=== PATIENT | male | born 1955 | race Caucasian/White ===

== ENCOUNTER → 2016-12-11 | Outpatient (CLI) | payer MEDICARE, MEDICAID ==
--- NOTE | 2016-12-11 11:05 | CR ---
EXAMINATION: Small bowel follow-through HISTORY: Abnormal findings COMPARISON: CT dated 10/12/2016 TECHNIQUE: A standard small bowel follow-through was performed. FINDINGS: The visualized small bowel appears normal in caliber without a definite filling defect or stricture. The fold pattern appears normal. The transit time is normal at 1 hour and 15 minutes. The terminal ileum is not optimally characterized however appears normal in caliber. IMPRESSION: Grossly unremarkable small bowel follow-through.
== END ==
LOC: MW.DI 08:16
PROVIDERS: ATTEND Nurse Practitioner Family
DX: R93.3 Abnormal findings on diagnostic imaging of other parts of digestive tract (principal); K52.9 Noninfective gastroenteritis and colitis, unspecified
CPT/HCPCS: 74250; 74250-26

== ENCOUNTER 2017-01-07 09:54 | Emergency (ER) | payer MEDICARE, MEDICAID ==
--- NOTE | 2017-01-07 10:25 | EDM.PDOC ---
ED HPI GENERAL MEDICAL PROBLEM - General Chief Complaint: Lower Extremity Injury/Pain Stated Complaint: LEFT LEG Time Seen by Provider: 01/07/17 10:10 Source of Information: Reports: Patient, Other (caregiver) History Limitations: Reports: Altered Mental Status, Other (cognitive delay) - History of Present Illness INITIAL COMMENTS - FREE TEXT/NARRATIVE: HISTORY AND PHYSICAL: History of present illness: [Patient is brought to the emergency room by his caregiver. Patient lives in a retirement and is developmentally delayed. His caregiver reports that he fell last evening bumping his head on a cupboard. He had no loss of consciousness and immediately went to bed after the incident. He had no evidence of injuries or complaints of pain at that time. He woke up this morning complaining of left ankle pain. He continues to deny any pain to any other areas. Caregiver noticed swelling and bruising. Review of systems: As per history of present illness and below otherwise all systems reviewed and negative. Past medical history: As per history of present illness and as reviewed below otherwise noncontributory. Surgical history: As per history of present illness and as reviewed below otherwise noncontributory. Social history: No reported history of drug or alcohol abuse. Family history: As per history of present illness and as reviewed below otherwise noncontributory. Physical exam: HEENT: Atraumatic, normocephalic. mucous membranes moist. Neck: No tenderness with palpation over C-spine. Negative axial load. Lungs: Clear to auscultation, breath sounds equal bilaterally. Heart: S1S2, regular rate and rhythm. Abdomen: Soft, nondistended, nontender. Extremities: L ankle is swollen laterally and medially. Mild ecchymosis to lateral aspect. NO erythema or wounds. negative for cords or calf pain. Neurovascular unremarkable. Toes are warm dry pink intact. Neuro: Awake, alert, oriented. Motor and sensory unremarkable throughout. Exam nonfocal. Diagnostics: [Left ankle x-ray CT head and C-spine] Impression: [distal L tibial fracture] Plan: [CT of the head and C-spine are normal. Radiologist notes, There is a subtle linear lucency noted over the anterior inferior aspect of the distal left tibia which may reflect the presence of a small fracture. This is certainly consistent with patient's presentation today. This is reviewed with Dr. Andrews. Discussed with the caregiver that this facility does not have an orthopedist available until January 11. She is given the option of transfer to [facility] in [place] for orthopedist consultation or having a splint placed in the emergency room today with close followup with orthopedist later this week. Caregiver requests that a splint be placed today and patient be scheduled for a followup. Short leg posterior splint applied to L lower leg. All of care givers questions are answered and concerns are addressed.] Definitive disposition and diagnosis as appropriate pending reevaluation and review of above. - Related Data Allergies Allergy/AdvReac Type Severity Reaction Status Date / Time haloperidol Allergy Cannot Verified 01/07/17 10:14 Remember thioridazine Allergy Cannot Verified 01/07/17 10:14 Remember Home Meds: Home Meds Calcium Carb & Citrate/Vit D3 [Calcium + Vitamin D3 Caplet] 2 tab PO BID [History] Gabapentin [Neurontin] 900 mg PO TID 04/21/14 [History] Fenofibric Acid (Choline) [Trilipix] 145 mg PO DAILY 08/10/15 [History] Lisinopril 5 mg PO DAILY 08/10/15 [History] Polyethylene Glycol 3350 17 gram PO DAILY 08/10/15 [History] Testosterone Cypionate [Depo-Testosterone] 1 injection SQ ASDIRECTED 08/10/15 [ History] carBAMazepine [TEGretol XR] 300 mg PO TID 08/10/15 [History] Divalproex Sodium [Depakote ER] 750 mg PO BID 10/10/16 [History] Ciprofloxacin [IJP: Ciprofloxacin HCl] 500 mg PO BID #14 tab 10/13/16 [Rx] metroNIDAZOLE [Flagyl] 500 mg PO Q8H #21 tablet 10/13/16 [Rx] Past Medical History HEENT History: Reports: None Cardiovascular History: Reports: Hypertension Respiratory History: Reports: None Gastrointestinal History: Reports: Chronic Constipation, GERD Other Gastrointestinal History: Heartburn/GERD-controlled Genitourinary History: Reports: None Musculoskeletal History: Reports: Fracture Other Musculoskeletal History: hx: Fracture foot, ankle, shoulder, any hardware denied by soloist dancer Neurological History: Reports: Seizure, Other (See Below) Other Neuro History: No reported seizures since . 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 Other Psychiatric History: mental retardation/mood disorder Endocrine/Metabolic History: Reports: Obesity/BMI 30+ Hematologic History: Reports: None Immunologic History: Reports: None Oncologic (Cancer) History: Reports: None Dermatologic History: Reports: None - Infectious Disease History Infectious Disease History: Reports: None - Past Surgical History HEENT Surgical History: Reports: None Cardiovascular Surgical History: Reports: None GI Surgical History: Reports: None Male Surgical History: Reports: None Endocrine Surgical History: Reports: None Neurological Surgical History: Reports: None Musculoskeletal Surgical History: Reports: None Oncologic Surgical History: Reports: None Dermatological Surgical History: Reports: None Social & Family History - Family History Family Medical History: Noncontributory HEENT: Reports: None Cardiac: Reports: None Respiratory: Reports: None GI: Reports: None : Reports: None OBGYN: Reports: None Musculoskeletal: Reports: None Neurological: Reports: None Psychiatric: Reports: None Endocrine/Metabolic: Reports: None Hematologic: Reports: None Immunologic: Reports: None Dermatologic: Reports: None Oncologic: Reports: None - Tobacco Use Smoking Status *Q: Never Smoker Second Hand Smoke Exposure: No - Caffeine Use Caffeine Use: Reports: Coffee - Alcohol Use Days Per Week of Alcohol Use: 0 - Recreational Drug Use Recreational Drug Use: No Drug Use in Last 12 Months: No Review of Systems - Review of Systems Review Of Systems: ROS reveals no pertinent complaints other than HPI. Trauma Exam - Physical Exam Exam: See Below Course - Vital Signs Last Recorded V/S: Last Vital Signs Temp 97.0 F 01/07/17 10:15 Pulse 72 01/07/17 10:15 Resp 16 01/07/17 10:15 BP 160/90 H 01/07/17 10:15 Pulse Ox 93 L 01/07/17 10:15 - Orders/Labs/Meds Orders: Active Orders 24 hr Category Date Time Status Ankle Min 3V Lt [CR] Stat Exams 01/07/17 10:14 Taken Cervical Spine wo Cont [CT] Stat Exams 01/07/17 10:16 Taken Foot 2V Lt [CR] Stat Exams 01/07/17 10:14 Taken Head wo Cont [CT] Stat Exams 01/07/17 10:16 Taken Departure - Departure Time of Disposition: 12:15 Disposition: Home, Self-Care 01 Condition: good Clinical Impression: Fracture of lower end of left tibia Qualifiers: Encounter type: initial encounter Fracture type: closed Fracture morphology: unspecified fracture morphology Qualified Code(s): S82.302A - Unspecified fracture of lower end of left tibia, initial encounter for closed fracture - Discharge Information Referrals: PCP,None [Primary Care Provider] - Forms: ED Department Discharge Additional Instructions: The following information is given to patients seen in the emergency department who are being discharged to home. This information is to outline your options for follow-up care. We provide all patients seen in our emergency department with a follow-up referral. The need for follow-up, as well as the timing and circumstances, are variable depending upon the specifics of your emergency department visit. If you don't have a primary care physician on staff, we will provide you with a referral. We always advise you to contact your personal physician following an emergency department visit to inform them of the circumstance of the visit and for follow-up with them and/or the need for any referrals to a consulting specialist. The emergency department will also refer you to a specialist when appropriate. This referral assures that you have the opportunity for follow-up care with a specialist. All of these measure are taken in an effort to provide you with optimal care, which includes your follow-up. Under all circumstances we always encourage you to contact your private physician who remains a resource for coordinating your care. When calling for follow-up care, please make the office aware that this follow-up is from your recent emergency room visit. If for any reason you are refused follow-up, please contact the [facility] emergency department at and asked to speak to the emergency department charge nurse. [facility] [address], [address] [place] [address] Call the above listed phone number to get scheduled for an orthopedic consult for January 11. Tylenol or ibuprofen for discomfort. Return to ER as needed as discussed - My Orders Last 24 Hours: My Active Orders 01/07/17 10:14 Ankle Min 3V Lt [CR] Stat Foot 2V Lt [CR] Stat 01/07/17 10:16 Cervical Spine wo Cont [CT] Stat Head wo Cont [CT] Stat - Assessment/Plan Last 24 Hours: My Active Orders 01/07/17 10:14 Ankle Min 3V Lt [CR] Stat Foot 2V Lt [CR] Stat 01/07/17 10:16 Cervical Spine wo Cont [CT] Stat Head wo Cont [CT] Stat
[2017-01-07 12:22] VITALS: BP 158/78
--- NOTE | 2017-01-08 17:32 | CR ---
EXAM DATE: 01/07/17 PATIENT'S AGE: 61 Patient: BERTHA SRIVASTAVA Facility: [facility], [place] Site . Site : 1955 Study: XRay Extremity Left Ankle [id number]/14/2017 10:40:58 AM Ordering Physician: Doctor Quezada Final Report: HISTORY: Fall, injury. TECHNIQUE: Three views of the left ankle. Two views of the left foot. COMPARISON: 10/10/2016. FINDINGS: Left ankle: As seen on the lateral film, there is linear lucency involving the anterior-inferior aspect of the distal tibia which appears new from the prior radiographs. This may indicate a subtle small fracture. Distal tibia appears otherwise intact. No distal fibular fracture. No widening of the ankle mortise. - Left foot: Narrowing of several of the interphalangeal joints. Mild chronic deformity of the distal aspects of the middle phalanges of the 3rd 4th digits is unchanged. No acute fracture involving the forefoot or midfoot. No radiopaque foreign body or abnormal soft tissue gas. IMPRESSION: 1. Subtle linear lucency involving the anterior-inferior aspect of the distal left tibia which may reflect the presence of a small fracture. Correlation with site of patient`s pain and mechanism of injury is recommended. 2. No other potential fracture. 3. No widening of the ankle mortise. 4. Degenerative changes. Dictated by Herrera Pelletier MD @ 01/07/2017 10:53:10 AM Dictated by: Herrera Pelletier MD @ 01/07/2017 10:53:19 (Electronic Signature) Report Signed by Proxy. BINU
--- NOTE | 2017-01-08 17:33 | CR ---
EXAM DATE: 01/07/17 PATIENT'S AGE: 61 Patient: BERTHA SRIVASTAVA Facility: [place], [place] Site . Site : 1955 Study: XRay Extremity Left [id number]/14/2017 10:41:32 AM Ordering Physician: Doctor Quezada Final Report: HISTORY: Fall, injury. TECHNIQUE: Three views of the left ankle. Two views of the left foot. COMPARISON: 10/10/2016. FINDINGS: Left ankle: As seen on the lateral film, there is linear lucency involving the anterior-inferior aspect of the distal tibia which appears new from the prior radiographs. This may indicate a subtle small fracture. Distal tibia appears otherwise intact. No distal fibular fracture. No widening of the ankle mortise. - Left foot: Narrowing of several of the interphalangeal joints. Mild chronic deformity of the distal aspects of the middle phalanges of the 3rd 4th digits is unchanged. No acute fracture involving the forefoot or midfoot. No radiopaque foreign body or abnormal soft tissue gas. IMPRESSION: 1. Subtle linear lucency involving the anterior-inferior aspect of the distal left tibia which may reflect the presence of a small fracture. Correlation with site of patient`s pain and mechanism of injury is recommended. 2. No other potential fracture. 3. No widening of the ankle mortise. 4. Degenerative changes. Dictated by Herrera Pelletier MD @ 01/07/2017 10:53:10 AM Dictated by: Herrera Pelletier MD @ 01/07/2017 10:53:33 (Electronic Signature) Report Signed by Proxy. BINU
--- NOTE | 2017-01-08 17:34 | CT ---
EXAM DATE: 01/07/17 PATIENT'S AGE: 61 Patient: BERTHA SRIVASTAVA Facility: [place], [place] Site . Site : 1955 Study: CT Spine Cervical [id number]/14/2017 10:59:24 AM Ordering Physician: Doctor Quezada Final Report: Indication: Fall. Comparison: None. Technique: Axial CT of the cervical spine. Findings: Straightening of the normal cervical lordosis which may be due to muscle spasm or patient positioning. Otherwise, normal vertebral body and facet alignment. No acute fractures. No vertebral body loss of height. No spondylolisthesis. No prevertebral soft tissue swelling. No fractures of the visualized upper ribs. Cervical spondylosis with multilevel disc degeneration and facet arthropathy. C2-3: No spinal canal or neural foraminal narrowing. C3-4: No spinal canal narrowing. Uncovertebral facet joint hypertrophy results in mild right and moderate left neural foraminal narrowing. C4-5: No spinal canal narrowing. Mild narrowing of the right neural foramen. No narrowing of the left neural foramen. C5-6: No narrowing of spinal canal. Moderate right neural foraminal narrowing. No narrowing of the left neural foramen. C6-7: Disc degeneration. No spinal canal or neural foramina narrowing. C7-T1: No spinal canal narrowing. Mild narrowing of bilateral foramina. No spinal canal or neural foraminal narrowing in the visualized upper thoracic spine. Lung apices are clear. Impression: 1. Normal alignment. No acute fractures. No spondylolisthesis. 2. No prevertebral soft tissue swelling. 3. Cervical spondylosis 4. No severe spinal canal or neural foraminal narrowing. Dictated by Joel Mathur MD @ Jan 07 2017 11:12AM (Electronic Signature) Report Signed by Proxy. [facility]ITAL[facility]y
--- NOTE | 2017-01-08 17:35 | CT ---
EXAM DATE: 01/07/17 PATIENT'S AGE: 61 Patient: BERTHA SRIVASTAVA Facility: [place], [place] Site . Site : 1955 Study: CT Head [id number]/14/2017 10:59:39 AM Ordering Physician: Doctor Quezada Final Report: Indication: Fall. Comparison: None. Technique: [place] CT of the head without contrast. Findings: Mild generalized cerebral volume loss. No acute intracranial hemorrhage, acute infarct, mass effect, or fracture. Low-attenuation change within the white matter consistent with chronic deep white matter small ischemic changes. Old lacunar infarct right cerebellum. No midline shift. No abnormal ventricular dilatation. Normal calvarium and skull base. Visualized paranasal sinuses and mastoid air cells are clear. The bilateral orbits are unremarkable. Impression: 1. No acute intracranial abnormality. 2. Mild generalized volume loss. Chronic deep white matter small vessel ischemic changes. Old lacunar infarct right cerebellum. Dictated by Joel Mathur MD @ Jan 07 2017 11:10AM (Electronic Signature) Report Signed by Proxy. [facility]
== END 2017-01-07 12:18 | disposition home or self-care (01) ==
LOC: MW.ED 09:54
DX: S82.302A Unspecified fracture of lower end of left tibia, initial encounter for closed fracture (principal); K21.9 Gastro-esophageal reflux disease without esophagitis; I10 Essential (primary) hypertension; E66.9 Obesity, unspecified; F39 Unspecified mood [affective] disorder; Z88.6 Allergy status to analgesic agent; Z79.899 Other long term (current) drug therapy; Z68.31 Body mass index [BMI] 31.0-31.9, adult; W20.8XXA Other cause of strike by thrown, projected or falling object, initial encounter; M47.9 Spondylosis, unspecified
CPT/HCPCS: 70450; 70450-26; 72125; 72125-26; 73610-26-LT; 73610-LT; 73620-26-LT; 73620-LT; 99284; 99284-25

== ENCOUNTER → 2017-01-09 | Outpatient (CLI) | payer MEDICARE, MEDICAID | LOC: MW.CHORTHO 08:00 | PROVIDERS: ATTEND Physician Assistant | DX: S93.402A Sprain of unspecified ligament of left ankle, initial encounter (principal); W19.XXXA Unspecified fall, initial encounter | CPT/HCPCS: G0463 ==

== ENCOUNTER 2018-01-24 14:44 | Emergency (ER) | payer MEDICARE, MEDICAID ==
--- NOTE | 2018-01-24 15:15 | EDM.PDOC ---
ED HPI GENERAL MEDICAL PROBLEM - General Chief Complaint: Lower Extremity Injury/Pain Stated Complaint: RIGHT FOOT PAIN Time Seen by Provider: 01/24/18 15:02 Source of Information: Reports: Patient History Limitations: Reports: No Limitations - History of Present Illness INITIAL COMMENTS - FREE TEXT/NARRATIVE: HISTORY AND PHYSICAL: History of present illness: Patient is a 62-year-old male who is brought to the emergency room by caregiver with complaints and concerns of some bruising and swelling to the right foot. Patient is developmentally delayed and does live in a long-term and relies on care of other people. Today while the sales representative raw fibers was getting the patient ready for work the patient stated he was having right foot pain. He denies any falls, trauma or injury but does have some bruising and swelling noted. There facility does have a nurse who reviewed the patient's extremity and encourage them to have him seen in the emergency room. Patient is ambulatory without difficulty. Has a known fracture of the foot in 2011. Review of systems: As per history of present illness and below otherwise all systems reviewed and negative. Past medical history: As per history of present illness and as reviewed below otherwise noncontributory. Surgical history: As per history of present illness and as reviewed below otherwise noncontributory. Social history: No reported history of drug or alcohol abuse. Family history: As per history of present illness and as reviewed below otherwise noncontributory. Physical exam: General: Developed and well-nourished 62-year-old male. Alert and appropriate for self, developmental delay. Nontoxic appearing and in no acute distress. HEENT: Atraumatic, normocephalic, pupils equal and reactive bilaterally, negative for conjunctival pallor or scleral icterus, mucous membranes moist, throat clear, neck supple, nontender, trachea midline. No drooling or trismus noted. No meningeal signs Lungs: Clear to auscultation, breath sounds equal bilaterally, chest nontender. Heart: S1S2, regular rate and rhythm without overt murmur Abdomen: Soft, nondistended, nontender. Negative for masses or hepatosplenomegaly. Negative for costovertebral tenderness. Pelvis: Stable nontender. Genitourinary: Deferred. Rectal: Deferred. Skin: Noted to the base of fourth and fifth toe on right foot. Mild soft tissue swelling at the lateral right foot. Good flexion and extension of the ankle. Full sensation to toes. Cap refill less than 3 seconds. Strong pedal pulses bilat. Otherwise skin is intact, warm, dry. No lesions or rashes noted. Extremities: Atraumatic, moves all extremities per self, negative for cords or calf pain. Neurovascular unremarkable. Neuro: Awake, alert, oriented. Cranial nerves II through XII unremarkable. Cerebellum unremarkable. Motor and sensory unremarkable throughout. Exam nonfocal. Notes: X-ray shows significant osteopenia for the patient's age without acute fracture. This was shared with the police specialist at the bedside. Caregiver believes that the patient will tolerate a Franklyn wrap. We discussed following up with the trailer mechanic in the next couple days for further evaluation and management. Both patient and caregiver deny any further questions at this time. Diagnostics: X-ray Therapeutics: Franklyn wrap Impression: Right foot contusion Plan: 1. Rest, ice, elevate the affected extremity. Use the Franklyn wrap for the next 2-3 days. 2. Tylenol and/or ibuprofen as needed for pain management. 3. Follow-up with the trailer mechanic in the next couple days. Return to the ED as needed and as discussed. Definitive disposition and diagnosis as appropriate pending reevaluation and review of above. Onset: Today Location: Reports: Lower Extremity, Right - Related Data Allergies Allergy/AdvReac Type Severity Reaction Status Date / Time haloperidol Allergy Cannot Verified 01/24/18 16:13 Remember thioridazine Allergy Cannot Verified 01/24/18 16:13 Remember Home Meds: Home Meds Calcium Carb & Citrate/Vit D3 [Calcium + Vitamin D3 Caplet] 2 tab PO BID [History] Gabapentin [Neurontin] 900 mg PO TID 04/21/14 [History] Lisinopril 5 mg PO DAILY 08/10/15 [History] Polyethylene Glycol 3350 17 gram PO DAILY 08/10/15 [History] Testosterone Cypionate [Depo-Testosterone] 1 injection SQ ASDIRECTED 08/10/15 [ History] carBAMazepine [TEGretol XR] 300 mg PO TID 08/10/15 [History] Divalproex Sodium [Depakote ER] 750 mg PO BID 10/10/16 [History] Fenofibrate Nanocrystallized [Fenofibrate] 145 mg PO DAILY 01/24/18 [History] Metoprolol Succinate 50 mg PO DAILY 01/24/18 [History] Past Medical History HEENT History: Reports: None Cardiovascular History: Reports: Hypertension Respiratory History: Reports: None Gastrointestinal History: Reports: Chronic Constipation, GERD Other Gastrointestinal History: Heartburn/GERD-controlled Genitourinary History: Reports: None Musculoskeletal History: Reports: Fracture Other Musculoskeletal History: hx: Fracture foot, ankle, shoulder, any hardware denied by proof technician helper Neurological History: Reports: Seizure, Other (See Below) Other Neuro History: No reported seizures since . 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 Other Psychiatric History: mental retardation/mood disorder Endocrine/Metabolic History: Reports: Obesity/BMI 30+ Hematologic History: Reports: None Immunologic History: Reports: None Oncologic (Cancer) History: Reports: None Dermatologic History: Reports: None - Infectious Disease History Infectious Disease History: Reports: None - Past Surgical History HEENT Surgical History: Reports: None Cardiovascular Surgical History: Reports: None GI Surgical History: Reports: None Male Surgical History: Reports: None Endocrine Surgical History: Reports: None Neurological Surgical History: Reports: None Musculoskeletal Surgical History: Reports: None Oncologic Surgical History: Reports: None Dermatological Surgical History: Reports: None Social & Family History - Family History Family Medical History: Noncontributory HEENT: Reports: None Cardiac: Reports: None Respiratory: Reports: None GI: Reports: None : Reports: None OBGYN: Reports: None Musculoskeletal: Reports: None Neurological: Reports: None Psychiatric: Reports: None Endocrine/Metabolic: Reports: None Hematologic: Reports: None Immunologic: Reports: None Dermatologic: Reports: None Oncologic: Reports: None - Caffeine Use Caffeine Use: Reports: Coffee Review of Systems - Review of Systems Review Of Systems: ROS reveals no pertinent complaints other than HPI. ED EXAM, GENERAL - Physical Exam Exam: See Below (see dictation) Course - Vital Signs Last Recorded V/S: Last Vital Signs Temp 97.4 F 01/24/18 15:12 Pulse 66 01/24/18 15:12 Resp 19 01/24/18 15:12 BP 125/66 01/24/18 15:12 Pulse Ox 100 01/24/18 15:12 Departure - Departure Time of Disposition: 16:33 Disposition: Home, Self-Care 01 Clinical Impression: Contusion of foot, right Qualifiers: Encounter type: initial encounter Qualified Code(s): S90.31XA - Contusion of right foot, initial encounter - Discharge Information Instructions: Foot Contusion, [id number] Referrals: Carlos Dangelo MD [Primary Care Provider] - Forms: ED Department Discharge Additional Instructions: The following information is given to patients seen in the emergency department who are being discharged to home. This information is to outline your options for follow-up care. We provide all patients seen in our emergency department with a follow-up referral. The need for follow-up, as well as the timing and circumstances, are variable depending upon the specifics of your emergency department visit. If you don't have a primary care physician on staff, we will provide you with a referral. We always advise you to contact your personal physician following an emergency department visit to inform them of the circumstance of the visit and for follow-up with them and/or the need for any referrals to a consulting specialist. The emergency department will also refer you to a specialist when appropriate. This referral assures that you have the opportunity for follow-up care with a specialist. All of these measure are taken in an effort to provide you with optimal care, which includes your follow-up. Under all circumstances we always encourage you to contact your private physician who remains a resource for coordinating your care. When calling for follow-up care, please make the office aware that this follow-up is from your recent emergency room visit. If for any reason you are refused follow-up, please contact the [facility] Emergency Department at and asked to speak to the emergency department charge nurse. [facility] [address] [place] [phone] [address] 1. Rest, ice, elevate the affected extremity. Use the Franklyn wrap for the next 2-3 days. 2. Tylenol and/or ibuprofen as needed for pain management. 3. Follow-up with the trailer mechanic in the next couple days. Return to the ED as needed and as discussed.
[2018-01-24 15:20] VITALS: BP 125/66
--- NOTE | 2018-01-24 15:47 | CR ---
Right foot Clinical history: Pain The bones are very osteopenic for a male patient of this age. There is no evidence of fracture. Minor arthritic changes of the distal interphalangeal joints are noted. Impression: Significant osteopenia for patient's age without acute fracture
== END 2018-01-24 17:14 | disposition home or self-care (01) ==
LOC: MW.ED 14:44
DX: S90.31XA Contusion of right foot, initial encounter (principal); I10 Essential (primary) hypertension; E66.9 Obesity, unspecified; Z88.8 Allergy status to other drugs, medicaments and biological substances; Z79.899 Other long term (current) drug therapy; X58.XXXA Exposure to other specified factors, initial encounter
CPT/HCPCS: 73620-26-RT; 73620-RT; 99283

== ENCOUNTER 2018-03-11 18:00 | Emergency (ER) | payer MEDICARE, MEDICAID ==
[2018-03-11] MEDS ORDERED: Octyl 2-Cyanoacrylate 1 Tube TOP ONE (18:21)
--- NOTE | 2018-03-11 18:31 | EDM.PDOC ---
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 He somehow got tripped up and hit his face on the corner of a chair. There was no loss of consciousness the staff heard it and saw him sitting on the floor with blood on his face and arm. Review of systems: As per history of present illness and below otherwise all systems reviewed and negative. Past medical history: As per history of present illness and as reviewed below otherwise noncontributory. Surgical history: As per history of present illness and as reviewed below otherwise noncontributory. Social history: No reported history of drug or alcohol abuse. Family history: As per history of present illness and as reviewed below otherwise noncontributory. Physical exam: General: Well developed, well nourished in NAD HEENT: Left upper eyelid laceration, normocephalic, pupils reactive, negative for conjunctival pallor or scleral icterus, mucous membranes moist, throat clear , neck supple, nontender, trachea midline. Lungs: Clear to auscultation, breath sounds equal bilaterally, chest nontender. Heart: S1S2, regular, negative for clicks, rubs, or JVD. Abdomen: Soft, nondistended, nontender. Negative for masses or hepatosplenomegaly. Negative for costovertebral tenderness. Pelvis: Stable nontender. Genitourinary: Deferred. Rectal: Deferred. Extremities: Atraumatic, negative for cords or calf pain. Neurovascular unremarkable. Neuro: Awake, alert, oriented. Cranial nerves II through XII unremarkable. Cerebellum unremarkable. Motor and sensory unremarkable throughout. Exam nonfocal. Diagnostics: [] Therapeutics: [] Impression: [] Plan: [] Definitive disposition and diagnosis as appropriate pending reevaluation and review of above. - Related Data Allergies Allergy/AdvReac Type Severity Reaction Status Date / Time haloperidol Allergy Cannot Verified 03/11/18 18:14 Remember thioridazine Allergy Cannot Verified 03/11/18 18:14 Remember Home Meds: Home Meds Calcium Carb & Citrate/Vit D3 [Calcium + Vitamin D3 Caplet] 2 tab PO BID [History] Gabapentin [Neurontin] 900 mg PO TID 04/21/14 [History] Lisinopril 5 mg PO DAILY 08/10/15 [History] Polyethylene Glycol 3350 17 gram PO DAILY 08/10/15 [History] Testosterone Cypionate [Depo-Testosterone] 1 injection SQ ASDIRECTED 08/10/15 [ History] carBAMazepine [TEGretol XR] 300 mg PO TID 08/10/15 [History] Divalproex Sodium [Depakote ER] 750 mg PO BID 10/10/16 [History] Fenofibrate Nanocrystallized [Fenofibrate] 145 mg PO DAILY 01/24/18 [History] Metoprolol Succinate 50 mg PO DAILY 01/24/18 [History] Past Medical History HEENT History: Reports: None Cardiovascular History: Reports: Hypertension Respiratory History: Reports: None Gastrointestinal History: Reports: Chronic Constipation, GERD Other Gastrointestinal History: Heartburn/GERD-controlled Genitourinary History: Reports: None Musculoskeletal History: Reports: Fracture Other Musculoskeletal History: hx: Fracture foot, ankle, shoulder, any hardware denied by group teacher Neurological History: Reports: Seizure, Other (See Below) Other Neuro History: No reported seizures since . 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 Other Psychiatric History: mental retardation/mood disorder Endocrine/Metabolic History: Reports: Obesity/BMI 30+ Hematologic History: Reports: None Immunologic History: Reports: None Oncologic (Cancer) History: Reports: None Dermatologic History: Reports: None - Infectious Disease History Infectious Disease History: Reports: None - Past Surgical History HEENT Surgical History: Reports: None Cardiovascular Surgical History: Reports: None GI Surgical History: Reports: None Male Surgical History: Reports: None Endocrine Surgical History: Reports: None Neurological Surgical History: Reports: None Musculoskeletal Surgical History: Reports: None Oncologic Surgical History: Reports: None Dermatological Surgical History: Reports: None Social & Family History - Family History Family Medical History: Noncontributory HEENT: Reports: None Cardiac: Reports: None Respiratory: Reports: None GI: Reports: None : Reports: None OBGYN: Reports: None Musculoskeletal: Reports: None Neurological: Reports: None Psychiatric: Reports: None Endocrine/Metabolic: Reports: None Hematologic: Reports: None Immunologic: Reports: None Dermatologic: Reports: None Oncologic: Reports: None - Tobacco Use Smoking Status *Q: Never Smoker - Caffeine Use Caffeine Use: Reports: None - Recreational Drug Use Recreational Drug Use: No ED ROS GENERAL - Review of Systems Review Of Systems: ROS reveals no pertinent complaints other than HPI. ED EXAM, SKIN/RASH Exam: See Below (See history of present illness) ED SKIN PROCEDURES - Laceration/Wound Repair Left Other Appearance: Subcutaneous Distal NVT: Neuro & Vascular Intact Skin Prep: Saline Closed with: Dermabond Drain Placement: No Sterile Dressing Applied: None Tetanus Status Addressed: Yes Complications: No Course - Vital Signs Last Recorded V/S: Last Vital Signs Temp 97.2 F 03/11/18 18:12 Pulse 54 L 03/11/18 18:12 Resp 16 03/11/18 18:12 BP 132/72 03/11/18 18:12 Pulse Ox 98 03/11/18 18:12 Departure - Departure Time of Disposition: 18:31 Disposition: Home, Self-Care 01 Condition: Good Clinical Impression: Laceration of eyebrow Qualifiers: Encounter type: initial encounter Laterality: left Qualified Code(s): S01.112A - Laceration without foreign body of left eyelid and periocular area, initial encounter Clinical Impression: (Ruled Out): Left upper eyelid ulcer - Discharge Information *PRESCRIPTION DRUG MONITORING PROGRAM REVIEWED*: Not Applicable *COPY OF PRESCRIPTION DRUG MONITORING REPORT IN PATIENT NILA: Not Applicable Referrals: Eduardo Valdivia MD [Primary Care Provider] - Additional Instructions: The following information is given to patients seen in the emergency department who are being discharged to home. This information is to outline your options for follow-up care. We provide all patients seen in our emergency department with a follow-up referral. The need for follow-up, as well as the timing and circumstances, are variable depending upon the specifics of your emergency department visit. If you don't have a primary care physician on staff, we will provide you with a referral. We always advise you to contact your personal physician following an emergency department visit to inform them of the circumstance of the visit and for follow-up with them and/or the need for any referrals to a consulting specialist. The emergency department will also refer you to a specialist when appropriate. This referral assures that you have the opportunity for follow-up care with a specialist. All of these measure are taken in an effort to provide you with optimal care, which includes your follow-up. Under all circumstances we always encourage you to contact your private physician who remains a resource for coordinating your care. When calling for follow-up care, please make the office aware that this follow-up is from your recent emergency room visit. If for any reason you are refused follow-up, please contact the [facility] Emergency Department at and asked to speak to the emergency department charge nurse. [facility] [address] [place] [phone]
[2018-03-11 18:44] VITALS: BP 116/80
== END 2018-03-11 18:39 | disposition home or self-care (01) ==
LOC: MW.ED 18:00
DX: S01.112A Laceration without foreign body of left eyelid and periocular area, initial encounter (principal); I10 Essential (primary) hypertension; Z88.5 Allergy status to narcotic agent; Z88.8 Allergy status to other drugs, medicaments and biological substances; Z79.899 Other long term (current) drug therapy; W18.49XA Other slipping, tripping and stumbling without falling, initial encounter; Y92.009 Unspecified place in unspecified non-institutional (private) residence as the place of occurrence of the external cause
CPT/HCPCS: 12011; 99282; A9270

== ENCOUNTER 2019-05-17 00:21 | Emergency (ER) | payer MEDICARE, MEDICAID ==
[2019-05-17] MEDS ORDERED: Sodium Chloride 0.9% 10 ML Syringe FLUSH PRN (00:33)
[2019-05-17] MEDS ORDERED: Sodium Chloride 0.9% 2.5 ML Syringe FLUSH PRN (00:33)
--- NOTE | 2019-05-17 00:41 | EDM.PDOC ---
ED HPI GENERAL MEDICAL PROBLEM - General Chief Complaint: General Stated Complaint: WEAKNESS Time Seen by Provider: 05/17/19 00:24 - History of Present Illness INITIAL COMMENTS - FREE TEXT/NARRATIVE: HISTORY AND PHYSICAL: History of present illness: The patient is a 64-year-old male who lives at the [facility] and has a history of hypertension and MR and is on several different medications and has a history of using a walker for ambulation since the beginning of the year and presents via EMS for progressive increased weakness and tonight inability to transfer. According to the caregiver at bedside over the last multiple months the patient has had progressive gradual weakness and having more difficulty with movement ambulation and transferring but this evening he was trying to go to the bathroom and he had increased difficulty and the staff had to lift him and move him physically as he was unable. Caregiver at bedside says that he saw his regular physician in [place] earlier today for a follow-up and was able to get in and out of the car with assistance and go to the appointment and tonight seemed to be a progressive change. He's had no recent falls and had no fall this evening with tonight's events and has had no complaints of head neck or back pain fevers chills chest pain shortness of breath abdominal pain vomiting or diarrhea. He denies any complaints in the ED but he doesn't answer many questions. According to the caregiver his Depakote was adjusted and lowered in March but all of his other medications have been constant since the beginning of the summer. He has been eating and drinking normally. The precipitating factor with coming in this evening was the increased up disability to be able to transfer and to only use his walker without any other assistance. The patient denies any extremity pain and says that he has no complaints when I try to ask him questions or he just doesn't answer the questions. The caregiver says he has not been complaining of anything at home. Review of systems: As per history of present illness and below otherwise all systems reviewed and negative. Past medical history: As per history of present illness and as reviewed below otherwise noncontributory. Surgical history: As per history of present illness and as reviewed below otherwise noncontributory. Social history: No reported history of drug or alcohol abuse. Family history: As per history of present illness and as reviewed below otherwise noncontributory. Physical exam: General: Well-developed well-nourished man who is nontoxic and vital signs have been reviewed by me. HEENT: Atraumatic, normocephalic, pupils reactive, negative for conjunctival pallor or scleral icterus, mucous membranes moist, throat clear, neck supple, nontender, trachea midline. Lungs: Clear to auscultation, breath sounds equal bilaterally, chest nontender. There is poor effort on this exam but no worker breathing wheezing or stridor Heart: S1S2, regular, negative for clicks, rubs, or JVD. Abdomen: Soft, nondistended, nontender. Negative for masses or hepatosplenomegaly. Negative for costovertebral tenderness. Bowel sounds are normoactive Pelvis: Stable nontender. Genitourinary: Deferred. Rectal: Deferred. Extremities: Atraumatic and there are no palpable bony deformities or soft tissue swelling appreciated, negative for cords or calf pain. Neurovascular unremarkable. On my exam the patient has increased tone in lower extremities and when I attempt to passively range of motion his legs he resists me and keeps them in extension and once I am able to bend his knee and flexes hip and relax him I'm able to move them without deficits Neuro: Awake, alert, oriented. Cranial nerves II through XII unremarkable. Motor of the upper extremities is 4/5 and he is somewhat shaky when he holds his arms up and there is slight increase in tone of bilateral upper extremities but they are symmetrical, lower extremities have 2/5 actively but increased tone as described above with good strength and extension, sensory unremarkable throughout. Exam nonfocal. Back: There are no midline step-offs tenderness defects the thoracic or lumbar spine no posterior rib or posterior pelvis tenderness and no soft tissue injuries are appreciated Diagnostics: EKG CBC CMP CPK UA with reflex chest x-ray CT scan of the head Therapeutics: IV placement When I specifically show and asked the air give her about the increased tone in the lower extremities she says that that was noticed this evening and that he seemed to try to transfer and move his legs with a stiffened fashion We were able to get the patient up with assistance and walk him around. Initially was very stiff and was resistant to doing this but he was able to actually move himself on the bed and assist and get up and move around. I discussed with the caregiver at bedside that he really does need physical therapy for this significant deconditioning in order to keep him able to move around and use a walker. Impression: Generalized weakness acute on chronic, physical deconditioning Definitive disposition and diagnosis as appropriate pending reevaluation and review of above. - Related Data Allergies Allergy/AdvReac Type Severity Reaction Status Date / Time haloperidol Allergy Other Unverified 05/17/19 01:49 thioridazine Allergy Other Unverified 05/17/19 01:49 Home Meds: Home Meds Calcium Carb & Citrate/Vit D3 [Calcium + Vitamin D3 Caplet] 2 tab PO BID [History] Gabapentin [Neurontin] 900 mg PO TID 04/21/14 [History] Lisinopril 5 mg PO DAILY 08/10/15 [History] Polyethylene Glycol 3350 17 gram PO DAILY 08/10/15 [History] Testosterone Cypionate [Depo-Testosterone] 1 injection SQ ASDIRECTED 08/10/15 [ History] carBAMazepine [TEGretol XR] 300 mg PO TID 08/10/15 [History] Divalproex Sodium [Depakote ER] 750 mg PO BID 10/10/16 [History] Fenofibrate Nanocrystallized [Fenofibrate] 145 mg PO DAILY 01/24/18 [History] Metoprolol Succinate 50 mg PO DAILY 01/24/18 [History] Past Medical History HEENT History: Reports: None Cardiovascular History: Reports: Hypertension Respiratory History: Reports: None Gastrointestinal History: Reports: Chronic Constipation, GERD Other Gastrointestinal History: Heartburn/GERD-controlled Genitourinary History: Reports: None Musculoskeletal History: Reports: Fracture Other Musculoskeletal History: hx: Fracture foot, ankle, shoulder, any hardware denied by yard inspector Neurological History: Reports: Seizure, Other (See Below) Other Neuro History: No reported seizures since . 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 Other Psychiatric History: mental retardation/mood disorder Endocrine/Metabolic History: Reports: Obesity/BMI 30+ Hematologic History: Reports: None Immunologic History: Reports: None Oncologic (Cancer) History: Reports: None Dermatologic History: Reports: None - Infectious Disease History Infectious Disease History: Reports: None - Past Surgical History HEENT Surgical History: Reports: None Cardiovascular Surgical History: Reports: None GI Surgical History: Reports: None Male Surgical History: Reports: None Endocrine Surgical History: Reports: None Neurological Surgical History: Reports: None Musculoskeletal Surgical History: Reports: None Oncologic Surgical History: Reports: None Dermatological Surgical History: Reports: None Social & Family History - Family History Family Medical History: Noncontributory HEENT: Reports: None Cardiac: Reports: None Respiratory: Reports: None GI: Reports: None : Reports: None OBGYN: Reports: None Musculoskeletal: Reports: None Neurological: Reports: None Psychiatric: Reports: None Endocrine/Metabolic: Reports: None Hematologic: Reports: None Immunologic: Reports: None Dermatologic: Reports: None Oncologic: Reports: None - Caffeine Use Caffeine Use: Reports: None ED ROS GENERAL - Review of Systems Review Of Systems: ROS reveals no pertinent complaints other than HPI. ED EXAM, GENERAL - Physical Exam Exam: See Below (see dictation) Course - Vital Signs Last Recorded V/S: Last Vital Signs Temp 36.1 C 05/17/19 00:25 Pulse 54 L 05/17/19 02:05 Resp 17 05/17/19 02:05 BP 131/79 05/17/19 02:05 Pulse Ox 99 05/17/19 02:05 - Orders/Labs/Meds Orders: Active Orders 24 hr Category Date Time Status EKG Documentation Completion [RC] STAT Care 05/17/19 00:32 Active Sodium Chloride 0.9% [Saline Flush] Med 05/17/19 00:33 Active 10 ml FLUSH ASDIRECTED PRN Sodium Chloride 0.9% [Saline Flush] Med 05/17/19 00:33 Active 2.5 ml FLUSH ASDIRECTED PRN Saline Lock Insert [OM.PC] Stat Oth 05/17/19 00:32 Ordered Medication Orders Sodium Chloride (Saline Flush) 10 ml FLUSH ASDIRECTED PRN PRN Reason: Keep Vein Open Sodium Chloride (Saline Flush) 2.5 ml FLUSH ASDIRECTED PRN PRN Reason: Keep Vein Open Labs: Laboratory Tests 05/17/19 05/17/19 05/17/19 Range/Units 00:37 00:37 00:43 WBC 5.66 (4.0-11.0) K/uL RBC 3.25 L (4.50-5.90) M/uL Hgb 10.9 L (13.0-17.0) g/dL Hct 31.2 L (38.0-50.0) % MCV 96.0 (80.0-98.0) fL MCH 33.5 H (27.0-32.0) pg MCHC 34.9 (31.0-37.0) g/dL RDW Std Deviation 38.8 (28.0-62.0) fl RDW Coeff of Cecilio 12 (11.0-15.0) % Plt Count 203 (150-400) K/uL MPV 9.20 (7.40-12.00) fL Neut % (Auto) 36.3 L (48.0-80.0) % Lymph % (Auto) 50.2 H (16.0-40.0) % Payne % (Auto) 10.6 (0.0-15.0) % Eos % (Auto) 2.5 (0.0-7.0) % Baso % (Auto) 0.4 (0.0-1.5) % Neut # (Auto) 2.1 (1.4-5.7) K/uL Lymph # (Auto) 2.8 H (0.6-2.4) K/uL Payne # (Auto) 0.6 (0.0-0.8) K/uL Eos # (Auto) 0.1 (0.0-0.7) K/uL Baso # (Auto) 0.0 (0.0-0.1) K/uL Sodium 130 L (136-148) mmol/L Potassium 4.1 (3.5-5.1) mmol/L Chloride 97 L (98-107) mmol/L Carbon Dioxide 24.4 (21.0-32.0) mmol/L BUN 16 (7.0-18.0) mg/dL Creatinine 1.1 (0.8-1.3) mg/dL Est Cr Clr Drug Dosing TNP Estimated GFR (MDRD) > 60.0 ml/min Glucose 101 (74-106) mg/dL Calcium 8.5 (8.5-10.1) mg/dL Total Bilirubin 0.3 (0.2-1.0) mg/dL AST 15 (15-37) IU/L ALT 14 (14-63) IU/L Alkaline Phosphatase 45 L (46-116) U/L Creatine Kinase 100 (26-308) U/L Total Protein 6.7 (6.4-8.2) g/dL Albumin 3.4 (3.4-5.0) g/dL Globulin 3.3 (2.6-4.0) g/dL Albumin/Globulin Ratio 1.0 (0.9-1.6) Urine Color YELLOW Urine Appearance CLEAR Urine pH 6.5 (5.0-8.0) Ur Specific Felton 1.015 (1.001-1.035) Urine Protein NEGATIVE (NEGATIVE) mg/dL Urine Glucose (UA) NEGATIVE (NEGATIVE) mg/dL Urine Ketones NEGATIVE (NEGATIVE) mg/dL Urine Occult Blood NEGATIVE (NEGATIVE) Urine Nitrite NEGATIVE (NEGATIVE) Urine Bilirubin NEGATIVE (NEGATIVE) Urine Urobilinogen 0.2 (<2.0) EU/dL Ur Leukocyte Esterase NEGATIVE (NEGATIVE) Valproic Acid 84.7 (50.0-100.0) ug/mL Carbamazepine 11.5 (4.0-12.0) ug/mL Meds: Medications Generic Name Dose Route Start Last Admin Trade Name Freq PRN Reason Stop Dose Admin Sodium Chloride 10 ml 05/17/19 00:33 Saline Flush FLUSH ASDIRECTED PRN Keep Vein Open Sodium Chloride 2.5 ml 05/17/19 00:33 Saline Flush FLUSH ASDIRECTED PRN Keep Vein Open Departure - Departure Time of Disposition: 03:00 Disposition: Home, Self-Care 01 Condition: Good Clinical Impression: Generalized weakness, Physical deconditioning - Discharge Information Referrals: PCP,None [Primary Care Provider] - Forms: ED Department Discharge Additional Instructions: The following information is given to patients seen in the emergency department who are being discharged to home. This information is to outline your options for follow-up care. We provide all patients seen in our emergency department with a follow-up referral. The need for follow-up, as well as the timing and circumstances, are variable depending upon the specifics of your emergency department visit. If you don't have a primary care physician on staff, we will provide you with a referral. We always advise you to contact your personal physician following an emergency department visit to inform them of the circumstance of the visit and for follow-up with them and/or the need for any referrals to a consulting specialist. The emergency department will also refer you to a specialist when appropriate. This referral assures that you have the opportunity for followup care with a specialist. All of these measure are taken in an effort to provide you with optimal care, which includes your followup. Under all circumstances we always encourage you to contact your private physician who remains a resource for coordinating your care. When calling for followup care, please make the office aware that this follow-up is from your recent emergency room visit. If for any reason you are refused follow-up, please contact the [facility] emergency department at and ask to speak to the emergency department charge nurse. [facility] Primary care- Internal Medicine and Family [address] [address] Please follow-up with your provider or one of ours next week for further care and reevaluation. Discussed with your provider starting physical therapy as this may help the overall physical deconditioning that is occurring with this patient. It may also improve flexibility and mobility and overall muscle tone. Continue all home medications and return to ER as needed and as discussed - My Orders Last 24 Hours: My Active Orders 05/17/19 00:32 EKG Documentation Completion [RC] STAT Saline Lock Insert [OM.PC] Stat 05/17/19 00:33 Sodium Chloride 0.9% [Saline Flush] 10 ml FLUSH ASDIRECTED PRN Sodium Chloride 0.9% [Saline Flush] 2.5 ml FLUSH ASDIRECTED PRN - Assessment/Plan Last 24 Hours: My Active Orders 05/17/19 00:32 EKG Documentation Completion [RC] STAT Saline Lock Insert [OM.PC] Stat 05/17/19 00:33 Sodium Chloride 0.9% [Saline Flush] 10 ml FLUSH ASDIRECTED PRN Sodium Chloride 0.9% [Saline Flush] 2.5 ml FLUSH ASDIRECTED PRN
--- NOTE | 2019-05-17 01:07 | CR ---
Indication: Pain, shortness of breath Technique: Chest 1 view Comparison: None Findings/Impression: Lung volumes are low which accentuates the cardiac size and pulmonary vessels. There is ill-defined opacity in the retrocardiac region which may represent atelectasis or infiltrate. No pneumothorax. No significant effusion. Remote deformity of the right mid humerus. Dictated by Rona Loza MD @ May 17 2019 1:04AM Signed by Dr. Rona Loza @ May 17 2019 1:05AM
[2019-05-17 01:20] LABS: BLOOD UREA NITROGEN,BUN 16 mg/dL (7.0-18.0); CARBON DIOXIDE,CO2 24.4 mmol/L (21.0-32.0); CHLORIDE,CL 97 mmol/L (98-107); GLUCOSE RANDOM 101 mg/dL (74-106); POTASSIUM,K 4.1 mmol/L (3.5-5.1); SODIUM,NA 130 mmol/L (136-148)
--- NOTE | 2019-05-17 01:41 | CT ---
INDICATION: Pain TECHNIQUE: Head CT without contrast. COMPARISON: January 07, 2017 FINDINGS: CSF spaces: Within normal limits for age. Brain parenchyma: There are nonspecific low attenuation white matter changes consistent with chronic microvascular disease. No sign of mass, hemorrhage, or midline shift. Skull base and calvarium: The visualized paranasal sinuses and mastoid air cells demonstrate no acute or significant findings. The visualized orbits are grossly unremarkable. No skull fractures. There is intracranial atherosclerosis. IMPRESSION: 1. No acute findings. 2. Nonspecific white matter disease, typical of chronic microvascular disease. Please note that all CT scans at this facility use dose modulation, iterative reconstruction, and/or weight-based dosing when appropriate to reduce radiation dose to as low as reasonably achievable. Dictated by Rona Loza MD @ May 17 2019 1:38AM Signed by Dr. Rona Loza @ May 17 2019 1:40AM
[2019-05-17 03:04] VITALS: BP 140/82; PULSE 53
== END 2019-05-17 03:09 | disposition home or self-care (01) ==
LOC: MW.ED 00:21
DX: R53.1 Weakness (principal); I10 Essential (primary) hypertension; E66.9 Obesity, unspecified; Z79.899 Other long term (current) drug therapy; Z88.8 Allergy status to other drugs, medicaments and biological substances
CPT/HCPCS: 36415; 70450; 70450-26; 71045; 71045-26; 80053; 80156; 80164; 81003; 82550; 85025; 93005; 99285-25

== ENCOUNTER 2020-04-24 20:17 | Emergency (ER) | payer MEDICARE, MEDICAID, OTHER ==
--- NOTE | 2020-04-24 21:01 | EDM.PDOC ---
ED HPI GENERAL MEDICAL PROBLEM - General Chief Complaint: Fever Stated Complaint: COVID EXPOSURE FEVER OVER 100 Time Seen by Provider: 04/24/20 20:33 Source of Information: Reports: Patient History Limitations: Reports: Other (Mental retardation) - History of Present Illness INITIAL COMMENTS - FREE TEXT/NARRATIVE: 65-year-old male with history of mental retardation, generalized weakness, hyponatremia was brought in from [facility] after being tested positive for COVID-19. Caregiver states he's been feeling weak, generalized malaise, fever of 100.1 F prior to arrival, dry cough, decreased appetite and pO intake. He normally uses a walker for ambulation, over the last 3 days he has been wheelchair-bound and has not been ambulating due to weakness. History and review of systems limited secondary to mental retardation Past medical history: No additional pertinent history Past Surgical history: No additional pertinent history Social history: No additional pertinent history Family history: No additional pertinent history PHYSICAL EXAM General: mental retardation. GCS = 15, mild distress HEENT: dry mucous membrane Neck: supple, no meningismus, no Kernig or Brudzinski Cardiac: S1S2 RRR Respiratory: CTAB, no crackles or rales, no wheezing Abdomen: Soft, nontender, no rebound or guarding, nondistended, no pulsatile mass. Back: nontender Musculoskeletal: NVI distally, no deformity Neuro: No focal deficits - Related Data Allergies Allergy/AdvReac Type Severity Reaction Status Date / Time haloperidol Allergy Other Verified 04/24/20 20:48 thioridazine Allergy Other Verified 04/24/20 20:48 Home Meds: Home Meds Calcium Carb & Citrate/Vit D3 [Calcium + Vitamin D3 Caplet] 2 tab PO BID 04/21/14 [History] Gabapentin [Neurontin] 900 mg PO TID 04/21/14 [History] Lisinopril 5 mg PO DAILY 08/10/15 [History] Testosterone Cypionate [Depo-Testosterone] 1 injection SQ ASDIRECTED 08/10/15 [History] carBAMazepine [TEGretol XR] 300 mg PO TID 08/10/15 [History] polyethylene glycoL 3350 [Polyethylene Glycol 3350] 17 gram PO DAILY 08/10/15 [History] Divalproex Sodium [Depakote ER] 750 mg PO BID 10/10/16 [History] Fenofibrate Nanocrystallized [Fenofibrate] 145 mg PO DAILY 01/24/18 [History] Metoprolol Succinate 50 mg PO DAILY 01/24/18 [History] Past Medical History HEENT History: Reports: None Cardiovascular History: Reports: Hypertension Respiratory History: Reports: None Gastrointestinal History: Reports: Chronic Constipation, GERD Other Gastrointestinal History: Heartburn/GERD-controlled Genitourinary History: Reports: None Musculoskeletal History: Reports: Fracture Other Musculoskeletal History: hx: Fracture foot, ankle, shoulder, any hardware denied by fashion adviser Neurological History: Reports: Seizure, Other (See Below) Other Neuro History: No reported seizures since . 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 Hematologic History: Reports: None Immunologic History: Reports: None Oncologic (Cancer) History: Reports: None Dermatologic History: Reports: None - Infectious Disease History Infectious Disease History: Reports: None - Past Surgical History HEENT Surgical History: Reports: None Cardiovascular Surgical History: Reports: None GI Surgical History: Reports: None Male Surgical History: Reports: None Endocrine Surgical History: Reports: None Neurological Surgical History: Reports: None Musculoskeletal Surgical History: Reports: None Oncologic Surgical History: Reports: None Dermatological Surgical History: Reports: None Social & Family History - Family History Family Medical History: Noncontributory HEENT: Reports: None Cardiac: Reports: None Respiratory: Reports: None GI: Reports: None : Reports: None OBGYN: Reports: None Musculoskeletal: Reports: None Neurological: Reports: None Psychiatric: Reports: None Endocrine/Metabolic: Reports: None Hematologic: Reports: None Immunologic: Reports: None Dermatologic: Reports: None Oncologic: Reports: None - Caffeine Use Caffeine Use: Reports: None ED ROS GENERAL - Review of Systems Review Of Systems: Comprehensive ROS is negative, except as noted in HPI. (Limited secondary to mental retardation) ED EXAM, GENERAL - Physical Exam Exam: See Below (see dictation) EKG INTERPRETATION EKG Interpretation Comments: 89 bpm, NSR, normal QRS interval, no STEMI. EKG and rhythm strip interpreted by me at 2151 Course - Vital Signs Last Recorded V/S: Last Vital Signs Temp 99.2 F 04/25/20 01:15 Pulse 72 04/25/20 02:14 Resp 16 04/25/20 02:14 BP 117/65 04/25/20 02:14 Pulse Ox 93 L 04/25/20 02:14 - Orders/Labs/Meds Orders: Active Orders 24 hr Category Date Time Status Cardiac Monitoring [RC] . DIRECTED Care 04/24/20 21:34 Active EKG Documentation Completion [RC] STAT Care 04/24/20 21:35 Active CULTURE BLOOD [BC] Stat Lab 04/24/20 22:15 Received CULTURE BLOOD [BC] Stat Lab 04/24/20 22:25 Received PROCALCITONIN [REF] Stat Lab 04/24/20 22:15 Received Sodium Chloride 0.9% [Normal Saline] 1,000 ml Med 04/25/20 01:30 Active IV ASDIRECTED Sodium Chloride 0.9% [Saline Flush] Med 04/24/20 23:23 Active 10 ml FLUSH ASDIRECTED PRN Sodium Chloride 0.9% [Saline Flush] Med 04/24/20 23:23 Active 2.5 ml FLUSH ASDIRECTED PRN Blood Culture x2 Reflex Set [OM.PC] Stat Oth 04/24/20 21:39 Ordered Isolation [COMM] Stat Oth 04/24/20 21:34 Active Saline Lock Insert [OM.PC] Stat Oth 04/24/20 23:24 Ordered Medication Orders Sodium Chloride (Normal Saline) 1,000 mls @ 125 mls/hr IV ASDIRECTED TYESHA Last Admin: 04/25/20 04:03 Dose: 125 mls/hr Documented by: KRISTAN Sodium Chloride (Saline Flush) 10 ml FLUSH ASDIRECTED PRN PRN Reason: Keep Vein Open Last Admin: 04/25/20 00:35 Dose: 10 ml Documented by: KRISTAN Sodium Chloride (Saline Flush) 2.5 ml FLUSH ASDIRECTED PRN PRN Reason: Keep Vein Open Last Admin: 04/25/20 00:35 Dose: 2.5 ml Documented by: KRISTAN Labs: Laboratory Tests 04/24/20 04/24/20 04/24/20 Range/Units 20:43 22:15 22:15 WBC 6.03 (4.0-11.0) K/uL RBC 4.29 L (4.50-5.90) M/uL Hgb 13.9 (13.0-17.0) g/dL Hct 41.2 (38.0-50.0) % MCV 96.0 (80.0-98.0) fL MCH 32.4 H (27.0-32.0) pg MCHC 33.7 (31.0-37.0) g/dL RDW Std Deviation 44.7 (28.0-62.0) fl RDW Coeff of Cecilio 13 (11.0-15.0) % Plt Count 130 L (150-400) K/uL MPV 10.20 (7.40-12.00) fL Neut % (Auto) 68.3 (48.0-80.0) % Lymph % (Auto) 20.6 (16.0-40.0) % [place] % (Auto) 10.9 (0.0-15.0) % Eos % (Auto) 0.0 (0.0-7.0) % Baso % (Auto) 0.2 (0.0-1.5) % Neut # (Auto) 4.1 (1.4-5.7) K/uL Lymph # (Auto) 1.2 (0.6-2.4) K/uL [place] # (Auto) 0.7 (0.0-0.8) K/uL Eos # (Auto) 0.0 (0.0-0.7) K/uL Baso # (Auto) 0.0 (0.0-0.1) K/uL Nucleated RBC % 0.0 /100WBC Nucleated RBCs # 0 K/uL INR D-Dimer, Quantitative (0.0-0.50) mg/L FEU Lactate (0.20-2.00) mmol/L Sodium (136-148) mmol/L Potassium (3.5-5.1) mmol/L Chloride (98-107) mmol/L Carbon Dioxide (21.0-32.0) mmol/L BUN (7.0-18.0) mg/dL Creatinine (0.8-1.3) mg/dL Est Cr Clr Drug Dosing mL/min Estimated GFR (MDRD) ml/min Glucose (74-106) mg/dL Calcium (8.5-10.1) mg/dL Ferritin (26-388) ng/mL Total Bilirubin (0.2-1.0) mg/dL AST (15-37) IU/L ALT (14-63) IU/L Alkaline Phosphatase (46-116) U/L Lactate Dehydrogenase 250 H (81-234) U/L Creatine Kinase 148 (26-308) U/L Troponin I (0.000-0.056) ng/mL C-Reactive Protein 12.00 H (0.00-0.90) mg/dL B-Natriuretic Peptide (<100) PG/ML Total Protein (6.4-8.2) g/dL Albumin (3.4-5.0) g/dL Globulin (2.6-4.0) g/dL Albumin/Globulin Ratio (0.9-1.6) Urine Color Urine Appearance Urine pH (5.0-8.0) Ur Specific [place] (1.001-1.035) Urine Protein (NEGATIVE) mg/dL Urine Glucose (UA) (NEGATIVE) mg/dL Urine Ketones (NEGATIVE) mg/dL Urine Occult Blood (NEGATIVE) Urine Nitrite (NEGATIVE) Urine Bilirubin (NEGATIVE) Urine Urobilinogen (<2.0) EU/dL Ur Leukocyte Esterase (NEGATIVE) Urine RBC (0-2/HPF) Urine WBC (0-5/HPF) Ur Epithelial Cells (NONE-FEW) Urine Bacteria (NEGATIVE) COVID-19 (AAYUSH) POSITIVE H (NEGATIVE) 04/24/20 04/24/20 04/24/20 Range/Units 22:15 22:15 22:15 WBC (4.0-11.0) K/uL RBC (4.50-5.90) M/uL Hgb (13.0-17.0) g/dL Hct (38.0-50.0) % MCV (80.0-98.0) fL MCH (27.0-32.0) pg MCHC (31.0-37.0) g/dL RDW Std Deviation (28.0-62.0) fl RDW Coeff of Cecilio (11.0-15.0) % Plt Count (150-400) K/uL MPV (7.40-12.00) fL Neut % (Auto) (48.0-80.0) % Lymph % (Auto) (16.0-40.0) % [place] % (Auto) (0.0-15.0) % Eos % (Auto) (0.0-7.0) % Baso % (Auto) (0.0-1.5) % Neut # (Auto) (1.4-5.7) K/uL Lymph # (Auto) (0.6-2.4) K/uL [place] # (Auto) (0.0-0.8) K/uL Eos # (Auto) (0.0-0.7) K/uL Baso # (Auto) (0.0-0.1) K/uL Nucleated RBC % /100WBC Nucleated RBCs # K/uL INR 1.22 D-Dimer, Quantitative 10.08 H (0.0-0.50) mg/L FEU Lactate (0.20-2.00) mmol/L Sodium (136-148) mmol/L Potassium (3.5-5.1) mmol/L Chloride (98-107) mmol/L Carbon Dioxide (21.0-32.0) mmol/L BUN (7.0-18.0) mg/dL Creatinine (0.8-1.3) mg/dL Est Cr Clr Drug Dosing mL/min Estimated GFR (MDRD) ml/min Glucose (74-106) mg/dL Calcium (8.5-10.1) mg/dL Ferritin 1169 H (26-388) ng/mL Total Bilirubin (0.2-1.0) mg/dL AST (15-37) IU/L ALT (14-63) IU/L Alkaline Phosphatase (46-116) U/L Lactate Dehydrogenase (81-234) U/L Creatine Kinase (26-308) U/L Troponin I (0.000-0.056) ng/mL C-Reactive Protein (0.00-0.90) mg/dL B-Natriuretic Peptide (<100) PG/ML Total Protein (6.4-8.2) g/dL Albumin (3.4-5.0) g/dL Globulin (2.6-4.0) g/dL Albumin/Globulin Ratio (0.9-1.6) Urine Color Urine Appearance Urine pH (5.0-8.0) Ur Specific [place] (1.001-1.035) Urine Protein (NEGATIVE) mg/dL Urine Glucose (UA) (NEGATIVE) mg/dL Urine Ketones (NEGATIVE) mg/dL Urine Occult Blood (NEGATIVE) Urine Nitrite (NEGATIVE) Urine Bilirubin (NEGATIVE) Urine Urobilinogen (<2.0) EU/dL Ur Leukocyte Esterase (NEGATIVE) Urine RBC (0-2/HPF) Urine WBC (0-5/HPF) Ur Epithelial Cells (NONE-FEW) Urine Bacteria (NEGATIVE) COVID-19 (AAYUSH) (NEGATIVE) 04/24/20 04/24/20 04/24/20 Range/Units 22:15 22:15 22:15 WBC (4.0-11.0) K/uL RBC (4.50-5.90) M/uL Hgb (13.0-17.0) g/dL Hct (38.0-50.0) % MCV (80.0-98.0) fL MCH (27.0-32.0) pg MCHC (31.0-37.0) g/dL RDW Std Deviation (28.0-62.0) fl RDW Coeff of Cecilio (11.0-15.0) % Plt Count (150-400) K/uL MPV (7.40-12.00) fL Neut % (Auto) (48.0-80.0) % Lymph % (Auto) (16.0-40.0) % [place] % (Auto) (0.0-15.0) % Eos % (Auto) (0.0-7.0) % Baso % (Auto) (0.0-1.5) % Neut # (Auto) (1.4-5.7) K/uL Lymph # (Auto) (0.6-2.4) K/uL [place] # (Auto) (0.0-0.8) K/uL Eos # (Auto) (0.0-0.7) K/uL Baso # (Auto) (0.0-0.1) K/uL Nucleated RBC % /100WBC Nucleated RBCs # K/uL INR D-Dimer, Quantitative (0.0-0.50) mg/L FEU Lactate 2.5 H* (0.20-2.00) mmol/L Sodium 138 (136-148) mmol/L Potassium 4.5 (3.5-5.1) mmol/L Chloride 102 (98-107) mmol/L Carbon Dioxide 20.3 L (21.0-32.0) mmol/L BUN 35 H (7.0-18.0) mg/dL Creatinine 2.1 H (0.8-1.3) mg/dL Est Cr Clr Drug Dosing 30.51 mL/min Estimated GFR (MDRD) 31.9 ml/min Glucose 108 H (74-106) mg/dL Calcium 9.9 (8.5-10.1) mg/dL Ferritin (26-388) ng/mL Total Bilirubin 0.5 (0.2-1.0) mg/dL AST 49 H (15-37) IU/L ALT 32 (14-63) IU/L Alkaline Phosphatase 49 (46-116) U/L Lactate Dehydrogenase (81-234) U/L Creatine Kinase (26-308) U/L Troponin I (0.000-0.056) ng/mL C-Reactive Protein (0.00-0.90) mg/dL B-Natriuretic Peptide 33 (<100) PG/ML Total Protein 8.4 H (6.4-8.2) g/dL Albumin 3.8 (3.4-5.0) g/dL Globulin 4.6 H (2.6-4.0) g/dL Albumin/Globulin Ratio 0.8 L (0.9-1.6) Urine Color Urine Appearance Urine pH (5.0-8.0) Ur Specific [place] (1.001-1.035) Urine Protein (NEGATIVE) mg/dL Urine Glucose (UA) (NEGATIVE) mg/dL Urine Ketones (NEGATIVE) mg/dL Urine Occult Blood (NEGATIVE) Urine Nitrite (NEGATIVE) Urine Bilirubin (NEGATIVE) Urine Urobilinogen (<2.0) EU/dL Ur Leukocyte Esterase (NEGATIVE) Urine RBC (0-2/HPF) Urine WBC (0-5/HPF) Ur Epithelial Cells (NONE-FEW) Urine Bacteria (NEGATIVE) COVID-19 (AAYUSH) (NEGATIVE) 04/24/20 04/25/20 04/25/20 Range/Units 22:25 04:59 04:59 WBC (4.0-11.0) K/uL RBC (4.50-5.90) M/uL Hgb (13.0-17.0) g/dL Hct (38.0-50.0) % MCV (80.0-98.0) fL MCH (27.0-32.0) pg MCHC (31.0-37.0) g/dL RDW Std Deviation (28.0-62.0) fl RDW Coeff of Cecilio (11.0-15.0) % Plt Count (150-400) K/uL MPV (7.40-12.00) fL Neut % (Auto) (48.0-80.0) % Lymph % (Auto) (16.0-40.0) % [place] % (Auto) (0.0-15.0) % Eos % (Auto) (0.0-7.0) % Baso % (Auto) (0.0-1.5) % Neut # (Auto) (1.4-5.7) K/uL Lymph # (Auto) (0.6-2.4) K/uL [place] # (Auto) (0.0-0.8) K/uL Eos # (Auto) (0.0-0.7) K/uL Baso # (Auto) (0.0-0.1) K/uL Nucleated RBC % /100WBC Nucleated RBCs # K/uL INR D-Dimer, Quantitative (0.0-0.50) mg/L FEU Lactate 1.4 (0.20-2.00) mmol/L Sodium 141 (136-148) mmol/L Potassium 4.3 (3.5-5.1) mmol/L Chloride 106 (98-107) mmol/L Carbon Dioxide 24.5 (21.0-32.0) mmol/L BUN 35 H (7.0-18.0) mg/dL Creatinine 1.9 H (0.8-1.3) mg/dL Est Cr Clr Drug Dosing 33.72 mL/min Estimated GFR (MDRD) 35.8 ml/min Glucose 97 (74-106) mg/dL Calcium 8.5 (8.5-10.1) mg/dL Ferritin (26-388) ng/mL Total Bilirubin 0.3 (0.2-1.0) mg/dL AST 36 (15-37) IU/L ALT 21 (14-63) IU/L Alkaline Phosphatase 37 L (46-116) U/L Lactate Dehydrogenase (81-234) U/L Creatine Kinase (26-308) U/L Troponin I < 0.050 (0.000-0.056) ng/mL C-Reactive Protein (0.00-0.90) mg/dL B-Natriuretic Peptide (<100) PG/ML Total Protein 6.3 L (6.4-8.2) g/dL Albumin 2.8 L (3.4-5.0) g/dL Globulin 3.5 (2.6-4.0) g/dL Albumin/Globulin Ratio 0.8 L (0.9-1.6) Urine Color Urine Appearance Urine pH (5.0-8.0) Ur Specific [place] (1.001-1.035) Urine Protein (NEGATIVE) mg/dL Urine Glucose (UA) (NEGATIVE) mg/dL Urine Ketones (NEGATIVE) mg/dL Urine Occult Blood (NEGATIVE) Urine Nitrite (NEGATIVE) Urine Bilirubin (NEGATIVE) Urine Urobilinogen (<2.0) EU/dL Ur Leukocyte Esterase (NEGATIVE) Urine RBC (0-2/HPF) Urine WBC (0-5/HPF) Ur Epithelial Cells (NONE-FEW) Urine Bacteria (NEGATIVE) COVID-19 (AAYUSH) (NEGATIVE) 04/25/20 Range/Units 05:15 WBC (4.0-11.0) K/uL RBC (4.50-5.90) M/uL Hgb (13.0-17.0) g/dL Hct (38.0-50.0) % MCV (80.0-98.0) fL MCH (27.0-32.0) pg MCHC (31.0-37.0) g/dL RDW Std Deviation (28.0-62.0) fl RDW Coeff of Cecilio (11.0-15.0) % Plt Count (150-400) K/uL MPV (7.40-12.00) fL Neut % (Auto) (48.0-80.0) % Lymph % (Auto) (16.0-40.0) % [place] % (Auto) (0.0-15.0) % Eos % (Auto) (0.0-7.0) % Baso % (Auto) (0.0-1.5) % Neut # (Auto) (1.4-5.7) K/uL Lymph # (Auto) (0.6-2.4) K/uL [place] # (Auto) (0.0-0.8) K/uL Eos # (Auto) (0.0-0.7) K/uL Baso # (Auto) (0.0-0.1) K/uL Nucleated RBC % /100WBC Nucleated RBCs # K/uL INR D-Dimer, Quantitative (0.0-0.50) mg/L FEU Lactate (0.20-2.00) mmol/L Sodium (136-148) mmol/L Potassium (3.5-5.1) mmol/L Chloride (98-107) mmol/L Carbon Dioxide (21.0-32.0) mmol/L BUN (7.0-18.0) mg/dL Creatinine (0.8-1.3) mg/dL Est Cr Clr Drug Dosing mL/min Estimated GFR (MDRD) ml/min Glucose (74-106) mg/dL Calcium (8.5-10.1) mg/dL Ferritin (26-388) ng/mL Total Bilirubin (0.2-1.0) mg/dL AST (15-37) IU/L ALT (14-63) IU/L Alkaline Phosphatase (46-116) U/L Lactate Dehydrogenase (81-234) U/L Creatine Kinase (26-308) U/L Troponin I (0.000-0.056) ng/mL C-Reactive Protein (0.00-0.90) mg/dL B-Natriuretic Peptide (<100) PG/ML Total Protein (6.4-8.2) g/dL Albumin (3.4-5.0) g/dL Globulin (2.6-4.0) g/dL Albumin/Globulin Ratio (0.9-1.6) Urine Color YELLOW Urine Appearance CLEAR Urine pH 5.0 (5.0-8.0) Ur Specific [place] 1.015 (1.001-1.035) Urine Protein NEGATIVE (NEGATIVE) mg/dL Urine Glucose (UA) NEGATIVE (NEGATIVE) mg/dL Urine Ketones NEGATIVE (NEGATIVE) mg/dL Urine Occult Blood NEGATIVE (NEGATIVE) Urine Nitrite NEGATIVE (NEGATIVE) Urine Bilirubin NEGATIVE (NEGATIVE) Urine Urobilinogen 0.2 (<2.0) EU/dL Ur Leukocyte Esterase NEGATIVE (NEGATIVE) Urine RBC 0-1 (0-2/HPF) Urine WBC 0-1 (0-5/HPF) Ur Epithelial Cells RARE (NONE-FEW) Urine Bacteria RARE (NEGATIVE) COVID-19 (AAYUSH) (NEGATIVE) Meds: Medications Generic Name Dose Route Start Last Admin Trade Name Freq PRN Reason Stop Dose Admin Sodium Chloride 1,000 mls @ 125 mls/hr 04/25/20 01:30 04/25/20 04:03 Normal Saline IV 125 mls/hr ASDIRECTED TYESHA Administration Sodium Chloride 10 ml 04/24/20 23:23 04/25/20 00:35 Saline Flush FLUSH 10 ml ASDIRECTED PRN Administration Keep Vein Open Sodium Chloride 2.5 ml 04/24/20 23:23 04/25/20 00:35 Saline Flush FLUSH 2.5 ml ASDIRECTED PRN Administration Keep Vein Open Discontinued Medications Generic Name Dose Route Start Last Admin Trade Name Freq PRN Reason Stop Dose Admin Lactated Ringer's 1,000 mls @ 999 mls/hr 04/24/20 23:24 04/25/20 00:35 Ringers, Lactated IV 04/25/20 00:24 999 mls/hr .BOLUS ONE Administration Sodium Chloride 1,000 mls @ 999 mls/hr 04/25/20 01:17 04/25/20 01:54 Normal Saline IV 04/25/20 02:17 999 mls/hr .Bolus ONE Administration Iopamidol 50 ml 04/25/20 02:04 04/25/20 02:05 Isovue-300 (61%) IVPUSH 04/25/20 02:05 50 ml ONETIME STA Administration - Re-Assessments/Exams Free Text/Narrative Re-Assessment/Exam: 04/25/20 05:44 After 2 L IV fluids in the ER, he is currently stable for discharge. I advised the patient to return to the ER for reevaluation if symptoms worsened, including fever, worsening pain, or any other worrisome symptoms. I instructed the patient to follow up with their PCP within 2-3 days. MEDICAL DECISION MAKING: I reviewed the patients past medical records, lab and radiographic findings. I discussed the case with the patient. My differential diagnosis included: COVID, pneumonia. Patient's creatinine today = 2.1, it improved to 1.9 after IVF hydration. His lactate also trended down from 2.5 to 1.4 after hydration. This patient was evaluated for the symptoms described in the history of present illness. They were evaluated in the context of the global COVID-19 pandemic, which necessitated consideration that the patient might be at risk for infection with the SARS-CoV-2 virus that causes COVID-19. Institutional protocols and algorithms that pertain to the evaluation of patients at risk for COVID-19 are in a state of rapid change based on information released by regulatory bodies including the CDC and federal and state organizations. These policies and algorithms were followed during the patient's care. I wore full PPE, N95, face shield, gown and gloves throughout my evaluation and care of this patient. I recommended home isolation. given home isolation instructions. Patient was in no respiratory distress, not hypoxic, otherwise well appearing. I instructed cecelia ent to return immediately for worsening symptoms, sob, chest pain, lightheadedness or other concerns. Departure - Departure Time of Disposition: 05:37 Disposition: Home, Self-Care 01 Condition: Good Clinical Impression: COVID-19, Renal insufficiency, Dehydration - Discharge Information *PRESCRIPTION DRUG MONITORING PROGRAM REVIEWED*: Not Applicable *COPY OF PRESCRIPTION DRUG MONITORING REPORT IN PATIENT NILA: Not Applicable Instructions: COVID-19 Frequently Asked Questions, COVID-19, COVID-19: How to Protect Yourself and Others - CDC, Prevent the Spread of COVID-19 if You Are Sick - CDC, Dehydration, Elderly, [id number], Rehydration, Elderly Referrals: PCP,None [Primary Care Provider] - Forms: ED Department Discharge Additional Instructions: The need for follow-up, as well as the timing and circumstances, are variable depending upon the specifics of your emergency department visit. If you don't have a primary care physician on staff, we will provide you with a referral. We always advise you to contact your personal physician following an emergency department visit to inform them of the circumstance of the visit and for follow-up with them and/or the need for any referrals to a consulting specialist. The emergency department will also refer you to a specialist when appropriate. This referral assures that you have the opportunity for follow-up care with a specialist. All of these measure are taken in an effort to provide you with optimal care, which includes your follow-up. Under all circumstances we always encourage you to contact your private physician who remains a resource for coordinating your care. When calling for follow-up care, please make the office aware that this follow-up is from your recent emergency room visit. If for any reason you are refused follow-up, please contact the [facility] Emergency Department at and asked to speak to the emergency department charge nurse. If you do not have a primary care doctor, please follow up with the clinics below within 3-5 days. [facility] [address] [place] [address] [place] [address] Sepsis Event Note (ED) - Evaluation Sepsis Screening Result: No Definite Risk - Focused Exam Vital Signs: Vital Signs Temp Pulse Resp BP Pulse Ox 04/25/20 02:14 72 16 117/65 93 L 04/25/20 01:15 99.2 F 16 96/65 04/25/20 00:38 99.5 F 72 16 117/65 93 L 04/24/20 23:04 96 103/77 95 04/24/20 21:01 114/91 H 04/24/20 20:44 99.2 F 86 18 95 - My Orders Last 24 Hours: My Active Orders 04/24/20 21:34 Cardiac Monitoring [RC] . DIRECTED Isolation [COMM] Stat 04/24/20 21:35 EKG Documentation Completion [RC] STAT 04/24/20 21:39 Blood Culture x2 Reflex Set [OM.PC] Stat 04/24/20 22:15 CULTURE BLOOD [BC] Stat PROCALCITONIN [REF] Stat 04/24/20 22:25 CULTURE BLOOD [BC] Stat 04/24/20 23:23 Sodium Chloride 0.9% [Saline Flush] 10 ml FLUSH ASDIRECTED PRN Sodium Chloride 0.9% [Saline Flush] 2.5 ml FLUSH ASDIRECTED PRN 04/24/20 23:24 Saline Lock Insert [OM.PC] Stat 04/25/20 01:30 Sodium Chloride 0.9% [Normal Saline] 1,000 ml IV ASDIRECTED - Assessment/Plan Last 24 Hours: My Active Orders 04/24/20 21:34 Cardiac Monitoring [RC] . DIRECTED Isolation [COMM] Stat 04/24/20 21:35 EKG Documentation Completion [RC] STAT 04/24/20 21:39 Blood Culture x2 Reflex Set [OM.PC] Stat 04/24/20 22:15 CULTURE BLOOD [BC] Stat PROCALCITONIN [REF] Stat 04/24/20 22:25 CULTURE BLOOD [BC] Stat 04/24/20 23:23 Sodium Chloride 0.9% [Saline Flush] 10 ml FLUSH ASDIRECTED PRN Sodium Chloride 0.9% [Saline Flush] 2.5 ml FLUSH ASDIRECTED PRN 04/24/20 23:24 Saline Lock Insert [OM.PC] Stat 04/25/20 01:30 Sodium Chloride 0.9% [Normal Saline] 1,000 ml IV ASDIRECTED
--- NOTE | 2020-04-24 22:37 | CR ---
HISTORY: Respiratory failure. TECHNIQUE: Portable frontal view the chest. COMPARISON: None. FINDINGS: Patient is rotated. No airspace consolidation. No pleural effusion or pneumothorax. Pulmonary vasculature is within normal limits. Cardiomediastinal silhouette is within normal limits for technique. IMPRESSION: No acute cardiopulmonary abnormality. Dictated by Fernando Cameron MD @ Apr 24 2020 10:35PM Signed by Dr. Fernando Cameron @ Apr 24 2020 10:35PM
[2020-04-24] MEDS ORDERED: Sodium Chloride 0.9% 10 ML Syringe FLUSH PRN (23:23)
[2020-04-24] MEDS ORDERED: Sodium Chloride 0.9% 2.5 ML Syringe FLUSH PRN (23:23)
[2020-04-24] MEDS ORDERED: Lactated Ringers 1,000 ML IV ONE (23:24)
[2020-04-25 01:03] LABS: CARBON DIOXIDE,CO2 20.3 mmol/L (21.0-32.0); POTASSIUM,K 4.5 mmol/L (3.5-5.1)
[2020-04-25] MEDS ORDERED: Sodium Chloride 0.9% 1,000 ML IV ONE (01:17)
[2020-04-25] MEDS ORDERED: Sodium Chloride 0.9% 1,000 ML IV SCH (01:30)
--- NOTE | 2020-04-25 01:55 | CT ---
INDICATION: Shortness of breath, COVID-19, elevated D-dimer TECHNIQUE: CT chest with i.v. contrast using pulmonary angiographic technique. Coronal and sagittal reformats were obtained. The decision to administer intravenous contrast was undertaken without consultation with a radiologist. CONTRAST: 50 mL Isovue 300 COMPARISON: 10/10/2016 FINDINGS: Moderate to severe image quality degradation noted due to beam hardening artifacts from scanning with the arms by the patient`s side. Cardiovascular: The pulmonary arteries are unremarkable in enhancement with no evidence of acute pulmonary embolism. Evaluation of the lower lobe pulmonary arteries are limited by motion artifact. Left ventricular hypertrophy is present with the wall measuring 2 cm. Scanning of the left ventricular apex with a subendocardial infarct is noted. No sign of aneurysm in the thoracic aorta. Mild atherosclerotic calcifications are noted in the coronary arteries. Mediastinum: No mass or adenopathy seen. Lung: Moderate patchy central ground-glass opacities are present in the mid and lower lung zones bilaterally. A cluster of calcified granulomas are present in the subpleural aspect of the right lower lobe. Pleura and pericardium: No sign of pleural effusion seen. No significant pericardial effusion is present. Chest wall and axilla: No mass or adenopathy seen. Bone: Unremarkable for age. Upper abdomen: Several tiny gallstones are noted within the gallbladder. IMPRESSIONS: 1. No CT evidence of acute pulmonary emboli seen. 2. Left ventricular hypertrophy is present with the wall measuring 2 cm. Scanning of the left ventricular apex with a subendocardial infarct is noted. The infarct is unchanged from prior exam. 3. Moderate patchy central ground-glass opacities are present in the mid and lower lung zones bilaterally. This is consistent with the patient`s clinical diagnosis of COVID-19 infection but there also areas of ground-glass opacity there unchanged from prior exam which may be due to chronic intralobular fibrosis. Dictated by Bayron Lakhani MD @ 04/25/2020 1:53:03 AM Please note that all CT scans at this facility use dose modulation, iterative reconstruction, and/or weight-based dosing when appropriate to reduce radiation dose to as low as reasonably achievable. Dictated by: Bayron Lakhani MD @ 04/25/2020 01:54:23 (Electronically Signed)
[2020-04-25] MEDS ORDERED: Iopamidol 612 MG/ML 50 ML SDV IVPUSH STA (02:04)
[2020-04-25 05:32] LABS: CARBON DIOXIDE,CO2 24.5 mmol/L (21.0-32.0); POTASSIUM,K 4.3 mmol/L (3.5-5.1)
[2020-04-25 05:37] VITALS: BP 101/62; PULSE 60
== END 2020-04-25 08:50 | disposition home or self-care (01) ==
LOC: MW.ED 20:17
DX: U07.1 COVID-19 (principal); E86.0 Dehydration; N28.9 Disorder of kidney and ureter, unspecified; I10 Essential (primary) hypertension; E66.9 Obesity, unspecified; Z68.29 Body mass index [BMI] 29.0-29.9, adult; Z88.8 Allergy status to other drugs, medicaments and biological substances; Z79.899 Other long term (current) drug therapy
CPT/HCPCS: 36415; 51702; 71045; 71275; 80053; 81001; 82550; 82728; 83605; 83615; 83880; 84145; 84484; 85025; 85379; 85610; 86140; 87040; 93005; 96360; 96361; 99284; J7030; J7120; Q9967; U0002; 82565; 99283

== ENCOUNTER 2020-04-29 06:55 | Inpatient (IN) | payer MEDICARE, MEDICAID, OTHER ==
[2020-04-29] MEDS ORDERED: Sodium Chloride 0.9% 2.5 ML Syringe FLUSH PRN (07:00)
[2020-04-29] MEDS ORDERED: Sodium Chloride 0.9% 10 ML Syringe FLUSH PRN (07:00)
[2020-04-29] MEDS ORDERED: Benzonatate 100 MG Cap PO ONE (07:01)
--- NOTE | 2020-04-29 07:33 | EDM.PDOC ---
ED HPI GENERAL MEDICAL PROBLEM - General Chief Complaint: Respiratory Problem Stated Complaint: BACTERIAL INFECTION Time Seen by Provider: 04/29/20 06:59 Source of Information: Reports: EMS, Old Records - History of Present Illness INITIAL COMMENTS - FREE TEXT/NARRATIVE: History of present illness: 65-year-old male brought from a new [facility] with ongoing/worsening cough for the last week. Apparently a week ago he was tested for COVID and found to be positive. Many other residents of this facility have been COVID positive. Patient was apparently seen and discharged, however staff found him to have a fever today of 101. On arrival here he was afebrile and O2 sat was 88%. History only available through EMS and prior records as the patient is nonverbal Review of systems: Unknown due to patient's chronic condition Past medical history: Unknown due to patient's chronic condition Surgical history: Unknown due to patient's chronic condition Social history: Unknown due to patient's chronic condition Family history: Unknown due to patient's chronic condition Physical exam: GEN: no acute distress, looks around the room. HEENT: Atraumatic, normocephalic, mucous membranes moist Neck: supple. Lungs: No respiratory distress. O2 saturation 88% on room air on arrival here, now 95% on 3 L Heart: mildly tachycardic Extremities: Atraumatic. Neurovascularly intact. Neuro: Awake, alert, nonverbal, moves all extremities Skin: warm, dry, no lesions Diagnostics: labs, covid, cxr Therapeutics: tessalon, O2 MDM: Impression: [] Plan: [] Definitive disposition and diagnosis as appropriate pending reevaluation and review of above. - Related Data Allergies Allergy/AdvReac Type Severity Reaction Status Date / Time haloperidol Allergy Other Verified 04/29/20 07:10 thioridazine Allergy Other Verified 04/29/20 07:10 Home Meds: Home Meds Calcium Carb & Citrate/Vit D3 [Calcium + Vitamin D3 Caplet] 2 tab PO BID 04/21/14 [History] Gabapentin [Neurontin] 900 mg PO TID 04/21/14 [History] Lisinopril 5 mg PO DAILY 08/10/15 [History] Testosterone Cypionate [Depo-Testosterone] 1 injection SQ ASDIRECTED 08/10/15 [History] carBAMazepine [TEGretol XR] 300 mg PO TID 08/10/15 [History] polyethylene glycoL 3350 [Polyethylene Glycol 3350] 17 gram PO DAILY 08/10/15 [History] Divalproex Sodium [Depakote ER] 750 mg PO BID 10/10/16 [History] Fenofibrate Nanocrystallized [Fenofibrate] 145 mg PO DAILY 01/24/18 [History] Metoprolol Succinate 50 mg PO DAILY 01/24/18 [History] Past Medical History HEENT History: Reports: None Cardiovascular History: Reports: Hypertension Respiratory History: Reports: None Gastrointestinal History: Reports: Chronic Constipation, GERD Other Gastrointestinal History: Heartburn/GERD-controlled Genitourinary History: Reports: None Musculoskeletal History: Reports: Fracture Other Musculoskeletal History: hx: Fracture foot, ankle, shoulder, any hardware denied by powertrain calibration engineer Neurological History: Reports: Seizure, Other (See Below) Other Neuro History: No reported seizures since . 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 Hematologic History: Reports: None Immunologic History: Reports: None Oncologic (Cancer) History: Reports: None Dermatologic History: Reports: None - Infectious Disease History Infectious Disease History: Reports: None - Past Surgical History HEENT Surgical History: Reports: None Cardiovascular Surgical History: Reports: None GI Surgical History: Reports: None Male Surgical History: Reports: None Endocrine Surgical History: Reports: None Neurological Surgical History: Reports: None Musculoskeletal Surgical History: Reports: None Oncologic Surgical History: Reports: None Dermatological Surgical History: Reports: None Social & Family History - Family History Family Medical History: Noncontributory HEENT: Reports: None Cardiac: Reports: None Respiratory: Reports: None GI: Reports: None : Reports: None OBGYN: Reports: None Musculoskeletal: Reports: None Neurological: Reports: None Psychiatric: Reports: None Endocrine/Metabolic: Reports: None Hematologic: Reports: None Immunologic: Reports: None Dermatologic: Reports: None Oncologic: Reports: None - Tobacco Use Smoking Status *Q: Unknown Ever Smoked - Caffeine Use Caffeine Use: Reports: None ED ROS GENERAL - Review of Systems Review Of Systems: See Below (See HPI) ED EXAM, GENERAL - Physical Exam Exam: See Below (See HPI) Course - Vital Signs Text/Narrative:: Presenting with cough and mild hypoxia with known COVID positive status. Resident of a longterm that has had many COVID positive patients. Chest x-ray today does appear to have some progression size of groundglass infiltrates from prior 2 days ago, however patient in no respiratory distress. Oxygen 88% on room air here but improved well to 93% on 3 L. Lab work does appear very similar to prior labs done on 2 prior ER visits in the last week. As the patient does have a low-grade oxygen requirement and the longterm cannot provide oxygen for the patient, the patient will be admitted here. IV Decadron was given. IV azithromycin as well due to the slight progression of the infiltrates. Discussed with Dr. York for admission who accepts the patient. Nursing tubing supervisor also aware and we do have the capacity to care for this patient at this time. IV access attempted in the ED and was unsuccessful, however anesthesia was able to come down in place IV under ultrasound guidance. Patient is nonverbal at baseline, however has remained comfortable and in no acute distress except during IV access attempts or blood draw in which case the patient cries out. However no respiratory distress at any point during emergency department stay. Last Recorded V/S: Last Vital Signs Temp 98.4 F 04/29/20 07:11 Pulse 103 H 04/29/20 07:11 Resp 18 04/29/20 07:11 BP 147/80 H 04/29/20 07:11 Pulse Ox 88 L 04/29/20 07:11 - Orders/Labs/Meds Orders: Active Orders 24 hr Category Date Time Status Patient Status [ADT] Routine ADT 04/29/20 10:36 Active Azithromycin [Zithromax] 500 mg Med 04/29/20 10:45 Active Sodium Chloride 0.9% [Normal Saline (AdvBag)] 250 ml IV ONETIME Sodium Chloride 0.9% [Saline Flush] Med 04/29/20 07:00 Active 10 ml FLUSH ASDIRECTED PRN Sodium Chloride 0.9% [Saline Flush] Med 04/29/20 07:00 Active 2.5 ml FLUSH ASDIRECTED PRN Saline Lock Insert [OM.PC] Stat Oth 04/29/20 07:00 Ordered Medication Orders Azithromycin 500 mg/ Sodium (Chloride) 250 mls @ 250 mls/hr IV ONETIME TYESHA Sodium Chloride (Saline Flush) 10 ml FLUSH ASDIRECTED PRN PRN Reason: Keep Vein Open Last Admin: 04/29/20 11:24 Dose: 10 ml Documented by: SAE Sodium Chloride (Saline Flush) 2.5 ml FLUSH ASDIRECTED PRN PRN Reason: Keep Vein Open Last Admin: 04/29/20 11:24 Dose: 2.5 ml Documented by: SAE Labs: Laboratory Tests 04/29/20 04/29/20 04/29/20 Range/Units 07:40 07:40 07:43 WBC 6.97 (4.0-11.0) K/uL RBC 4.04 L (4.50-5.90) M/uL Hgb 13.0 (13.0-17.0) g/dL Hct 38.2 (38.0-50.0) % MCV 94.6 (80.0-98.0) fL MCH 32.2 H (27.0-32.0) pg MCHC 34.0 (31.0-37.0) g/dL RDW Std Deviation 44.2 (28.0-62.0) fl RDW Coeff of Cecilio 13 (11.0-15.0) % Plt Count 128 L (150-400) K/uL MPV 11.00 (7.40-12.00) fL Add Manual Diff YES Neutrophils % (Manual) 67 (48.0-80.0) % Band Neutrophils % 8 % Lymphocytes % (Manual) 12 L (16.0-40.0) % Monocytes % (Manual) 13 (0.0-15.0) % Nucleated RBC % 0.0 /100WBC Absolute Seg Neuts 4.7 (1.4-5.7) Band Neutrophils # 0.6 Lymphocytes # (Manual) 0.8 (0.6-2.4) Monocytes # (Manual) 0.9 H (0.0-0.8) Nucleated RBCs # 0 K/uL Sodium 140 (136-148) mmol/L Potassium 3.9 (3.5-5.1) mmol/L Chloride 103 (98-107) mmol/L Carbon Dioxide 22.8 (21.0-32.0) mmol/L BUN 29 H (7.0-18.0) mg/dL Creatinine 1.7 H (0.8-1.3) mg/dL Est Cr Clr Drug Dosing 41.91 mL/min Estimated GFR (MDRD) 40.7 ml/min Glucose 93 (74-106) mg/dL Calcium 9.8 (8.5-10.1) mg/dL Total Bilirubin 0.4 (0.2-1.0) mg/dL AST 116 H (15-37) IU/L ALT 32 (14-63) IU/L Alkaline Phosphatase 41 L (46-116) U/L Total Protein 7.9 (6.4-8.2) g/dL Albumin 3.1 L (3.4-5.0) g/dL Globulin 4.8 H (2.6-4.0) g/dL Albumin/Globulin Ratio 0.7 L (0.9-1.6) COVID-19 (AAYUSH) POSITIVE H (NEGATIVE) Meds: Medications Generic Name Dose Route Start Last Admin Trade Name Freq PRN Reason Stop Dose Admin Azithromycin 500 mg/ Sodium 250 mls @ 250 mls/hr 04/29/20 10:45 Chloride IV ONETIME TYESHA Sodium Chloride 10 ml 04/29/20 07:00 04/29/20 11:24 Saline Flush FLUSH 10 ml ASDIRECTED PRN Administration Keep Vein Open Sodium Chloride 2.5 ml 04/29/20 07:00 04/29/20 11:24 Saline Flush FLUSH 2.5 ml ASDIRECTED PRN Administration Keep Vein Open Discontinued Medications Generic Name Dose Route Start Last Admin Trade Name Freq PRN Reason Stop Dose Admin Benzonatate 200 mg 04/29/20 07:01 04/29/20 07:19 Tessalon Perles PO 04/29/20 07:02 200 mg ONETIME ONE Administration Dexamethasone 8 mg 04/29/20 10:32 04/29/20 11:27 Dexamethasone IVPUSH 04/29/20 10:33 8 mg ONETIME ONE Administration - Re-Assessments/Exams Free Text/Narrative Re-Assessment/Exam: 04/29/20 10:33 Dr. York called back and accepts the case for admission. Request to place the patient inpatient, telemetry not indicated at this time Departure - Departure Time of Disposition: 10:36 Disposition: Admitted As Inpatient 66 Clinical Impression: COVID-19 - Discharge Information Sepsis Event Note (ED) - Evaluation Sepsis Screening Result: No Definite Risk - Focused Exam Vital Signs: Vital Signs Temp Pulse Resp BP Pulse Ox 04/29/20 07:11 98.4 F 103 H 18 147/80 H 88 L - My Orders Last 24 Hours: My Active Orders 04/29/20 07:00 Sodium Chloride 0.9% [Saline Flush] 10 ml FLUSH ASDIRECTED PRN Sodium Chloride 0.9% [Saline Flush] 2.5 ml FLUSH ASDIRECTED PRN Saline Lock Insert [OM.PC] Stat 04/29/20 10:36 Patient Status [ADT] Routine 04/29/20 10:45 Azithromycin [Zithromax] 500 mg Sodium Chloride 0.9% [Normal Saline (AdvBag)] 250 ml IV ONETIME - Assessment/Plan Last 24 Hours: My Active Orders 04/29/20 07:00 Sodium Chloride 0.9% [Saline Flush] 10 ml FLUSH ASDIRECTED PRN Sodium Chloride 0.9% [Saline Flush] 2.5 ml FLUSH ASDIRECTED PRN Saline Lock Insert [OM.PC] Stat 04/29/20 10:36 Patient Status [ADT] Routine 04/29/20 10:45 Azithromycin [Zithromax] 500 mg Sodium Chloride 0.9% [Normal Saline (AdvBag)] 250 ml IV ONETIME
--- NOTE | 2020-04-29 08:14 | CR ---
INDICATION: Shortness of breath. Positive COVID-19 infection COMPARISON: Portable AP erect chest performed on 04/27/2020 TECHNIQUE: Portable AP erect chest performed at 7:46 a.m. FINDINGS: As compared to the recent exam dated 04/27/2020 there has been progression ground-glass infiltrates within both lungs. The heart and pulmonary vessels remain within normal range in size. There is no evidence pleural fluid. IMPRESSION: Progressive ground-glass infiltrates within the lungs, greater than right. Dictated by Jack Richards MD @ Apr 29 2020 8:11AM Signed by Dr. Jack Richards @ Apr 29 2020 8:13AM
[2020-04-29 08:30] LABS: CARBON DIOXIDE,CO2 22.8 mmol/L (21.0-32.0); POTASSIUM,K 3.9 mmol/L (3.5-5.1)
[2020-04-29] MEDS ORDERED: Dexamethasone 10 MG/ML SDV IVPUSH ONE (10:32)
[2020-04-29] MEDS ORDERED: Azithromycin 500 MG in Sodium Chloride 0.9% 250 ML IV SCH (10:45)
[2020-04-29] MEDS ORDERED: LORazepam 2 MG/ML SDV IVPUSH ONE (12:40)
--- NOTE | 2020-04-29 12:49 | PCM.HP.2 ---
H&P History of Present Illness - General Date of Service: 04/29/20 Admit Problem/Dx: Admission Diagnosis/Problem Admission Diagnosis/Problem Pneumonia History Limitations: Reports: Other (Mental Retardation) - History of Present Illness Initial Comments - Free Text/Narative: 65 yr old male patient admitted to the medical floor for COVID-19 infection. Patient has a medical history of GERD, HTN and Mental Retardation. Patient resides at a [facility] home and per documentation has had a one week history of cough and a one day history of fever (101F). Patient was tested for COVID last week and found to be positive. Other residents of the longterm have tested positive for COVID. Questioning of the patient was not possible due to his mental retardation condition. I spoke to the patients POA (Flaco Sharp) and emailed him fact sheet with information regarding Remdesivr medication. I discussed side effects of the medication and offered the POA the opportunity to ask any questions. POA had no reservations and has approved remdevisir usage for the patient. - Related Data Allergies/Adverse Reactions: Allergies Allergy/AdvReac Type Severity Reaction Status Date / Time haloperidol Allergy Other Verified 04/29/20 07:10 thioridazine Allergy Other Verified 04/29/20 07:10 Home Medications: Home Meds Calcium Carb & Citrate/Vit D3 [Calcium + Vitamin D3 Caplet] 2 tab PO BID 04/21/14 [History] Gabapentin [Neurontin] 900 mg PO TID 04/21/14 [History] Lisinopril 5 mg PO DAILY 08/10/15 [History] Testosterone Cypionate [Depo-Testosterone] 1 injection SQ ASDIRECTED 08/10/15 [History] carBAMazepine [TEGretol XR] 300 mg PO TID 08/10/15 [History] polyethylene glycoL 3350 [Polyethylene Glycol 3350] 17 gram PO DAILY 08/10/15 [History] Divalproex Sodium [Depakote ER] 750 mg PO BID 10/10/16 [History] Fenofibrate Nanocrystallized [Fenofibrate] 145 mg PO DAILY 01/24/18 [History] Metoprolol Succinate 50 mg PO DAILY 01/24/18 [History] Past Medical History HEENT History: Reports: None Cardiovascular History: Reports: Hypertension Respiratory History: Reports: None Gastrointestinal History: Reports: Chronic Constipation, GERD Other Gastrointestinal History: Heartburn/GERD-controlled Genitourinary History: Reports: None Musculoskeletal History: Reports: Fracture Other Musculoskeletal History: hx: Fracture foot, ankle, shoulder, any hardware denied by hospital admitting clerk Neurological History: Reports: Seizure, Other (See Below) Other Neuro History: No reported seizures since . 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 Hematologic History: Reports: None Immunologic History: Reports: None Oncologic (Cancer) History: Reports: None Dermatologic History: Reports: None - Infectious Disease History Infectious Disease History: Reports: None - Past Surgical History HEENT Surgical History: Reports: None Cardiovascular Surgical History: Reports: None GI Surgical History: Reports: None Male Surgical History: Reports: None Endocrine Surgical History: Reports: None Neurological Surgical History: Reports: None Musculoskeletal Surgical History: Reports: None Oncologic Surgical History: Reports: None Dermatological Surgical History: Reports: None Social & Family History - Family History Family Medical History: Noncontributory HEENT: Reports: None Cardiac: Reports: None Respiratory: Reports: None GI: Reports: None : Reports: None OBGYN: Reports: None Musculoskeletal: Reports: None Neurological: Reports: None Psychiatric: Reports: None Endocrine/Metabolic: Reports: None Hematologic: Reports: None Immunologic: Reports: None Dermatologic: Reports: None Oncologic: Reports: None - Tobacco Use Smoking Status *Q: Unknown Ever Smoked Tobacco Use Comment: unable to asses, came from [facility] - Caffeine Use Caffeine Use: Reports: None Caffeine Use Comment: unable to asses, came from [facility] H&P Review of Systems - Review of Systems: Review Of Systems: Unable To Obtain (Mental Retardation) Reason Not Obtained: Mental Retardation Exam - Exam Exam: See Below - Vital Signs Vital Signs: Last Vital Signs Temp 103.2 F H 04/29/20 12:00 Pulse 97 04/29/20 12:00 Resp 18 04/29/20 12:00 BP 109/77 04/29/20 12:00 Pulse Ox 88 L 04/29/20 12:00 Weight: 159 lb - Exam General: Alert HEENT: EOMI Neck: Trachea Midline Lungs: Clear to Auscultation (Clear to auscultation at anterior ramírez), Normal Respiratory Effort Cardiovascular: Regular Rate, Regular Rhythm GI/Abdominal Exam: Soft, No Distention Extremities: No Pedal Edema Skin: Warm, Dry - Patient Data Lab Results Last 24 hrs: Laboratory Results - last 24 hr 04/29/20 04/29/20 04/29/20 Range/Units 07:40 07:40 07:43 WBC 6.97 (4.0-11.0) K/uL RBC 4.04 L (4.50-5.90) M/uL Hgb 13.0 (13.0-17.0) g/dL Hct 38.2 (38.0-50.0) % MCV 94.6 (80.0-98.0) fL MCH 32.2 H (27.0-32.0) pg MCHC 34.0 (31.0-37.0) g/dL RDW Std Deviation 44.2 (28.0-62.0) fl RDW Coeff of Cecilio 13 (11.0-15.0) % Plt Count 128 L (150-400) K/uL MPV 11.00 (7.40-12.00) fL Add Manual Diff YES Neutrophils % (Manual) 67 (48.0-80.0) % Band Neutrophils % 8 % Lymphocytes % (Manual) 12 L (16.0-40.0) % Monocytes % (Manual) 13 (0.0-15.0) % Nucleated RBC % 0.0 /100WBC Absolute Seg Neuts 4.7 (1.4-5.7) Band Neutrophils # 0.6 Lymphocytes # (Manual) 0.8 (0.6-2.4) Monocytes # (Manual) 0.9 H (0.0-0.8) Nucleated RBCs # 0 K/uL Sodium 140 (136-148) mmol/L Potassium 3.9 (3.5-5.1) mmol/L Chloride 103 (98-107) mmol/L Carbon Dioxide 22.8 (21.0-32.0) mmol/L BUN 29 H (7.0-18.0) mg/dL Creatinine 1.7 H (0.8-1.3) mg/dL Est Cr Clr Drug Dosing 41.91 mL/min Estimated GFR (MDRD) 40.7 ml/min Glucose 93 (74-106) mg/dL Calcium 9.8 (8.5-10.1) mg/dL Total Bilirubin 0.4 (0.2-1.0) mg/dL AST 116 H (15-37) IU/L ALT 32 (14-63) IU/L Alkaline Phosphatase 41 L (46-116) U/L Total Protein 7.9 (6.4-8.2) g/dL Albumin 3.1 L (3.4-5.0) g/dL Globulin 4.8 H (2.6-4.0) g/dL Albumin/Globulin Ratio 0.7 L (0.9-1.6) COVID-19 (AAYUSH) POSITIVE H (NEGATIVE) Result Diagrams: 04/29/20 07:40 04/29/20 07:40 Sepsis Event Note - Evaluation Sepsis Screening Result: No Definite Risk - Focused Exam Vital Signs: Vital Signs Temp Pulse Resp BP Pulse Ox 04/29/20 12:00 103.2 F H 97 18 109/77 88 L 04/29/20 10:47 98 18 106/37 L 94 L 04/29/20 09:47 99 121/81 04/29/20 09:17 101 H 141/77 H 04/29/20 08:47 99 130/81 04/29/20 08:17 101 H 18 123/79 96 04/29/20 07:44 98 20 121/83 94 L 04/29/20 07:11 98.4 F 103 H 18 147/80 H 88 L Problem List Initiated/Reviewed/Updated: Yes Orders Last 24hrs: Active Orders 24 hr Category Date Time Status Patient Status [ADT] Routine ADT 04/29/20 10:36 Active Transfer Patient (Change bed) [ADT] Routine ADT 04/29/20 12:27 Ordered Oxygen Therapy [RC] ASDIRECTED Care 04/29/20 12:28 Ordered RT Aerosol Therapy [RC] ASDIRECTED Care 04/29/20 12:42 Ordered CBC WITH AUTO DIFF [HEME] AM Lab 04/30/20 05:11 Ordered CMP [COMPREHENSIVE METABOLIC PN,CMP] [CHEM] AM Lab 04/30/20 05:11 Ordered CULTURE BLOOD [BC] Routine Lab 04/29/20 11:19 Received PROCALCITONIN [REF] Routine Lab 04/29/20 12:25 Ordered Acetaminophen [TylenoL] Med 04/29/20 12:46 Ordered 650 mg PO Q4H PRN Albuterol/Ipratropium [DuoNeb 3.0-0.5 MG/3 ML] Med 04/29/20 12:41 Ordered 3 ml NEB Q4HRRT PRN Azithromycin [Zithromax] 500 mg Med 04/29/20 10:45 Active Sodium Chloride 0.9% [Normal Saline (AdvBag)] 250 ml IV ONETIME Heparin Sodium Med 04/29/20 12:30 Ordered 5,000 units SUBCUT Q12H Sodium Chloride 0.9% [Saline Flush] Med 04/29/20 07:00 Active 10 ml FLUSH ASDIRECTED PRN Sodium Chloride 0.9% [Saline Flush] Med 04/29/20 07:00 Active 2.5 ml FLUSH ASDIRECTED PRN Saline Lock Insert [OM.PC] Stat Oth 04/29/20 07:00 Ordered Medication Orders Acetaminophen (Tylenol) 650 mg PO Q4H PRN PRN Reason: Fever Greater Than 101 Albuterol/Ipratropium (Duoneb 3.0-0.5 Mg/3 Ml) 3 ml NEB Q4HRRT PRN PRN Reason: Dyspnea Heparin Sodium (Porcine) (Heparin Sodium) 5,000 units SUBCUT Q12H TYESHA Azithromycin 500 mg/ Sodium (Chloride) 250 mls @ 250 mls/hr IV ONETIME TYESHA Sodium Chloride (Saline Flush) 10 ml FLUSH ASDIRECTED PRN PRN Reason: Keep Vein Open Last Admin: 04/29/20 11:24 Dose: 10 ml Documented by: SAE Sodium Chloride (Saline Flush) 2.5 ml FLUSH ASDIRECTED PRN PRN Reason: Keep Vein Open Last Admin: 04/29/20 11:24 Dose: 2.5 ml Documented by: SAE Assessment/Plan: Sepsis Secondary to COVID-19 infection: Patient has positive COVID-19 test result, elevated HR (97), Temp (103.2F). Remdesivir 200mg Day 1, 100mg Days 2-5 (5 doses total), Dexamethasone 6mg PO (IV if PO not tolerated), Duoneb Q4HR PRN for dyspnea, Oxygen support (Currently using 2L NC. Will assess and adjust as necessary). Heparin 5000iu Q12HR, Tylenol 650mg Q4HRS for Fever/Pain. Azithromycin 500mg X 1 dose given in ED. TIM- Patient may be dehydrated. 500ml NS Bolus X 2. Will monitor fluid status an d bolus as needed, will monitor AM BMP. Transaminitis- AST elevated at 116. Will monitor CMP. AST elevation most likely due to COVID infection Thrombocytopenia- Platelet 128. Will monitor CBC. Reduction likely due to COVID infection
[2020-04-29] MEDS: Heparin Sodium 5,000 Units/ML Vial SUBCUT SCH (13:18)
[2020-04-29] MEDS: Acetaminophen 325 MG Tab PO PRN (13:21)
[2020-04-29] MEDS ORDERED: Sodium Chloride 0.9% 500 ML IV SCH ×4 (14:00→20:45)
--- NOTE | 2020-04-29 14:07 | PCM.SN.2 ---
- Free Text/Narrative Note: 04/29/2020 [id number]: Called to ED to for difficult IV start. Placed 20g 1.88inch catheter using ultrasound to right forearm on first attempt. Blood drawn from IV for lab request. Patient tolerated well.
[2020-04-29] MEDS ORDERED: REMDESIVIR 200 MG in Sodium Chloride 0.9% 250 ML IV SCH (14:30)
[2020-04-30] MEDS: Heparin Sodium 5,000 Units/ML Vial SUBCUT SCH ×3 (00:15→16:27)
[2020-04-30] MEDS: Albuterol/Ipratropium 3.0-0.5 MG/3 ML Neb Soln NEB PRN (00:55)
[2020-04-30] MEDS: Acetaminophen 325 MG Tab PO PRN ×3 (02:00→15:33)
[2020-04-30] MEDS ORDERED: LORazepam 2 MG/ML SDV IVPUSH ONE (02:38)
[2020-04-30] MEDS ORDERED: Lactated Ringers 500 ML IV ONE ×2 (02:39→03:31)
[2020-04-30] MEDS: Piperacillin/Tazobactam 4.5 GM in Sodium Chloride 0.9% 100 ML IV SCH ×3 (04:07→20:05)
[2020-04-30 04:40] LABS: CARBON DIOXIDE,CO2 21.1 mmol/L (21.0-32.0); POTASSIUM,K 3.5 mmol/L (3.5-5.1)
[2020-04-30] MEDS ORDERED: Heparin Sodium 5,000 Units/ML Vial SUBCUT SCH (05:16)
--- NOTE | 2020-04-30 06:07 | PN ---
MARCELLE Physician - Brief Progress [id number]/04/2020 05:20[facility] Gordo Nicole, [place] - TONYN (COLBYN) - TONYN LOLITABERTHA MENENDEZ, COVID +Date of Service 04/30/2020 05:20HPI/Ev ents of Note Chart reviewed. On camera, the patient appears in NAD, not using any accessory repsiraot ry muscle use. Mr Menendez is a 65 yr old man admitted 04/29 with COVID-19 PNA from his living facility. He was trsf to the ICU on 04/30 for increasing O2 requirements. Of note, the patient has significant menta l retardation and mood disorder and only tolerates flow-by O2, therefore difficult to assess true oxy gen needs.PMH: developmentally delayed, HTN, GERD, seizures, obesity.Investigations reviewed x pertin ent: Cre 1.7-1.5, baseline unk, AST 116-86, LA 3.0, WBC normal, Plts 130.CxR: b/l infiltrates. CTPA shows no PE but infiltrates in all lobes.A/P:1. Acute respiratory failureMonitor respiratory stat us closely given that the patient cannot communicate effectively.2. COVID-19 PNA.Is on Remdesivir and Dexamethasone.Is on very broad-spectrum Abx Zosyn/Azithro/Vanco.Strongly recommend de-escalating or stopping Abx given that the patient does not have signs/symptoms of classic bacterial pneumonia, and co-infection relatively early in the course of COVID pneumonia is unlikely.3. TIM, mildIs Improving, continue following Cre and electrolytes.Could be related to COVID-19 or ATN due to critical illness.4 . Elevated lactic acid- could be related to increased respiratory muscle use.Ordered f/up level in 6 hours, and can administer fluids at that time.Judicious fluid use given that he has COVID-19.5. HTN - hold any antihypertensives for now until BP requires treatment.6. DVT prophylaxis - Heparin SC christian ed to q8h for optimal coverage. SCDs and ambulate.Recommend discussing code status and goal of care i n depth with the patient's POA. He is unlikely to return to his previous level of function if he was to be intubated, and prognosis would be extremely poor.Interventions Major-Acute renal failure - eval uation and management, Infection - evaluation and management, Respiratory failure - evaluation and ma nagement
[2020-04-30] MEDS ORDERED: Potassium Chloride 20 MEQ Tab.ER PO ONE (10:02)
[2020-04-30] MEDS: Divalproex Sodium 500 MG Tab.ER PO SCH ×2 (11:13→20:14)
[2020-04-30] MEDS: Pantoprazole 40 MG in Sodium Chloride 0.9% 10 ML IV SCH (11:15)
[2020-04-30] MEDS: carBAMazepine 100 MG Cap.ER PO SCH ×2 (14:04→21:47)
[2020-04-30] MEDS: REMDESIVIR 100 MG in Sodium Chloride 0.9% 250 ML IV SCH (14:05)
[2020-04-30] MEDS: LORazepam 2 MG/ML SDV IVPUSH PRN (15:43)
[2020-04-30] MEDS ORDERED: Sodium Chloride 0.9% 1,000 ML IV ONE (16:07)
[2020-04-30] MEDS ORDERED: Acetaminophen 500 MG Tab PO ONE (16:25)
--- NOTE | 2020-04-30 17:11 | CR ---
Chest: Portable view of the chest was obtained. Comparison: Prior chest x-ray of 04/27/20. Diffuse increased density is noted on both sides of the chest worse on the left side. Findings could represent pulmonary edema as well as pneumonia. Heart is enlarged. Bony structures are grossly intact. Impression: 1. Diffuse increased density of both sides of the chest with differential as noted above. 2. Mild cardiomegaly. Diagnostic code #3 Study was dictated in MDT
[2020-04-30] MEDS ORDERED: Dexamethasone 4 MG Tab PO ONE (19:04)
--- NOTE | 2020-04-30 21:20 | PCM.PN ---
<JulitaTy - Last Filed: 04/30/20 21:20> - General Info Date of Service: 04/30/20 Subjective Update: Patient has become more hypotensive overnight, remains febrile, and has increased respiratory effort. Patient is requiring more oxygen support. Per nursing patient is coughing more frequently, especially after meals. - Review of Systems Systems Review Comment:: ROS unable due to patients mental retardation condition. - Patient Data Vitals - Most Recent: Last Vital Signs Temp 98.5 F 04/30/20 20:10 Pulse 87 04/30/20 06:06 Resp 41 H 04/30/20 20:10 BP 117/72 04/30/20 20:10 Pulse Ox 100 04/30/20 20:10 Weight - Most Recent: 72.121 kg I&O - Last 24 Hours: Intake & Output 04/30/20 04/30/20 04/30/20 06:59 14:59 22:59 Intake Total 2140 360 1340 Balance 2140 360 1340 Lab Results Last 24 Hours: Laboratory Results - last 24 hr 04/30/20 04/30/20 04/30/20 Range/Units 04:00 04:00 04:00 WBC 6.97 (4.0-11.0) K/uL RBC 3.38 L (4.50-5.90) M/uL Hgb 10.9 L (13.0-17.0) g/dL Hct 32.0 L (38.0-50.0) % MCV 94.7 (80.0-98.0) fL MCH 32.2 H (27.0-32.0) pg MCHC 34.1 (31.0-37.0) g/dL RDW Std Deviation 45.6 (28.0-62.0) fl RDW Coeff of Cecilio 13 (11.0-15.0) % Plt Count 130 L (150-400) K/uL MPV 11.10 (7.40-12.00) fL Add Manual Diff YES Neutrophils % (Manual) 66 (48.0-80.0) % Band Neutrophils % 7 % Lymphocytes % (Manual) 11 L (16.0-40.0) % Monocytes % (Manual) 14 (0.0-15.0) % Metamyelocytes % 2 % Nucleated RBC % 0.0 /100WBC Absolute Seg Neuts 4.6 (1.4-5.7) Band Neutrophils # 0.5 Lymphocytes # (Manual) 0.8 (0.6-2.4) Monocytes # (Manual) 1.0 H (0.0-0.8) Absolute Metamyelocyte 0.1 Nucleated RBCs # 0 K/uL Lactate 3.0 H* (0.20-2.00) mmol/L Sodium 142 (136-148) mmol/L Potassium 3.5 (3.5-5.1) mmol/L Chloride 108 H (98-107) mmol/L Carbon Dioxide 21.1 (21.0-32.0) mmol/L BUN 27 H (7.0-18.0) mg/dL Creatinine 1.5 H (0.8-1.3) mg/dL Est Cr Clr Drug Dosing 45.90 mL/min Estimated GFR (MDRD) 47.0 ml/min Glucose 81 (74-106) mg/dL Calcium 8.1 L (8.5-10.1) mg/dL Total Bilirubin 0.3 (0.2-1.0) mg/dL AST 86 H (15-37) IU/L ALT 18 (14-63) IU/L Alkaline Phosphatase 34 L (46-116) U/L Total Protein 6.2 L (6.4-8.2) g/dL Albumin 2.3 L (3.4-5.0) g/dL Globulin 3.9 (2.6-4.0) g/dL Albumin/Globulin Ratio 0.6 L (0.9-1.6) 04/30/20 Range/Units 10:20 WBC (4.0-11.0) K/uL RBC (4.50-5.90) M/uL Hgb (13.0-17.0) g/dL Hct (38.0-50.0) % MCV (80.0-98.0) fL MCH (27.0-32.0) pg MCHC (31.0-37.0) g/dL RDW Std Deviation (28.0-62.0) fl RDW Coeff of Cecilio (11.0-15.0) % Plt Count (150-400) K/uL MPV (7.40-12.00) fL Add Manual Diff Neutrophils % (Manual) (48.0-80.0) % Band Neutrophils % % Lymphocytes % (Manual) (16.0-40.0) % Monocytes % (Manual) (0.0-15.0) % Metamyelocytes % % Nucleated RBC % /100WBC Absolute Seg Neuts (1.4-5.7) Band Neutrophils # Lymphocytes # (Manual) (0.6-2.4) Monocytes # (Manual) (0.0-0.8) Absolute Metamyelocyte Nucleated RBCs # K/uL Lactate 2.3 H* (0.20-2.00) mmol/L Sodium (136-148) mmol/L Potassium (3.5-5.1) mmol/L Chloride (98-107) mmol/L Carbon Dioxide (21.0-32.0) mmol/L BUN (7.0-18.0) mg/dL Creatinine (0.8-1.3) mg/dL Est Cr Clr Drug Dosing mL/min Estimated GFR (MDRD) ml/min Glucose (74-106) mg/dL Calcium (8.5-10.1) mg/dL Total Bilirubin (0.2-1.0) mg/dL AST (15-37) IU/L ALT (14-63) IU/L Alkaline Phosphatase (46-116) U/L Total Protein (6.4-8.2) g/dL Albumin (3.4-5.0) g/dL Globulin (2.6-4.0) g/dL Albumin/Globulin Ratio (0.9-1.6) Abner Results Last 24 Hours: Microbiology 04/29/20 11:19 Aerobic Blood Culture - Preliminary Blood - Arm, Right NO GROWTH AFTER 1 DAY Anaerobic Blood Culture - Preliminary Med Orders - Current: Current Medications Acetaminophen (Tylenol) 650 mg PO Q4H PRN PRN Reason: Fever Greater Than 101 Last Admin: 04/30/20 15:33 Dose: 650 mg Documented by: Albuterol/Ipratropium (Duoneb 3.0-0.5 Mg/3 Ml) 3 ml NEB Q4HRRT PRN PRN Reason: Dyspnea Last Admin: 04/30/20 00:55 Dose: 3 ml Documented by: Carbamazepine (Tegretol Xr) 300 mg PO TID TYESHA Last Admin: 04/30/20 14:04 Dose: 300 mg Documented by: Dexamethasone (Dexamethasone) 6 mg PO DAILY [facility] Divalproex Sodium (Depakote Er) 750 mg PO BID [facility] Last Admin: 04/30/20 20:14 Dose: 750 mg Documented by: Gabapentin (Neurontin) 900 mg PO TID [facility] Heparin Sodium (Porcine) (Heparin Sodium) 5,000 units SUBCUT Q8H [facility] Last Admin: 04/30/20 16:27 Dose: 5,000 units Documented by: Azithromycin 500 mg/ Sodium (Chloride) 250 mls @ 250 mls/hr IV ONETIME [facility] Last Admin: 04/29/20 13:07 Dose: 250 mls/hr Documented by: REMDESIVIR (EUA) 100 mg/ (Sodium Chloride) 250 mls @ 125 mls/hr IV Q24H [facility] Stop: 05/03/20 16:29 Last Admin: 04/30/20 14:05 Dose: 125 mls/hr Documented by: Sodium Chloride (Normal Saline) 500 mls @ 999 mls/hr IV .BOLUS [facility] Last Admin: 04/29/20 14:45 Dose: 999 mls/hr Documented by: Sodium Chloride (Normal Saline) 500 mls @ 999 mls/hr IV .BOLUS [facility] Last Admin: 04/29/20 19:36 Dose: 999 mls/hr Documented by: Piperacillin Sod/Tazobactam (Sod 4.5 gm/ Sodium Chloride) 100 mls @ 100 mls/hr IV Q8H [facility] Last Admin: 04/30/20 20:05 Dose: 100 mls/hr Documented by: Vancomycin HCl 1 gm/ Sodium (Chloride) 250 mls @ 166 mls/hr IV Q12H [facility] Last Admin: 04/30/20 16:35 Dose: 166 mls/hr Documented by: Pantoprazole Sodium 40 mg/ (Sodium Chloride) 10 mls @ 300 mls/hr IV Q24H [facility] Last Admin: 04/30/20 11:15 Dose: 300 mls/hr Documented by: Lorazepam (Ativan) 1 mg IVPUSH Q6H PRN PRN Reason: Agitation Last Admin: 04/30/20 15:43 Dose: 1 mg Documented by: Sodium Chloride (Saline Flush) 10 ml FLUSH ASDIRECTED PRN PRN Reason: Keep Vein Open Last Admin: 04/29/20 11:24 Dose: 10 ml Documented by: Sodium Chloride (Saline Flush) 2.5 ml FLUSH ASDIRECTED PRN PRN Reason: Keep Vein Open Last Admin: 04/29/20 11:24 Dose: 2.5 ml Documented by: Discontinued Medications Acetaminophen (Tylenol Extra Strength) 500 mg PO ONETIME ONE Stop: 04/30/20 16:26 Last Admin: 04/30/20 16:53 Dose: 500 mg Documented by: Benzonatate (Tessalon Perles) 200 mg PO ONETIME ONE Stop: 04/29/20 07:02 Last Admin: 04/29/20 07:19 Dose: 200 mg Documented by: Dexamethasone (Dexamethasone) 8 mg IVPUSH ONETIME ONE Stop: 04/29/20 10:33 Last Admin: 04/29/20 11:27 Dose: 8 mg Documented by: Dexamethasone (Dexamethasone) 6 mg PO ONETIME ONE Stop: 04/30/20 19:05 Last Admin: 04/30/20 20:01 Dose: 6 mg Documented by: Heparin Sodium (Porcine) (Heparin Sodium) 5,000 units SUBCUT Q12H [facility] Last Admin: 04/30/20 00:15 Dose: 5,000 units Documented by: Heparin Sodium (Porcine) (Heparin Sodium) 5,000 units SUBCUT Q8H [facility] Last Admin: 04/30/20 05:50 Dose: Not Given Documented by: REMDESIVIR (EUA) 200 mg/ (Sodium Chloride) 250 mls @ 125 mls/hr IV Q24H [facility] Stop: 04/29/20 16:29 Last Admin: 04/29/20 14:45 Dose: 125 mls/hr Documented by: Sodium Chloride (Normal Saline) 500 mls @ 500 mls/hr IV ASDIRECTED TYESHA Stop: 04/29/20 21:44 Last Admin: 04/29/20 21:17 Dose: 500 mls/hr Documented by: Lactated Ringer's (Ringers, Lactated) 500 mls @ 999 mls/hr IV .BOLUS ONE Stop: 04/30/20 03:09 Last Admin: 04/30/20 02:54 Dose: 999 mls/hr Documented by: Lactated Ringer's (Ringers, Lactated) 500 mls @ 999 mls/hr IV ONETIME ONE Stop: 04/30/20 04:01 Last Admin: 04/30/20 03:38 Dose: 999 mls/hr Documented by: Vancomycin HCl 1.5 gm/ Premix 300 mls @ 300 mls/hr IV ONETIME ONE Stop: 04/30/20 04:59 Last Admin: 04/30/20 05:15 Dose: 300 mls/hr Documented by: Sodium Chloride (Normal Saline) 1,000 mls @ 250 mls/hr IV BOLUS ONE Stop: 04/30/20 20:06 Last Admin: 04/30/20 16:44 Dose: 250 mls/hr Documented by: Lorazepam (Ativan) 1 mg IVPUSH ONETIME ONE Stop: 04/29/20 12:41 Last Admin: 04/29/20 13:17 Dose: 1 mg Documented by: Lorazepam (Ativan) 2 mg IVPUSH ONETIME ONE Stop: 04/30/20 02:39 Last Admin: 04/30/20 02:50 Dose: 2 mg Documented by: Potassium Chloride (Klor-Con M20) 40 meq PO ONETIME ONE Stop: 04/30/20 10:03 Last Admin: 04/30/20 11:14 Dose: 40 meq Documented by: Vancomycin HCl (Pharmacy To Dose - Vancomycin) 1 dose .XX ONETIME ONE Stop: 04/30/20 03:30 Last Admin: 04/30/20 11:10 Dose: 1.5 gram Documented by: - Exam General: Alert HEENT: EOMI Neck: Trachea Midline Lungs: Decreased Breath Sounds Cardiovascular: Other (tachycardia) GI/Abdominal Exam: Soft, No Distention Extremities: Other (Unable to assess. Patient becomes combative when attmepting to move, reposition) Skin: Warm, Dry Neurological: Other (unable to assess due to MR) Psy/Mental Status: Alert Sepsis Event Note - Evaluation Sepsis Screening Result: Severe Sepsis Risk - Focused Exam Vital Signs: Vital Signs Temp Temp Resp BP Pulse Ox 04/30/20 20:10 98.5 F 41 H 117/72 100 04/30/20 19:00 101.3 F H 36 H 115/71 100 04/30/20 18:00 49 H 101/33 L 100 04/30/20 17:23 101.8 F H 04/30/20 17:00 54 H 137/86 94 L 04/30/20 16:53 103.4 F H 04/30/20 16:00 54 H 144/81 H 90 L 04/30/20 15:33 101.4 F H 04/30/20 15:00 101.4 F H 47 H 69/49 L 89 L 04/30/20 14:00 47 H 156/95 H 89 L 04/30/20 13:00 44 H 113/76 92 L 04/30/20 12:00 97 F 28 H 101/62 96 04/30/20 11:00 21 H 97/54 L 96 04/30/20 10:00 28 H 96/55 L 97 - Problem List Review Problem List Initiated/Reviewed/Updated: Yes - My Orders Last 24 Hours: My Active Orders 04/30/20 09:59 LORazepam [Ativan] 1 mg IVPUSH Q6H PRN 04/30/20 10:00 Divalproex Sodium [Depakote ER] 750 mg PO BID 04/30/20 10:15 Pantoprazole [ProTONIX IV] 40 mg Sodium Chloride 0.9% [Normal Saline] 10 ml IV Q24H 04/30/20 14:00 Gabapentin [Neurontin] 900 mg PO TID carBAMazepine [TEGretol XR] 300 mg PO TID 05/01/20 09:00 dexAMETHasone 6 mg PO DAILY Sepsis Secondary to COVID-19 infection: Remdesivir 100mg Days 2-5 (5 doses total), Dexamethasone 6mg PO (IV if PO not tolerated), Duoneb Q4HR PRN for dyspnea, Oxygen support (Currently using 2L NC. Will assess and adjust as necessary). Heparin 5000iu Q12HR, Tylenol 650mg Q4HRS for Fever/Pain. Patient is requiring more oxygen support. Repeat cxray from today is more concerning for progression of patients COVID infection. Will monitor respiratory status closely and intubate if necessary. POA was contacted and updated about patients status specifically regarding decreased respiratory status and possible intubation need. POA was explained negative outcomes of intubation on recovery. POA would like to keep patients code status, Full Code. TIM- Improving, 500ml NS Bolus as needed as too much fluid could cause worsen patients respiratory status. Will monitor AM BMP. Transaminitis- Improving. Will monitor CMP. AST elevation most likely due to COVID infection Thrombocytopenia- Improving. Will monitor CBC. Reduction likely due to COVID infection <Cuba Zacarias - Last Filed: 05/03/20 11:27> - General Info Subjective Update: I have seen and evaluated the patient and agree with the residents note unless specified in my note - Patient Data Vitals - Most Recent: Last Vital Signs Temp 37.3 C 05/03/20 08:00 Pulse 87 04/30/20 06:06 Resp 36 H 05/03/20 10:00 BP 113/62 05/03/20 10:00 Pulse Ox 91 L 05/03/20 10:00 I&O - Last 24 Hours: Intake & Output 05/02/20 05/03/20 05/03/20 22:59 06:59 14:59 Intake Total 1295 1190 100 Balance 1295 1190 100 Lab Results Last 24 Hours: Laboratory Results - last 24 hr 05/03/20 05/03/20 Range/Units 06:05 06:05 WBC 9.46 (4.0-11.0) K/uL RBC 2.89 L (4.50-5.90) M/uL Hgb 9.2 L (13.0-17.0) g/dL Hct 27.3 L (38.0-50.0) % MCV 94.5 (80.0-98.0) fL MCH 31.8 (27.0-32.0) pg MCHC 33.7 (31.0-37.0) g/dL RDW Std Deviation 47.2 (28.0-62.0) fl RDW Coeff of Cecilio 14 (11.0-15.0) % Plt Count 236 (150-400) K/uL MPV 10.40 (7.40-12.00) fL Add Manual Diff YES Neutrophils % (Manual) 76 (48.0-80.0) % Band Neutrophils % 2 % Lymphocytes % (Manual) 15 L (16.0-40.0) % Monocytes % (Manual) 7 (0.0-15.0) % Nucleated RBC % 0.5 /100WBC Absolute Seg Neuts 7.2 H (1.4-5.7) Band Neutrophils # 0.2 Lymphocytes # (Manual) 1.4 (0.6-2.4) Monocytes # (Manual) 0.7 (0.0-0.8) Nucleated RBCs # 0 K/uL Sodium 144 (136-148) mmol/L Potassium 3.4 L (3.5-5.1) mmol/L Chloride 108 H (98-107) mmol/L Carbon Dioxide 26.0 (21.0-32.0) mmol/L BUN 14 (7.0-18.0) mg/dL Creatinine 1.1 (0.8-1.3) mg/dL Est Cr Clr Drug Dosing 62.59 mL/min Estimated GFR (MDRD) > 60.0 ml/min Glucose 92 (74-106) mg/dL Calcium 7.5 L (8.5-10.1) mg/dL Total Bilirubin 0.3 (0.2-1.0) mg/dL AST 45 H (15-37) IU/L ALT 18 (14-63) IU/L Alkaline Phosphatase 34 L (46-116) U/L Total Protein 5.5 L (6.4-8.2) g/dL Albumin 1.7 L (3.4-5.0) g/dL Globulin 3.8 (2.6-4.0) g/dL Albumin/Globulin Ratio 0.5 L (0.9-1.6) Abner Results Last 24 Hours: Microbiology 04/29/20 11:19 Aerobic Blood Culture - Preliminary Blood - Arm, Right NO GROWTH AFTER 3 DAYS Anaerobic Blood Culture - Final 04/30/20 04:00 Aerobic Blood Culture - Preliminary Blood NO GROWTH AFTER 3 DAYS Anaerobic Blood Culture - Preliminary NO GROWTH AFTER 3 DAYS Med Orders - Current: Current Medications Acetaminophen (Tylenol) 650 mg PO Q4H PRN PRN Reason: Fever Greater Than 101 Last Admin: 04/30/20 15:33 Dose: 650 mg Documented by: Albuterol/Ipratropium (Duoneb 3.0-0.5 Mg/3 Ml) 3 ml NEB Q4HRRT PRN PRN Reason: Dyspnea Last Admin: 05/03/20 10:30 Dose: 3 ml Documented by: Bisacodyl (Dulcolax) 10 mg RECTAL DAILY PRN PRN Reason: Constipation Carbamazepine (Tegretol Xr) 300 mg PO TID [facility] Last Admin: 05/03/20 06:13 Dose: 300 mg Documented by: Dexamethasone (Dexamethasone) 6 mg PO DAILY [facility] Last Admin: 05/03/20 08:33 Dose: 6 mg Documented by: Divalproex Sodium (Depakote Er) 750 mg PO BID [facility] Last Admin: 05/03/20 08:33 Dose: 750 mg Documented by: Gabapentin (Neurontin) 900 mg PO TID [facility] Last Admin: 05/03/20 06:13 Dose: 900 mg Documented by: Heparin Sodium (Porcine) (Heparin Sodium) 5,000 units SUBCUT Q8H [facility] Last Admin: 05/03/20 08:33 Dose: 5,000 units Documented by: REMDESIVIR (EUA) 100 mg/ (Sodium Chloride) 250 mls @ 125 mls/hr IV Q24H [facility] Stop: 05/03/20 16:29 Last Admin: 05/02/20 14:57 Dose: 125 mls/hr Documented by: Sodium Chloride (Normal Saline) 500 mls @ 999 mls/hr IV .BOLUS [facility] Last Admin: 04/29/20 14:45 Dose: 999 mls/hr Documented by: Sodium Chloride (Normal Saline) 500 mls @ 999 mls/hr IV .BOLUS [facility] Last Admin: 04/29/20 19:36 Dose: 999 mls/hr Documented by: Piperacillin Sod/Tazobactam (Sod 4.5 gm/ Sodium Chloride) 100 mls @ 100 mls/hr IV Q8H [facility] Last Admin: 05/03/20 10:33 Dose: 100 mls/hr Documented by: Vancomycin HCl 1 gm/ Sodium (Chloride) 250 mls @ 166 mls/hr IV Q12H [facility] Last Admin: 05/03/20 03:53 Dose: 166 mls/hr Documented by: Pantoprazole Sodium 40 mg/ (Sodium Chloride) 10 mls @ 300 mls/hr IV Q24H [facility] Last Admin: 05/03/20 09:42 Dose: 300 mls/hr Documented by: Lorazepam (Ativan) 1 mg IVPUSH Q6H PRN PRN Reason: Agitation Last Admin: 05/03/20 02:35 Dose: 1 mg Documented by: Sodium Chloride (Saline Flush) 10 ml FLUSH ASDIRECTED PRN PRN Reason: Keep Vein Open Last Admin: 04/29/20 11:24 Dose: 10 ml Documented by: Sodium Chloride (Saline Flush) 2.5 ml FLUSH ASDIRECTED PRN PRN Reason: Keep Vein Open Last Admin: 04/29/20 11:24 Dose: 2.5 ml Documented by: Discontinued Medications Acetaminophen (Tylenol Extra Strength) 500 mg PO ONETIME ONE Stop: 04/30/20 16:26 Last Admin: 04/30/20 16:53 Dose: 500 mg Documented by: Benzonatate (Tessalon Perles) 200 mg PO ONETIME ONE Stop: 04/29/20 07:02 Last Admin: 04/29/20 07:19 Dose: 200 mg Documented by: Bisacodyl (Dulcolax) 10 mg RECTAL DAILY [facility] Dexamethasone (Dexamethasone) 8 mg IVPUSH ONETIME ONE Stop: 04/29/20 10:33 Last Admin: 04/29/20 11:27 Dose: 8 mg Documented by: Dexamethasone (Dexamethasone) 6 mg PO ONETIME ONE Stop: 04/30/20 19:05 Last Admin: 04/30/20 20:01 Dose: 6 mg Documented by: Gabapentin (Neurontin) 300 mg PO TID [facility] Last Admin: 05/02/20 06:15 Dose: 300 mg Documented by: Heparin Sodium (Porcine) (Heparin Sodium) 5,000 units SUBCUT Q12H [facility] Last Admin: 04/30/20 00:15 Dose: 5,000 units Documented by: Heparin Sodium (Porcine) (Heparin Sodium) 5,000 units SUBCUT Q8H [facility] Last Admin: 04/30/20 05:50 Dose: Not Given Documented by: Azithromycin 500 mg/ Sodium (Chloride) 250 mls @ 250 mls/hr IV ONETIME [facility] Last Admin: 04/29/20 13:07 Dose: 250 mls/hr Documented by: REMDESIVIR (EUA) 200 mg/ (Sodium Chloride) 250 mls @ 125 mls/hr IV Q24H [facility] Stop: 04/29/20 16:29 Last Admin: 04/29/20 14:45 Dose: 125 mls/hr Documented by: Sodium Chloride (Normal Saline) 500 mls @ 500 mls/hr IV ASDIRECTED [facility] Stop: 04/29/20 21:44 Last Admin: 04/29/20 21:17 Dose: 500 mls/hr Documented by: Lactated Ringer's (Ringers, Lactated) 500 mls @ 999 mls/hr IV .BOLUS ONE Stop: 04/30/20 03:09 Last Admin: 04/30/20 02:54 Dose: 999 mls/hr Documented by: Lactated Ringer's (Ringers, Lactated) 500 mls @ 999 mls/hr IV ONETIME ONE Stop: 04/30/20 04:01 Last Admin: 04/30/20 03:38 Dose: 999 mls/hr Documented by: Vancomycin HCl 1.5 gm/ Premix 300 mls @ 300 mls/hr IV ONETIME ONE Stop: 04/30/20 04:59 Last Admin: 04/30/20 05:15 Dose: 300 mls/hr Documented by: Sodium Chloride (Normal Saline) 1,000 mls @ 250 mls/hr IV BOLUS ONE Stop: 04/30/20 20:06 Last Admin: 04/30/20 16:44 Dose: 250 mls/hr Documented by: Lorazepam (Ativan) 1 mg IVPUSH ONETIME ONE Stop: 04/29/20 12:41 Last Admin: 04/29/20 13:17 Dose: 1 mg Documented by: Lorazepam (Ativan) 2 mg IVPUSH ONETIME ONE Stop: 04/30/20 02:39 Last Admin: 04/30/20 02:50 Dose: 2 mg Documented by: Potassium Chloride (Klor-Con M20) 40 meq PO ONETIME ONE Stop: 04/30/20 10:03 Last Admin: 04/30/20 11:14 Dose: 40 meq Documented by: Potassium Chloride (Klor-Con M20) 40 meq PO ONETIME ONE Stop: 05/03/20 09:04 Last Admin: 05/03/20 09:19 Dose: 40 meq Documented by: Vancomycin HCl (Pharmacy To Dose - Vancomycin) 1 dose .XX ONETIME ONE Stop: 04/30/20 03:30 Last Admin: 04/30/20 11:10 Dose: 1.5 gram Documented by: Sepsis Event Note - Focused Exam Vital Signs: Vital Signs Temp Resp BP Pulse Ox 05/03/20 10:00 36 H 113/62 91 L 05/03/20 09:00 29 H 119/62 97 05/03/20 08:00 37.3 C 28 H 101/58 L 97 05/03/20 07:30 23 H 133/55 L 93 L 05/03/20 07:00 25 H 99 05/03/20 06:44 26 H 96 05/03/20 06:06 37.3 C 26 H 121/60 97 05/03/20 05:06 27 H 133/64 98 05/03/20 04:06 36.6 C 35 H 110/66 94 L 05/03/20 03:06 31 H 127/70 97 05/03/20 02:44 37.2 C 31 H 96 05/03/20 02:06 34 H 102/66 91 L 05/03/20 01:06 32 H 111/69 94 L 05/03/20 00:06 31 H 117/70 88 L 05/02/20 23:45 32 H 90 L
[2020-04-30] MEDS: Gabapentin 300 MG Cap PO SCH (21:48)
[2020-05-01] MEDS: Heparin Sodium 5,000 Units/ML Vial SUBCUT SCH ×3 (00:29→17:02)
[2020-05-01] MEDS: Piperacillin/Tazobactam 4.5 GM in Sodium Chloride 0.9% 100 ML IV SCH ×3 (03:07→19:00)
[2020-05-01] MEDS: Gabapentin 300 MG Cap PO SCH ×3 (05:55→21:53)
[2020-05-01 06:24] LABS: CARBON DIOXIDE,CO2 27.8 mmol/L (21.0-32.0); POTASSIUM,K 4.3 mmol/L (3.5-5.1)
[2020-05-01] MEDS: carBAMazepine 100 MG Cap.ER PO SCH ×3 (06:52→22:02)
[2020-05-01] MEDS: Divalproex Sodium 500 MG Tab.ER PO SCH ×2 (09:26→20:21)
[2020-05-01] MEDS: Dexamethasone 4 MG Tab PO SCH (09:26)
[2020-05-01] MEDS: Pantoprazole 40 MG in Sodium Chloride 0.9% 10 ML IV SCH (09:30)
--- NOTE | 2020-05-01 12:34 | PN ---
THC Physician - Brief Progress [id number]/05/2020 12:21[facility] Gordo Nicole, [place] - TONYN (REI) - SAMANTHA BERTHA RIZVI, COVID +Date of Service 05/01/2020 12:21HPI/Ev ents of Note eICU progress note:65-year-old male with history of intellectual disability, HTN and JOCELYNE D who is currently admitted to the ICU for hypoxic respiratory failure secondary to COVID-19. Yester day in the evening patient was noted to be hypoxic and was placed on high flow nasal cannula at that time but over the course of the night patient has been able to be weaned down to 4 L nasal cannula wi th sats in the high 90s.Patient seen on camera, does not appear to be in acute distress or agitated a t this time.Vital signs reviewed. HR 67, BP 106/61, SPO2 96%Labs/EMR/imaging reviewedAcute hypoxic r espiratory failure-Secondary to COVID-19 infection. -PPE and isolation per institution policy-Continu e to downtitrate NC O2 for sats >92%. -Agree with Decadron and initiation of Remdesevir. -Agree with empiric antibiotic coverage for superimposed bacterial infection-Given hx of intellectual disability patient is unable to self prone.-Recommend keeping patient euvolemic as much as possible. Currently o verall positive but with lactate improving and TIM resolving over the last 24 hours, will hold off on diuresis at this time.-Continue with DVT and GI prophylaxis. -Agree with formal speech evaluation gi yaron concern for aspiration.Interventions Major-Hypoxemia - evaluation and management, Infection - alan luation and management, Respiratory failure - evaluation and management
[2020-05-01] MEDS: REMDESIVIR 100 MG in Sodium Chloride 0.9% 250 ML IV SCH (14:30)
--- NOTE | 2020-05-01 17:51 | PCM.PN ---
<Ty Zepeda - Last Filed: 05/01/20 17:57> - General Info Date of Service: 05/01/20 - Review of Systems Systems Review Comment:: ROS could not be performed as patient has significant Mental Retardation - Patient Data Vitals - Most Recent: Last Vital Signs Temp 96.5 F L 05/01/20 12:00 Pulse 87 04/30/20 06:06 Resp 23 H 05/01/20 14:00 BP 102/66 05/01/20 14:00 Pulse Ox 97 05/01/20 14:00 Weight - Most Recent: 72.121 kg I&O - Last 24 Hours: Intake & Output 05/01/20 05/01/20 05/01/20 06:59 14:59 22:59 Intake Total 830 360 Balance 830 360 Lab Results Last 24 Hours: Laboratory Results - last 24 hr 05/01/20 05/01/20 05/01/20 Range/Units 05:55 05:55 10:00 WBC 7.86 (4.0-11.0) K/uL RBC 3.16 L (4.50-5.90) M/uL Hgb 10.3 L (13.0-17.0) g/dL Hct 30.5 L (38.0-50.0) % MCV 96.5 (80.0-98.0) fL MCH 32.6 H (27.0-32.0) pg MCHC 33.8 (31.0-37.0) g/dL RDW Std Deviation 48.1 (28.0-62.0) fl RDW Coeff of Cecilio 14 (11.0-15.0) % Plt Count 156 (150-400) K/uL MPV 10.60 (7.40-12.00) fL Add Manual Diff YES Neutrophils % (Manual) 65 (48.0-80.0) % Lymphocytes % (Manual) 20 (16.0-40.0) % Monocytes % (Manual) 12 (0.0-15.0) % Metamyelocytes % 2 % Myelocytes % 1 % Nucleated RBC % 0.0 /100WBC Absolute Seg Neuts 5.1 (1.4-5.7) Lymphocytes # (Manual) 1.6 (0.6-2.4) Monocytes # (Manual) 0.9 H (0.0-0.8) Absolute Metamyelocyte 0.2 Absolute Myelocytes 0.1 Nucleated RBCs # 0 K/uL Lactate 1.6 (0.20-2.00) mmol/L Sodium 141 (136-148) mmol/L Potassium 4.3 (3.5-5.1) mmol/L Chloride 109 H (98-107) mmol/L Carbon Dioxide 27.8 (21.0-32.0) mmol/L BUN 17 (7.0-18.0) mg/dL Creatinine 1.3 (0.8-1.3) mg/dL Est Cr Clr Drug Dosing 52.96 mL/min Estimated GFR (MDRD) 55.4 ml/min Glucose 114 H (74-106) mg/dL Calcium 7.9 L (8.5-10.1) mg/dL Phosphorus (2.6-4.7) mg/dL Magnesium (1.8-2.4) mg/dL Total Bilirubin 0.3 (0.2-1.0) mg/dL AST 71 H (15-37) IU/L ALT 22 (14-63) IU/L Alkaline Phosphatase 34 L (46-116) U/L Total Protein 5.7 L (6.4-8.2) g/dL Albumin 2.1 L (3.4-5.0) g/dL Globulin 3.6 (2.6-4.0) g/dL Albumin/Globulin Ratio 0.6 L (0.9-1.6) 05/01/20 Range/Units 10:00 WBC (4.0-11.0) K/uL RBC (4.50-5.90) M/uL Hgb (13.0-17.0) g/dL Hct (38.0-50.0) % MCV (80.0-98.0) fL MCH (27.0-32.0) pg MCHC (31.0-37.0) g/dL RDW Std Deviation (28.0-62.0) fl RDW Coeff of Cecilio (11.0-15.0) % Plt Count (150-400) K/uL MPV (7.40-12.00) fL Add Manual Diff Neutrophils % (Manual) (48.0-80.0) % Lymphocytes % (Manual) (16.0-40.0) % Monocytes % (Manual) (0.0-15.0) % Metamyelocytes % % Myelocytes % % Nucleated RBC % /100WBC Absolute Seg Neuts (1.4-5.7) Lymphocytes # (Manual) (0.6-2.4) Monocytes # (Manual) (0.0-0.8) Absolute Metamyelocyte Absolute Myelocytes Nucleated RBCs # K/uL Lactate (0.20-2.00) mmol/L Sodium (136-148) mmol/L Potassium (3.5-5.1) mmol/L Chloride (98-107) mmol/L Carbon Dioxide (21.0-32.0) mmol/L BUN (7.0-18.0) mg/dL Creatinine (0.8-1.3) mg/dL Est Cr Clr Drug Dosing mL/min Estimated GFR (MDRD) ml/min Glucose (74-106) mg/dL Calcium (8.5-10.1) mg/dL Phosphorus 2.4 L (2.6-4.7) mg/dL Magnesium 2.0 (1.8-2.4) mg/dL Total Bilirubin (0.2-1.0) mg/dL AST (15-37) IU/L ALT (14-63) IU/L Alkaline Phosphatase (46-116) U/L Total Protein (6.4-8.2) g/dL Albumin (3.4-5.0) g/dL Globulin (2.6-4.0) g/dL Albumin/Globulin Ratio (0.9-1.6) Abner Results Last 24 Hours: Microbiology 04/29/20 11:19 Aerobic Blood Culture - Preliminary Blood - Arm, Right NO GROWTH AFTER 2 DAYS Anaerobic Blood Culture - Preliminary 04/30/20 04:00 Aerobic Blood Culture - Preliminary Blood NO GROWTH AFTER 1 DAY Anaerobic Blood Culture - Preliminary NO GROWTH AFTER 1 DAY Med Orders - Current: Current Medications Acetaminophen (Tylenol) 650 mg PO Q4H PRN PRN Reason: Fever Greater Than 101 Last Admin: 04/30/20 15:33 Dose: 650 mg Documented by: Albuterol/Ipratropium (Duoneb 3.0-0.5 Mg/3 Ml) 3 ml NEB Q4HRRT PRN PRN Reason: Dyspnea Last Admin: 04/30/20 00:55 Dose: 3 ml Documented by: Carbamazepine (Tegretol Xr) 300 mg PO TID [facility] Last Admin: 05/01/20 14:29 Dose: 300 mg Documented by: Dexamethasone (Dexamethasone) 6 mg PO DAILY [facility] Last Admin: 05/01/20 09:26 Dose: 6 mg Documented by: Divalproex Sodium (Depakote Er) 750 mg PO BID [facility] Last Admin: 05/01/20 09:26 Dose: 750 mg Documented by: Gabapentin (Neurontin) 300 mg PO TID [facility] Last Admin: 05/01/20 14:30 Dose: 300 mg Documented by: Heparin Sodium (Porcine) (Heparin Sodium) 5,000 units SUBCUT Q8H [facility] Last Admin: 05/01/20 17:02 Dose: 5,000 units Documented by: REMDESIVIR (EUA) 100 mg/ (Sodium Chloride) 250 mls @ 125 mls/hr IV Q24H [facility] Stop: 05/03/20 16:29 Last Admin: 05/01/20 14:30 Dose: 125 mls/hr Documented by: Sodium Chloride (Normal Saline) 500 mls @ 999 mls/hr IV .BOLUS [facility] Last Admin: 04/29/20 14:45 Dose: 999 mls/hr Documented by: Sodium Chloride (Normal Saline) 500 mls @ 999 mls/hr IV .BOLUS [facility] Last Admin: 04/29/20 19:36 Dose: 999 mls/hr Documented by: Piperacillin Sod/Tazobactam (Sod 4.5 gm/ Sodium Chloride) 100 mls @ 100 mls/hr IV Q8H [facility] Last Admin: 05/01/20 10:52 Dose: 100 mls/hr Documented by: Vancomycin HCl 1 gm/ Sodium (Chloride) 250 mls @ 166 mls/hr IV Q12H [facility] Last Admin: 05/01/20 17:01 Dose: 166 mls/hr Documented by: Pantoprazole Sodium 40 mg/ (Sodium Chloride) 10 mls @ 300 mls/hr IV Q24H [facility] Last Admin: 05/01/20 09:30 Dose: 300 mls/hr Documented by: Lorazepam (Ativan) 1 mg IVPUSH Q6H PRN PRN Reason: Agitation Last Admin: 04/30/20 15:43 Dose: 1 mg Documented by: Sodium Chloride (Saline Flush) 10 ml FLUSH ASDIRECTED PRN PRN Reason: Keep Vein Open Last Admin: 04/29/20 11:24 Dose: 10 ml Documented by: Sodium Chloride (Saline Flush) 2.5 ml FLUSH ASDIRECTED PRN PRN Reason: Keep Vein Open Last Admin: 04/29/20 11:24 Dose: 2.5 ml Documented by: Discontinued Medications Acetaminophen (Tylenol Extra Strength) 500 mg PO ONETIME ONE Stop: 04/30/20 16:26 Last Admin: 04/30/20 16:53 Dose: 500 mg Documented by: Benzonatate (Tessalon Perles) 200 mg PO ONETIME ONE Stop: 04/29/20 07:02 Last Admin: 04/29/20 07:19 Dose: 200 mg Documented by: Dexamethasone (Dexamethasone) 8 mg IVPUSH ONETIME ONE Stop: 04/29/20 10:33 Last Admin: 04/29/20 11:27 Dose: 8 mg Documented by: Dexamethasone (Dexamethasone) 6 mg PO ONETIME ONE Stop: 04/30/20 19:05 Last Admin: 04/30/20 20:01 Dose: 6 mg Documented by: Heparin Sodium (Porcine) (Heparin Sodium) 5,000 units SUBCUT Q12H [facility] Last Admin: 04/30/20 00:15 Dose: 5,000 units Documented by: Heparin Sodium (Porcine) (Heparin Sodium) 5,000 units SUBCUT Q8H [facility] Last Admin: 04/30/20 05:50 Dose: Not Given Documented by: Azithromycin 500 mg/ Sodium (Chloride) 250 mls @ 250 mls/hr IV ONETIME [facility] Last Admin: 04/29/20 13:07 Dose: 250 mls/hr Documented by: REMDESIVIR (EUA) 200 mg/ (Sodium Chloride) 250 mls @ 125 mls/hr IV Q24H [facility] Stop: 04/29/20 16:29 Last Admin: 04/29/20 14:45 Dose: 125 mls/hr Documented by: Sodium Chloride (Normal Saline) 500 mls @ 500 mls/hr IV ASDIRECTED [facility] Stop: 04/29/20 21:44 Last Admin: 04/29/20 21:17 Dose: 500 mls/hr Documented by: Lactated Ringer's (Ringers, Lactated) 500 mls @ 999 mls/hr IV .BOLUS ONE Stop: 04/30/20 03:09 Last Admin: 04/30/20 02:54 Dose: 999 mls/hr Documented by: Lactated Ringer's (Ringers, Lactated) 500 mls @ 999 mls/hr IV ONETIME ONE Stop: 04/30/20 04:01 Last Admin: 04/30/20 03:38 Dose: 999 mls/hr Documented by: Vancomycin HCl 1.5 gm/ Premix 300 mls @ 300 mls/hr IV ONETIME ONE Stop: 04/30/20 04:59 Last Admin: 04/30/20 05:15 Dose: 300 mls/hr Documented by: Sodium Chloride (Normal Saline) 1,000 mls @ 250 mls/hr IV BOLUS ONE Stop: 04/30/20 20:06 Last Admin: 04/30/20 16:44 Dose: 250 mls/hr Documented by: Lorazepam (Ativan) 1 mg IVPUSH ONETIME ONE Stop: 04/29/20 12:41 Last Admin: 04/29/20 13:17 Dose: 1 mg Documented by: Lorazepam (Ativan) 2 mg IVPUSH ONETIME ONE Stop: 04/30/20 02:39 Last Admin: 04/30/20 02:50 Dose: 2 mg Documented by: Potassium Chloride (Klor-Con M20) 40 meq PO ONETIME ONE Stop: 04/30/20 10:03 Last Admin: 04/30/20 11:14 Dose: 40 meq Documented by: Vancomycin HCl (Pharmacy To Dose - Vancomycin) 1 dose .XX ONETIME ONE Stop: 04/30/20 03:30 Last Admin: 04/30/20 11:10 Dose: 1.5 gram Documented by: - Exam General: Alert HEENT: EOMI Neck: Trachea Midline Lungs: Clear to Auscultation, Normal Respiratory Effort Cardiovascular: Regular Rate, Regular Rhythm GI/Abdominal Exam: Soft, No Distention Extremities: Other Skin: Warm, Dry Neurological: Other (Mental Retardation) Psy/Mental Status: Alert Sepsis Event Note - Evaluation Sepsis Screening Result: No Definite Risk - Focused Exam Vital Signs: Vital Signs Temp Resp BP Pulse Ox 05/01/20 14:00 23 H 102/66 97 05/01/20 13:00 20 126/73 97 05/01/20 12:00 96.5 F L 20 106/61 99 05/01/20 11:00 22 H 112/78 99 05/01/20 10:00 26 H 105/62 96 05/01/20 09:00 23 H 124/63 98 05/01/20 08:00 97 F 24 H 102/63 100 05/01/20 07:10 96.6 F L 25 H 93/60 100 05/01/20 06:22 26 H 95/55 L 97 - Problem List Review Problem List Initiated/Reviewed/Updated: Yes - My Orders Last 24 Hours: My Active Orders 04/30/20 22:00 Gabapentin [Neurontin] 300 mg PO TID 05/01/20 09:00 dexAMETHasone 6 mg PO DAILY 05/01/20 10:16 EKG 12 Lead [EKG Documentation Completion] [RC] URGENT 05/02/20 05:11 CBC WITH AUTO DIFF [HEME] AM COMPREHENSIVE METABOLIC PN,CMP [CHEM] AM COVID-19 infection: Patient is doing much better since yesterday. He has required less oxygen support and his RR rate has come down significantly. Remdesivir 100mg Days 2-5 (5 doses total), Dexamethasone 6mg PO (IV if PO not tolerated), Duoneb Q4HR PRN for dyspnea, Oxygen support, Heparin 5000iu Q8HR, Tylenol 650mg Q4HRS for Fever/Pain. Fluid Bolus as needed Bacteremia: Patient has gram positive cocci growth. Treating with Vancomycin and Zosyn. Will adjust antibiotics based on final culture report and patient status. TIM- Improving, 500ml NS Bolus as needed as too much fluid could cause worsen patients respiratory status. Will monitor AM BMP. Transaminitis- Improving. Will monitor CMP. AST elevation most likely due to COVID infection Thrombocytopenia- Improving. Will monitor CBC. Reduction likely due to COVID in fection <Cuba Zacarias - Last Filed: 05/03/20 11:36> - Review of Systems Systems Review Comment:: I have seen and evaluated the patient and agree with the residents note unless specified in my note - Patient Data Vitals - Most Recent: Last Vital Signs Temp 37.3 C 05/03/20 08:00 Pulse 87 04/30/20 06:06 Resp 38 H 05/03/20 11:00 BP 129/69 05/03/20 11:00 Pulse Ox 94 L 05/03/20 11:00 I&O - Last 24 Hours: Intake & Output 05/02/20 05/03/20 05/03/20 22:59 06:59 14:59 Intake Total 1295 1190 100 Balance 1295 1190 100 Lab Results Last 24 Hours: Laboratory Results - last 24 hr 05/03/20 05/03/20 Range/Units 06:05 06:05 WBC 9.46 (4.0-11.0) K/uL RBC 2.89 L (4.50-5.90) M/uL Hgb 9.2 L (13.0-17.0) g/dL Hct 27.3 L (38.0-50.0) % MCV 94.5 (80.0-98.0) fL MCH 31.8 (27.0-32.0) pg MCHC 33.7 (31.0-37.0) g/dL RDW Std Deviation 47.2 (28.0-62.0) fl RDW Coeff of Cecilio 14 (11.0-15.0) % Plt Count 236 (150-400) K/uL MPV 10.40 (7.40-12.00) fL Add Manual Diff YES Neutrophils % (Manual) 76 (48.0-80.0) % Band Neutrophils % 2 % Lymphocytes % (Manual) 15 L (16.0-40.0) % Monocytes % (Manual) 7 (0.0-15.0) % Nucleated RBC % 0.5 /100WBC Absolute Seg Neuts 7.2 H (1.4-5.7) Band Neutrophils # 0.2 Lymphocytes # (Manual) 1.4 (0.6-2.4) Monocytes # (Manual) 0.7 (0.0-0.8) Nucleated RBCs # 0 K/uL Sodium 144 (136-148) mmol/L Potassium 3.4 L (3.5-5.1) mmol/L Chloride 108 H (98-107) mmol/L Carbon Dioxide 26.0 (21.0-32.0) mmol/L BUN 14 (7.0-18.0) mg/dL Creatinine 1.1 (0.8-1.3) mg/dL Est Cr Clr Drug Dosing 62.59 mL/min Estimated GFR (MDRD) > 60.0 ml/min Glucose 92 (74-106) mg/dL Calcium 7.5 L (8.5-10.1) mg/dL Total Bilirubin 0.3 (0.2-1.0) mg/dL AST 45 H (15-37) IU/L ALT 18 (14-63) IU/L Alkaline Phosphatase 34 L (46-116) U/L Total Protein 5.5 L (6.4-8.2) g/dL Albumin 1.7 L (3.4-5.0) g/dL Globulin 3.8 (2.6-4.0) g/dL Albumin/Globulin Ratio 0.5 L (0.9-1.6) Abner Results Last 24 Hours: Microbiology 04/29/20 11:19 Aerobic Blood Culture - Preliminary Blood - Arm, Right NO GROWTH AFTER 3 DAYS Anaerobic Blood Culture - Final 04/30/20 04:00 Aerobic Blood Culture - Preliminary Blood NO GROWTH AFTER 3 DAYS Anaerobic Blood Culture - Preliminary NO GROWTH AFTER 3 DAYS Med Orders - Current: Current Medications Acetaminophen (Tylenol) 650 mg PO Q4H PRN PRN Reason: Fever Greater Than 101 Last Admin: 04/30/20 15:33 Dose: 650 mg Documented by: Albuterol/Ipratropium (Duoneb 3.0-0.5 Mg/3 Ml) 3 ml NEB Q4HRRT PRN PRN Reason: Dyspnea Last Admin: 05/03/20 10:30 Dose: 3 ml Documented by: Bisacodyl (Dulcolax) 10 mg RECTAL DAILY PRN PRN Reason: Constipation Carbamazepine (Tegretol Xr) 300 mg PO TID [facility] Last Admin: 05/03/20 06:13 Dose: 300 mg Documented by: Dexamethasone (Dexamethasone) 6 mg PO DAILY [facility] Last Admin: 05/03/20 08:33 Dose: 6 mg Documented by: Divalproex Sodium (Depakote Er) 750 mg PO BID [facility] Last Admin: 05/03/20 08:33 Dose: 750 mg Documented by: Gabapentin (Neurontin) 900 mg PO TID [facility] Last Admin: 05/03/20 06:13 Dose: 900 mg Documented by: Heparin Sodium (Porcine) (Heparin Sodium) 5,000 units SUBCUT Q8H [facility] Last Admin: 05/03/20 08:33 Dose: 5,000 units Documented by: REMDESIVIR (EUA) 100 mg/ (Sodium Chloride) 250 mls @ 125 mls/hr IV Q24H [facility] Stop: 05/03/20 16:29 Last Admin: 05/02/20 14:57 Dose: 125 mls/hr Documented by: Sodium Chloride (Normal Saline) 500 mls @ 999 mls/hr IV .BOLUS [facility] Last Admin: 04/29/20 14:45 Dose: 999 mls/hr Documented by: Sodium Chloride (Normal Saline) 500 mls @ 999 mls/hr IV .BOLUS [facility] Last Admin: 04/29/20 19:36 Dose: 999 mls/hr Documented by: Piperacillin Sod/Tazobactam (Sod 4.5 gm/ Sodium Chloride) 100 mls @ 100 mls/hr IV Q8H [facility] Last Admin: 05/03/20 10:33 Dose: 100 mls/hr Documented by: Vancomycin HCl 1 gm/ Sodium (Chloride) 250 mls @ 166 mls/hr IV Q12H [facility] Last Admin: 05/03/20 03:53 Dose: 166 mls/hr Documented by: Pantoprazole Sodium 40 mg/ (Sodium Chloride) 10 mls @ 300 mls/hr IV Q24H [facility] Last Admin: 05/03/20 09:42 Dose: 300 mls/hr Documented by: Lorazepam (Ativan) 1 mg IVPUSH Q6H PRN PRN Reason: Agitation Last Admin: 05/03/20 02:35 Dose: 1 mg Documented by: Sodium Chloride (Saline Flush) 10 ml FLUSH ASDIRECTED PRN PRN Reason: Keep Vein Open Last Admin: 04/29/20 11:24 Dose: 10 ml Documented by: Sodium Chloride (Saline Flush) 2.5 ml FLUSH ASDIRECTED PRN PRN Reason: Keep Vein Open Last Admin: 04/29/20 11:24 Dose: 2.5 ml Documented by: Discontinued Medications Acetaminophen (Tylenol Extra Strength) 500 mg PO ONETIME ONE Stop: 04/30/20 16:26 Last Admin: 04/30/20 16:53 Dose: 500 mg Documented by: Benzonatate (Tessalon Perles) 200 mg PO ONETIME ONE Stop: 04/29/20 07:02 Last Admin: 04/29/20 07:19 Dose: 200 mg Documented by: Bisacodyl (Dulcolax) 10 mg RECTAL DAILY [facility] Last Admin: 05/03/20 11:28 Dose: Not Given Documented by: Dexamethasone (Dexamethasone) 8 mg IVPUSH ONETIME ONE Stop: 04/29/20 10:33 Last Admin: 04/29/20 11:27 Dose: 8 mg Documented by: Dexamethasone (Dexamethasone) 6 mg PO ONETIME ONE Stop: 04/30/20 19:05 Last Admin: 04/30/20 20:01 Dose: 6 mg Documented by: Gabapentin (Neurontin) 300 mg PO TID [facility] Last Admin: 05/02/20 06:15 Dose: 300 mg Documented by: Heparin Sodium (Porcine) (Heparin Sodium) 5,000 units SUBCUT Q12H [facility] Last Admin: 04/30/20 00:15 Dose: 5,000 units Documented by: Heparin Sodium (Porcine) (Heparin Sodium) 5,000 units SUBCUT Q8H [facility] Last Admin: 04/30/20 05:50 Dose: Not Given Documented by: Azithromycin 500 mg/ Sodium (Chloride) 250 mls @ 250 mls/hr IV ONETIME [facility] Last Admin: 04/29/20 13:07 Dose: 250 mls/hr Documented by: REMDESIVIR (EUA) 200 mg/ (Sodium Chloride) 250 mls @ 125 mls/hr IV Q24H [facility] Stop: 04/29/20 16:29 Last Admin: 04/29/20 14:45 Dose: 125 mls/hr Documented by: Sodium Chloride (Normal Saline) 500 mls @ 500 mls/hr IV ASDIRECTED [facility] Stop: 04/29/20 21:44 Last Admin: 04/29/20 21:17 Dose: 500 mls/hr Documented by: Lactated Ringer's (Ringers, Lactated) 500 mls @ 999 mls/hr IV .BOLUS ONE Stop: 04/30/20 03:09 Last Admin: 04/30/20 02:54 Dose: 999 mls/hr Documented by: Lactated Ringer's (Ringers, Lactated) 500 mls @ 999 mls/hr IV ONETIME ONE Stop: 04/30/20 04:01 Last Admin: 04/30/20 03:38 Dose: 999 mls/hr Documented by: Vancomycin HCl 1.5 gm/ Premix 300 mls @ 300 mls/hr IV ONETIME ONE Stop: 04/30/20 04:59 Last Admin: 04/30/20 05:15 Dose: 300 mls/hr Documented by: Sodium Chloride (Normal Saline) 1,000 mls @ 250 mls/hr IV BOLUS ONE Stop: 04/30/20 20:06 Last Admin: 04/30/20 16:44 Dose: 250 mls/hr Documented by: Lorazepam (Ativan) 1 mg IVPUSH ONETIME ONE Stop: 04/29/20 12:41 Last Admin: 04/29/20 13:17 Dose: 1 mg Documented by: Lorazepam (Ativan) 2 mg IVPUSH ONETIME ONE Stop: 04/30/20 02:39 Last Admin: 04/30/20 02:50 Dose: 2 mg Documented by: Potassium Chloride (Klor-Con M20) 40 meq PO ONETIME ONE Stop: 04/30/20 10:03 Last Admin: 04/30/20 11:14 Dose: 40 meq Documented by: Potassium Chloride (Klor-Con M20) 40 meq PO ONETIME ONE Stop: 05/03/20 09:04 Last Admin: 05/03/20 09:19 Dose: 40 meq Documented by: Vancomycin HCl (Pharmacy To Dose - Vancomycin) 1 dose .XX ONETIME ONE Stop: 04/30/20 03:30 Last Admin: 04/30/20 11:10 Dose: 1.5 gram Documented by: Sepsis Event Note - Focused Exam Vital Signs: Vital Signs Temp Resp BP Pulse Ox 05/03/20 11:00 38 H 129/69 94 L 05/03/20 10:00 36 H 113/62 91 L 05/03/20 09:00 29 H 119/62 97 05/03/20 08:00 37.3 C 28 H 101/58 L 97 05/03/20 07:30 23 H 133/55 L 93 L 05/03/20 07:00 25 H 99 05/03/20 06:44 26 H 96 05/03/20 06:06 37.3 C 26 H 121/60 97 05/03/20 05:06 27 H 133/64 98 05/03/20 04:06 36.6 C 35 H 110/66 94 L 05/03/20 03:06 31 H 127/70 97 05/03/20 02:44 37.2 C 31 H 96 05/03/20 02:06 34 H 102/66 91 L 05/03/20 01:06 32 H 111/69 94 L 05/03/20 00:06 31 H 117/70 88 L 05/02/20 23:45 32 H 90 L
[2020-05-01] MEDS: Albuterol/Ipratropium 3.0-0.5 MG/3 ML Neb Soln NEB PRN (21:52)
[2020-05-02] MEDS: Heparin Sodium 5,000 Units/ML Vial SUBCUT SCH ×4 (00:33→23:30)
[2020-05-02] MEDS: Piperacillin/Tazobactam 4.5 GM in Sodium Chloride 0.9% 100 ML IV SCH ×3 (02:54→18:49)
[2020-05-02 03:34] LABS: BLOOD UREA NITROGEN,BUN 16 mg/dL (7.0-18.0); CARBON DIOXIDE,CO2 26.7 mmol/L (21.0-32.0); CHLORIDE,CL 109 mmol/L (98-107); GLUCOSE RANDOM 115 mg/dL (74-106); POTASSIUM,K 3.8 mmol/L (3.5-5.1); SODIUM,NA 144 mmol/L (136-148)
[2020-05-02] MEDS: Gabapentin 300 MG Cap PO SCH ×3 (06:15→23:05)
[2020-05-02] MEDS: carBAMazepine 100 MG Cap.ER PO SCH ×3 (06:15→23:05)
[2020-05-02] MEDS: Divalproex Sodium 500 MG Tab.ER PO SCH ×2 (08:46→20:12)
[2020-05-02] MEDS: Dexamethasone 4 MG Tab PO SCH (08:46)
[2020-05-02] MEDS: Pantoprazole 40 MG in Sodium Chloride 0.9% 10 ML IV SCH (09:31)
--- NOTE | 2020-05-02 09:36 | PCM.PN ---
<Fernie Schneider - Last Filed: 05/02/20 12:46> - General Info Date of Service: 05/02/20 Subjective Update: Bedside: baseline moaning; no signs of acute distress. Functional Status: Reports: Pain Controlled - Review of Systems General: Reports: No Symptoms Pulmonary: Reports: Cough Cardiovascular: Reports: No Symptoms Gastrointestinal: Reports: No Symptoms Musculoskeletal: Reports: No Symptoms (non-verbal at baseline ) - Patient Data Vitals - Most Recent: Last Vital Signs Temp 98.6 F 05/02/20 08:00 Pulse 87 04/30/20 06:06 Resp 24 H 05/02/20 08:00 BP 123/52 L 05/02/20 08:00 Pulse Ox 100 05/02/20 08:00 Weight - Most Recent: 72.121 kg I&O - Last 24 Hours: Intake & Output 05/01/20 05/02/20 05/02/20 22:59 06:59 14:59 Intake Total 1070 654 10 Balance 1070 654 10 Lab Results Last 24 Hours: Laboratory Results - last 24 hr 05/01/20 05/01/20 05/02/20 Range/Units 10:00 10:00 03:00 WBC (4.0-11.0) K/uL RBC (4.50-5.90) M/uL Hgb (13.0-17.0) g/dL Hct (38.0-50.0) % MCV (80.0-98.0) fL MCH (27.0-32.0) pg MCHC (31.0-37.0) g/dL RDW Std Deviation (28.0-62.0) fl RDW Coeff of Cecilio (11.0-15.0) % Plt Count (150-400) K/uL MPV (7.40-12.00) fL Add Manual Diff Neutrophils % (Manual) (48.0-80.0) % Band Neutrophils % % Lymphocytes % (Manual) (16.0-40.0) % Monocytes % (Manual) (0.0-15.0) % Metamyelocytes % % Nucleated RBC % /100WBC Absolute Seg Neuts (1.4-5.7) Band Neutrophils # Lymphocytes # (Manual) (0.6-2.4) Monocytes # (Manual) (0.0-0.8) Absolute Metamyelocyte Nucleated RBCs # K/uL Lactate 1.6 (0.20-2.00) mmol/L Sodium (136-148) mmol/L Potassium (3.5-5.1) mmol/L Chloride (98-107) mmol/L Carbon Dioxide (21.0-32.0) mmol/L BUN (7.0-18.0) mg/dL Creatinine (0.8-1.3) mg/dL Est Cr Clr Drug Dosing mL/min Estimated GFR (MDRD) ml/min Glucose (74-106) mg/dL Calcium (8.5-10.1) mg/dL Phosphorus 2.4 L (2.6-4.7) mg/dL Magnesium 2.0 (1.8-2.4) mg/dL Total Bilirubin (0.2-1.0) mg/dL AST (15-37) IU/L ALT (14-63) IU/L Alkaline Phosphatase (46-116) U/L Total Protein (6.4-8.2) g/dL Albumin (3.4-5.0) g/dL Globulin (2.6-4.0) g/dL Albumin/Globulin Ratio (0.9-1.6) Vancomycin Trough 15.6 H (5.0-10.0) ug/mL 05/02/20 05/02/20 Range/Units 03:00 03:00 WBC 11.15 H (4.0-11.0) K/uL RBC 3.28 L (4.50-5.90) M/uL Hgb 10.5 L (13.0-17.0) g/dL Hct 31.9 L (38.0-50.0) % MCV 97.3 (80.0-98.0) fL MCH 32.0 (27.0-32.0) pg MCHC 32.9 (31.0-37.0) g/dL RDW Std Deviation 49.2 (28.0-62.0) fl RDW Coeff of Cecilio 14 (11.0-15.0) % Plt Count 213 (150-400) K/uL MPV 10.60 (7.40-12.00) fL Add Manual Diff YES Neutrophils % (Manual) 68 (48.0-80.0) % Band Neutrophils % 2 % Lymphocytes % (Manual) 15 L (16.0-40.0) % Monocytes % (Manual) 13 (0.0-15.0) % Metamyelocytes % 2 % Nucleated RBC % 0.3 /100WBC Absolute Seg Neuts 7.6 H (1.4-5.7) Band Neutrophils # 0.2 Lymphocytes # (Manual) 1.7 (0.6-2.4) Monocytes # (Manual) 1.4 H (0.0-0.8) Absolute Metamyelocyte 0.2 Nucleated RBCs # 0 K/uL Lactate (0.20-2.00) mmol/L Sodium 144 (136-148) mmol/L Potassium 3.8 (3.5-5.1) mmol/L Chloride 109 H (98-107) mmol/L Carbon Dioxide 26.7 (21.0-32.0) mmol/L BUN 16 (7.0-18.0) mg/dL Creatinine 1.2 (0.8-1.3) mg/dL Est Cr Clr Drug Dosing 57.38 mL/min Estimated GFR (MDRD) > 60.0 ml/min Glucose 115 H (74-106) mg/dL Calcium 8.3 L (8.5-10.1) mg/dL Phosphorus (2.6-4.7) mg/dL Magnesium (1.8-2.4) mg/dL Total Bilirubin 0.2 (0.2-1.0) mg/dL AST 59 H (15-37) IU/L ALT 22 (14-63) IU/L Alkaline Phosphatase 37 L (46-116) U/L Total Protein 6.2 L (6.4-8.2) g/dL Albumin 2.1 L (3.4-5.0) g/dL Globulin 4.1 H (2.6-4.0) g/dL Albumin/Globulin Ratio 0.5 L (0.9-1.6) Vancomycin Trough (5.0-10.0) ug/mL Abner Results Last 24 Hours: Microbiology 04/30/20 04:00 Aerobic Blood Culture - Preliminary Blood NO GROWTH AFTER 2 DAYS Anaerobic Blood Culture - Preliminary NO GROWTH AFTER 2 DAYS 04/29/20 11:19 Aerobic Blood Culture - Preliminary Blood - Arm, Right NO GROWTH AFTER 2 DAYS Anaerobic Blood Culture - Preliminary Med Orders - Current: Current Medications Acetaminophen (Tylenol) 650 mg PO Q4H PRN PRN Reason: Fever Greater Than 101 Last Admin: 04/30/20 15:33 Dose: 650 mg Documented by: Albuterol/Ipratropium (Duoneb 3.0-0.5 Mg/3 Ml) 3 ml NEB Q4HRRT PRN PRN Reason: Dyspnea Last Admin: 05/01/20 21:52 Dose: 3 ml Documented by: Carbamazepine (Tegretol Xr) 300 mg PO TID [facility] Last Admin: 05/02/20 06:15 Dose: 300 mg Documented by: Dexamethasone (Dexamethasone) 6 mg PO DAILY [facility] Last Admin: 05/02/20 08:46 Dose: 6 mg Documented by: Divalproex Sodium (Depakote Er) 750 mg PO BID [facility] Last Admin: 05/02/20 08:46 Dose: 750 mg Documented by: Gabapentin (Neurontin) 300 mg PO TID [facility] Last Admin: 05/02/20 06:15 Dose: 300 mg Documented by: Heparin Sodium (Porcine) (Heparin Sodium) 5,000 units SUBCUT Q8H [facility] Last Admin: 05/02/20 08:47 Dose: 5,000 units Documented by: REMDESIVIR (EUA) 100 mg/ (Sodium Chloride) 250 mls @ 125 mls/hr IV Q24H [facility] Stop: 05/03/20 16:29 Last Admin: 05/01/20 14:30 Dose: 125 mls/hr Documented by: Sodium Chloride (Normal Saline) 500 mls @ 999 mls/hr IV .BOLUS [facility] Last Admin: 04/29/20 14:45 Dose: 999 mls/hr Documented by: Sodium Chloride (Normal Saline) 500 mls @ 999 mls/hr IV .BOLUS [facility] Last Admin: 04/29/20 19:36 Dose: 999 mls/hr Documented by: Piperacillin Sod/Tazobactam (Sod 4.5 gm/ Sodium Chloride) 100 mls @ 100 mls/hr IV Q8H [facility] Last Admin: 05/02/20 02:54 Dose: 100 mls/hr Documented by: Vancomycin HCl 1 gm/ Sodium (Chloride) 250 mls @ 166 mls/hr IV Q12H [facility] Last Admin: 05/02/20 04:10 Dose: 166 mls/hr Documented by: Pantoprazole Sodium 40 mg/ (Sodium Chloride) 10 mls @ 300 mls/hr IV Q24H [facility] Last Admin: 05/02/20 09:31 Dose: 300 mls/hr Documented by: Lorazepam (Ativan) 1 mg IVPUSH Q6H PRN PRN Reason: Agitation Last Admin: 04/30/20 15:43 Dose: 1 mg Documented by: Sodium Chloride (Saline Flush) 10 ml FLUSH ASDIRECTED PRN PRN Reason: Keep Vein Open Last Admin: 04/29/20 11:24 Dose: 10 ml Documented by: Sodium Chloride (Saline Flush) 2.5 ml FLUSH ASDIRECTED PRN PRN Reason: Keep Vein Open Last Admin: 04/29/20 11:24 Dose: 2.5 ml Documented by: Discontinued Medications Acetaminophen (Tylenol Extra Strength) 500 mg PO ONETIME ONE Stop: 04/30/20 16:26 Last Admin: 04/30/20 16:53 Dose: 500 mg Documented by: Benzonatate (Tessalon Perles) 200 mg PO ONETIME ONE Stop: 04/29/20 07:02 Last Admin: 04/29/20 07:19 Dose: 200 mg Documented by: Dexamethasone (Dexamethasone) 8 mg IVPUSH ONETIME ONE Stop: 04/29/20 10:33 Last Admin: 04/29/20 11:27 Dose: 8 mg Documented by: Dexamethasone (Dexamethasone) 6 mg PO ONETIME ONE Stop: 04/30/20 19:05 Last Admin: 04/30/20 20:01 Dose: 6 mg Documented by: Heparin Sodium (Porcine) (Heparin Sodium) 5,000 units SUBCUT Q12H [facility] Last Admin: 04/30/20 00:15 Dose: 5,000 units Documented by: Heparin Sodium (Porcine) (Heparin Sodium) 5,000 units SUBCUT Q8H [facility] Last Admin: 04/30/20 05:50 Dose: Not Given Documented by: Azithromycin 500 mg/ Sodium (Chloride) 250 mls @ 250 mls/hr IV ONETIME [facility] Last Admin: 04/29/20 13:07 Dose: 250 mls/hr Documented by: REMDESIVIR (EUA) 200 mg/ (Sodium Chloride) 250 mls @ 125 mls/hr IV Q24H [facility] Stop: 04/29/20 16:29 Last Admin: 04/29/20 14:45 Dose: 125 mls/hr Documented by: Sodium Chloride (Normal Saline) 500 mls @ 500 mls/hr IV ASDIRECTED [facility] Stop: 04/29/20 21:44 Last Admin: 04/29/20 21:17 Dose: 500 mls/hr Documented by: Lactated Ringer's (Ringers, Lactated) 500 mls @ 999 mls/hr IV .BOLUS ONE Stop: 04/30/20 03:09 Last Admin: 04/30/20 02:54 Dose: 999 mls/hr Documented by: Lactated Ringer's (Ringers, Lactated) 500 mls @ 999 mls/hr IV ONETIME ONE Stop: 04/30/20 04:01 Last Admin: 04/30/20 03:38 Dose: 999 mls/hr Documented by: Vancomycin HCl 1.5 gm/ Premix 300 mls @ 300 mls/hr IV ONETIME ONE Stop: 04/30/20 04:59 Last Admin: 04/30/20 05:15 Dose: 300 mls/hr Documented by: Sodium Chloride (Normal Saline) 1,000 mls @ 250 mls/hr IV BOLUS ONE Stop: 04/30/20 20:06 Last Admin: 04/30/20 16:44 Dose: 250 mls/hr Documented by: Lorazepam (Ativan) 1 mg IVPUSH ONETIME ONE Stop: 04/29/20 12:41 Last Admin: 04/29/20 13:17 Dose: 1 mg Documented by: Lorazepam (Ativan) 2 mg IVPUSH ONETIME ONE Stop: 04/30/20 02:39 Last Admin: 04/30/20 02:50 Dose: 2 mg Documented by: Potassium Chloride (Klor-Con M20) 40 meq PO ONETIME ONE Stop: 04/30/20 10:03 Last Admin: 04/30/20 11:14 Dose: 40 meq Documented by: Vancomycin HCl (Pharmacy To Dose - Vancomycin) 1 dose .XX ONETIME ONE Stop: 04/30/20 03:30 Last Admin: 04/30/20 11:10 Dose: 1.5 gram Documented by: - Exam Quality Assessment: Supplemental Oxygen General: Alert, Mild Distress Neck: Supple Lungs: Other (mild upper lobe wheezing; possibly positional ) Cardiovascular: Regular Rate, Regular Rhythm GI/Abdominal Exam: Soft, Non-Tender Back Exam: Normal Inspection Extremities: Normal Inspection Skin: Warm Wound/Incisions: Healing Well Neurological: No: Normal Speech Psy/Mental Status: Alert Sepsis Event Note - Evaluation Sepsis Screening Result: No Definite Risk - Focused Exam Vital Signs: Vital Signs Temp Resp BP Pulse Ox 05/02/20 08:00 98.6 F 24 H 123/52 L 100 05/02/20 07:12 24 H 127/66 100 05/02/20 06:19 97.4 F 18 102/56 L 88 L 05/02/20 05:06 20 114/61 99 05/02/20 04:06 23 H 105/63 100 05/02/20 03:06 97.3 F 26 H 89/59 L 93 L 05/02/20 02:06 27 H 95/68 100 05/02/20 01:06 22 H 104/62 99 05/02/20 00:06 97.3 F 24 H 116/68 91 L 05/01/20 23:22 21 H 119/69 96 05/01/20 22:06 97.3 F 22 H 119/68 93 L - Problem List Review Problem List Initiated/Reviewed/Updated: Yes - Assessment Assessment:: COVID-19 infection: Continue Remdesivir 100mg Days 2-5 (5 doses total), Dexamethasone 6mg PO (IV if PO not tolerated), Duoneb Q4HR PRN for dyspnea, Oxygen support, Heparin 5000iu Q8HR, Tylenol 650mg Q4HRS for Fever/Pain. Fluid Bolus as needed Requiring more o2 this AM compared to last PM; Chest PT ordered Speech eval/swallow study ordered :awaiting secondary to long weekend Bacteremia: Patient has gram positive cocci growth. Treating with Vancomycin and Zosyn. Will adjust antibiotics based on final culture report and patient status; continue current therapy since still requiring o2 at times (high flow; will wean as tolerated) ; may consider switching to Unasyn for aspiration risk; TIM- Improving, 500ml NS Bolus as needed as too much fluid could cause worsen patients respiratory status. Will monitor AM BMP. Transaminitis- Improving. Will monitor CMP. AST elevation most likely due to COVID infection Thrombocytopenia- Down to 70 ; hold Lovenox today; receck plt in AM; start SCD's. Will monitor CBC. <Cuba Zacarias - Last Filed: 09/07/20 11:38> - General Info Subjective Update: I have seen and evaluated the patient and agree with the residents note unless specified in my note - Patient Data Vitals - Most Recent: Last Vital Signs Temp 37.3 C 05/03/20 08:00 Pulse 87 04/30/20 06:06 Resp 38 H 05/03/20 11:00 BP 129/69 05/03/20 11:00 Pulse Ox 94 L 05/03/20 11:00 I&O - Last 24 Hours: Intake & Output 05/02/20 05/03/20 05/03/20 22:59 06:59 14:59 Intake Total 1295 1190 100 Balance 1295 1190 100 Lab Results Last 24 Hours: Laboratory Results - last 24 hr 05/03/20 05/03/20 Range/Units 06:05 06:05 WBC 9.46 (4.0-11.0) K/uL RBC 2.89 L (4.50-5.90) M/uL Hgb 9.2 L (13.0-17.0) g/dL Hct 27.3 L (38.0-50.0) % MCV 94.5 (80.0-98.0) fL MCH 31.8 (27.0-32.0) pg MCHC 33.7 (31.0-37.0) g/dL RDW Std Deviation 47.2 (28.0-62.0) fl RDW Coeff of Cecilio 14 (11.0-15.0) % Plt Count 236 (150-400) K/uL MPV 10.40 (7.40-12.00) fL Add Manual Diff YES Neutrophils % (Manual) 76 (48.0-80.0) % Band Neutrophils % 2 % Lymphocytes % (Manual) 15 L (16.0-40.0) % Monocytes % (Manual) 7 (0.0-15.0) % Nucleated RBC % 0.5 /100WBC Absolute Seg Neuts 7.2 H (1.4-5.7) Band Neutrophils # 0.2 Lymphocytes # (Manual) 1.4 (0.6-2.4) Monocytes # (Manual) 0.7 (0.0-0.8) Nucleated RBCs # 0 K/uL Sodium 144 (136-148) mmol/L Potassium 3.4 L (3.5-5.1) mmol/L Chloride 108 H (98-107) mmol/L Carbon Dioxide 26.0 (21.0-32.0) mmol/L BUN 14 (7.0-18.0) mg/dL Creatinine 1.1 (0.8-1.3) mg/dL Est Cr Clr Drug Dosing 62.59 mL/min Estimated GFR (MDRD) > 60.0 ml/min Glucose 92 (74-106) mg/dL Calcium 7.5 L (8.5-10.1) mg/dL Total Bilirubin 0.3 (0.2-1.0) mg/dL AST 45 H (15-37) IU/L ALT 18 (14-63) IU/L Alkaline Phosphatase 34 L (46-116) U/L Total Protein 5.5 L (6.4-8.2) g/dL Albumin 1.7 L (3.4-5.0) g/dL Globulin 3.8 (2.6-4.0) g/dL Albumin/Globulin Ratio 0.5 L (0.9-1.6) Abner Results Last 24 Hours: Microbiology 04/29/20 11:19 Aerobic Blood Culture - Preliminary Blood - Arm, Right NO GROWTH AFTER 3 DAYS Anaerobic Blood Culture - Final 04/30/20 04:00 Aerobic Blood Culture - Preliminary Blood NO GROWTH AFTER 3 DAYS Anaerobic Blood Culture - Preliminary NO GROWTH AFTER 3 DAYS Med Orders - Current: Current Medications Acetaminophen (Tylenol) 650 mg PO Q4H PRN PRN Reason: Fever Greater Than 101 Last Admin: 04/30/20 15:33 Dose: 650 mg Documented by: Albuterol/Ipratropium (Duoneb 3.0-0.5 Mg/3 Ml) 3 ml NEB Q4HRRT PRN PRN Reason: Dyspnea Last Admin: 05/03/20 10:30 Dose: 3 ml Documented by: Bisacodyl (Dulcolax) 10 mg RECTAL DAILY PRN PRN Reason: Constipation Carbamazepine (Tegretol Xr) 300 mg PO TID [facility] Last Admin: 05/03/20 06:13 Dose: 300 mg Documented by: Dexamethasone (Dexamethasone) 6 mg PO DAILY [facility] Last Admin: 05/03/20 08:33 Dose: 6 mg Documented by: Divalproex Sodium (Depakote Er) 750 mg PO BID [facility] Last Admin: 05/03/20 08:33 Dose: 750 mg Documented by: Gabapentin (Neurontin) 900 mg PO TID [facility] Last Admin: 05/03/20 06:13 Dose: 900 mg Documented by: Heparin Sodium (Porcine) (Heparin Sodium) 5,000 units SUBCUT Q8H [facility] Last Admin: 05/03/20 08:33 Dose: 5,000 units Documented by: REMDESIVIR (EUA) 100 mg/ (Sodium Chloride) 250 mls @ 125 mls/hr IV Q24H [facility] Stop: 05/03/20 16:29 Last Admin: 05/02/20 14:57 Dose: 125 mls/hr Documented by: Sodium Chloride (Normal Saline) 500 mls @ 999 mls/hr IV .BOLUS [facility] Last Admin: 04/29/20 14:45 Dose: 999 mls/hr Documented by: Sodium Chloride (Normal Saline) 500 mls @ 999 mls/hr IV .BOLUS [facility] Last Admin: 04/29/20 19:36 Dose: 999 mls/hr Documented by: Piperacillin Sod/Tazobactam (Sod 4.5 gm/ Sodium Chloride) 100 mls @ 100 mls/hr IV Q8H [facility] Last Admin: 05/03/20 10:33 Dose: 100 mls/hr Documented by: Vancomycin HCl 1 gm/ Sodium (Chloride) 250 mls @ 166 mls/hr IV Q12H [facility] Last Admin: 05/03/20 03:53 Dose: 166 mls/hr Documented by: Pantoprazole Sodium 40 mg/ (Sodium Chloride) 10 mls @ 300 mls/hr IV Q24H [facility] Last Admin: 05/03/20 09:42 Dose: 300 mls/hr Documented by: Lorazepam (Ativan) 1 mg IVPUSH Q6H PRN PRN Reason: Agitation Last Admin: 05/03/20 02:35 Dose: 1 mg Documented by: Sodium Chloride (Saline Flush) 10 ml FLUSH ASDIRECTED PRN PRN Reason: Keep Vein Open Last Admin: 04/29/20 11:24 Dose: 10 ml Documented by: Sodium Chloride (Saline Flush) 2.5 ml FLUSH ASDIRECTED PRN PRN Reason: Keep Vein Open Last Admin: 04/29/20 11:24 Dose: 2.5 ml Documented by: Discontinued Medications Acetaminophen (Tylenol Extra Strength) 500 mg PO ONETIME ONE Stop: 04/30/20 16:26 Last Admin: 04/30/20 16:53 Dose: 500 mg Documented by: Benzonatate (Tessalon Perles) 200 mg PO ONETIME ONE Stop: 04/29/20 07:02 Last Admin: 04/29/20 07:19 Dose: 200 mg Documented by: Bisacodyl (Dulcolax) 10 mg RECTAL DAILY [facility] Last Admin: 05/03/20 11:28 Dose: Not Given Documented by: Dexamethasone (Dexamethasone) 8 mg IVPUSH ONETIME ONE Stop: 04/29/20 10:33 Last Admin: 04/29/20 11:27 Dose: 8 mg Documented by: Dexamethasone (Dexamethasone) 6 mg PO ONETIME ONE Stop: 04/30/20 19:05 Last Admin: 04/30/20 20:01 Dose: 6 mg Documented by: Gabapentin (Neurontin) 300 mg PO TID [facility] Last Admin: 05/02/20 06:15 Dose: 300 mg Documented by: Heparin Sodium (Porcine) (Heparin Sodium) 5,000 units SUBCUT Q12H [facility] Last Admin: 04/30/20 00:15 Dose: 5,000 units Documented by: Heparin Sodium (Porcine) (Heparin Sodium) 5,000 units SUBCUT Q8H [facility] Last Admin: 04/30/20 05:50 Dose: Not Given Documented by: Azithromycin 500 mg/ Sodium (Chloride) 250 mls @ 250 mls/hr IV ONETIME [facility] Last Admin: 04/29/20 13:07 Dose: 250 mls/hr Documented by: REMDESIVIR (EUA) 200 mg/ (Sodium Chloride) 250 mls @ 125 mls/hr IV Q24H [facility] Stop: 04/29/20 16:29 Last Admin: 04/29/20 14:45 Dose: 125 mls/hr Documented by: Sodium Chloride (Normal Saline) 500 mls @ 500 mls/hr IV ASDIRECTED [facility] Stop: 04/29/20 21:44 Last Admin: 04/29/20 21:17 Dose: 500 mls/hr Documented by: Lactated Ringer's (Ringers, Lactated) 500 mls @ 999 mls/hr IV .BOLUS ONE Stop: 04/30/20 03:09 Last Admin: 04/30/20 02:54 Dose: 999 mls/hr Documented by: Lactated Ringer's (Ringers, Lactated) 500 mls @ 999 mls/hr IV ONETIME ONE Stop: 04/30/20 04:01 Last Admin: 04/30/20 03:38 Dose: 999 mls/hr Documented by: Vancomycin HCl 1.5 gm/ Premix 300 mls @ 300 mls/hr IV ONETIME ONE Stop: 04/30/20 04:59 Last Admin: 04/30/20 05:15 Dose: 300 mls/hr Documented by: Sodium Chloride (Normal Saline) 1,000 mls @ 250 mls/hr IV BOLUS ONE Stop: 04/30/20 20:06 Last Admin: 04/30/20 16:44 Dose: 250 mls/hr Documented by: Lorazepam (Ativan) 1 mg IVPUSH ONETIME ONE Stop: 04/29/20 12:41 Last Admin: 04/29/20 13:17 Dose: 1 mg Documented by: Lorazepam (Ativan) 2 mg IVPUSH ONETIME ONE Stop: 04/30/20 02:39 Last Admin: 04/30/20 02:50 Dose: 2 mg Documented by: Potassium Chloride (Klor-Con M20) 40 meq PO ONETIME ONE Stop: 04/30/20 10:03 Last Admin: 04/30/20 11:14 Dose: 40 meq Documented by: Potassium Chloride (Klor-Con M20) 40 meq PO ONETIME ONE Stop: 05/03/20 09:04 Last Admin: 05/03/20 09:19 Dose: 40 meq Documented by: Vancomycin HCl (Pharmacy To Dose - Vancomycin) 1 dose .XX ONETIME ONE Stop: 04/30/20 03:30 Last Admin: 04/30/20 11:10 Dose: 1.5 gram Documented by: Sepsis Event Note - Focused Exam Vital Signs: Vital Signs Temp Resp BP Pulse Ox 05/03/20 11:00 38 H 129/69 94 L 05/03/20 10:00 36 H 113/62 91 L 05/03/20 09:00 29 H 119/62 97 05/03/20 08:00 37.3 C 28 H 101/58 L 97 05/03/20 07:30 23 H 133/55 L 93 L 05/03/20 07:00 25 H 99 05/03/20 06:44 26 H 96 05/03/20 06:06 37.3 C 26 H 121/60 97 05/03/20 05:06 27 H 133/64 98 05/03/20 04:06 36.6 C 35 H 110/66 94 L 05/03/20 03:06 31 H 127/70 97 05/03/20 02:44 37.2 C 31 H 96 05/03/20 02:06 34 H 102/66 91 L 05/03/20 01:06 32 H 111/69 94 L 05/03/20 00:06 31 H 117/70 88 L 05/02/20 23:45 32 H 90 L
--- NOTE | 2020-05-02 10:04 | PN ---
THC Physician - Brief Progress [id number]/06/2020 08:38[facility] [place], [place] - TONYN (COLBYN) - MWN BERTHA RIZVI, COVID +Date of Service 05/02/2020 08:38HPI/Ev ents of Note eICU Progress NotePt is a 65 yo M with cognitive disability that was admitted to the ICU on 04/30 with hypoxic respiratory failure secondary to COVID-19. He remains on O2 via NC with a SpO2 o f 91%, but last night it had to be increased from 4 L to 10 L to maintain his sats. His Cr has improv ed from 1.7 to 1.2 and his MS remains stable with PRN Ativan for agitation. [employer] eval was not complete d secondary to the holiday weekend, but will be done 05/04. His is currently resting in bed in NAD with stable VS. His case was discussed with his nurse Yuridia. eICU Recommendations:1) Continue po intake wi th good mechanics, HOB at 30 degrees and await formal [employer] eval2) Continue Remdesivir and Decadron for COVID-19 infection3) Check procal to see if empiric antibioitcs for aspiration can be d/c'ed or de-e scalated4) Consider CPT to assist with weaning O2 - Yuridia will d/w bedside provider5) Wean O2 via NC w ith a goal of > 94% as able6) Increase activity as tolerated7) Continue pulm toiletingThank you for a llowing us to participate in the care of your patient.Interventions Major-Hypoxemia - evaluation and management, Infection - evaluation and [id number]-[id number] therapies (e.g. VTE, beta betsey, etc.), Communication with other healthcare providers and/or family
[2020-05-02] MEDS: Albuterol/Ipratropium 3.0-0.5 MG/3 ML Neb Soln NEB PRN ×2 (12:37→23:13)
[2020-05-02] MEDS: REMDESIVIR 100 MG in Sodium Chloride 0.9% 250 ML IV SCH (14:57)
[2020-05-03] MEDS: LORazepam 2 MG/ML SDV IVPUSH PRN (02:35)
[2020-05-03] MEDS: Piperacillin/Tazobactam 4.5 GM in Sodium Chloride 0.9% 100 ML IV SCH ×3 (02:47→19:04)
[2020-05-03] MEDS: carBAMazepine 100 MG Cap.ER PO SCH ×3 (06:13→21:03)
[2020-05-03] MEDS: Gabapentin 300 MG Cap PO SCH ×3 (06:13→21:02)
[2020-05-03 06:45] LABS: BLOOD UREA NITROGEN,BUN 14 mg/dL (7.0-18.0); CHLORIDE,CL 108 mmol/L (98-107); GLUCOSE RANDOM 92 mg/dL (74-106); POTASSIUM,K 3.4 mmol/L (3.5-5.1); SODIUM,NA 144 mmol/L (136-148)
[2020-05-03] MEDS: Dexamethasone 4 MG Tab PO SCH (08:33)
[2020-05-03] MEDS: Divalproex Sodium 500 MG Tab.ER PO SCH ×2 (08:33→20:30)
[2020-05-03] MEDS: Heparin Sodium 5,000 Units/ML Vial SUBCUT SCH ×3 (08:33→23:55)
[2020-05-03] MEDS ORDERED: Potassium Chloride 20 MEQ Tab.ER PO ONE (09:03)
[2020-05-03] MEDS: Pantoprazole 40 MG in Sodium Chloride 0.9% 10 ML IV SCH (09:42)
[2020-05-03] MEDS: Albuterol/Ipratropium 3.0-0.5 MG/3 ML Neb Soln NEB PRN (10:30)
[2020-05-03] MEDS ORDERED: Bisacodyl 10 MG Supp RECTAL SCH (10:30)
[2020-05-03] MEDS ORDERED: Bisacodyl 10 MG Supp RECTAL PRN (11:15)
--- NOTE | 2020-05-03 13:21 | PCM.PN ---
<Ty Zepeda - Last Filed: 05/03/20 13:22> - General Info Date of Service: 05/03/20 - Review of Systems Systems Review Comment:: ROS not possible due to patients Mental retardation - Patient Data Vitals - Most Recent: Last Vital Signs Temp 98.2 F 05/03/20 12:00 Pulse 87 04/30/20 06:06 Resp 34 H 05/03/20 12:00 BP 132/43 L 05/03/20 12:00 Pulse Ox 88 L 05/03/20 12:10 Weight - Most Recent: 72.121 kg I&O - Last 24 Hours: Intake & Output 05/02/20 05/03/20 05/03/20 22:59 06:59 14:59 Intake Total 1295 1190 100 Balance 1295 1190 100 Lab Results Last 24 Hours: Laboratory Results - last 24 hr 05/03/20 05/03/20 Range/Units 06:05 06:05 WBC 9.46 (4.0-11.0) K/uL RBC 2.89 L (4.50-5.90) M/uL Hgb 9.2 L (13.0-17.0) g/dL Hct 27.3 L (38.0-50.0) % MCV 94.5 (80.0-98.0) fL MCH 31.8 (27.0-32.0) pg MCHC 33.7 (31.0-37.0) g/dL RDW Std Deviation 47.2 (28.0-62.0) fl RDW Coeff of Cecilio 14 (11.0-15.0) % Plt Count 236 (150-400) K/uL MPV 10.40 (7.40-12.00) fL Add Manual Diff YES Neutrophils % (Manual) 76 (48.0-80.0) % Band Neutrophils % 2 % Lymphocytes % (Manual) 15 L (16.0-40.0) % Monocytes % (Manual) 7 (0.0-15.0) % Nucleated RBC % 0.5 /100WBC Absolute Seg Neuts 7.2 H (1.4-5.7) Band Neutrophils # 0.2 Lymphocytes # (Manual) 1.4 (0.6-2.4) Monocytes # (Manual) 0.7 (0.0-0.8) Nucleated RBCs # 0 K/uL Sodium 144 (136-148) mmol/L Potassium 3.4 L (3.5-5.1) mmol/L Chloride 108 H (98-107) mmol/L Carbon Dioxide 26.0 (21.0-32.0) mmol/L BUN 14 (7.0-18.0) mg/dL Creatinine 1.1 (0.8-1.3) mg/dL Est Cr Clr Drug Dosing 62.59 mL/min Estimated GFR (MDRD) > 60.0 ml/min Glucose 92 (74-106) mg/dL Calcium 7.5 L (8.5-10.1) mg/dL Total Bilirubin 0.3 (0.2-1.0) mg/dL AST 45 H (15-37) IU/L ALT 18 (14-63) IU/L Alkaline Phosphatase 34 L (46-116) U/L Total Protein 5.5 L (6.4-8.2) g/dL Albumin 1.7 L (3.4-5.0) g/dL Globulin 3.8 (2.6-4.0) g/dL Albumin/Globulin Ratio 0.5 L (0.9-1.6) Abner Results Last 24 Hours: Microbiology 04/29/20 11:19 Aerobic Blood Culture - Preliminary Blood - Arm, Right NO GROWTH AFTER 4 DAYS Anaerobic Blood Culture - Final 04/30/20 04:00 Aerobic Blood Culture - Preliminary Blood NO GROWTH AFTER 3 DAYS Anaerobic Blood Culture - Preliminary NO GROWTH AFTER 3 DAYS Med Orders - Current: Current Medications Acetaminophen (Tylenol) 650 mg PO Q4H PRN PRN Reason: Fever Greater Than 101 Last Admin: 04/30/20 15:33 Dose: 650 mg Documented by: Albuterol/Ipratropium (Duoneb 3.0-0.5 Mg/3 Ml) 3 ml NEB Q4HRRT PRN PRN Reason: Dyspnea Last Admin: 05/03/20 10:30 Dose: 3 ml Documented by: Bisacodyl (Dulcolax) 10 mg RECTAL DAILY PRN PRN Reason: Constipation Last Admin: 05/03/20 11:55 Dose: 10 mg Documented by: Carbamazepine (Tegretol Xr) 300 mg PO TID [facility] Last Admin: 05/03/20 06:13 Dose: 300 mg Documented by: Dexamethasone (Dexamethasone) 6 mg PO DAILY [facility] Last Admin: 05/03/20 08:33 Dose: 6 mg Documented by: Divalproex Sodium (Depakote Er) 750 mg PO BID [facility] Last Admin: 05/03/20 08:33 Dose: 750 mg Documented by: Gabapentin (Neurontin) 900 mg PO TID [facility] Last Admin: 05/03/20 06:13 Dose: 900 mg Documented by: Heparin Sodium (Porcine) (Heparin Sodium) 5,000 units SUBCUT Q8H [facility] Last Admin: 05/03/20 08:33 Dose: 5,000 units Documented by: REMDESIVIR (EUA) 100 mg/ (Sodium Chloride) 250 mls @ 125 mls/hr IV Q24H [facility] Stop: 05/03/20 16:29 Last Admin: 05/02/20 14:57 Dose: 125 mls/hr Documented by: Sodium Chloride (Normal Saline) 500 mls @ 999 mls/hr IV .BOLUS [facility] Last Admin: 04/29/20 14:45 Dose: 999 mls/hr Documented by: Sodium Chloride (Normal Saline) 500 mls @ 999 mls/hr IV .BOLUS [facility] Last Admin: 04/29/20 19:36 Dose: 999 mls/hr Documented by: Piperacillin Sod/Tazobactam (Sod 4.5 gm/ Sodium Chloride) 100 mls @ 100 mls/hr IV Q8H [facility] Last Admin: 05/03/20 10:33 Dose: 100 mls/hr Documented by: Vancomycin HCl 1 gm/ Sodium (Chloride) 250 mls @ 166 mls/hr IV Q12H [facility] Last Admin: 05/03/20 03:53 Dose: 166 mls/hr Documented by: Pantoprazole Sodium 40 mg/ (Sodium Chloride) 10 mls @ 300 mls/hr IV Q24H [facility] Last Admin: 05/03/20 09:42 Dose: 300 mls/hr Documented by: Lorazepam (Ativan) 1 mg IVPUSH Q6H PRN PRN Reason: Agitation Last Admin: 05/03/20 02:35 Dose: 1 mg Documented by: Sodium Chloride (Saline Flush) 10 ml FLUSH ASDIRECTED PRN PRN Reason: Keep Vein Open Last Admin: 04/29/20 11:24 Dose: 10 ml Documented by: Sodium Chloride (Saline Flush) 2.5 ml FLUSH ASDIRECTED PRN PRN Reason: Keep Vein Open Last Admin: 04/29/20 11:24 Dose: 2.5 ml Documented by: Discontinued Medications Acetaminophen (Tylenol Extra Strength) 500 mg PO ONETIME ONE Stop: 04/30/20 16:26 Last Admin: 04/30/20 16:53 Dose: 500 mg Documented by: Benzonatate (Tessalon Perles) 200 mg PO ONETIME ONE Stop: 04/29/20 07:02 Last Admin: 04/29/20 07:19 Dose: 200 mg Documented by: Bisacodyl (Dulcolax) 10 mg RECTAL DAILY [facility] Last Admin: 05/03/20 11:28 Dose: Not Given Documented by: Dexamethasone (Dexamethasone) 8 mg IVPUSH ONETIME ONE Stop: 04/29/20 10:33 Last Admin: 04/29/20 11:27 Dose: 8 mg Documented by: Dexamethasone (Dexamethasone) 6 mg PO ONETIME ONE Stop: 04/30/20 19:05 Last Admin: 04/30/20 20:01 Dose: 6 mg Documented by: Gabapentin (Neurontin) 300 mg PO TID [facility] Last Admin: 05/02/20 06:15 Dose: 300 mg Documented by: Heparin Sodium (Porcine) (Heparin Sodium) 5,000 units SUBCUT Q12H [facility] Last Admin: 04/30/20 00:15 Dose: 5,000 units Documented by: Heparin Sodium (Porcine) (Heparin Sodium) 5,000 units SUBCUT Q8H [facility] Last Admin: 04/30/20 05:50 Dose: Not Given Documented by: Azithromycin 500 mg/ Sodium (Chloride) 250 mls @ 250 mls/hr IV ONETIME [facility] Last Admin: 04/29/20 13:07 Dose: 250 mls/hr Documented by: REMDESIVIR (EUA) 200 mg/ (Sodium Chloride) 250 mls @ 125 mls/hr IV Q24H [facility] Stop: 04/29/20 16:29 Last Admin: 04/29/20 14:45 Dose: 125 mls/hr Documented by: Sodium Chloride (Normal Saline) 500 mls @ 500 mls/hr IV ASDIRECTED [facility] Stop: 04/29/20 21:44 Last Admin: 04/29/20 21:17 Dose: 500 mls/hr Documented by: Lactated Ringer's (Ringers, Lactated) 500 mls @ 999 mls/hr IV .BOLUS ONE Stop: 04/30/20 03:09 Last Admin: 04/30/20 02:54 Dose: 999 mls/hr Documented by: Lactated Ringer's (Ringers, Lactated) 500 mls @ 999 mls/hr IV ONETIME ONE Stop: 04/30/20 04:01 Last Admin: 04/30/20 03:38 Dose: 999 mls/hr Documented by: Vancomycin HCl 1.5 gm/ Premix 300 mls @ 300 mls/hr IV ONETIME ONE Stop: 04/30/20 04:59 Last Admin: 04/30/20 05:15 Dose: 300 mls/hr Documented by: Sodium Chloride (Normal Saline) 1,000 mls @ 250 mls/hr IV BOLUS ONE Stop: 04/30/20 20:06 Last Admin: 04/30/20 16:44 Dose: 250 mls/hr Documented by: Lorazepam (Ativan) 1 mg IVPUSH ONETIME ONE Stop: 04/29/20 12:41 Last Admin: 04/29/20 13:17 Dose: 1 mg Documented by: Lorazepam (Ativan) 2 mg IVPUSH ONETIME ONE Stop: 04/30/20 02:39 Last Admin: 04/30/20 02:50 Dose: 2 mg Documented by: Potassium Chloride (Klor-Con M20) 40 meq PO ONETIME ONE Stop: 04/30/20 10:03 Last Admin: 04/30/20 11:14 Dose: 40 meq Documented by: Potassium Chloride (Klor-Con M20) 40 meq PO ONETIME ONE Stop: 05/03/20 09:04 Last Admin: 05/03/20 09:19 Dose: 40 meq Documented by: Vancomycin HCl (Pharmacy To Dose - Vancomycin) 1 dose .XX ONETIME ONE Stop: 04/30/20 03:30 Last Admin: 04/30/20 11:10 Dose: 1.5 gram Documented by: - Exam General: Alert HEENT: Mucous Membr. Moist/[place] Lungs: Decreased Breath Sounds (Decerased breath sound on the left more than the right. Patient tends to twist and contort body to the right side which may inhibit breathing). No: Crackles, Wheezing Cardiovascular: Regular Rate, Irregular Rhythm GI/Abdominal Exam: Soft, No Distention Extremities: No Pedal Edema Skin: Warm, Dry Sepsis Event Note - Evaluation Sepsis Screening Result: No Definite Risk - Focused Exam Vital Signs: Vital Signs Temp Resp BP Pulse Ox 05/03/20 12:10 88 L 05/03/20 12:07 87 L 05/03/20 12:00 98.2 F 34 H 132/43 L 90 L 05/03/20 11:00 38 H 129/69 94 L 05/03/20 10:00 36 H 113/62 91 L 05/03/20 09:00 29 H 119/62 97 05/03/20 08:00 99.1 F 28 H 101/58 L 97 05/03/20 07:30 23 H 133/55 L 93 L 05/03/20 07:00 25 H 99 05/03/20 06:44 26 H 96 05/03/20 06:06 99.1 F 26 H 121/60 97 05/03/20 05:06 27 H 133/64 98 05/03/20 04:06 97.9 F 35 H 110/66 94 L 05/03/20 03:06 31 H 127/70 97 05/03/20 02:44 98.9 F 31 H 96 05/03/20 02:06 34 H 102/66 91 L 05/03/20 01:06 32 H 111/69 94 L - Problem List Review Problem List Initiated/Reviewed/Updated: Yes - My Orders Last 24 Hours: My Active Orders 05/03/20 09:43 Transfer Patient (Change bed) [ADT] Routine [employer] Discontinue [Cardiac Monitoring Discontinue] [RC] Click to Edit Telemetry Monitoring [Cardiac Monitoring] [RC] Q8HR 05/03/20 09:44 Consult to Physical Therapy [PT Evaluation and Treatment] [CONS] Routine - Assessment Assessment:: COVID-19 infection: Continue Remdesivir 100mg Days 2-5 (5 doses total), Dexamethasone 6mg PO (IV if PO not tolerated), Duoneb Q4HR PRN for dyspnea, Oxygen support, Heparin 5000iu Q8HR, Tylenol 650mg Q4HRS for Fever/Pain. Fluid Bolus as needed, Chest PT ordered, Speech eval/swallow study ordered awaiting evaluation. Patient transferred to Med/Surg with telemetry as patients status has improved. PT consulted for ambulation evaluation. Bacteremia: Patient has gram positive cocci growth. Treating with Vancomycin and Zosyn. Will adjust antibiotics based on final culture report and patient status. Continue current therapy and will adjust on discharge. Considering Levaquin or Augmentin. Transaminitis- Improving, AST 45. Will monitor CMP as elevation most likely due to COVID infection <[place] aZcarias - Last Filed: 05/05/20 12:41> - General Info Subjective Update: seen at bedside, sleeping comfortably - Patient Data Vitals - Most Recent: Last Vital Signs Temp 36.3 C 05/05/20 11:52 Pulse 64 05/05/20 11:52 Resp 22 H 05/05/20 11:52 BP 134/71 05/05/20 11:52 Pulse Ox 96 05/05/20 11:52 I&O - Last 24 Hours: Intake & Output 05/04/20 05/05/20 05/05/20 22:59 06:59 14:59 Intake Total 540 690 Output Total 0 785 Balance 540 -95 Lab Results Last 24 Hours: Laboratory Results - last 24 hr 05/04/20 05/05/20 05/05/20 Range/Units 15:00 06:44 06:44 WBC 8.97 (4.0-11.0) K/uL RBC 2.90 L (4.50-5.90) M/uL Hgb 9.2 L (13.0-17.0) g/dL Hct 27.7 L (38.0-50.0) % MCV 95.5 (80.0-98.0) fL MCH 31.7 (27.0-32.0) pg MCHC 33.2 (31.0-37.0) g/dL RDW Std Deviation 48.0 (28.0-62.0) fl RDW Coeff of Cecilio 14 (11.0-15.0) % Plt Count 308 (150-400) K/uL MPV 10.10 (7.40-12.00) fL Add Manual Diff YES Neutrophils % (Manual) 65 (48.0-80.0) % Band Neutrophils % 7 % Lymphocytes % (Manual) 20 (16.0-40.0) % Monocytes % (Manual) 7 (0.0-15.0) % Eosinophils % (Manual) 1 (0.0-7.0) % Nucleated RBC % 0.5 /100WBC Absolute Seg Neuts 5.8 H (1.4-5.7) Band Neutrophils # 0.6 Lymphocytes # (Manual) 1.8 (0.6-2.4) Monocytes # (Manual) 0.6 (0.0-0.8) Eosinophils # (Manual) 0.1 (0.0-0.7) Nucleated RBCs # 0 K/uL Sodium 142 (136-148) mmol/L Potassium 3.5 (3.5-5.1) mmol/L Chloride 108 H (98-107) mmol/L Carbon Dioxide 25.0 (21.0-32.0) mmol/L BUN 14 (7.0-18.0) mg/dL Creatinine 1.0 (0.8-1.3) mg/dL Est Cr Clr Drug Dosing 68.85 mL/min Estimated GFR (MDRD) > 60.0 ml/min Glucose 104 (74-106) mg/dL Calcium 7.7 L (8.5-10.1) mg/dL Total Bilirubin 0.4 (0.2-1.0) mg/dL AST 36 (15-37) IU/L ALT 11 L (14-63) IU/L Alkaline Phosphatase 30 L (46-116) U/L Total Protein 5.8 L (6.4-8.2) g/dL Albumin 1.5 L (3.4-5.0) g/dL Globulin 4.3 H (2.6-4.0) g/dL Albumin/Globulin Ratio 0.4 L (0.9-1.6) Vancomycin Trough 14.3 H (5.0-10.0) ug/mL Abner Results Last 24 Hours: Microbiology 04/30/20 04:00 Aerobic Blood Culture - Final Blood NO GROWTH AFTER 5 DAYS Anaerobic Blood Culture - Final NO GROWTH AFTER 5 DAYS 04/29/20 11:19 Aerobic Blood Culture - Final Blood - Arm, Right NO GROWTH AFTER 5 DAYS Anaerobic Blood Culture - Final Med Orders - Current: Current Medications Acetaminophen (Tylenol) 650 mg PO Q4H PRN PRN Reason: Fever Greater Than 101 Last Admin: 04/30/20 15:33 Dose: 650 mg Documented by: Albuterol/Ipratropium (Combivent Respimat) 0 gm INH Q4H PRN PRN Reason: Dyspnea Bisacodyl (Dulcolax) 10 mg RECTAL DAILY PRN PRN Reason: Constipation Last Admin: 05/03/20 11:55 Dose: 10 mg Documented by: Carbamazepine (Tegretol Xr) 300 mg PO TID [facility] Last Admin: 05/05/20 05:44 Dose: 300 mg Documented by: Dexamethasone (Dexamethasone) 6 mg PO DAILY [facility] Last Admin: 05/05/20 08:26 Dose: 6 mg Documented by: Divalproex Sodium (Depakote Er) 750 mg PO BID [facility] Last Admin: 05/05/20 08:25 Dose: 750 mg Documented by: Gabapentin (Neurontin) 900 mg PO TID [facility] Last Admin: 05/05/20 05:42 Dose: 900 mg Documented by: Heparin Sodium (Porcine) (Heparin Sodium) 5,000 units SUBCUT Q8H [facility] Last Admin: 05/05/20 08:24 Dose: 5,000 units Documented by: Piperacillin Sod/Tazobactam (Sod 4.5 gm/ Sodium Chloride) 100 mls @ 100 mls/hr IV Q8H [facility] Last Admin: 05/05/20 11:41 Dose: 100 mls/hr Documented by: Pantoprazole Sodium 40 mg/ (Sodium Chloride) 10 mls @ 300 mls/hr IV Q24H [facility] Last Admin: 05/05/20 08:22 Dose: 300 mls/hr Documented by: Levofloxacin/Dextrose 750 mg/ (Premix) 150 mls @ 100 mls/hr IV Q24H [facility] Last Admin: 05/05/20 10:10 Dose: 100 mls/hr Documented by: REMDESIVIR (EUA) 100 mg/ (Sodium Chloride) 100 mls @ 100 mls/hr IV Q24H [facility] Stop: 05/08/20 16:29 Last Admin: 05/04/20 16:19 Dose: 100 mls/hr Documented by: Lorazepam (Ativan) 1 mg IVPUSH Q6H PRN PRN Reason: Agitation Last Admin: 05/03/20 02:35 Dose: 1 mg Documented by: Sodium Chloride (Saline Flush) 10 ml FLUSH ASDIRECTED PRN PRN Reason: Keep Vein Open Last Admin: 04/29/20 11:24 Dose: 10 ml Documented by: Sodium Chloride (Saline Flush) 2.5 ml FLUSH ASDIRECTED PRN PRN Reason: Keep Vein Open Last Admin: 04/29/20 11:24 Dose: 2.5 ml Documented by: Discontinued Medications Acetaminophen (Tylenol Extra Strength) 500 mg PO ONETIME ONE Stop: 04/30/20 16:26 Last Admin: 04/30/20 16:53 Dose: 500 mg Documented by: Albuterol/Ipratropium (Duoneb 3.0-0.5 Mg/3 Ml) 3 ml NEB Q4HRRT PRN PRN Reason: Dyspnea Last Admin: 05/04/20 20:00 Dose: 3 ml Documented by: Benzonatate (Tessalon Perles) 200 mg PO ONETIME ONE Stop: 04/29/20 07:02 Last Admin: 04/29/20 07:19 Dose: 200 mg Documented by: Bisacodyl (Dulcolax) 10 mg RECTAL DAILY [facility] Last Admin: 05/03/20 11:28 Dose: Not Given Documented by: Dexamethasone (Dexamethasone) 8 mg IVPUSH ONETIME ONE Stop: 04/29/20 10:33 Last Admin: 04/29/20 11:27 Dose: 8 mg Documented by: Dexamethasone (Dexamethasone) 6 mg PO ONETIME ONE Stop: 04/30/20 19:05 Last Admin: 04/30/20 20:01 Dose: 6 mg Documented by: Gabapentin (Neurontin) 300 mg PO TID [facility] Last Admin: 05/02/20 06:15 Dose: 300 mg Documented by: Heparin Sodium (Porcine) (Heparin Sodium) 5,000 units SUBCUT Q12H [facility] Last Admin: 04/30/20 00:15 Dose: 5,000 units Documented by: Heparin Sodium (Porcine) (Heparin Sodium) 5,000 units SUBCUT Q8H [facility] Last Admin: 04/30/20 05:50 Dose: Not Given Documented by: Heparin Sodium (Porcine) (Heparin Sodium) 5,000 units SUBCUT Q8H [facility] Last Admin: 05/03/20 23:55 Dose: 5,000 units Documented by: Azithromycin 500 mg/ Sodium (Chloride) 250 mls @ 250 mls/hr IV ONETIME [facility] Last Admin: 04/29/20 13:07 Dose: 250 mls/hr Documented by: REMDESIVIR (EUA) 200 mg/ (Sodium Chloride) 250 mls @ 125 mls/hr IV Q24H [facility] Stop: 04/29/20 16:29 Last Admin: 04/29/20 14:45 Dose: 125 mls/hr Documented by: REMDESIVIR (EUA) 100 mg/ (Sodium Chloride) 250 mls @ 125 mls/hr IV Q24H [facility] Stop: 05/03/20 16:29 Last Admin: 05/03/20 14:19 Dose: 125 mls/hr Documented by: Sodium Chloride (Normal Saline) 500 mls @ 999 mls/hr IV .BOLUS [facility] Last Admin: 04/29/20 14:45 Dose: 999 mls/hr Documented by: Sodium Chloride (Normal Saline) 500 mls @ 999 mls/hr IV .BOLUS [facility] Last Admin: 04/29/20 19:36 Dose: 999 mls/hr Documented by: Sodium Chloride (Normal Saline) 500 mls @ 500 mls/hr IV ASDIRECTED [facility] Stop: 04/29/20 21:44 Last Admin: 04/29/20 21:17 Dose: 500 mls/hr Documented by: Lactated Ringer's (Ringers, Lactated) 500 mls @ 999 mls/hr IV .BOLUS ONE Stop: 04/30/20 03:09 Last Admin: 04/30/20 02:54 Dose: 999 mls/hr Documented by: Lactated Ringer's (Ringers, Lactated) 500 mls @ 999 mls/hr IV ONETIME ONE Stop: 04/30/20 04:01 Last Admin: 04/30/20 03:38 Dose: 999 mls/hr Documented by: Vancomycin HCl 1.5 gm/ Premix 300 mls @ 300 mls/hr IV ONETIME ONE Stop: 04/30/20 04:59 Last Admin: 04/30/20 05:15 Dose: 300 mls/hr Documented by: Vancomycin HCl 1 gm/ Sodium (Chloride) 250 mls @ 166 mls/hr IV Q12H [facility] Last Admin: 05/04/20 19:28 Dose: Not Given Documented by: Pantoprazole Sodium 40 mg/ (Sodium Chloride) 10 mls @ 300 mls/hr IV Q24H [facility] Last Admin: 05/03/20 09:42 Dose: 300 mls/hr Documented by: Sodium Chloride (Normal Saline) 1,000 mls @ 250 mls/hr IV BOLUS ONE Stop: 04/30/20 20:06 Last Admin: 04/30/20 16:44 Dose: 250 mls/hr Documented by: Vancomycin HCl 1.25 gm/ Sodium (Chloride) 250 mls @ 166 mls/hr IV Q12H [facility] Last Admin: 05/05/20 04:18 Dose: 166 mls/hr Documented by: Lorazepam (Ativan) 1 mg IVPUSH ONETIME ONE Stop: 04/29/20 12:41 Last Admin: 04/29/20 13:17 Dose: 1 mg Documented by: Lorazepam (Ativan) 2 mg IVPUSH ONETIME ONE Stop: 04/30/20 02:39 Last Admin: 04/30/20 02:50 Dose: 2 mg Documented by: Potassium Chloride (Klor-Con M20) 40 meq PO ONETIME ONE Stop: 04/30/20 10:03 Last Admin: 04/30/20 11:14 Dose: 40 meq Documented by: Potassium Chloride (Klor-Con M20) 40 meq PO ONETIME ONE Stop: 05/03/20 09:04 Last Admin: 05/03/20 09:19 Dose: 40 meq Documented by: Vancomycin HCl (Pharmacy To Dose - Vancomycin) 1 dose .XX ONETIME ONE Stop: 04/30/20 03:30 Last Admin: 04/30/20 11:10 Dose: 1.5 gram Documented by: Sepsis Event Note - Focused Exam Vital Signs: Vital Signs Temp Pulse Resp BP Pulse Ox 05/05/20 11:52 36.3 C 64 22 H 134/71 96 05/05/20 08:19 36.6 C 57 L 22 H 130/74 97 05/05/20 04:21 35.8 C L 60 20 125/69 94 L - Assessment Assessment:: I have seen and evaluated the patient and agree with the residents note unless specified in my note
[2020-05-03] MEDS: REMDESIVIR 100 MG in Sodium Chloride 0.9% 250 ML IV SCH (14:19)
[2020-05-04] MEDS: Piperacillin/Tazobactam 4.5 GM in Sodium Chloride 0.9% 100 ML IV SCH ×3 (03:10→19:59)
[2020-05-04] MEDS: carBAMazepine 100 MG Cap.ER PO SCH ×3 (06:01→21:08)
[2020-05-04] MEDS: Gabapentin 300 MG Cap PO SCH ×3 (06:01→21:07)
[2020-05-04] MEDS: Albuterol/Ipratropium 3.0-0.5 MG/3 ML Neb Soln NEB PRN ×2 (06:19→20:00)
[2020-05-04 06:53] LABS: BLOOD UREA NITROGEN,BUN 15 mg/dL (7.0-18.0); CARBON DIOXIDE,CO2 25.2 mmol/L (21.0-32.0); CHLORIDE,CL 109 mmol/L (98-107); GLUCOSE RANDOM 94 mg/dL (74-106); POTASSIUM,K 3.7 mmol/L (3.5-5.1); SODIUM,NA 143 mmol/L (136-148)
[2020-05-04] MEDS: Divalproex Sodium 500 MG Tab.ER PO SCH ×2 (08:58→20:01)
[2020-05-04] MEDS: Dexamethasone 4 MG Tab PO SCH (08:59)
[2020-05-04] MEDS: Pantoprazole 40 MG in Sodium Chloride 0.9% 10 ML IV SCH (09:01)
[2020-05-04] MEDS: Heparin Sodium 5,000 Units/ML Vial SUBCUT SCH ×2 (09:02→17:21)
[2020-05-04] MEDS: Levofloxacin/Dextrose 5%-Water 750 MG in Premix Bag 1 BAG IV SCH (10:30)
--- NOTE | 2020-05-04 10:37 | CR ---
Chest: Portable view of the chest was obtained. Comparison: Prior chest x-ray of 04/30/20 and 04/27/20. Diffuse increased density throughout both sides of the chest are seen. Findings have worsened from previous exam. Heart is enlarged. Bony structures are grossly intact. Impression: 1. Diffuse increasing density throughout both sides of the chest. Findings presumably are due to worsening pneumonia. Given the diffuse nature, viral etiology is possible. 2. Stable cardiomegaly. Diagnostic code #5 This report was dictated in MDT
--- NOTE | 2020-05-04 15:51 | PCM.PN ---
<Ty Zepeda - Last Filed: 05/04/20 16:20> - General Info Date of Service: 05/04/20 - Review of Systems Systems Review Comment:: ROS not possible due to patients severe mental retardation - Patient Data Vitals - Most Recent: Last Vital Signs Temp 98.5 F 05/04/20 12:00 Pulse 75 05/04/20 12:00 Resp 36 H 05/04/20 12:00 BP 98/50 L 05/04/20 12:00 Pulse Ox 97 05/04/20 12:00 Weight - Most Recent: 72.121 kg I&O - Last 24 Hours: Intake & Output 05/04/20 05/04/20 05/04/20 06:59 14:59 22:59 Intake Total 890 260 Balance 890 260 Lab Results Last 24 Hours: Laboratory Results - last 24 hr 05/04/20 05/04/20 05/04/20 Range/Units 06:20 06:20 10:24 WBC 11.38 H (4.0-11.0) K/uL RBC 3.00 L (4.50-5.90) M/uL Hgb 9.5 L (13.0-17.0) g/dL Hct 28.4 L (38.0-50.0) % MCV 94.7 (80.0-98.0) fL MCH 31.7 (27.0-32.0) pg MCHC 33.5 (31.0-37.0) g/dL RDW Std Deviation 47.6 (28.0-62.0) fl RDW Coeff of Cecilio 14 (11.0-15.0) % Plt Count 299 (150-400) K/uL MPV 10.40 (7.40-12.00) fL Add Manual Diff YES Neutrophils % (Manual) 72 (48.0-80.0) % Lymphocytes % (Manual) 16 (16.0-40.0) % Monocytes % (Manual) 9 (0.0-15.0) % Myelocytes % 3 % Nucleated RBC % 0.0 /100WBC Absolute Seg Neuts 8.2 H (1.4-5.7) Lymphocytes # (Manual) 1.8 (0.6-2.4) Monocytes # (Manual) 1.0 H (0.0-0.8) Absolute Myelocytes 0.3 Nucleated RBCs # 0 K/uL Lactate 1.6 (0.20-2.00) mmol/L Sodium 143 (136-148) mmol/L Potassium 3.7 (3.5-5.1) mmol/L Chloride 109 H (98-107) mmol/L Carbon Dioxide 25.2 (21.0-32.0) mmol/L BUN 15 (7.0-18.0) mg/dL Creatinine 1.1 (0.8-1.3) mg/dL Est Cr Clr Drug Dosing 62.59 mL/min Estimated GFR (MDRD) > 60.0 ml/min Glucose 94 (74-106) mg/dL Calcium 7.8 L (8.5-10.1) mg/dL Total Bilirubin 0.4 (0.2-1.0) mg/dL AST 43 H (15-37) IU/L ALT 15 (14-63) IU/L Alkaline Phosphatase 36 L (46-116) U/L Total Protein 6.0 L (6.4-8.2) g/dL Albumin 1.7 L (3.4-5.0) g/dL Globulin 4.3 H (2.6-4.0) g/dL Albumin/Globulin Ratio 0.4 L (0.9-1.6) Vancomycin Trough (5.0-10.0) ug/mL 05/04/20 Range/Units 15:00 WBC (4.0-11.0) K/uL RBC (4.50-5.90) M/uL Hgb (13.0-17.0) g/dL Hct (38.0-50.0) % MCV (80.0-98.0) fL MCH (27.0-32.0) pg MCHC (31.0-37.0) g/dL RDW Std Deviation (28.0-62.0) fl RDW Coeff of Cecilio (11.0-15.0) % Plt Count (150-400) K/uL MPV (7.40-12.00) fL Add Manual Diff Neutrophils % (Manual) (48.0-80.0) % Lymphocytes % (Manual) (16.0-40.0) % Monocytes % (Manual) (0.0-15.0) % Myelocytes % % Nucleated RBC % /100WBC Absolute Seg Neuts (1.4-5.7) Lymphocytes # (Manual) (0.6-2.4) Monocytes # (Manual) (0.0-0.8) Absolute Myelocytes Nucleated RBCs # K/uL Lactate (0.20-2.00) mmol/L Sodium (136-148) mmol/L Potassium (3.5-5.1) mmol/L Chloride (98-107) mmol/L Carbon Dioxide (21.0-32.0) mmol/L BUN (7.0-18.0) mg/dL Creatinine (0.8-1.3) mg/dL Est Cr Clr Drug Dosing mL/min Estimated GFR (MDRD) ml/min Glucose (74-106) mg/dL Calcium (8.5-10.1) mg/dL Total Bilirubin (0.2-1.0) mg/dL AST (15-37) IU/L ALT (14-63) IU/L Alkaline Phosphatase (46-116) U/L Total Protein (6.4-8.2) g/dL Albumin (3.4-5.0) g/dL Globulin (2.6-4.0) g/dL Albumin/Globulin Ratio (0.9-1.6) Vancomycin Trough 14.3 H (5.0-10.0) ug/mL Abner Results Last 24 Hours: Microbiology 04/29/20 11:19 Aerobic Blood Culture - Final Blood - Arm, Right NO GROWTH AFTER 5 DAYS Anaerobic Blood Culture - Final 04/30/20 04:00 Aerobic Blood Culture - Preliminary Blood NO GROWTH AFTER 4 DAYS Anaerobic Blood Culture - Preliminary NO GROWTH AFTER 4 DAYS Med Orders - Current: Current Medications Acetaminophen (Tylenol) 650 mg PO Q4H PRN PRN Reason: Fever Greater Than 101 Last Admin: 04/30/20 15:33 Dose: 650 mg Documented by: Albuterol/Ipratropium (Duoneb 3.0-0.5 Mg/3 Ml) 3 ml NEB Q4HRRT PRN PRN Reason: Dyspnea Last Admin: 05/04/20 06:19 Dose: 3 ml Documented by: Bisacodyl (Dulcolax) 10 mg RECTAL DAILY PRN PRN Reason: Constipation Last Admin: 05/03/20 11:55 Dose: 10 mg Documented by: Carbamazepine (Tegretol Xr) 300 mg PO TID [facility] Last Admin: 05/04/20 13:54 Dose: 300 mg Documented by: Dexamethasone (Dexamethasone) 6 mg PO DAILY [facility] Last Admin: 05/04/20 08:59 Dose: 6 mg Documented by: Divalproex Sodium (Depakote Er) 750 mg PO BID [facility] Last Admin: 05/04/20 08:58 Dose: 750 mg Documented by: Gabapentin (Neurontin) 900 mg PO TID [facility] Last Admin: 05/04/20 13:54 Dose: 900 mg Documented by: Heparin Sodium (Porcine) (Heparin Sodium) 5,000 units SUBCUT Q8H [facility] Last Admin: 05/04/20 09:02 Dose: 5,000 units Documented by: Sodium Chloride (Normal Saline) 500 mls @ 999 mls/hr IV .BOLUS [facility] Last Admin: 04/29/20 14:45 Dose: 999 mls/hr Documented by: Sodium Chloride (Normal Saline) 500 mls @ 999 mls/hr IV .BOLUS [facility] Last Admin: 04/29/20 19:36 Dose: 999 mls/hr Documented by: Piperacillin Sod/Tazobactam (Sod 4.5 gm/ Sodium Chloride) 100 mls @ 100 mls/hr IV Q8H [facility] Last Admin: 05/04/20 12:07 Dose: 100 mls/hr Documented by: Vancomycin HCl 1 gm/ Sodium (Chloride) 250 mls @ 166 mls/hr IV Q12H [facility] Last Admin: 05/04/20 04:17 Dose: 166 mls/hr Documented by: Pantoprazole Sodium 40 mg/ (Sodium Chloride) 10 mls @ 300 mls/hr IV Q24H [facility] Last Admin: 05/04/20 09:01 Dose: 300 mls/hr Documented by: Levofloxacin/Dextrose 750 mg/ (Premix) 150 mls @ 100 mls/hr IV Q24H [facility] Last Admin: 05/04/20 10:30 Dose: 100 mls/hr Documented by: REMDESIVIR (EUA) 100 mg/ (Sodium Chloride) 100 mls @ 100 mls/hr IV Q24H [facility] Stop: 05/06/20 16:29 Lorazepam (Ativan) 1 mg IVPUSH Q6H PRN PRN Reason: Agitation Last Admin: 05/03/20 02:35 Dose: 1 mg Documented by: Sodium Chloride (Saline Flush) 10 ml FLUSH ASDIRECTED PRN PRN Reason: Keep Vein Open Last Admin: 04/29/20 11:24 Dose: 10 ml Documented by: Sodium Chloride (Saline Flush) 2.5 ml FLUSH ASDIRECTED PRN PRN Reason: Keep Vein Open Last Admin: 04/29/20 11:24 Dose: 2.5 ml Documented by: Discontinued Medications Acetaminophen (Tylenol Extra Strength) 500 mg PO ONETIME ONE Stop: 04/30/20 16:26 Last Admin: 04/30/20 16:53 Dose: 500 mg Documented by: Benzonatate (Tessalon Perles) 200 mg PO ONETIME ONE Stop: 04/29/20 07:02 Last Admin: 04/29/20 07:19 Dose: 200 mg Documented by: Bisacodyl (Dulcolax) 10 mg RECTAL DAILY [facility] Last Admin: 05/03/20 11:28 Dose: Not Given Documented by: Dexamethasone (Dexamethasone) 8 mg IVPUSH ONETIME ONE Stop: 04/29/20 10:33 Last Admin: 04/29/20 11:27 Dose: 8 mg Documented by: Dexamethasone (Dexamethasone) 6 mg PO ONETIME ONE Stop: 04/30/20 19:05 Last Admin: 04/30/20 20:01 Dose: 6 mg Documented by: Gabapentin (Neurontin) 300 mg PO TID [facility] Last Admin: 05/02/20 06:15 Dose: 300 mg Documented by: Heparin Sodium (Porcine) (Heparin Sodium) 5,000 units SUBCUT Q12H [facility] Last Admin: 04/30/20 00:15 Dose: 5,000 units Documented by: Heparin Sodium (Porcine) (Heparin Sodium) 5,000 units SUBCUT Q8H [facility] Last Admin: 04/30/20 05:50 Dose: Not Given Documented by: Heparin Sodium (Porcine) (Heparin Sodium) 5,000 units SUBCUT Q8H [facility] Last Admin: 05/03/20 23:55 Dose: 5,000 units Documented by: Azithromycin 500 mg/ Sodium (Chloride) 250 mls @ 250 mls/hr IV ONETIME [facility] Last Admin: 04/29/20 13:07 Dose: 250 mls/hr Documented by: REMDESIVIR (EUA) 200 mg/ (Sodium Chloride) 250 mls @ 125 mls/hr IV Q24H [facility] Stop: 04/29/20 16:29 Last Admin: 04/29/20 14:45 Dose: 125 mls/hr Documented by: REMDESIVIR (EUA) 100 mg/ (Sodium Chloride) 250 mls @ 125 mls/hr IV Q24H [facility] Stop: 05/03/20 16:29 Last Admin: 05/03/20 14:19 Dose: 125 mls/hr Documented by: Sodium Chloride (Normal Saline) 500 mls @ 500 mls/hr IV ASDIRECTED [facility] Stop: 04/29/20 21:44 Last Admin: 04/29/20 21:17 Dose: 500 mls/hr Documented by: Lactated Ringer's (Ringers, Lactated) 500 mls @ 999 mls/hr IV .BOLUS ONE Stop: 04/30/20 03:09 Last Admin: 04/30/20 02:54 Dose: 999 mls/hr Documented by: Lactated Ringer's (Ringers, Lactated) 500 mls @ 999 mls/hr IV ONETIME ONE Stop: 04/30/20 04:01 Last Admin: 04/30/20 03:38 Dose: 999 mls/hr Documented by: Vancomycin HCl 1.5 gm/ Premix 300 mls @ 300 mls/hr IV ONETIME ONE Stop: 04/30/20 04:59 Last Admin: 04/30/20 05:15 Dose: 300 mls/hr Documented by: Pantoprazole Sodium 40 mg/ (Sodium Chloride) 10 mls @ 300 mls/hr IV Q24H [facility] Last Admin: 05/03/20 09:42 Dose: 300 mls/hr Documented by: Sodium Chloride (Normal Saline) 1,000 mls @ 250 mls/hr IV BOLUS ONE Stop: 04/30/20 20:06 Last Admin: 04/30/20 16:44 Dose: 250 mls/hr Documented by: Lorazepam (Ativan) 1 mg IVPUSH ONETIME ONE Stop: 04/29/20 12:41 Last Admin: 04/29/20 13:17 Dose: 1 mg Documented by: Lorazepam (Ativan) 2 mg IVPUSH ONETIME ONE Stop: 04/30/20 02:39 Last Admin: 04/30/20 02:50 Dose: 2 mg Documented by: Potassium Chloride (Klor-Con M20) 40 meq PO ONETIME ONE Stop: 04/30/20 10:03 Last Admin: 04/30/20 11:14 Dose: 40 meq Documented by: Potassium Chloride (Klor-Con M20) 40 meq PO ONETIME ONE Stop: 05/03/20 09:04 Last Admin: 05/03/20 09:19 Dose: 40 meq Documented by: Vancomycin HCl (Pharmacy To Dose - Vancomycin) 1 dose .XX ONETIME ONE Stop: 04/30/20 03:30 Last Admin: 04/30/20 11:10 Dose: 1.5 gram Documented by: - Exam General: Alert Lungs: Decreased Breath Sounds (decreased in all lobes, worse on the right). No: Clear to Auscultation Cardiovascular: Regular Rate, Regular Rhythm GI/Abdominal Exam: Soft, No Distention Back Exam: Decreased Range of Motion Extremities: No Pedal Edema Sepsis Event Note - Evaluation Sepsis Screening Result: No Definite Risk - Focused Exam Vital Signs: Vital Signs Temp Pulse Resp BP Pulse Ox 05/04/20 12:00 98.5 F 75 36 H 98/50 L 97 05/04/20 08:55 100 F 91 L 05/04/20 08:00 63 38 H 99/51 L 89 L 05/04/20 04:26 79 95 - Problem List Review Problem List Initiated/Reviewed/Updated: Yes - My Orders Last 24 Hours: My Active Orders 05/04/20 09:00 Pantoprazole [ProTONIX IV] 40 mg Sodium Chloride 0.9% [Normal Saline] 10 ml IV Q24H 05/04/20 15:30 Remdesivir (Eua) [Remdesivir (EUA)] 100 mg Sodium Chloride 0.9% [Normal Saline] 100 ml IV Q24H - Assessment Assessment:: COVID-19 infection: Continue Remdesivir 100mg. Patient has already received 5 day course but we will continue due to worsening presentation of chest xray and tachypnea. Dexamethasone 6mg PO (IV if PO not tolerated), Duoneb Q4HR PRN for dyspnea, Oxygen support, Chest PT, Heparin 5000iu Q8HR, Tylenol 650mg Q4HRS for Fever/Pain. Fluid Bolus as needed. Speech eval/swallow study completed, recommended nectar thick liquid and pureed food. Patient was on a regular diet prior to admission. Concerns over patient aspirating. Will have nursing staff monitor patient while feeding. Bacteremia: Patient has gram positive cocci growth. Levaquin antibiotic added to Vancomycin and Zosyn. <Cuba Zacarias - Last Filed: 05/05/20 12:57> - Patient Data Vitals - Most Recent: Last Vital Signs Temp 36.3 C 05/05/20 11:52 Pulse 64 05/05/20 11:52 Resp 22 H 05/05/20 11:52 BP 134/71 05/05/20 11:52 Pulse Ox 96 05/05/20 11:52 I&O - Last 24 Hours: Intake & Output 05/04/20 05/05/20 05/05/20 22:59 06:59 14:59 Intake Total 540 690 Output Total 0 785 Balance 540 -95 Lab Results Last 24 Hours: Laboratory Results - last 24 hr 05/04/20 05/05/20 05/05/20 Range/Units 15:00 06:44 06:44 WBC 8.97 (4.0-11.0) K/uL RBC 2.90 L (4.50-5.90) M/uL Hgb 9.2 L (13.0-17.0) g/dL Hct 27.7 L (38.0-50.0) % MCV 95.5 (80.0-98.0) fL MCH 31.7 (27.0-32.0) pg MCHC 33.2 (31.0-37.0) g/dL RDW Std Deviation 48.0 (28.0-62.0) fl RDW Coeff of Cecilio 14 (11.0-15.0) % Plt Count 308 (150-400) K/uL MPV 10.10 (7.40-12.00) fL Add Manual Diff YES Neutrophils % (Manual) 65 (48.0-80.0) % Band Neutrophils % 7 % Lymphocytes % (Manual) 20 (16.0-40.0) % Monocytes % (Manual) 7 (0.0-15.0) % Eosinophils % (Manual) 1 (0.0-7.0) % Nucleated RBC % 0.5 /100WBC Absolute Seg Neuts 5.8 H (1.4-5.7) Band Neutrophils # 0.6 Lymphocytes # (Manual) 1.8 (0.6-2.4) Monocytes # (Manual) 0.6 (0.0-0.8) Eosinophils # (Manual) 0.1 (0.0-0.7) Nucleated RBCs # 0 K/uL Sodium 142 (136-148) mmol/L Potassium 3.5 (3.5-5.1) mmol/L Chloride 108 H (98-107) mmol/L Carbon Dioxide 25.0 (21.0-32.0) mmol/L BUN 14 (7.0-18.0) mg/dL Creatinine 1.0 (0.8-1.3) mg/dL Est Cr Clr Drug Dosing 68.85 mL/min Estimated GFR (MDRD) > 60.0 ml/min Glucose 104 (74-106) mg/dL Calcium 7.7 L (8.5-10.1) mg/dL Total Bilirubin 0.4 (0.2-1.0) mg/dL AST 36 (15-37) IU/L ALT 11 L (14-63) IU/L Alkaline Phosphatase 30 L (46-116) U/L Total Protein 5.8 L (6.4-8.2) g/dL Albumin 1.5 L (3.4-5.0) g/dL Globulin 4.3 H (2.6-4.0) g/dL Albumin/Globulin Ratio 0.4 L (0.9-1.6) Vancomycin Trough 14.3 H (5.0-10.0) ug/mL Abner Results Last 24 Hours: Microbiology 04/30/20 04:00 Aerobic Blood Culture - Final Blood NO GROWTH AFTER 5 DAYS Anaerobic Blood Culture - Final NO GROWTH AFTER 5 DAYS 04/29/20 11:19 Aerobic Blood Culture - Final Blood - Arm, Right NO GROWTH AFTER 5 DAYS Anaerobic Blood Culture - Final Med Orders - Current: Current Medications Acetaminophen (Tylenol) 650 mg PO Q4H PRN PRN Reason: Fever Greater Than 101 Last Admin: 04/30/20 15:33 Dose: 650 mg Documented by: Albuterol/Ipratropium (Combivent Respimat) 0 gm INH Q4H PRN PRN Reason: Dyspnea Bisacodyl (Dulcolax) 10 mg RECTAL DAILY PRN PRN Reason: Constipation Last Admin: 05/03/20 11:55 Dose: 10 mg Documented by: Carbamazepine (Tegretol Xr) 300 mg PO TID [facility] Last Admin: 05/05/20 05:44 Dose: 300 mg Documented by: Dexamethasone (Dexamethasone) 6 mg PO DAILY [facility] Last Admin: 05/05/20 08:26 Dose: 6 mg Documented by: Divalproex Sodium (Depakote Er) 750 mg PO BID [facility] Last Admin: 05/05/20 08:25 Dose: 750 mg Documented by: Gabapentin (Neurontin) 900 mg PO TID [facility] Last Admin: 05/05/20 05:42 Dose: 900 mg Documented by: Heparin Sodium (Porcine) (Heparin Sodium) 5,000 units SUBCUT Q8H [facility] Last Admin: 05/05/20 08:24 Dose: 5,000 units Documented by: Piperacillin Sod/Tazobactam (Sod 4.5 gm/ Sodium Chloride) 100 mls @ 100 mls/hr IV Q8H [facility] Last Admin: 05/05/20 11:41 Dose: 100 mls/hr Documented by: Pantoprazole Sodium 40 mg/ (Sodium Chloride) 10 mls @ 300 mls/hr IV Q24H [facility] Last Admin: 05/05/20 08:22 Dose: 300 mls/hr Documented by: Levofloxacin/Dextrose 750 mg/ (Premix) 150 mls @ 100 mls/hr IV Q24H [facility] Last Admin: 05/05/20 10:10 Dose: 100 mls/hr Documented by: REMDESIVIR (EUA) 100 mg/ (Sodium Chloride) 100 mls @ 100 mls/hr IV Q24H [facility] Stop: 05/08/20 16:29 Last Admin: 05/04/20 16:19 Dose: 100 mls/hr Documented by: Lorazepam (Ativan) 1 mg IVPUSH Q6H PRN PRN Reason: Agitation Last Admin: 05/03/20 02:35 Dose: 1 mg Documented by: Sodium Chloride (Saline Flush) 10 ml FLUSH ASDIRECTED PRN PRN Reason: Keep Vein Open Last Admin: 04/29/20 11:24 Dose: 10 ml Documented by: Sodium Chloride (Saline Flush) 2.5 ml FLUSH ASDIRECTED PRN PRN Reason: Keep Vein Open Last Admin: 04/29/20 11:24 Dose: 2.5 ml Documented by: Discontinued Medications Acetaminophen (Tylenol Extra Strength) 500 mg PO ONETIME ONE Stop: 04/30/20 16:26 Last Admin: 04/30/20 16:53 Dose: 500 mg Documented by: Albuterol/Ipratropium (Duoneb 3.0-0.5 Mg/3 Ml) 3 ml NEB Q4HRRT PRN PRN Reason: Dyspnea Last Admin: 05/04/20 20:00 Dose: 3 ml Documented by: Benzonatate (Tessalon Perles) 200 mg PO ONETIME ONE Stop: 04/29/20 07:02 Last Admin: 04/29/20 07:19 Dose: 200 mg Documented by: Bisacodyl (Dulcolax) 10 mg RECTAL DAILY [facility] Last Admin: 05/03/20 11:28 Dose: Not Given Documented by: Dexamethasone (Dexamethasone) 8 mg IVPUSH ONETIME ONE Stop: 04/29/20 10:33 Last Admin: 04/29/20 11:27 Dose: 8 mg Documented by: Dexamethasone (Dexamethasone) 6 mg PO ONETIME ONE Stop: 04/30/20 19:05 Last Admin: 04/30/20 20:01 Dose: 6 mg Documented by: Gabapentin (Neurontin) 300 mg PO TID [facility] Last Admin: 05/02/20 06:15 Dose: 300 mg Documented by: Heparin Sodium (Porcine) (Heparin Sodium) 5,000 units SUBCUT Q12H [facility] Last Admin: 04/30/20 00:15 Dose: 5,000 units Documented by: Heparin Sodium (Porcine) (Heparin Sodium) 5,000 units SUBCUT Q8H [facility] Last Admin: 04/30/20 05:50 Dose: Not Given Documented by: Heparin Sodium (Porcine) (Heparin Sodium) 5,000 units SUBCUT Q8H [facility] Last Admin: 05/03/20 23:55 Dose: 5,000 units Documented by: Azithromycin 500 mg/ Sodium (Chloride) 250 mls @ 250 mls/hr IV ONETIME [facility] Last Admin: 04/29/20 13:07 Dose: 250 mls/hr Documented by: REMDESIVIR (EUA) 200 mg/ (Sodium Chloride) 250 mls @ 125 mls/hr IV Q24H [facility] Stop: 04/29/20 16:29 Last Admin: 04/29/20 14:45 Dose: 125 mls/hr Documented by: REMDESIVIR (EUA) 100 mg/ (Sodium Chloride) 250 mls @ 125 mls/hr IV Q24H [facility] Stop: 05/03/20 16:29 Last Admin: 05/03/20 14:19 Dose: 125 mls/hr Documented by: Sodium Chloride (Normal Saline) 500 mls @ 999 mls/hr IV .BOLUS [facility] Last Admin: 04/29/20 14:45 Dose: 999 mls/hr Documented by: Sodium Chloride (Normal Saline) 500 mls @ 999 mls/hr IV .BOLUS [facility] Last Admin: 04/29/20 19:36 Dose: 999 mls/hr Documented by: Sodium Chloride (Normal Saline) 500 mls @ 500 mls/hr IV ASDIRECTED [facility] Stop: 04/29/20 21:44 Last Admin: 04/29/20 21:17 Dose: 500 mls/hr Documented by: Lactated Ringer's (Ringers, Lactated) 500 mls @ 999 mls/hr IV .BOLUS ONE Stop: 04/30/20 03:09 Last Admin: 04/30/20 02:54 Dose: 999 mls/hr Documented by: Lactated Ringer's (Ringers, Lactated) 500 mls @ 999 mls/hr IV ONETIME ONE Stop: 04/30/20 04:01 Last Admin: 04/30/20 03:38 Dose: 999 mls/hr Documented by: Vancomycin HCl 1.5 gm/ Premix 300 mls @ 300 mls/hr IV ONETIME ONE Stop: 04/30/20 04:59 Last Admin: 04/30/20 05:15 Dose: 300 mls/hr Documented by: Vancomycin HCl 1 gm/ Sodium (Chloride) 250 mls @ 166 mls/hr IV Q12H [facility] Last Admin: 05/04/20 19:28 Dose: Not Given Documented by: Pantoprazole Sodium 40 mg/ (Sodium Chloride) 10 mls @ 300 mls/hr IV Q24H [facility] Last Admin: 05/03/20 09:42 Dose: 300 mls/hr Documented by: Sodium Chloride (Normal Saline) 1,000 mls @ 250 mls/hr IV BOLUS ONE Stop: 04/30/20 20:06 Last Admin: 04/30/20 16:44 Dose: 250 mls/hr Documented by: Vancomycin HCl 1.25 gm/ Sodium (Chloride) 250 mls @ 166 mls/hr IV Q12H [facility] Last Admin: 05/05/20 04:18 Dose: 166 mls/hr Documented by: Lorazepam (Ativan) 1 mg IVPUSH ONETIME ONE Stop: 04/29/20 12:41 Last Admin: 04/29/20 13:17 Dose: 1 mg Documented by: Lorazepam (Ativan) 2 mg IVPUSH ONETIME ONE Stop: 04/30/20 02:39 Last Admin: 04/30/20 02:50 Dose: 2 mg Documented by: Potassium Chloride (Klor-Con M20) 40 meq PO ONETIME ONE Stop: 04/30/20 10:03 Last Admin: 04/30/20 11:14 Dose: 40 meq Documented by: Potassium Chloride (Klor-Con M20) 40 meq PO ONETIME ONE Stop: 05/03/20 09:04 Last Admin: 05/03/20 09:19 Dose: 40 meq Documented by: Vancomycin HCl (Pharmacy To Dose - Vancomycin) 1 dose .XX ONETIME ONE Stop: 04/30/20 03:30 Last Admin: 04/30/20 11:10 Dose: 1.5 gram Documented by: Sepsis Event Note - Focused Exam Vital Signs: Vital Signs Temp Pulse Resp BP Pulse Ox 05/05/20 11:52 36.3 C 64 22 H 134/71 96 05/05/20 08:19 36.6 C 57 L 22 H 130/74 97 05/05/20 04:21 35.8 C L 60 20 125/69 94 L - Assessment Assessment:: I have seen and evaluated the patient and agree with the residents note unless specified in my note
--- NOTE | 2020-05-04 16:10 | PN ---
THC Physician - Brief Progress [id number]/08/2020 16:08[facility] [place], [place] - SAMANTHA (REI) - SAMANTHA MCHUGHBERTHA SRIVASTAVA, COVID +Date of Service 05/04/2020 16:08HPI/Ev ents of Note eICU Admission [id number] admitted for COVID. History obtained from review of EMR.Patient h ad been originally admitted on 04/30 with hypoxemic respiratory failure attributed to COVID.Course of b een complicated by acute kidney injury which had improved.Had been transferred to the floor on 05/03, a nd had been transferred back to the intensive care unit due to concerns of clinical deterioration.Cam era exam: Laying in bed. Vitals monitor reviewed. eICU Recommendations:Suggest procalcitonin to donita t with antibiotic de-escalation, would continue antibiotics in the meantimeCan consider continuation of remdesivir for a total of up to 10 days should patient not exhibit clinical improvement.Continue d examethasone for a total of 10 daysSuggest initiation of convalescent plasma if availableSwallow stud y to rule out aspirationSupplemental oxygen as neededIV fluids to target euvolemiaDVT and GI prophyla xis as appropriate.Thank you for allowing us to participate in the care of this patient.The above not e transcribed with the assistance of dictation software. Please excuse any errors.Interventions Major -Respiratory failure - evaluation and managementElectronically Signed by: NANCY DUVALL) on 03/2020 16:09
[2020-05-04] MEDS: REMDESIVIR 100 MG in Sodium Chloride 0.9% 100 ML IV SCH (16:19)
--- NOTE | 2020-05-04 16:34 | PN ---
THC Physician - Brief Progress [id number]/08/2020 16:34[facility] [place], [place] - SAMANTHA (REI) - BERTHA VANEGAS COVID +Date of Service 05/04/2020 16:34HPI/Ev ents of Note eICU Update NoteNotified by eICU RN patient is not ICU status, will remain med-surg stat us at this time.Interventions Major-Respiratory failure - evaluation and managementElectronically Sig mary by: NANCY DUVALL) on 05/04/2020 16:34
[2020-05-05] MEDS: Heparin Sodium 5,000 Units/ML Vial SUBCUT SCH ×3 (00:13→16:31)
[2020-05-05] MEDS: Piperacillin/Tazobactam 4.5 GM in Sodium Chloride 0.9% 100 ML IV SCH ×3 (03:11→19:55)
[2020-05-05] MEDS: Gabapentin 300 MG Cap PO SCH ×3 (05:42→21:19)
[2020-05-05] MEDS: carBAMazepine 100 MG Cap.ER PO SCH ×3 (05:44→21:20)
[2020-05-05 07:11] LABS: BLOOD UREA NITROGEN,BUN 14 mg/dL (7.0-18.0); CHLORIDE,CL 108 mmol/L (98-107); GLUCOSE RANDOM 104 mg/dL (74-106); POTASSIUM,K 3.5 mmol/L (3.5-5.1); SODIUM,NA 142 mmol/L (136-148)
[2020-05-05] MEDS: Pantoprazole 40 MG in Sodium Chloride 0.9% 10 ML IV SCH (08:22)
[2020-05-05] MEDS: Divalproex Sodium 500 MG Tab.ER PO SCH ×2 (08:25→19:59)
[2020-05-05] MEDS: Dexamethasone 4 MG Tab PO SCH (08:26)
[2020-05-05] MEDS: Levofloxacin/Dextrose 5%-Water 750 MG in Premix Bag 1 BAG IV SCH (10:10)
--- NOTE | 2020-05-05 12:10 | PCM.PN ---
<Ty Zepeda - Last Filed: 05/05/20 12:17> - General Info Date of Service: 05/05/20 Subjective Update: Per nursing patient had no significant events today. Patient is afebrile, with normal vitals. Patient is no longer tachypneic. - Review of Systems General: Denies: Fever Systems Review Comment:: ROS unable to obtain due to patients mental retardation - Patient Data Vitals - Most Recent: Last Vital Signs Temp 97.3 F 05/05/20 11:52 Pulse 64 05/05/20 11:52 Resp 22 H 05/05/20 11:52 BP 134/71 05/05/20 11:52 Pulse Ox 96 05/05/20 11:52 Weight - Most Recent: 72.121 kg I&O - Last 24 Hours: Intake & Output 05/04/20 05/05/20 05/05/20 22:59 06:59 14:59 Intake Total 540 690 Output Total 0 785 Balance 540 -95 Lab Results Last 24 Hours: Laboratory Results - last 24 hr 05/04/20 05/05/20 05/05/20 Range/Units 15:00 06:44 06:44 WBC 8.97 (4.0-11.0) K/uL RBC 2.90 L (4.50-5.90) M/uL Hgb 9.2 L (13.0-17.0) g/dL Hct 27.7 L (38.0-50.0) % MCV 95.5 (80.0-98.0) fL MCH 31.7 (27.0-32.0) pg MCHC 33.2 (31.0-37.0) g/dL RDW Std Deviation 48.0 (28.0-62.0) fl RDW Coeff of Cecilio 14 (11.0-15.0) % Plt Count 308 (150-400) K/uL MPV 10.10 (7.40-12.00) fL Add Manual Diff YES Neutrophils % (Manual) 65 (48.0-80.0) % Band Neutrophils % 7 % Lymphocytes % (Manual) 20 (16.0-40.0) % Monocytes % (Manual) 7 (0.0-15.0) % Eosinophils % (Manual) 1 (0.0-7.0) % Nucleated RBC % 0.5 /100WBC Absolute Seg Neuts 5.8 H (1.4-5.7) Band Neutrophils # 0.6 Lymphocytes # (Manual) 1.8 (0.6-2.4) Monocytes # (Manual) 0.6 (0.0-0.8) Eosinophils # (Manual) 0.1 (0.0-0.7) Nucleated RBCs # 0 K/uL Sodium 142 (136-148) mmol/L Potassium 3.5 (3.5-5.1) mmol/L Chloride 108 H (98-107) mmol/L Carbon Dioxide 25.0 (21.0-32.0) mmol/L BUN 14 (7.0-18.0) mg/dL Creatinine 1.0 (0.8-1.3) mg/dL Est Cr Clr Drug Dosing 68.85 mL/min Estimated GFR (MDRD) > 60.0 ml/min Glucose 104 (74-106) mg/dL Calcium 7.7 L (8.5-10.1) mg/dL Total Bilirubin 0.4 (0.2-1.0) mg/dL AST 36 (15-37) IU/L ALT 11 L (14-63) IU/L Alkaline Phosphatase 30 L (46-116) U/L Total Protein 5.8 L (6.4-8.2) g/dL Albumin 1.5 L (3.4-5.0) g/dL Globulin 4.3 H (2.6-4.0) g/dL Albumin/Globulin Ratio 0.4 L (0.9-1.6) Vancomycin Trough 14.3 H (5.0-10.0) ug/mL Abner Results Last 24 Hours: Microbiology 04/30/20 04:00 Aerobic Blood Culture - Final Blood NO GROWTH AFTER 5 DAYS Anaerobic Blood Culture - Final NO GROWTH AFTER 5 DAYS 04/29/20 11:19 Aerobic Blood Culture - Final Blood - Arm, Right NO GROWTH AFTER 5 DAYS Anaerobic Blood Culture - Final Med Orders - Current: Current Medications Acetaminophen (Tylenol) 650 mg PO Q4H PRN PRN Reason: Fever Greater Than 101 Last Admin: 04/30/20 15:33 Dose: 650 mg Documented by: Albuterol/Ipratropium (Duoneb 3.0-0.5 Mg/3 Ml) 3 ml NEB Q4HRRT PRN PRN Reason: Dyspnea Last Admin: 05/04/20 20:00 Dose: 3 ml Documented by: Bisacodyl (Dulcolax) 10 mg RECTAL DAILY PRN PRN Reason: Constipation Last Admin: 05/03/20 11:55 Dose: 10 mg Documented by: Carbamazepine (Tegretol Xr) 300 mg PO TID [facility] Last Admin: 05/05/20 05:44 Dose: 300 mg Documented by: Dexamethasone (Dexamethasone) 6 mg PO DAILY [facility] Last Admin: 05/05/20 08:26 Dose: 6 mg Documented by: Divalproex Sodium (Depakote Er) 750 mg PO BID [facility] Last Admin: 05/05/20 08:25 Dose: 750 mg Documented by: Gabapentin (Neurontin) 900 mg PO TID [facility] Last Admin: 05/05/20 05:42 Dose: 900 mg Documented by: Heparin Sodium (Porcine) (Heparin Sodium) 5,000 units SUBCUT Q8H [facility] Last Admin: 05/05/20 08:24 Dose: 5,000 units Documented by: Piperacillin Sod/Tazobactam (Sod 4.5 gm/ Sodium Chloride) 100 mls @ 100 mls/hr IV Q8H [facility] Last Admin: 05/05/20 11:41 Dose: 100 mls/hr Documented by: Pantoprazole Sodium 40 mg/ (Sodium Chloride) 10 mls @ 300 mls/hr IV Q24H [facility] Last Admin: 05/05/20 08:22 Dose: 300 mls/hr Documented by: Levofloxacin/Dextrose 750 mg/ (Premix) 150 mls @ 100 mls/hr IV Q24H [facility] Last Admin: 05/05/20 10:10 Dose: 100 mls/hr Documented by: REMDESIVIR (EUA) 100 mg/ (Sodium Chloride) 100 mls @ 100 mls/hr IV Q24H [facility] Stop: 05/08/20 16:29 Last Admin: 05/04/20 16:19 Dose: 100 mls/hr Documented by: Lorazepam (Ativan) 1 mg IVPUSH Q6H PRN PRN Reason: Agitation Last Admin: 05/03/20 02:35 Dose: 1 mg Documented by: Sodium Chloride (Saline Flush) 10 ml FLUSH ASDIRECTED PRN PRN Reason: Keep Vein Open Last Admin: 09/03/20 11:24 Dose: 10 ml Documented by: Sodium Chloride (Saline Flush) 2.5 ml FLUSH ASDIRECTED PRN PRN Reason: Keep Vein Open Last Admin: 04/29/20 11:24 Dose: 2.5 ml Documented by: Discontinued Medications Acetaminophen (Tylenol Extra Strength) 500 mg PO ONETIME ONE Stop: 04/30/20 16:26 Last Admin: 04/30/20 16:53 Dose: 500 mg Documented by: Benzonatate (Tessalon Perles) 200 mg PO ONETIME ONE Stop: 04/29/20 07:02 Last Admin: 04/29/20 07:19 Dose: 200 mg Documented by: Bisacodyl (Dulcolax) 10 mg RECTAL DAILY [facility] Last Admin: 05/03/20 11:28 Dose: Not Given Documented by: Dexamethasone (Dexamethasone) 8 mg IVPUSH ONETIME ONE Stop: 04/29/20 10:33 Last Admin: 04/29/20 11:27 Dose: 8 mg Documented by: Dexamethasone (Dexamethasone) 6 mg PO ONETIME ONE Stop: 04/30/20 19:05 Last Admin: 04/30/20 20:01 Dose: 6 mg Documented by: Gabapentin (Neurontin) 300 mg PO TID [facility] Last Admin: 05/02/20 06:15 Dose: 300 mg Documented by: Heparin Sodium (Porcine) (Heparin Sodium) 5,000 units SUBCUT Q12H [facility] Last Admin: 04/30/20 00:15 Dose: 5,000 units Documented by: Heparin Sodium (Porcine) (Heparin Sodium) 5,000 units SUBCUT Q8H [facility] Last Admin: 04/30/20 05:50 Dose: Not Given Documented by: Heparin Sodium (Porcine) (Heparin Sodium) 5,000 units SUBCUT Q8H [facility] Last Admin: 05/03/20 23:55 Dose: 5,000 units Documented by: Azithromycin 500 mg/ Sodium (Chloride) 250 mls @ 250 mls/hr IV ONETIME [facility] Last Admin: 04/29/20 13:07 Dose: 250 mls/hr Documented by: REMDESIVIR (EUA) 200 mg/ (Sodium Chloride) 250 mls @ 125 mls/hr IV Q24H [facility] Stop: 04/29/20 16:29 Last Admin: 04/29/20 14:45 Dose: 125 mls/hr Documented by: REMDESIVIR (EUA) 100 mg/ (Sodium Chloride) 250 mls @ 125 mls/hr IV Q24H [facility] Stop: 05/03/20 16:29 Last Admin: 05/03/20 14:19 Dose: 125 mls/hr Documented by: Sodium Chloride (Normal Saline) 500 mls @ 999 mls/hr IV .BOLUS [facility] Last Admin: 04/29/20 14:45 Dose: 999 mls/hr Documented by: Sodium Chloride (Normal Saline) 500 mls @ 999 mls/hr IV .BOLUS [facility] Last Admin: 04/29/20 19:36 Dose: 999 mls/hr Documented by: Sodium Chloride (Normal Saline) 500 mls @ 500 mls/hr IV ASDIRECTED [facility] Stop: 04/29/20 21:44 Last Admin: 04/29/20 21:17 Dose: 500 mls/hr Documented by: Lactated Ringer's (Ringers, Lactated) 500 mls @ 999 mls/hr IV .BOLUS ONE Stop: 04/30/20 03:09 Last Admin: 04/30/20 02:54 Dose: 999 mls/hr Documented by: Lactated Ringer's (Ringers, Lactated) 500 mls @ 999 mls/hr IV ONETIME ONE Stop: 04/30/20 04:01 Last Admin: 04/30/20 03:38 Dose: 999 mls/hr Documented by: Vancomycin HCl 1.5 gm/ Premix 300 mls @ 300 mls/hr IV ONETIME ONE Stop: 04/30/20 04:59 Last Admin: 04/30/20 05:15 Dose: 300 mls/hr Documented by: Vancomycin HCl 1 gm/ Sodium (Chloride) 250 mls @ 166 mls/hr IV Q12H [facility] Last Admin: 05/04/20 19:28 Dose: Not Given Documented by: Pantoprazole Sodium 40 mg/ (Sodium Chloride) 10 mls @ 300 mls/hr IV Q24H [facility] Last Admin: 05/03/20 09:42 Dose: 300 mls/hr Documented by: Sodium Chloride (Normal Saline) 1,000 mls @ 250 mls/hr IV BOLUS ONE Stop: 04/30/20 20:06 Last Admin: 04/30/20 16:44 Dose: 250 mls/hr Documented by: Vancomycin HCl 1.25 gm/ Sodium (Chloride) 250 mls @ 166 mls/hr IV Q12H [facility] Last Admin: 05/05/20 04:18 Dose: 166 mls/hr Documented by: Lorazepam (Ativan) 1 mg IVPUSH ONETIME ONE Stop: 04/29/20 12:41 Last Admin: 04/29/20 13:17 Dose: 1 mg Documented by: Lorazepam (Ativan) 2 mg IVPUSH ONETIME ONE Stop: 04/30/20 02:39 Last Admin: 04/30/20 02:50 Dose: 2 mg Documented by: Potassium Chloride (Klor-Con M20) 40 meq PO ONETIME ONE Stop: 04/30/20 10:03 Last Admin: 04/30/20 11:14 Dose: 40 meq Documented by: Potassium Chloride (Klor-Con M20) 40 meq PO ONETIME ONE Stop: 05/03/20 09:04 Last Admin: 05/03/20 09:19 Dose: 40 meq Documented by: Vancomycin HCl (Pharmacy To Dose - Vancomycin) 1 dose .XX ONETIME ONE Stop: 04/30/20 03:30 Last Admin: 04/30/20 11:10 Dose: 1.5 gram Documented by: - Exam General: Alert Lungs: Clear to Auscultation (Auscultation on anterior ramírez. Patient did not allow auscultation posteriorly. ) Cardiovascular: Regular Rate, Regular Rhythm GI/Abdominal Exam: Soft, No Distention Extremities: No Pedal Edema Skin: Warm, Dry Neurological: No: Normal Speech Psy/Mental Status: Alert Sepsis Event Note - Evaluation Sepsis Screening Result: No Definite Risk - Focused Exam Vital Signs: Vital Signs Temp Pulse Resp BP Pulse Ox 05/05/20 11:52 97.3 F 64 22 H 134/71 96 05/05/20 08:19 98 F 57 L 22 H 130/74 97 05/05/20 04:21 96.4 F L 60 20 125/69 94 L 05/05/20 00:15 96.8 F L 55 L 21 H 121/58 L 95 - Problem List Review Problem List Initiated/Reviewed/Updated: Yes - My Orders Last 24 Hours: My Active Orders 05/04/20 15:30 Remdesivir (Eua) [Remdesivir (EUA)] 100 mg Sodium Chloride 0.9% [Normal Saline] 100 ml IV Q24H - Assessment Assessment:: COVID-19 infection: Patients respiratory status has improved. Will continue current regime, Remdesivir 100mg. Dexamethasone 6mg PO (IV if PO not tolerated), Combivent Q4HR PRN for dyspnea, Oxygen support to maintain saturation above 92%, Chest PT, Heparin 5000iu Q8HR, Tylenol 650mg Q4HRS for Fever/Pain. Fluid Bolus as needed. [place] thick liquid and pureed food diet. Patient was on a regular diet prior to admission. Will have nursing staff monitor patient while feeding. Bacteremia: Patient has gram positive cocci growth. Levaquin antibiotic and Zosyn continued. Vancomycin discontinued. <Cuba Zacarias - Last Filed: 05/13/20 13:32> - General Info Subjective Update: I have seen and evaluated the patient and agree with the residents note unless specified in my note - Patient Data Vitals - Most Recent: Last Vital Signs Temp 36.8 C 05/08/20 16:00 Pulse 62 05/08/20 16:00 Resp 18 05/08/20 16:00 BP 115/72 05/08/20 16:00 Pulse Ox 98 05/08/20 16:00 Med Orders - Current: Current Medications Discontinued Medications Acetaminophen (Tylenol) 650 mg PO Q4H PRN PRN Reason: Fever Greater Than 101 Last Admin: 04/30/20 15:33 Dose: 650 mg Documented by: Acetaminophen (Tylenol Extra Strength) 500 mg PO ONETIME ONE Stop: 04/30/20 16:26 Last Admin: 04/30/20 16:53 Dose: 500 mg Documented by: Albuterol/Ipratropium (Duoneb 3.0-0.5 Mg/3 Ml) 3 ml NEB Q4HRRT PRN PRN Reason: Dyspnea Last Admin: 05/04/20 20:00 Dose: 3 ml Documented by: Albuterol/Ipratropium (Combivent Respimat) 0 gm INH Q4H PRN PRN Reason: Dyspnea Benzonatate (Tessalon Perles) 200 mg PO ONETIME ONE Stop: 04/29/20 07:02 Last Admin: 04/29/20 07:19 Dose: 200 mg Documented by: Bisacodyl (Dulcolax) 10 mg RECTAL DAILY [facility] Last Admin: 05/03/20 11:28 Dose: Not Given Documented by: Bisacodyl (Dulcolax) 10 mg RECTAL DAILY PRN PRN Reason: Constipation Last Admin: 05/03/20 11:55 Dose: 10 mg Documented by: Carbamazepine (Tegretol Xr) 300 mg PO TID [facility] Last Admin: 05/08/20 13:21 Dose: 300 mg Documented by: Dexamethasone (Dexamethasone) 8 mg IVPUSH ONETIME ONE Stop: 04/29/20 10:33 Last Admin: 04/29/20 11:27 Dose: 8 mg Documented by: Dexamethasone (Dexamethasone) 6 mg PO ONETIME ONE Stop: 04/30/20 19:05 Last Admin: 04/30/20 20:01 Dose: 6 mg Documented by: Dexamethasone (Dexamethasone) 6 mg PO DAILY [facility] Last Admin: 05/07/20 10:15 Dose: Not Given Documented by: Dexamethasone (Dexamethasone) 6 mg IVPUSH DAILY [facility] Last Admin: 05/08/20 08:40 Dose: 6 mg Documented by: Divalproex Sodium (Depakote Er) 750 mg PO BID [facility] Last Admin: 05/08/20 09:49 Dose: 750 mg Documented by: Divalproex Sodium (Depakote Er) 500 mg PO BID [facility] Last Admin: 05/08/20 11:48 Dose: Not Given Documented by: Divalproex Sodium (Depakote Er) 500 mg PO BID [facility] Enoxaparin Sodium (Lovenox) 40 mg SUBCUT Q24H [facility] Last Admin: 05/07/20 17:43 Dose: 40 mg Documented by: Gabapentin (Neurontin) 300 mg PO TID [facility] Last Admin: 05/02/20 06:15 Dose: 300 mg Documented by: Gabapentin (Neurontin) 900 mg PO TID [facility] Last Admin: 05/08/20 13:20 Dose: 900 mg Documented by: Heparin Sodium (Porcine) (Heparin Sodium) 5,000 units SUBCUT Q12H [facility] Last Admin: 04/30/20 00:15 Dose: 5,000 units Documented by: Heparin Sodium (Porcine) (Heparin Sodium) 5,000 units SUBCUT Q8H [facility] Last Admin: 04/30/20 05:50 Dose: Not Given Documented by: Heparin Sodium (Porcine) (Heparin Sodium) 5,000 units SUBCUT Q8H [facility] Last Admin: 05/03/20 23:55 Dose: 5,000 units Documented by: Heparin Sodium (Porcine) (Heparin Sodium) 5,000 units SUBCUT Q8H [facility] Last Admin: 05/07/20 09:18 Dose: 5,000 units Documented by: Azithromycin 500 mg/ Sodium (Chloride) 250 mls @ 250 mls/hr IV ONETIME [facility] Last Admin: 04/29/20 13:07 Dose: 250 mls/hr Documented by: REMDESIVIR (EUA) 200 mg/ (Sodium Chloride) 250 mls @ 125 mls/hr IV Q24H [facility] Stop: 04/29/20 16:29 Last Admin: 04/29/20 14:45 Dose: 125 mls/hr Documented by: REMDESIVIR (EUA) 100 mg/ (Sodium Chloride) 250 mls @ 125 mls/hr IV Q24H [facility] Stop: 05/03/20 16:29 Last Admin: 05/03/20 14:19 Dose: 125 mls/hr Documented by: Sodium Chloride (Normal Saline) 500 mls @ 999 mls/hr IV .BOLUS [facility] Last Admin: 04/29/20 14:45 Dose: 999 mls/hr Documented by: Sodium Chloride (Normal Saline) 500 mls @ 999 mls/hr IV .BOLUS [facility] Last Admin: 04/29/20 19:36 Dose: 999 mls/hr Documented by: Sodium Chloride (Normal Saline) 500 mls @ 500 mls/hr IV ASDIRECTED [facility] Stop: 04/29/20 21:44 Last Admin: 04/29/20 21:17 Dose: 500 mls/hr Documented by: Lactated Ringer's (Ringers, Lactated) 500 mls @ 999 mls/hr IV .BOLUS ONE Stop: 04/30/20 03:09 Last Admin: 04/30/20 02:54 Dose: 999 mls/hr Documented by: Piperacillin Sod/Tazobactam (Sod 4.5 gm/ Sodium Chloride) 100 mls @ 100 mls/hr IV Q8H [facility] Last Admin: 05/06/20 19:48 Dose: Not Given Documented by: Lactated Ringer's (Ringers, Lactated) 500 mls @ 999 mls/hr IV ONETIME ONE Stop: 04/30/20 04:01 Last Admin: 04/30/20 03:38 Dose: 999 mls/hr Documented by: Vancomycin HCl 1.5 gm/ Premix 300 mls @ 300 mls/hr IV ONETIME ONE Stop: 04/30/20 04:59 Last Admin: 04/30/20 05:15 Dose: 300 mls/hr Documented by: Vancomycin HCl 1 gm/ Sodium (Chloride) 250 mls @ 166 mls/hr IV Q12H [facility] Last Admin: 05/04/20 19:28 Dose: Not Given Documented by: Pantoprazole Sodium 40 mg/ (Sodium Chloride) 10 mls @ 300 mls/hr IV Q24H [facility] Last Admin: 05/03/20 09:42 Dose: 300 mls/hr Documented by: Sodium Chloride (Normal Saline) 1,000 mls @ 250 mls/hr IV BOLUS ONE Stop: 04/30/20 20:06 Last Admin: 04/30/20 16:44 Dose: 250 mls/hr Documented by: Pantoprazole Sodium 40 mg/ (Sodium Chloride) 10 mls @ 300 mls/hr IV Q24H [facility] Last Admin: 05/07/20 09:18 Dose: 300 mls/hr Documented by: Levofloxacin/Dextrose 750 mg/ (Premix) 150 mls @ 100 mls/hr IV Q24H [facility] Last Admin: 05/06/20 12:24 Dose: Not Given Documented by: Remdesivir 100 mg/ Sodium (Chloride) 100 mls @ 100 mls/hr IV Q24H [facility] Stop: 05/08/20 16:29 Last Admin: 05/07/20 21:40 Dose: Not Given Documented by: Vancomycin HCl 1.25 gm/ Sodium (Chloride) 250 mls @ 166 mls/hr IV Q12H [facility] Last Admin: 05/05/20 04:18 Dose: 166 mls/hr Documented by: Pantoprazole Sodium 40 mg/ (Sodium Chloride) 10 mls @ 300 mls/hr IV Q24H [facility] Last Admin: 05/08/20 08:39 Dose: 300 mls/hr Documented by: Levofloxacin/Dextrose 750 mg/ (Premix) 150 mls @ 100 mls/hr IV Q24H [facility] Last Admin: 05/08/20 13:19 Dose: 100 mls/hr Documented by: Remdesivir 100 mg/ Sodium (Chloride) 100 mls @ 100 mls/hr IV Q24H [facility] Stop: 05/08/20 19:29 Last Admin: 05/07/20 18:28 Dose: 100 mls/hr Documented by: Potassium Chloride/Sodium Chloride (Normal Saline With 40 Meq Kcl) 1,000 mls @ 250 mls/hr IV ONETIME ONE Stop: 05/08/20 12:14 Last Admin: 05/08/20 08:36 Dose: 250 mls/hr Documented by: Levofloxacin (Levaquin) 750 mg PO Q24H [facility] Last Admin: 05/07/20 10:15 Dose: Not Given Documented by: Lorazepam (Ativan) 1 mg IVPUSH ONETIME ONE Stop: 04/29/20 12:41 Last Admin: 04/29/20 13:17 Dose: 1 mg Documented by: Lorazepam (Ativan) 2 mg IVPUSH ONETIME ONE Stop: 04/30/20 02:39 Last Admin: 04/30/20 02:50 Dose: 2 mg Documented by: Lorazepam (Ativan) 1 mg IVPUSH Q6H PRN PRN Reason: Agitation Last Admin: 05/03/20 02:35 Dose: 1 mg Documented by: Ondansetron HCl (Zofran) 4 mg IVPUSH ONETIME ONE Stop: 05/07/20 12:01 Last Admin: 05/07/20 12:29 Dose: 4 mg Documented by: Ondansetron HCl (Zofran) 4 mg IVPUSH Q4H PRN PRN Reason: Nausea Pantoprazole Sodium (Protonix) 40 mg PO ACBREAKFAST [facility] Last Admin: 05/07/20 10:14 Dose: Not Given Documented by: Potassium Chloride (Klor-Con M20) 40 meq PO ONETIME ONE Stop: 04/30/20 10:03 Last Admin: 04/30/20 11:14 Dose: 40 meq Documented by: Potassium Chloride (Klor-Con M20) 40 meq PO ONETIME ONE Stop: 05/03/20 09:04 Last Admin: 05/03/20 09:19 Dose: 40 meq Documented by: Sodium Chloride (Saline Flush) 10 ml FLUSH ASDIRECTED PRN PRN Reason: Keep Vein Open Last Admin: 04/29/20 11:24 Dose: 10 ml Documented by: Sodium Chloride (Saline Flush) 2.5 ml FLUSH ASDIRECTED PRN PRN Reason: Keep Vein Open Last Admin: 04/29/20 11:24 Dose: 2.5 ml Documented by: Sodium Phosphate (Neutra-Phos) 250 mg PO QID [facility] Stop: 05/07/20 06:01 Last Admin: 05/07/20 05:29 Dose: 250 mg Documented by: Vancomycin HCl (Pharmacy To Dose - Vancomycin) 1 dose .XX ONETIME ONE Stop: 04/30/20 03:30 Last Admin: 04/30/20 11:10 Dose: 1.5 gram Documented by:
[2020-05-05] MEDS ORDERED: Albuterol/Ipratropium 4 GM Inhalation Spray INH PRN (12:15)
[2020-05-05] MEDS: REMDESIVIR 100 MG in Sodium Chloride 0.9% 100 ML IV SCH (15:20)
[2020-05-06] MEDS: Heparin Sodium 5,000 Units/ML Vial SUBCUT SCH ×3 (00:04→17:56)
[2020-05-06 07:00] LABS: BLOOD UREA NITROGEN,BUN 12 mg/dL (7.0-18.0); CARBON DIOXIDE,CO2 24.5 mmol/L (21.0-32.0); CHLORIDE,CL 105 mmol/L (98-107); GLUCOSE RANDOM 85 mg/dL (74-106); POTASSIUM,K 3.6 mmol/L (3.5-5.1); SODIUM,NA 141 mmol/L (136-148)
[2020-05-06] MEDS: Pantoprazole 40 MG in Sodium Chloride 0.9% 10 ML IV SCH (08:29)
[2020-05-06] MEDS: Divalproex Sodium 500 MG Tab.ER PO SCH ×2 (09:02→21:11)
[2020-05-06] MEDS: Dexamethasone 4 MG Tab PO SCH (09:03)
[2020-05-06] MEDS: Levofloxacin 250 MG Tab PO SCH (10:26)
--- NOTE | 2020-05-06 11:35 | PCM.PN ---
<Ty Zepeda - Last Filed: 05/06/20 11:38> - General Info Date of Service: 05/06/20 - Review of Systems General: Denies: Fever Systems Review Comment:: ROS unable to obtain due to mental retardation and poor communication - Patient Data Vitals - Most Recent: Last Vital Signs Temp 97.4 F 05/06/20 09:23 Pulse 65 05/06/20 09:23 Resp 22 H 05/06/20 09:23 BP 97/60 05/06/20 09:27 Pulse Ox 92 L 05/06/20 09:23 Weight - Most Recent: 72.121 kg I&O - Last 24 Hours: Intake & Output 05/05/20 05/06/20 05/06/20 22:59 06:59 14:59 Intake Total 665 Balance 665 Lab Results Last 24 Hours: Laboratory Results - last 24 hr 05/06/20 05/06/20 Range/Units 05:41 05:41 WBC 8.17 (4.0-11.0) K/uL RBC 3.17 L (4.50-5.90) M/uL Hgb 10.1 L (13.0-17.0) g/dL Hct 29.9 L (38.0-50.0) % MCV 94.3 (80.0-98.0) fL MCH 31.9 (27.0-32.0) pg MCHC 33.8 (31.0-37.0) g/dL RDW Std Deviation 47.5 (28.0-62.0) fl RDW Coeff of Cecilio 14 (11.0-15.0) % Plt Count 382 (150-400) K/uL MPV 10.20 (7.40-12.00) fL Add Manual Diff YES Neutrophils % (Manual) 68 (48.0-80.0) % Band Neutrophils % 12 % Lymphocytes % (Manual) 12 L (16.0-40.0) % Monocytes % (Manual) 5 (0.0-15.0) % Eosinophils % (Manual) 1 (0.0-7.0) % Metamyelocytes % 2 % Nucleated RBC % 0.9 /100WBC Absolute Seg Neuts 5.6 (1.4-5.7) Band Neutrophils # 1.0 Lymphocytes # (Manual) 1.0 (0.6-2.4) Monocytes # (Manual) 0.4 (0.0-0.8) Eosinophils # (Manual) 0.1 (0.0-0.7) Absolute Metamyelocyte 0.2 Nucleated RBCs # 0 K/uL Sodium 141 (136-148) mmol/L Potassium 3.6 (3.5-5.1) mmol/L Chloride 105 (98-107) mmol/L Carbon Dioxide 24.5 (21.0-32.0) mmol/L BUN 12 (7.0-18.0) mg/dL Creatinine 0.9 (0.8-1.3) mg/dL Est Cr Clr Drug Dosing 76.50 mL/min Estimated GFR (MDRD) > 60.0 ml/min Glucose 85 (74-106) mg/dL Calcium 7.8 L (8.5-10.1) mg/dL Phosphorus 2.1 L (2.6-4.7) mg/dL Magnesium 1.8 (1.8-2.4) mg/dL Total Bilirubin 0.4 (0.2-1.0) mg/dL AST 38 H (15-37) IU/L ALT 16 (14-63) IU/L Alkaline Phosphatase 35 L (46-116) U/L Total Protein 5.5 L (6.4-8.2) g/dL Albumin 1.7 L (3.4-5.0) g/dL Globulin 3.8 (2.6-4.0) g/dL Albumin/Globulin Ratio 0.5 L (0.9-1.6) Med Orders - Current: Current Medications Acetaminophen (Tylenol) 650 mg PO Q4H PRN PRN Reason: Fever Greater Than 101 Last Admin: 04/30/20 15:33 Dose: 650 mg Documented by: Albuterol/Ipratropium (Combivent Respimat) 0 gm INH Q4H PRN PRN Reason: Dyspnea Bisacodyl (Dulcolax) 10 mg RECTAL DAILY PRN PRN Reason: Constipation Last Admin: 05/03/20 11:55 Dose: 10 mg Documented by: Carbamazepine (Tegretol Xr) 300 mg PO TID [facility] Last Admin: 05/05/20 21:20 Dose: 300 mg Documented by: Dexamethasone (Dexamethasone) 6 mg PO DAILY [facility] Last Admin: 05/06/20 09:03 Dose: 6 mg Documented by: Divalproex Sodium (Depakote Er) 750 mg PO BID [facility] Last Admin: 05/06/20 09:02 Dose: 750 mg Documented by: Gabapentin (Neurontin) 900 mg PO TID [facility] Last Admin: 05/05/20 21:19 Dose: 900 mg Documented by: Heparin Sodium (Porcine) (Heparin Sodium) 5,000 units SUBCUT Q8H [facility] Last Admin: 05/06/20 08:37 Dose: 5,000 units Documented by: Pantoprazole Sodium 40 mg/ (Sodium Chloride) 10 mls @ 300 mls/hr IV Q24H [facility] Last Admin: 05/06/20 08:29 Dose: 300 mls/hr Documented by: REMDESIVIR (EUA) 100 mg/ (Sodium Chloride) 100 mls @ 100 mls/hr IV Q24H [facility] Stop: 05/08/20 16:29 Last Admin: 05/05/20 15:20 Dose: 100 mls/hr Documented by: Levofloxacin (Levaquin) 750 mg PO Q24H [facility] Last Admin: 05/06/20 10:26 Dose: 750 mg Documented by: Lorazepam (Ativan) 1 mg IVPUSH Q6H PRN PRN Reason: Agitation Last Admin: 05/03/20 02:35 Dose: 1 mg Documented by: Sodium Chloride (Saline Flush) 10 ml FLUSH ASDIRECTED PRN PRN Reason: Keep Vein Open Last Admin: 04/29/20 11:24 Dose: 10 ml Documented by: Sodium Chloride (Saline Flush) 2.5 ml FLUSH ASDIRECTED PRN PRN Reason: Keep Vein Open Last Admin: 04/29/20 11:24 Dose: 2.5 ml Documented by: Sodium Phosphate (Neutra-Phos) 250 mg PO QID [facility] Stop: 05/07/20 06:01 Discontinued Medications Acetaminophen (Tylenol Extra Strength) 500 mg PO ONETIME ONE Stop: 04/30/20 16:26 Last Admin: 04/30/20 16:53 Dose: 500 mg Documented by: Albuterol/Ipratropium (Duoneb 3.0-0.5 Mg/3 Ml) 3 ml NEB Q4HRRT PRN PRN Reason: Dyspnea Last Admin: 05/04/20 20:00 Dose: 3 ml Documented by: Benzonatate (Tessalon Perles) 200 mg PO ONETIME ONE Stop: 04/29/20 07:02 Last Admin: 04/29/20 07:19 Dose: 200 mg Documented by: Bisacodyl (Dulcolax) 10 mg RECTAL DAILY [facility] Last Admin: 05/03/20 11:28 Dose: Not Given Documented by: Dexamethasone (Dexamethasone) 8 mg IVPUSH ONETIME ONE Stop: 04/29/20 10:33 Last Admin: 04/29/20 11:27 Dose: 8 mg Documented by: Dexamethasone (Dexamethasone) 6 mg PO ONETIME ONE Stop: 04/30/20 19:05 Last Admin: 04/30/20 20:01 Dose: 6 mg Documented by: Gabapentin (Neurontin) 300 mg PO TID [facility] Last Admin: 05/02/20 06:15 Dose: 300 mg Documented by: Heparin Sodium (Porcine) (Heparin Sodium) 5,000 units SUBCUT Q12H [facility] Last Admin: 04/30/20 00:15 Dose: 5,000 units Documented by: Heparin Sodium (Porcine) (Heparin Sodium) 5,000 units SUBCUT Q8H [facility] Last Admin: 04/30/20 05:50 Dose: Not Given Documented by: Heparin Sodium (Porcine) (Heparin Sodium) 5,000 units SUBCUT Q8H [facility] Last Admin: 05/03/20 23:55 Dose: 5,000 units Documented by: Azithromycin 500 mg/ Sodium (Chloride) 250 mls @ 250 mls/hr IV ONETIME [facility] Last Admin: 04/29/20 13:07 Dose: 250 mls/hr Documented by: REMDESIVIR (EUA) 200 mg/ (Sodium Chloride) 250 mls @ 125 mls/hr IV Q24H [facility] Stop: 04/29/20 16:29 Last Admin: 04/29/20 14:45 Dose: 125 mls/hr Documented by: REMDESIVIR (EUA) 100 mg/ (Sodium Chloride) 250 mls @ 125 mls/hr IV Q24H [facility] Stop: 05/03/20 16:29 Last Admin: 05/03/20 14:19 Dose: 125 mls/hr Documented by: Sodium Chloride (Normal Saline) 500 mls @ 999 mls/hr IV .BOLUS [facility] Last Admin: 04/29/20 14:45 Dose: 999 mls/hr Documented by: Sodium Chloride (Normal Saline) 500 mls @ 999 mls/hr IV .BOLUS [facility] Last Admin: 04/29/20 19:36 Dose: 999 mls/hr Documented by: Sodium Chloride (Normal Saline) 500 mls @ 500 mls/hr IV ASDIRECTED [facility] Stop: 04/29/20 21:44 Last Admin: 04/29/20 21:17 Dose: 500 mls/hr Documented by: Lactated Ringer's (Ringers, Lactated) 500 mls @ 999 mls/hr IV .BOLUS ONE Stop: 04/30/20 03:09 Last Admin: 04/30/20 02:54 Dose: 999 mls/hr Documented by: Piperacillin Sod/Tazobactam (Sod 4.5 gm/ Sodium Chloride) 100 mls @ 100 mls/hr IV Q8H [facility] Last Admin: 05/05/20 19:55 Dose: 100 mls/hr Documented by: Lactated Ringer's (Ringers, Lactated) 500 mls @ 999 mls/hr IV ONETIME ONE Stop: 04/30/20 04:01 Last Admin: 04/30/20 03:38 Dose: 999 mls/hr Documented by: Vancomycin HCl 1.5 gm/ Premix 300 mls @ 300 mls/hr IV ONETIME ONE Stop: 04/30/20 04:59 Last Admin: 04/30/20 05:15 Dose: 300 mls/hr Documented by: Vancomycin HCl 1 gm/ Sodium (Chloride) 250 mls @ 166 mls/hr IV Q12H [facility] Last Admin: 05/04/20 19:28 Dose: Not Given Documented by: Pantoprazole Sodium 40 mg/ (Sodium Chloride) 10 mls @ 300 mls/hr IV Q24H [facility] Last Admin: 05/03/20 09:42 Dose: 300 mls/hr Documented by: Sodium Chloride (Normal Saline) 1,000 mls @ 250 mls/hr IV BOLUS ONE Stop: 04/30/20 20:06 Last Admin: 04/30/20 16:44 Dose: 250 mls/hr Documented by: Levofloxacin/Dextrose 750 mg/ (Premix) 150 mls @ 100 mls/hr IV Q24H [facility] Last Admin: 05/05/20 10:10 Dose: 100 mls/hr Documented by: Vancomycin HCl 1.25 gm/ Sodium (Chloride) 250 mls @ 166 mls/hr IV Q12H [facility] Last Admin: 05/05/20 04:18 Dose: 166 mls/hr Documented by: Lorazepam (Ativan) 1 mg IVPUSH ONETIME ONE Stop: 04/29/20 12:41 Last Admin: 04/29/20 13:17 Dose: 1 mg Documented by: Lorazepam (Ativan) 2 mg IVPUSH ONETIME ONE Stop: 04/30/20 02:39 Last Admin: 04/30/20 02:50 Dose: 2 mg Documented by: Potassium Chloride (Klor-Con M20) 40 meq PO ONETIME ONE Stop: 04/30/20 10:03 Last Admin: 04/30/20 11:14 Dose: 40 meq Documented by: Potassium Chloride (Klor-Con M20) 40 meq PO ONETIME ONE Stop: 05/03/20 09:04 Last Admin: 05/03/20 09:19 Dose: 40 meq Documented by: Vancomycin HCl (Pharmacy To Dose - Vancomycin) 1 dose .XX ONETIME ONE Stop: 04/30/20 03:30 Last Admin: 04/30/20 11:10 Dose: 1.5 gram Documented by: - Exam General: Alert Lungs: Clear to Auscultation, Other (Irregular respiratory pattern. Patient takes regular breaths which reduce in intensity as respirations countinue which is then followed by an apenic episode. Patient resumes breaths after 5-10 seconds of apnea. ) Cardiovascular: Regular Rate, Regular Rhythm GI/Abdominal Exam: Soft, No Distention Extremities: Other (edema noted at hands and feet bilaterally) Skin: Warm, Dry Sepsis Event Note - Evaluation Sepsis Screening Result: No Definite Risk - Focused Exam Vital Signs: Vital Signs Temp Pulse Resp BP Pulse Ox 05/06/20 09:27 97/60 05/06/20 09:23 97.4 F 65 22 H 111/54 L 92 L 05/06/20 00:15 97.3 F 67 20 141/80 H 92 L - Problem List Review Problem List Initiated/Reviewed/Updated: Yes - My Orders Last 24 Hours: My Active Orders 05/05/20 12:15 Albuterol/Ipratropium [Combivent Respimat] 0 gm INH Q4H PRN 05/05/20 12:17 RT Post Treatment Assessment [RC] Click to Edit RT Pre-Treatment Assessment [RC] Click to Edit - Assessment Assessment:: Assessment/Plan: COVID-19 infection: Patients respiratory status has improved overall. On RA this morning with O2 sats in the mid 94-96. On exam it was noted that the patient had an Irregular respiratory pattern. Patient takes regular breaths which reduce in intensity as respirations continue which is then followed by an apenic episode. Patient resumes breaths after 5-10 seconds of apnea. Will monitor throughout the day. Will continue current regime, Remdesivir 100mg. Dexamethasone 6mg PO (IV if PO not tolerated), Combivent Q4HR PRN for dyspnea, Oxygen support to maintain saturation above 92%, Chest PT, Heparin 5000iu Q8HR, Tylenol 650mg Q4HRS for Fever/Pain. Fluid Bolus as needed. [place] thick liquid and pureed food diet. Patient was on a regular diet prior to admission. Will have nursing staff monitor patient while feeding. Bacteremia: Patient has gram positive cocci growth. Levaquin antibiotic switched to 750mg PO. IV Levaquin and Zosyn discontinued. Hypophosphatemia: 2.1, Repleted with 250mg PO QID. Will recheck phosphorous level in the AM. <Cuba Zacarias - Last Filed: 05/13/20 13:38> - Patient Data Vitals - Most Recent: Last Vital Signs Temp 36.8 C 05/08/20 16:00 Pulse 62 05/08/20 16:00 Resp 18 05/08/20 16:00 BP 115/72 05/08/20 16:00 Pulse Ox 98 05/08/20 16:00 Med Orders - Current: Current Medications Discontinued Medications Acetaminophen (Tylenol) 650 mg PO Q4H PRN PRN Reason: Fever Greater Than 101 Last Admin: 04/30/20 15:33 Dose: 650 mg Documented by: Acetaminophen (Tylenol Extra Strength) 500 mg PO ONETIME ONE Stop: 04/30/20 16:26 Last Admin: 04/30/20 16:53 Dose: 500 mg Documented by: Albuterol/Ipratropium (Duoneb 3.0-0.5 Mg/3 Ml) 3 ml NEB Q4HRRT PRN PRN Reason: Dyspnea Last Admin: 05/04/20 20:00 Dose: 3 ml Documented by: Albuterol/Ipratropium (Combivent Respimat) 0 gm INH Q4H PRN PRN Reason: Dyspnea Benzonatate (Tessalon Perles) 200 mg PO ONETIME ONE Stop: 04/29/20 07:02 Last Admin: 04/29/20 07:19 Dose: 200 mg Documented by: Bisacodyl (Dulcolax) 10 mg RECTAL DAILY [facility] Last Admin: 05/03/20 11:28 Dose: Not Given Documented by: Bisacodyl (Dulcolax) 10 mg RECTAL DAILY PRN PRN Reason: Constipation Last Admin: 05/03/20 11:55 Dose: 10 mg Documented by: Carbamazepine (Tegretol Xr) 300 mg PO TID [facility] Last Admin: 05/08/20 13:21 Dose: 300 mg Documented by: Dexamethasone (Dexamethasone) 8 mg IVPUSH ONETIME ONE Stop: 04/29/20 10:33 Last Admin: 04/29/20 11:27 Dose: 8 mg Documented by: Dexamethasone (Dexamethasone) 6 mg PO ONETIME ONE Stop: 04/30/20 19:05 Last Admin: 04/30/20 20:01 Dose: 6 mg Documented by: Dexamethasone (Dexamethasone) 6 mg PO DAILY [facility] Last Admin: 05/07/20 10:15 Dose: Not Given Documented by: Dexamethasone (Dexamethasone) 6 mg IVPUSH DAILY [facility] Last Admin: 05/08/20 08:40 Dose: 6 mg Documented by: Divalproex Sodium (Depakote Er) 750 mg PO BID [facility] Last Admin: 05/08/20 09:49 Dose: 750 mg Documented by: Divalproex Sodium (Depakote Er) 500 mg PO BID [facility] Last Admin: 05/08/20 11:48 Dose: Not Given Documented by: Divalproex Sodium (Depakote Er) 500 mg PO BID [facility] Enoxaparin Sodium (Lovenox) 40 mg SUBCUT Q24H [facility] Last Admin: 05/07/20 17:43 Dose: 40 mg Documented by: Gabapentin (Neurontin) 300 mg PO TID [facility] Last Admin: 05/02/20 06:15 Dose: 300 mg Documented by: Gabapentin (Neurontin) 900 mg PO TID [facility] Last Admin: 05/08/20 13:20 Dose: 900 mg Documented by: Heparin Sodium (Porcine) (Heparin Sodium) 5,000 units SUBCUT Q12H [facility] Last Admin: 04/30/20 00:15 Dose: 5,000 units Documented by: Heparin Sodium (Porcine) (Heparin Sodium) 5,000 units SUBCUT Q8H [facility] Last Admin: 04/30/20 05:50 Dose: Not Given Documented by: Heparin Sodium (Porcine) (Heparin Sodium) 5,000 units SUBCUT Q8H [facility] Last Admin: 05/03/20 23:55 Dose: 5,000 units Documented by: Heparin Sodium (Porcine) (Heparin Sodium) 5,000 units SUBCUT Q8H [facility] Last Admin: 05/07/20 09:18 Dose: 5,000 units Documented by: Azithromycin 500 mg/ Sodium (Chloride) 250 mls @ 250 mls/hr IV ONETIME [facility] Last Admin: 04/29/20 13:07 Dose: 250 mls/hr Documented by: REMDESIVIR (EUA) 200 mg/ (Sodium Chloride) 250 mls @ 125 mls/hr IV Q24H [facility] Stop: 04/29/20 16:29 Last Admin: 04/29/20 14:45 Dose: 125 mls/hr Documented by: REMDESIVIR (EUA) 100 mg/ (Sodium Chloride) 250 mls @ 125 mls/hr IV Q24H [facility] Stop: 05/03/20 16:29 Last Admin: 05/03/20 14:19 Dose: 125 mls/hr Documented by: Sodium Chloride (Normal Saline) 500 mls @ 999 mls/hr IV .BOLUS [facility] Last Admin: 04/29/20 14:45 Dose: 999 mls/hr Documented by: Sodium Chloride (Normal Saline) 500 mls @ 999 mls/hr IV .BOLUS [facility] Last Admin: 04/29/20 19:36 Dose: 999 mls/hr Documented by: Sodium Chloride (Normal Saline) 500 mls @ 500 mls/hr IV ASDIRECTED [facility] Stop: 04/29/20 21:44 Last Admin: 04/29/20 21:17 Dose: 500 mls/hr Documented by: Lactated Ringer's (Ringers, Lactated) 500 mls @ 999 mls/hr IV .BOLUS ONE Stop: 04/30/20 03:09 Last Admin: 04/30/20 02:54 Dose: 999 mls/hr Documented by: Piperacillin Sod/Tazobactam (Sod 4.5 gm/ Sodium Chloride) 100 mls @ 100 mls/hr IV Q8H [facility] Last Admin: 05/06/20 19:48 Dose: Not Given Documented by: Lactated Ringer's (Ringers, Lactated) 500 mls @ 999 mls/hr IV ONETIME ONE Stop: 04/30/20 04:01 Last Admin: 04/30/20 03:38 Dose: 999 mls/hr Documented by: Vancomycin HCl 1.5 gm/ Premix 300 mls @ 300 mls/hr IV ONETIME ONE Stop: 04/30/20 04:59 Last Admin: 04/30/20 05:15 Dose: 300 mls/hr Documented by: Vancomycin HCl 1 gm/ Sodium (Chloride) 250 mls @ 166 mls/hr IV Q12H [facility] Last Admin: 05/04/20 19:28 Dose: Not Given Documented by: Pantoprazole Sodium 40 mg/ (Sodium Chloride) 10 mls @ 300 mls/hr IV Q24H [facility] Last Admin: 05/03/20 09:42 Dose: 300 mls/hr Documented by: Sodium Chloride (Normal Saline) 1,000 mls @ 250 mls/hr IV BOLUS ONE Stop: 04/30/20 20:06 Last Admin: 04/30/20 16:44 Dose: 250 mls/hr Documented by: Pantoprazole Sodium 40 mg/ (Sodium Chloride) 10 mls @ 300 mls/hr IV Q24H [facility] Last Admin: 05/07/20 09:18 Dose: 300 mls/hr Documented by: Levofloxacin/Dextrose 750 mg/ (Premix) 150 mls @ 100 mls/hr IV Q24H [facility] Last Admin: 05/06/20 12:24 Dose: Not Given Documented by: Remdesivir 100 mg/ Sodium (Chloride) 100 mls @ 100 mls/hr IV Q24H [facility] Stop: 05/08/20 16:29 Last Admin: 05/07/20 21:40 Dose: Not Given Documented by: Vancomycin HCl 1.25 gm/ Sodium (Chloride) 250 mls @ 166 mls/hr IV Q12H [facility] Last Admin: 05/05/20 04:18 Dose: 166 mls/hr Documented by: Pantoprazole Sodium 40 mg/ (Sodium Chloride) 10 mls @ 300 mls/hr IV Q24H [facility] Last Admin: 05/08/20 08:39 Dose: 300 mls/hr Documented by: Levofloxacin/Dextrose 750 mg/ (Premix) 150 mls @ 100 mls/hr IV Q24H [facility] Last Admin: 05/08/20 13:19 Dose: 100 mls/hr Documented by: Remdesivir 100 mg/ Sodium (Chloride) 100 mls @ 100 mls/hr IV Q24H [facility] Stop: 05/08/20 19:29 Last Admin: 05/07/20 18:28 Dose: 100 mls/hr Documented by: Potassium Chloride/Sodium Chloride (Normal Saline With 40 Meq Kcl) 1,000 mls @ 250 mls/hr IV ONETIME ONE Stop: 05/08/20 12:14 Last Admin: 05/08/20 08:36 Dose: 250 mls/hr Documented by: Levofloxacin (Levaquin) 750 mg PO Q24H [facility] Last Admin: 05/07/20 10:15 Dose: Not Given Documented by: Lorazepam (Ativan) 1 mg IVPUSH ONETIME ONE Stop: 04/29/20 12:41 Last Admin: 04/29/20 13:17 Dose: 1 mg Documented by: Lorazepam (Ativan) 2 mg IVPUSH ONETIME ONE Stop: 04/30/20 02:39 Last Admin: 04/30/20 02:50 Dose: 2 mg Documented by: Lorazepam (Ativan) 1 mg IVPUSH Q6H PRN PRN Reason: Agitation Last Admin: 05/03/20 02:35 Dose: 1 mg Documented by: Ondansetron HCl (Zofran) 4 mg IVPUSH ONETIME ONE Stop: 05/07/20 12:01 Last Admin: 05/07/20 12:29 Dose: 4 mg Documented by: Ondansetron HCl (Zofran) 4 mg IVPUSH Q4H PRN PRN Reason: Nausea Pantoprazole Sodium (Protonix) 40 mg PO ACBREAKFAST [facility] Last Admin: 05/07/20 10:14 Dose: Not Given Documented by: Potassium Chloride (Klor-Con M20) 40 meq PO ONETIME ONE Stop: 04/30/20 10:03 Last Admin: 04/30/20 11:14 Dose: 40 meq Documented by: Potassium Chloride (Klor-Con M20) 40 meq PO ONETIME ONE Stop: 05/03/20 09:04 Last Admin: 05/03/20 09:19 Dose: 40 meq Documented by: Sodium Chloride (Saline Flush) 10 ml FLUSH ASDIRECTED PRN PRN Reason: Keep Vein Open Last Admin: 04/29/20 11:24 Dose: 10 ml Documented by: Sodium Chloride (Saline Flush) 2.5 ml FLUSH ASDIRECTED PRN PRN Reason: Keep Vein Open Last Admin: 04/29/20 11:24 Dose: 2.5 ml Documented by: Sodium Phosphate (Neutra-Phos) 250 mg PO QID [facility] Stop: 05/07/20 06:01 Last Admin: 05/07/20 05:29 Dose: 250 mg Documented by: Vancomycin HCl (Pharmacy To Dose - Vancomycin) 1 dose .XX ONETIME ONE Stop: 04/30/20 03:30 Last Admin: 04/30/20 11:10 Dose: 1.5 gram Documented by: - Assessment Assessment:: I have seen and evaluated the patient and agree with the residents note unless specified in my note
[2020-05-06] MEDS: Levofloxacin/Dextrose 5%-Water 750 MG in Premix Bag 1 BAG IV SCH (12:24)
[2020-05-06] MEDS: Phosphorus #1 250 MG Tab PO SCH ×3 (12:33→23:46)
[2020-05-06] MEDS: carBAMazepine 100 MG Cap.ER PO SCH ×3 (14:48→21:12)
[2020-05-06] MEDS: Gabapentin 300 MG Cap PO SCH ×4 (14:49→21:11)
[2020-05-06] MEDS: REMDESIVIR 100 MG in Sodium Chloride 0.9% 100 ML IV SCH (14:53)
[2020-05-06] MEDS: Piperacillin/Tazobactam 4.5 GM in Sodium Chloride 0.9% 100 ML IV SCH (19:48)
[2020-05-07] MEDS: Heparin Sodium 5,000 Units/ML Vial SUBCUT SCH ×2 (00:07→09:18)
[2020-05-07] MEDS: Phosphorus #1 250 MG Tab PO SCH (05:29)
[2020-05-07] MEDS: Gabapentin 300 MG Cap PO SCH ×3 (05:31→21:36)
[2020-05-07] MEDS: carBAMazepine 100 MG Cap.ER PO SCH ×3 (05:32→21:34)
[2020-05-07 06:31] LABS: BLOOD UREA NITROGEN,BUN 15 mg/dL (7.0-18.0); CARBON DIOXIDE,CO2 23.6 mmol/L (21.0-32.0); CHLORIDE,CL 107 mmol/L (98-107); GLUCOSE RANDOM 68 mg/dL (74-106); POTASSIUM,K 3.7 mmol/L (3.5-5.1); SODIUM,NA 142 mmol/L (136-148)
[2020-05-07] MEDS: Dexamethasone 4 MG Tab PO SCH ×2 (09:15→10:15)
[2020-05-07] MEDS: Divalproex Sodium 500 MG Tab.ER PO SCH ×3 (09:16→21:27)
[2020-05-07] MEDS: Levofloxacin 250 MG Tab PO SCH ×2 (09:17→10:15)
[2020-05-07] MEDS: Pantoprazole 40 MG in Sodium Chloride 0.9% 10 ML IV SCH (09:18)
[2020-05-07] MEDS ORDERED: Pantoprazole 40 MG Tab.CR PO SCH (09:27)
--- NOTE | 2020-05-07 11:27 | PCM.PN ---
<Ty Zepeda - Last Filed: 05/07/20 11:27> - General Info Date of Service: 05/07/20 Subjective Update: Per nursing no overnight complainants. Patient has not had much to eat yesterday or this morning. Respiratory status has continued to improve, will try to wean patient to RA. - Review of Systems General: Reports: Other (ROS unable to obtain due to patients mental retardation). Denies: Fever - Patient Data Vitals - Most Recent: Last Vital Signs Temp 98.4 F 05/07/20 09:37 Pulse 58 L 05/07/20 09:37 Resp 20 05/07/20 09:37 BP 110/63 05/07/20 09:37 Pulse Ox 97 05/07/20 09:37 Weight - Most Recent: 72.121 kg I&O - Last 24 Hours: Intake & Output 05/06/20 05/07/20 05/07/20 22:59 06:59 14:59 Intake Total 300 100 Balance 300 100 Lab Results Last 24 Hours: Laboratory Results - last 24 hr 05/07/20 05/07/20 05/07/20 Range/Units 05:50 05:50 09:53 WBC 6.82 (4.0-11.0) K/uL RBC 3.15 L (4.50-5.90) M/uL Hgb 9.9 L (13.0-17.0) g/dL Hct 29.9 L (38.0-50.0) % MCV 94.9 (80.0-98.0) fL MCH 31.4 (27.0-32.0) pg MCHC 33.1 (31.0-37.0) g/dL RDW Std Deviation 48.2 (28.0-62.0) fl RDW Coeff of Cecilio 14 (11.0-15.0) % Plt Count 400 (150-400) K/uL MPV 9.80 (7.40-12.00) fL Add Manual Diff YES Neutrophils % (Manual) 53 (48.0-80.0) % Band Neutrophils % 11 % Lymphocytes % (Manual) 20 (16.0-40.0) % Monocytes % (Manual) 15 (0.0-15.0) % Myelocytes % 1 % Nucleated RBC % 1.7 /100WBC Absolute Seg Neuts 3.6 (1.4-5.7) Band Neutrophils # 0.8 Lymphocytes # (Manual) 1.4 (0.6-2.4) Monocytes # (Manual) 1.0 H (0.0-0.8) Absolute Myelocytes 0.1 Nucleated RBCs # 0 K/uL Sodium 142 (136-148) mmol/L Potassium 3.7 (3.5-5.1) mmol/L Chloride 107 (98-107) mmol/L Carbon Dioxide 23.6 (21.0-32.0) mmol/L BUN 15 (7.0-18.0) mg/dL Creatinine 0.8 (0.8-1.3) mg/dL Est Cr Clr Drug Dosing 86.07 mL/min Estimated GFR (MDRD) > 60.0 ml/min Glucose 68 L (74-106) mg/dL POC Glucose 77 (60-110) mg/dL Calcium 6.7 L (8.5-10.1) mg/dL Phosphorus 3.1 (2.6-4.7) mg/dL Total Bilirubin 0.3 (0.2-1.0) mg/dL AST 32 (15-37) IU/L ALT 11 L (14-63) IU/L Alkaline Phosphatase 38 L (46-116) U/L Total Protein 5.4 L (6.4-8.2) g/dL Albumin 1.6 L (3.4-5.0) g/dL Globulin 3.8 (2.6-4.0) g/dL Albumin/Globulin Ratio 0.4 L (0.9-1.6) Med Orders - Current: Current Medications Acetaminophen (Tylenol) 650 mg PO Q4H PRN PRN Reason: Fever Greater Than 101 Last Admin: 04/30/20 15:33 Dose: 650 mg Documented by: Albuterol/Ipratropium (Combivent Respimat) 0 gm INH Q4H PRN PRN Reason: Dyspnea Bisacodyl (Dulcolax) 10 mg RECTAL DAILY PRN PRN Reason: Constipation Last Admin: 05/03/20 11:55 Dose: 10 mg Documented by: Carbamazepine (Tegretol Xr) 300 mg PO TID [facility] Last Admin: 05/07/20 05:32 Dose: 300 mg Documented by: Dexamethasone (Dexamethasone) 6 mg PO DAILY [facility] Last Admin: 05/07/20 10:15 Dose: Not Given Documented by: Divalproex Sodium (Depakote Er) 750 mg PO BID [facility] Last Admin: 05/07/20 10:15 Dose: Not Given Documented by: Gabapentin (Neurontin) 900 mg PO TID [facility] Last Admin: 05/07/20 05:31 Dose: 900 mg Documented by: Heparin Sodium (Porcine) (Heparin Sodium) 5,000 units SUBCUT Q8H [facility] Last Admin: 05/07/20 09:18 Dose: 5,000 units Documented by: REMDESIVIR (EUA) 100 mg/ (Sodium Chloride) 100 mls @ 100 mls/hr IV Q24H [facility] Stop: 05/08/20 16:29 Last Admin: 05/06/20 14:53 Dose: 100 mls/hr Documented by: Levofloxacin (Levaquin) 750 mg PO Q24H [facility] Last Admin: 05/07/20 10:15 Dose: Not Given Documented by: Lorazepam (Ativan) 1 mg IVPUSH Q6H PRN PRN Reason: Agitation Last Admin: 05/03/20 02:35 Dose: 1 mg Documented by: Ondansetron HCl (Zofran) 4 mg IVPUSH ONETIME ONE Stop: 05/07/20 12:01 Pantoprazole Sodium (Protonix) 40 mg PO ACBREAKFAST [facility] Last Admin: 05/07/20 10:14 Dose: Not Given Documented by: Sodium Chloride (Saline Flush) 10 ml FLUSH ASDIRECTED PRN PRN Reason: Keep Vein Open Last Admin: 04/29/20 11:24 Dose: 10 ml Documented by: Sodium Chloride (Saline Flush) 2.5 ml FLUSH ASDIRECTED PRN PRN Reason: Keep Vein Open Last Admin: 04/29/20 11:24 Dose: 2.5 ml Documented by: Discontinued Medications Acetaminophen (Tylenol Extra Strength) 500 mg PO ONETIME ONE Stop: 04/30/20 16:26 Last Admin: 04/30/20 16:53 Dose: 500 mg Documented by: Albuterol/Ipratropium (Duoneb 3.0-0.5 Mg/3 Ml) 3 ml NEB Q4HRRT PRN PRN Reason: Dyspnea Last Admin: 05/04/20 20:00 Dose: 3 ml Documented by: Benzonatate (Tessalon Perles) 200 mg PO ONETIME ONE Stop: 04/29/20 07:02 Last Admin: 04/29/20 07:19 Dose: 200 mg Documented by: Bisacodyl (Dulcolax) 10 mg RECTAL DAILY [facility] Last Admin: 05/03/20 11:28 Dose: Not Given Documented by: Dexamethasone (Dexamethasone) 8 mg IVPUSH ONETIME ONE Stop: 04/29/20 10:33 Last Admin: 04/29/20 11:27 Dose: 8 mg Documented by: Dexamethasone (Dexamethasone) 6 mg PO ONETIME ONE Stop: 04/30/20 19:05 Last Admin: 04/30/20 20:01 Dose: 6 mg Documented by: Gabapentin (Neurontin) 300 mg PO TID [facility] Last Admin: 05/02/20 06:15 Dose: 300 mg Documented by: Heparin Sodium (Porcine) (Heparin Sodium) 5,000 units SUBCUT Q12H [facility] Last Admin: 04/30/20 00:15 Dose: 5,000 units Documented by: Heparin Sodium (Porcine) (Heparin Sodium) 5,000 units SUBCUT Q8H [facility] Last Admin: 04/30/20 05:50 Dose: Not Given Documented by: Heparin Sodium (Porcine) (Heparin Sodium) 5,000 units SUBCUT Q8H [facility] Last Admin: 05/03/20 23:55 Dose: 5,000 units Documented by: Azithromycin 500 mg/ Sodium (Chloride) 250 mls @ 250 mls/hr IV ONETIME [facility] Last Admin: 04/29/20 13:07 Dose: 250 mls/hr Documented by: REMDESIVIR (EUA) 200 mg/ (Sodium Chloride) 250 mls @ 125 mls/hr IV Q24H [facility] Stop: 04/29/20 16:29 Last Admin: 04/29/20 14:45 Dose: 125 mls/hr Documented by: REMDESIVIR (EUA) 100 mg/ (Sodium Chloride) 250 mls @ 125 mls/hr IV Q24H [facility] Stop: 05/03/20 16:29 Last Admin: 05/03/20 14:19 Dose: 125 mls/hr Documented by: Sodium Chloride (Normal Saline) 500 mls @ 999 mls/hr IV .BOLUS [facility] Last Admin: 04/29/20 14:45 Dose: 999 mls/hr Documented by: Sodium Chloride (Normal Saline) 500 mls @ 999 mls/hr IV .BOLUS [facility] Last Admin: 04/29/20 19:36 Dose: 999 mls/hr Documented by: Sodium Chloride (Normal Saline) 500 mls @ 500 mls/hr IV ASDIRECTED [facility] Stop: 04/29/20 21:44 Last Admin: 04/29/20 21:17 Dose: 500 mls/hr Documented by: Lactated Ringer's (Ringers, Lactated) 500 mls @ 999 mls/hr IV .BOLUS ONE Stop: 04/30/20 03:09 Last Admin: 04/30/20 02:54 Dose: 999 mls/hr Documented by: Piperacillin Sod/Tazobactam (Sod 4.5 gm/ Sodium Chloride) 100 mls @ 100 mls/hr IV Q8H [facility] Last Admin: 05/06/20 19:48 Dose: Not Given Documented by: Lactated Ringer's (Ringers, Lactated) 500 mls @ 999 mls/hr IV ONETIME ONE Stop: 04/30/20 04:01 Last Admin: 04/30/20 03:38 Dose: 999 mls/hr Documented by: Vancomycin HCl 1.5 gm/ Premix 300 mls @ 300 mls/hr IV ONETIME ONE Stop: 04/30/20 04:59 Last Admin: 04/30/20 05:15 Dose: 300 mls/hr Documented by: Vancomycin HCl 1 gm/ Sodium (Chloride) 250 mls @ 166 mls/hr IV Q12H [facility] Last Admin: 05/04/20 19:28 Dose: Not Given Documented by: Pantoprazole Sodium 40 mg/ (Sodium Chloride) 10 mls @ 300 mls/hr IV Q24H [facility] Last Admin: 05/03/20 09:42 Dose: 300 mls/hr Documented by: Sodium Chloride (Normal Saline) 1,000 mls @ 250 mls/hr IV BOLUS ONE Stop: 04/30/20 20:06 Last Admin: 04/30/20 16:44 Dose: 250 mls/hr Documented by: Pantoprazole Sodium 40 mg/ (Sodium Chloride) 10 mls @ 300 mls/hr IV Q24H [facility] Last Admin: 05/07/20 09:18 Dose: 300 mls/hr Documented by: Levofloxacin/Dextrose 750 mg/ (Premix) 150 mls @ 100 mls/hr IV Q24H [facility] Last Admin: 05/06/20 12:24 Dose: Not Given Documented by: Vancomycin HCl 1.25 gm/ Sodium (Chloride) 250 mls @ 166 mls/hr IV Q12H [facility] Last Admin: 05/05/20 04:18 Dose: 166 mls/hr Documented by: Lorazepam (Ativan) 1 mg IVPUSH ONETIME ONE Stop: 04/29/20 12:41 Last Admin: 04/29/20 13:17 Dose: 1 mg Documented by: Lorazepam (Ativan) 2 mg IVPUSH ONETIME ONE Stop: 04/30/20 02:39 Last Admin: 04/30/20 02:50 Dose: 2 mg Documented by: Potassium Chloride (Klor-Con M20) 40 meq PO ONETIME ONE Stop: 04/30/20 10:03 Last Admin: 04/30/20 11:14 Dose: 40 meq Documented by: Potassium Chloride (Klor-Con M20) 40 meq PO ONETIME ONE Stop: 05/03/20 09:04 Last Admin: 05/03/20 09:19 Dose: 40 meq Documented by: Sodium Phosphate (Neutra-Phos) 250 mg PO QID [facility] Stop: 05/07/20 06:01 Last Admin: 05/07/20 05:29 Dose: 250 mg Documented by: Vancomycin HCl (Pharmacy To Dose - Vancomycin) 1 dose .XX ONETIME ONE Stop: 04/30/20 03:30 Last Admin: 04/30/20 11:10 Dose: 1.5 gram Documented by: - Exam General: Alert, No Acute Distress Lungs: Clear to Auscultation, Normal Respiratory Effort Cardiovascular: Regular Rate, Regular Rhythm GI/Abdominal Exam: Soft, No Distention Extremities: Other (Swelling noted at hands and feet bilaterally. ) Skin: Warm, Dry Psy/Mental Status: Alert Sepsis Event Note - Evaluation Sepsis Screening Result: No Definite Risk - Focused Exam Vital Signs: Vital Signs Temp Pulse Resp BP Pulse Ox 05/07/20 09:37 98.4 F 58 L 20 110/63 97 05/07/20 03:16 99.1 F 64 20 116/62 91 L 05/06/20 23:45 99.2 F 63 22 H 116/65 93 L - Problem List Review Problem List Initiated/Reviewed/Updated: Yes - My Orders Last 24 Hours: My Active Orders 05/07/20 12:00 Ondansetron [Zofran] 4 mg IVPUSH ONETIME ONE 05/08/20 05:11 CBC WITH AUTO DIFF [HEME] AM CMP [COMPREHENSIVE METABOLIC PN,CMP] [CHEM] AM - Assessment Assessment:: Assessment/Plan: COVID-19 infection: Patient is on 1LO2 with sats in the mid 90's. Will attempt to wean to RA Will continue current regime, Remdesivir 100mg. Dexamethasone 6mg PO (IV if PO not tolerated), Combivent Q4HR PRN for dyspnea, Oxygen support to maintain saturation above 92%, Chest PT, Heparin 5000iu Q8HR, Tylenol 650mg Q4HRS for Fever/Pain, 40mg PPI, . Fluid Bolus as needed. [place] thick liquid and pureed food diet. Patient was on a regular diet prior to admission. Patient is not feeding well. Patient may have become Nauseous, will try 4mg Zofran one time before meals to encourage PO intake. Bacteremia: Patient has gram positive cocci growth. Levaquin antibiotic switched to 750mg PO. IV Levaquin and Zosyn discontinued. <Koby York J - Last Filed: 05/23/20 11:50> - Patient Data Vitals - Most Recent: Last Vital Signs Temp 36.8 C 05/08/20 16:00 Pulse 62 05/08/20 16:00 Resp 18 05/08/20 16:00 BP 115/72 05/08/20 16:00 Pulse Ox 98 05/08/20 16:00 Med Orders - Current: Current Medications Discontinued Medications Acetaminophen (Tylenol) 650 mg PO Q4H PRN PRN Reason: Fever Greater Than 101 Last Admin: 04/30/20 15:33 Dose: 650 mg Documented by: Acetaminophen (Tylenol Extra Strength) 500 mg PO ONETIME ONE Stop: 04/30/20 16:26 Last Admin: 04/30/20 16:53 Dose: 500 mg Documented by: Albuterol/Ipratropium (Duoneb 3.0-0.5 Mg/3 Ml) 3 ml NEB Q4HRRT PRN PRN Reason: Dyspnea Last Admin: 05/04/20 20:00 Dose: 3 ml Documented by: Albuterol/Ipratropium (Combivent Respimat) 0 gm INH Q4H PRN PRN Reason: Dyspnea Benzonatate (Tessalon Perles) 200 mg PO ONETIME ONE Stop: 04/29/20 07:02 Last Admin: 04/29/20 07:19 Dose: 200 mg Documented by: Bisacodyl (Dulcolax) 10 mg RECTAL DAILY [facility] Last Admin: 05/03/20 11:28 Dose: Not Given Documented by: Bisacodyl (Dulcolax) 10 mg RECTAL DAILY PRN PRN Reason: Constipation Last Admin: 05/03/20 11:55 Dose: 10 mg Documented by: Carbamazepine (Tegretol Xr) 300 mg PO TID [facility] Last Admin: 05/08/20 13:21 Dose: 300 mg Documented by: Dexamethasone (Dexamethasone) 8 mg IVPUSH ONETIME ONE Stop: 04/29/20 10:33 Last Admin: 04/29/20 11:27 Dose: 8 mg Documented by: Dexamethasone (Dexamethasone) 6 mg PO ONETIME ONE Stop: 04/30/20 19:05 Last Admin: 04/30/20 20:01 Dose: 6 mg Documented by: Dexamethasone (Dexamethasone) 6 mg PO DAILY [facility] Last Admin: 05/07/20 10:15 Dose: Not Given Documented by: Dexamethasone (Dexamethasone) 6 mg IVPUSH DAILY [facility] Last Admin: 05/08/20 08:40 Dose: 6 mg Documented by: Divalproex Sodium (Depakote Er) 750 mg PO BID [facility] Last Admin: 05/08/20 09:49 Dose: 750 mg Documented by: Divalproex Sodium (Depakote Er) 500 mg PO BID [facility] Last Admin: 05/08/20 11:48 Dose: Not Given Documented by: Divalproex Sodium (Depakote Er) 500 mg PO BID [facility] Enoxaparin Sodium (Lovenox) 40 mg SUBCUT Q24H [facility] Last Admin: 05/07/20 17:43 Dose: 40 mg Documented by: Gabapentin (Neurontin) 300 mg PO TID [facility] Last Admin: 05/02/20 06:15 Dose: 300 mg Documented by: Gabapentin (Neurontin) 900 mg PO TID [facility] Last Admin: 05/08/20 13:20 Dose: 900 mg Documented by: Heparin Sodium (Porcine) (Heparin Sodium) 5,000 units SUBCUT Q12H [facility] Last Admin: 04/30/20 00:15 Dose: 5,000 units Documented by: Heparin Sodium (Porcine) (Heparin Sodium) 5,000 units SUBCUT Q8H [facility] Last Admin: 04/30/20 05:50 Dose: Not Given Documented by: Heparin Sodium (Porcine) (Heparin Sodium) 5,000 units SUBCUT Q8H [facility] Last Admin: 05/03/20 23:55 Dose: 5,000 units Documented by: Heparin Sodium (Porcine) (Heparin Sodium) 5,000 units SUBCUT Q8H [facility] Last Admin: 05/07/20 09:18 Dose: 5,000 units Documented by: Azithromycin 500 mg/ Sodium (Chloride) 250 mls @ 250 mls/hr IV ONETIME [facility] Last Admin: 04/29/20 13:07 Dose: 250 mls/hr Documented by: REMDESIVIR (EUA) 200 mg/ (Sodium Chloride) 250 mls @ 125 mls/hr IV Q24H [facility] Stop: 04/29/20 16:29 Last Admin: 04/29/20 14:45 Dose: 125 mls/hr Documented by: REMDESIVIR (EUA) 100 mg/ (Sodium Chloride) 250 mls @ 125 mls/hr IV Q24H [facility] Stop: 05/03/20 16:29 Last Admin: 05/03/20 14:19 Dose: 125 mls/hr Documented by: Sodium Chloride (Normal Saline) 500 mls @ 999 mls/hr IV .BOLUS [facility] Last Admin: 04/29/20 14:45 Dose: 999 mls/hr Documented by: Sodium Chloride (Normal Saline) 500 mls @ 999 mls/hr IV .BOLUS [facility] Last Admin: 04/29/20 19:36 Dose: 999 mls/hr Documented by: Sodium Chloride (Normal Saline) 500 mls @ 500 mls/hr IV ASDIRECTED [facility] Stop: 04/29/20 21:44 Last Admin: 04/29/20 21:17 Dose: 500 mls/hr Documented by: Lactated Ringer's (Ringers, Lactated) 500 mls @ 999 mls/hr IV .BOLUS ONE Stop: 04/30/20 03:09 Last Admin: 04/30/20 02:54 Dose: 999 mls/hr Documented by: Piperacillin Sod/Tazobactam (Sod 4.5 gm/ Sodium Chloride) 100 mls @ 100 mls/hr IV Q8H [facility] Last Admin: 05/06/20 19:48 Dose: Not Given Documented by: Lactated Ringer's (Ringers, Lactated) 500 mls @ 999 mls/hr IV ONETIME ONE Stop: 04/30/20 04:01 Last Admin: 04/30/20 03:38 Dose: 999 mls/hr Documented by: Vancomycin HCl 1.5 gm/ Premix 300 mls @ 300 mls/hr IV ONETIME ONE Stop: 04/30/20 04:59 Last Admin: 04/30/20 05:15 Dose: 300 mls/hr Documented by: Vancomycin HCl 1 gm/ Sodium (Chloride) 250 mls @ 166 mls/hr IV Q12H [facility] Last Admin: 05/04/20 19:28 Dose: Not Given Documented by: Pantoprazole Sodium 40 mg/ (Sodium Chloride) 10 mls @ 300 mls/hr IV Q24H [facility] Last Admin: 05/03/20 09:42 Dose: 300 mls/hr Documented by: Sodium Chloride (Normal Saline) 1,000 mls @ 250 mls/hr IV BOLUS ONE Stop: 04/30/20 20:06 Last Admin: 04/30/20 16:44 Dose: 250 mls/hr Documented by: Pantoprazole Sodium 40 mg/ (Sodium Chloride) 10 mls @ 300 mls/hr IV Q24H [facility] Last Admin: 05/07/20 09:18 Dose: 300 mls/hr Documented by: Levofloxacin/Dextrose 750 mg/ (Premix) 150 mls @ 100 mls/hr IV Q24H [facility] Last Admin: 05/06/20 12:24 Dose: Not Given Documented by: Remdesivir 100 mg/ Sodium (Chloride) 100 mls @ 100 mls/hr IV Q24H [facility] Stop: 05/08/20 16:29 Last Admin: 05/07/20 21:40 Dose: Not Given Documented by: Vancomycin HCl 1.25 gm/ Sodium (Chloride) 250 mls @ 166 mls/hr IV Q12H [facility] Last Admin: 05/05/20 04:18 Dose: 166 mls/hr Documented by: Pantoprazole Sodium 40 mg/ (Sodium Chloride) 10 mls @ 300 mls/hr IV Q24H [facility] Last Admin: 05/08/20 08:39 Dose: 300 mls/hr Documented by: Levofloxacin/Dextrose 750 mg/ (Premix) 150 mls @ 100 mls/hr IV Q24H [facility] Last Admin: 05/08/20 13:19 Dose: 100 mls/hr Documented by: Remdesivir 100 mg/ Sodium (Chloride) 100 mls @ 100 mls/hr IV Q24H [facility] Stop: 05/08/20 19:29 Last Admin: 05/07/20 18:28 Dose: 100 mls/hr Documented by: Potassium Chloride/Sodium Chloride (Normal Saline With 40 Meq Kcl) 1,000 mls @ 250 mls/hr IV ONETIME ONE Stop: 05/08/20 12:14 Last Admin: 05/08/20 08:36 Dose: 250 mls/hr Documented by: Levofloxacin (Levaquin) 750 mg PO Q24H [facility] Last Admin: 05/07/20 10:15 Dose: Not Given Documented by: Lorazepam (Ativan) 1 mg IVPUSH ONETIME ONE Stop: 04/29/20 12:41 Last Admin: 04/29/20 13:17 Dose: 1 mg Documented by: Lorazepam (Ativan) 2 mg IVPUSH ONETIME ONE Stop: 04/30/20 02:39 Last Admin: 04/30/20 02:50 Dose: 2 mg Documented by: Lorazepam (Ativan) 1 mg IVPUSH Q6H PRN PRN Reason: Agitation Last Admin: 05/03/20 02:35 Dose: 1 mg Documented by: Ondansetron HCl (Zofran) 4 mg IVPUSH ONETIME ONE Stop: 05/07/20 12:01 Last Admin: 05/07/20 12:29 Dose: 4 mg Documented by: Ondansetron HCl (Zofran) 4 mg IVPUSH Q4H PRN PRN Reason: Nausea Pantoprazole Sodium (Protonix) 40 mg PO ACBREAKFAST [facility] Last Admin: 05/07/20 10:14 Dose: Not Given Documented by: Potassium Chloride (Klor-Con M20) 40 meq PO ONETIME ONE Stop: 04/30/20 10:03 Last Admin: 04/30/20 11:14 Dose: 40 meq Documented by: Potassium Chloride (Klor-Con M20) 40 meq PO ONETIME ONE Stop: 05/03/20 09:04 Last Admin: 05/03/20 09:19 Dose: 40 meq Documented by: Sodium Chloride (Saline Flush) 10 ml FLUSH ASDIRECTED PRN PRN Reason: Keep Vein Open Last Admin: 04/29/20 11:24 Dose: 10 ml Documented by: Sodium Chloride (Saline Flush) 2.5 ml FLUSH ASDIRECTED PRN PRN Reason: Keep Vein Open Last Admin: 04/29/20 11:24 Dose: 2.5 ml Documented by: Sodium Phosphate (Neutra-Phos) 250 mg PO QID [facility] Stop: 05/07/20 06:01 Last Admin: 05/07/20 05:29 Dose: 250 mg Documented by: Vancomycin HCl (Pharmacy To Dose - Vancomycin) 1 dose .XX ONETIME ONE Stop: 04/30/20 03:30 Last Admin: 04/30/20 11:10 Dose: 1.5 gram Documented by: - Free Text/Narrative Note: I have seen and evaluated the patient. I have discussed findings and treatment plan with resident. I agree with the assessment and plan as outlined in the following note.
[2020-05-07] MEDS ORDERED: Ondansetron 4 MG/2 ML SDV IVPUSH ONE (12:00)
[2020-05-07] MEDS ORDERED: Ondansetron 4 MG/2 ML SDV IVPUSH PRN (13:41)
[2020-05-07] MEDS: Levofloxacin/Dextrose 5%-Water 750 MG in Premix Bag 1 BAG IV SCH (14:25)
[2020-05-07] MEDS: Dexamethasone 10 MG/ML SDV IVPUSH SCH (14:25)
[2020-05-07] MEDS ORDERED: Enoxaparin 40 MG/0.4 ML Syringe SUBCUT SCH (17:00)
[2020-05-07] MEDS ORDERED: REMDESIVIR 100 MG in Sodium Chloride 0.9% 100 ML IV SCH (18:30)
[2020-05-07] MEDS: REMDESIVIR 100 MG in Sodium Chloride 0.9% 100 ML IV SCH (21:40)
[2020-05-08] MEDS: Gabapentin 300 MG Cap PO SCH ×2 (05:00→13:20)
[2020-05-08] MEDS: carBAMazepine 100 MG Cap.ER PO SCH ×2 (05:03→13:21)
[2020-05-08 06:55] LABS: BLOOD UREA NITROGEN,BUN 21 mg/dL (7.0-18.0); CARBON DIOXIDE,CO2 26.8 mmol/L (21.0-32.0); CHLORIDE,CL 108 mmol/L (98-107); GLUCOSE RANDOM 85 mg/dL (74-106); POTASSIUM,K 3.4 mmol/L (3.5-5.1); SODIUM,NA 143 mmol/L (136-148)
[2020-05-08] MEDS ORDERED: Potassium Chloride Riders 40 MEQ in Premix Bag 1 BAG IV ONE (07:55)
[2020-05-08] MEDS ORDERED: Sodium Chloride 0.9% with KCl 1,000 ML IV ONE (08:15)
[2020-05-08] MEDS: Dexamethasone 10 MG/ML SDV IVPUSH SCH (08:40)
[2020-05-08] MEDS ORDERED: Pantoprazole 40 MG in Sodium Chloride 0.9% 10 ML IV SCH (09:00)
[2020-05-08] MEDS: Divalproex Sodium 500 MG Tab.ER PO SCH (09:49)
[2020-05-08] MEDS ORDERED: Divalproex Sodium Delayed-Release 250 MG Tab.CR PO SCH (10:45)
[2020-05-08] MEDS ORDERED: Divalproex Sodium Delayed-Release 500 MG Tab.CR PO SCH ×2 (10:45→10:50)
[2020-05-08] MEDS ORDERED: Divalproex Sodium 500 MG Tab.ER PO SCH ×2 (11:00→21:00)
--- NOTE | 2020-05-08 12:13 | PCM.DCSUM1 ---
<Fernie Schneider - Last Filed: 05/10/20 16:17> Discharge Summary - Hospital Course Free Text/Narrative:: 65 yr old male patient admitted to the medical floor for COVID-19 infection. Patient has a medical history of GERD, HTN and Mental Retardation. [facility] resides [facility] and per documentation has had a one week history of cough and a one day history of fever (101F). Patient was tested for COVID last week and found to be positive. Other residents of the correction have tested positive for COVID. Questioning of the patient was not possible due to his mental retardation condition. I spoke to the patients POA (Flaco Sharp) and emailed him fact sheet with information regarding Remdesivr medication. I discussed side effects of the medication and offered the POA the opportunity to ask any questions. POA had no reservations and has approved remdevisir usage for the patient. Hospital course: pt .was monitored and treated for hypoxic respiratory failure throughout stay; continue and completed course of Dexamethasone and Remdesivir for COVID Concerns for aspiration CAP were discussed and pt was seen by speech pathology: recommended nectar thick for fluids; otherwise pt was treated for his +Bcx (Vancomycin+levaquin) and COVID (remdesivir). Weaned off o2 and continue to monitor throughout stay. Transferred from ICU status to general medical floor since clinical response was appropriate Continued on CPT and monitored w. minimal supplemental o2 (o2 provided by blow- by as pt did not tolerate nasal canula ) Pt also had initially developed some mild thrombocytopenia but resolved after holding doses of his Heparin x 1-2 days Day prior to discharge pt. was improving and was able to stand and transfer to wheelchair w. minimal assistance Discussed pt .care with [facility] specialist; discussed signs and d symptoms to watch for; discussed level of deconditioning and expected fatigue and decrease in appetite initially ; advised for close PCP outpatient follow up Discussed quarantine measures for pt at [facility] Cashier understood plan and recommendations Discharged in stable condition - Discharge Data Discharge Date: 05/08/20 Discharge Disposition: DC/Tfer to Other 70 Condition: Good - Referral to Home Health Primary Care Physician: Carlos Dangelo MD - Patient Summary/Data Consults: Consultations 04/30/20 16:12 Consult to Speech Language Pathology [[employer] Evaluation and Treatment] [CONS] Routine 05/03/20 09:44 Consult to Physical Therapy [PT Evaluation and Treatment] [CONS] Routine - Patient Instructions Diet: GI Soft/Low Residue/Low Fiber Notify Provider of: Fever, Nausea and/or Vomiting - Discharge Plan *PRESCRIPTION DRUG MONITORING PROGRAM REVIEWED*: No *COPY OF PRESCRIPTION DRUG MONITORING REPORT IN PATIENT NILA: No Home Medications: Home Meds Calcium Carb & Citrate/Vit D3 [Calcium + Vitamin D3 Caplet] 2 tab PO BID 04/21/14 [History] Gabapentin [Neurontin] 900 mg PO TID 04/21/14 [History] Lisinopril 5 mg PO DAILY 08/10/15 [History] Testosterone Cypionate [Depo-Testosterone] 1 injection SQ ASDIRECTED 08/10/15 [History] carBAMazepine [TEGretol XR] 300 mg PO TID 08/10/15 [History] polyethylene glycoL 3350 [Polyethylene Glycol 3350] 17 gram PO DAILY 08/10/15 [History] Divalproex Sodium [Depakote ER] 500 mg PO BID 10/10/16 [History] Fenofibrate Nanocrystallized [Fenofibrate] 145 mg PO DAILY 01/24/18 [History] Metoprolol Succinate 50 mg PO DAILY 01/24/18 [History] Acetaminophen [Tylenol] 650 mg PO Q4H PRN tablet 05/08/20 [Rx] Oxygen Therapy Mode: Room Air Patient Handouts: COVID-19 Frequently Asked Questions, Prevent the Spread of COVID-19 if You Are Sick - [facility] Referrals: Carlos Dangelo MD [Primary Care Provider] - - Discharge Summary/Plan Comment DC Time >30 min.: No - Patient Data Vitals - Most Recent: Last Vital Signs Temp 98.5 F 05/08/20 08:00 Pulse 72 05/08/20 08:00 Resp 18 05/08/20 08:00 BP 125/68 05/08/20 08:00 Pulse Ox 94 L 05/08/20 08:00 Weight - Most Recent: 72.121 kg I&O - Last 24 hours: Intake & Output 05/07/20 05/08/20 05/08/20 22:59 06:59 14:59 Intake Total 0 150 Output Total 0 Balance 0 150 Lab Results - Last 24 hrs: Laboratory Results - last 24 hr 05/07/20 05/08/20 05/08/20 Range/Units 05:50 05:11 05:55 WBC 6.10 (4.0-11.0) K/uL RBC 3.27 L (4.50-5.90) M/uL Hgb 10.2 L (13.0-17.0) g/dL Hct 31.3 L (38.0-50.0) % MCV 95.7 (80.0-98.0) fL MCH 31.2 (27.0-32.0) pg MCHC 32.6 (31.0-37.0) g/dL RDW Std Deviation 49.1 (28.0-62.0) fl RDW Coeff of Cecilio 14 (11.0-15.0) % Plt Count 411 H (150-400) K/uL MPV 10.00 (7.40-12.00) fL Add Manual Diff YES Neutrophils % (Manual) 41 L (48.0-80.0) % Band Neutrophils % 5 % Lymphocytes % (Manual) 46 H (16.0-40.0) % Monocytes % (Manual) 6 (0.0-15.0) % Eosinophils % (Manual) 2 (0.0-7.0) % Nucleated RBC % 1.0 /100WBC Absolute Seg Neuts 2.5 (1.4-5.7) Band Neutrophils # 0.3 Lymphocytes # (Manual) 2.8 H (0.6-2.4) Monocytes # (Manual) 0.4 (0.0-0.8) Eosinophils # (Manual) 0.1 (0.0-0.7) Nucleated RBCs # 0 K/uL Sodium (136-148) mmol/L Potassium (3.5-5.1) mmol/L Chloride (98-107) mmol/L Carbon Dioxide (21.0-32.0) mmol/L BUN (7.0-18.0) mg/dL Creatinine (0.8-1.3) mg/dL Est Cr Clr Drug Dosing mL/min Estimated GFR (MDRD) ml/min Glucose (74-106) mg/dL POC Glucose 73 (60-110) mg/dL Calcium (8.5-10.1) mg/dL Total Bilirubin (0.2-1.0) mg/dL AST (15-37) IU/L ALT (14-63) IU/L Alkaline Phosphatase (46-116) U/L Total Protein (6.4-8.2) g/dL Albumin (3.4-5.0) g/dL Globulin (2.6-4.0) g/dL Albumin/Globulin Ratio (0.9-1.6) Valproic Acid 82.7 (50.0-100.0) ug/mL 05/08/20 05/08/20 Range/Units 05:55 05:55 WBC (4.0-11.0) K/uL RBC (4.50-5.90) M/uL Hgb (13.0-17.0) g/dL Hct (38.0-50.0) % MCV (80.0-98.0) fL MCH (27.0-32.0) pg MCHC (31.0-37.0) g/dL RDW Std Deviation (28.0-62.0) fl RDW Coeff of Cecilio (11.0-15.0) % Plt Count (150-400) K/uL MPV (7.40-12.00) fL Add Manual Diff Neutrophils % (Manual) (48.0-80.0) % Band Neutrophils % % Lymphocytes % (Manual) (16.0-40.0) % Monocytes % (Manual) (0.0-15.0) % Eosinophils % (Manual) (0.0-7.0) % Nucleated RBC % /100WBC Absolute Seg Neuts (1.4-5.7) Band Neutrophils # Lymphocytes # (Manual) (0.6-2.4) Monocytes # (Manual) (0.0-0.8) Eosinophils # (Manual) (0.0-0.7) Nucleated RBCs # K/uL Sodium 143 (136-148) mmol/L Potassium 3.4 L (3.5-5.1) mmol/L Chloride 108 H (98-107) mmol/L Carbon Dioxide 26.8 (21.0-32.0) mmol/L BUN 21 H (7.0-18.0) mg/dL Creatinine 1.0 (0.8-1.3) mg/dL Est Cr Clr Drug Dosing 68.85 mL/min Estimated GFR (MDRD) > 60.0 ml/min Glucose 85 (74-106) mg/dL POC Glucose 83 (60-110) mg/dL Calcium 7.8 L (8.5-10.1) mg/dL Total Bilirubin 0.2 (0.2-1.0) mg/dL AST 35 (15-37) IU/L ALT 15 (14-63) IU/L Alkaline Phosphatase 42 L (46-116) U/L Total Protein 6.1 L (6.4-8.2) g/dL Albumin 1.7 L (3.4-5.0) g/dL Globulin 4.4 H (2.6-4.0) g/dL Albumin/Globulin Ratio 0.4 L (0.9-1.6) Valproic Acid (50.0-100.0) ug/mL Med Orders - Current: Current Medications Acetaminophen (Tylenol) 650 mg PO Q4H PRN PRN Reason: Fever Greater Than 101 Last Admin: 04/30/20 15:33 Dose: 650 mg Documented by: Albuterol/Ipratropium (Combivent Respimat) 0 gm INH Q4H PRN PRN Reason: Dyspnea Bisacodyl (Dulcolax) 10 mg RECTAL DAILY PRN PRN Reason: Constipation Last Admin: 05/03/20 11:55 Dose: 10 mg Documented by: Carbamazepine (Tegretol Xr) 300 mg PO TID [facility] Last Admin: 05/08/20 05:03 Dose: 300 mg Documented by: Dexamethasone (Dexamethasone) 6 mg IVPUSH DAILY [facility] Last Admin: 05/08/20 08:40 Dose: 6 mg Documented by: Divalproex Sodium (Depakote Er) 500 mg PO BID [facility] Enoxaparin Sodium (Lovenox) 40 mg SUBCUT Q24H [facility] Last Admin: 05/07/20 17:43 Dose: 40 mg Documented by: Gabapentin (Neurontin) 900 mg PO TID [facility] Last Admin: 05/08/20 05:00 Dose: 900 mg Documented by: Pantoprazole Sodium 40 mg/ (Sodium Chloride) 10 mls @ 300 mls/hr IV Q24H [facility] Last Admin: 05/08/20 08:39 Dose: 300 mls/hr Documented by: Levofloxacin/Dextrose 750 mg/ (Premix) 150 mls @ 100 mls/hr IV Q24H [facility] Last Admin: 05/07/20 14:25 Dose: 100 mls/hr Documented by: Remdesivir 100 mg/ Sodium (Chloride) 100 mls @ 100 mls/hr IV Q24H [facility] Stop: 05/08/20 19:29 Last Admin: 05/07/20 18:28 Dose: 100 mls/hr Documented by: Potassium Chloride/Sodium Chloride (Normal Saline With 40 Meq Kcl) 1,000 mls @ 250 mls/hr IV ONETIME ONE Stop: 05/08/20 12:14 Last Admin: 05/08/20 08:36 Dose: 250 mls/hr Documented by: Lorazepam (Ativan) 1 mg IVPUSH Q6H PRN PRN Reason: Agitation Last Admin: 05/03/20 02:35 Dose: 1 mg Documented by: Ondansetron HCl (Zofran) 4 mg IVPUSH Q4H PRN PRN Reason: Nausea Sodium Chloride (Saline Flush) 10 ml FLUSH ASDIRECTED PRN PRN Reason: Keep Vein Open Last Admin: 04/29/20 11:24 Dose: 10 ml Documented by: Sodium Chloride (Saline Flush) 2.5 ml FLUSH ASDIRECTED PRN PRN Reason: Keep Vein Open Last Admin: 04/29/20 11:24 Dose: 2.5 ml Documented by: Discontinued Medications Acetaminophen (Tylenol Extra Strength) 500 mg PO ONETIME ONE Stop: 04/30/20 16:26 Last Admin: 04/30/20 16:53 Dose: 500 mg Documented by: Albuterol/Ipratropium (Duoneb 3.0-0.5 Mg/3 Ml) 3 ml NEB Q4HRRT PRN PRN Reason: Dyspnea Last Admin: 05/04/20 20:00 Dose: 3 ml Documented by: Benzonatate (Tessalon Perles) 200 mg PO ONETIME ONE Stop: 04/29/20 07:02 Last Admin: 04/29/20 07:19 Dose: 200 mg Documented by: Bisacodyl (Dulcolax) 10 mg RECTAL DAILY [facility] Last Admin: 05/03/20 11:28 Dose: Not Given Documented by: Dexamethasone (Dexamethasone) 8 mg IVPUSH ONETIME ONE Stop: 04/29/20 10:33 Last Admin: 04/29/20 11:27 Dose: 8 mg Documented by: Dexamethasone (Dexamethasone) 6 mg PO ONETIME ONE Stop: 04/30/20 19:05 Last Admin: 04/30/20 20:01 Dose: 6 mg Documented by: Dexamethasone (Dexamethasone) 6 mg PO DAILY [facility] Last Admin: 05/07/20 10:15 Dose: Not Given Documented by: Divalproex Sodium (Depakote Er) 750 mg PO BID [facility] Last Admin: 05/08/20 09:49 Dose: 750 mg Documented by: Divalproex Sodium (Depakote Er) 500 mg PO BID [facility] Last Admin: 05/08/20 11:48 Dose: Not Given Documented by: Gabapentin (Neurontin) 300 mg PO TID [facility] Last Admin: 05/02/20 06:15 Dose: 300 mg Documented by: Heparin Sodium (Porcine) (Heparin Sodium) 5,000 units SUBCUT Q12H [facility] Last Admin: 04/30/20 00:15 Dose: 5,000 units Documented by: Heparin Sodium (Porcine) (Heparin Sodium) 5,000 units SUBCUT Q8H [facility] Last Admin: 04/30/20 05:50 Dose: Not Given Documented by: Heparin Sodium (Porcine) (Heparin Sodium) 5,000 units SUBCUT Q8H [facility] Last Admin: 05/03/20 23:55 Dose: 5,000 units Documented by: Heparin Sodium (Porcine) (Heparin Sodium) 5,000 units SUBCUT Q8H [facility] Last Admin: 05/07/20 09:18 Dose: 5,000 units Documented by: Azithromycin 500 mg/ Sodium (Chloride) 250 mls @ 250 mls/hr IV ONETIME [facility] Last Admin: 04/29/20 13:07 Dose: 250 mls/hr Documented by: REMDESIVIR (EUA) 200 mg/ (Sodium Chloride) 250 mls @ 125 mls/hr IV Q24H [facility] Stop: 04/29/20 16:29 Last Admin: 04/29/20 14:45 Dose: 125 mls/hr Documented by: REMDESIVIR (EUA) 100 mg/ (Sodium Chloride) 250 mls @ 125 mls/hr IV Q24H [facility] Stop: 05/03/20 16:29 Last Admin: 05/03/20 14:19 Dose: 125 mls/hr Documented by: Sodium Chloride (Normal Saline) 500 mls @ 999 mls/hr IV .BOLUS [facility] Last Admin: 04/29/20 14:45 Dose: 999 mls/hr Documented by: Sodium Chloride (Normal Saline) 500 mls @ 999 mls/hr IV .BOLUS [facility] Last Admin: 04/29/20 19:36 Dose: 999 mls/hr Documented by: Sodium Chloride (Normal Saline) 500 mls @ 500 mls/hr IV ASDIRECTED [facility] Stop: 04/29/20 21:44 Last Admin: 04/29/20 21:17 Dose: 500 mls/hr Documented by: Lactated Ringer's (Ringers, Lactated) 500 mls @ 999 mls/hr IV .BOLUS ONE Stop: 04/30/20 03:09 Last Admin: 04/30/20 02:54 Dose: 999 mls/hr Documented by: Piperacillin Sod/Tazobactam (Sod 4.5 gm/ Sodium Chloride) 100 mls @ 100 mls/hr IV Q8H [facility] Last Admin: 05/06/20 19:48 Dose: Not Given Documented by: Lactated Ringer's (Ringers, Lactated) 500 mls @ 999 mls/hr IV ONETIME ONE Stop: 04/30/20 04:01 Last Admin: 04/30/20 03:38 Dose: 999 mls/hr Documented by: Vancomycin HCl 1.5 gm/ Premix 300 mls @ 300 mls/hr IV ONETIME ONE Stop: 04/30/20 04:59 Last Admin: 04/30/20 05:15 Dose: 300 mls/hr Documented by: Vancomycin HCl 1 gm/ Sodium (Chloride) 250 mls @ 166 mls/hr IV Q12H [facility] Last Admin: 05/04/20 19:28 Dose: Not Given Documented by: Pantoprazole Sodium 40 mg/ (Sodium Chloride) 10 mls @ 300 mls/hr IV Q24H [facility] Last Admin: 05/03/20 09:42 Dose: 300 mls/hr Documented by: Sodium Chloride (Normal Saline) 1,000 mls @ 250 mls/hr IV BOLUS ONE Stop: 04/30/20 20:06 Last Admin: 04/30/20 16:44 Dose: 250 mls/hr Documented by: Pantoprazole Sodium 40 mg/ (Sodium Chloride) 10 mls @ 300 mls/hr IV Q24H [facility] Last Admin: 05/07/20 09:18 Dose: 300 mls/hr Documented by: Levofloxacin/Dextrose 750 mg/ (Premix) 150 mls @ 100 mls/hr IV Q24H [facility] Last Admin: 05/06/20 12:24 Dose: Not Given Documented by: Remdesivir 100 mg/ Sodium (Chloride) 100 mls @ 100 mls/hr IV Q24H [facility] Stop: 05/08/20 16:29 Last Admin: 05/07/20 21:40 Dose: Not Given Documented by: Vancomycin HCl 1.25 gm/ Sodium (Chloride) 250 mls @ 166 mls/hr IV Q12H [facility] Last Admin: 05/05/20 04:18 Dose: 166 mls/hr Documented by: Levofloxacin (Levaquin) 750 mg PO Q24H [facility] Last Admin: 05/07/20 10:15 Dose: Not Given Documented by: Lorazepam (Ativan) 1 mg IVPUSH ONETIME ONE Stop: 04/29/20 12:41 Last Admin: 04/29/20 13:17 Dose: 1 mg Documented by: Lorazepam (Ativan) 2 mg IVPUSH ONETIME ONE Stop: 04/30/20 02:39 Last Admin: 04/30/20 02:50 Dose: 2 mg Documented by: Ondansetron HCl (Zofran) 4 mg IVPUSH ONETIME ONE Stop: 05/07/20 12:01 Last Admin: 05/07/20 12:29 Dose: 4 mg Documented by: Pantoprazole Sodium (Protonix) 40 mg PO ACBREAKFAST [facility] Last Admin: 05/07/20 10:14 Dose: Not Given Documented by: Potassium Chloride (Klor-Con M20) 40 meq PO ONETIME ONE Stop: 04/30/20 10:03 Last Admin: 04/30/20 11:14 Dose: 40 meq Documented by: Potassium Chloride (Klor-Con M20) 40 meq PO ONETIME ONE Stop: 05/03/20 09:04 Last Admin: 05/03/20 09:19 Dose: 40 meq Documented by: Sodium Phosphate (Neutra-Phos) 250 mg PO QID [facility] Stop: 05/07/20 06:01 Last Admin: 05/07/20 05:29 Dose: 250 mg Documented by: Vancomycin HCl (Pharmacy To Dose - Vancomycin) 1 dose .XX ONETIME ONE Stop: 04/30/20 03:30 Last Admin: 04/30/20 11:10 Dose: 1.5 gram Documented by: <Koby York - Last Filed: 05/23/20 11:47> Discharge Summary - Referral to Home Health Primary Care Physician: Carlos Dangelo MD - Patient Summary/Data Consults: Consultations 04/30/20 16:12 Consult to Speech Language Pathology [[employer] Evaluation and Treatment] [CONS] Routine 05/03/20 09:44 Consult to Physical Therapy [PT Evaluation and Treatment] [CONS] Routine - Patient Data Vitals - Most Recent: Last Vital Signs Temp 36.8 C 05/08/20 16:00 Pulse 62 05/08/20 16:00 Resp 18 05/08/20 16:00 BP 115/72 05/08/20 16:00 Pulse Ox 98 05/08/20 16:00 Med Orders - Current: Current Medications Discontinued Medications Acetaminophen (Tylenol) 650 mg PO Q4H PRN PRN Reason: Fever Greater Than 101 Last Admin: 04/30/20 15:33 Dose: 650 mg Documented by: Acetaminophen (Tylenol Extra Strength) 500 mg PO ONETIME ONE Stop: 04/30/20 16:26 Last Admin: 04/30/20 16:53 Dose: 500 mg Documented by: Albuterol/Ipratropium (Duoneb 3.0-0.5 Mg/3 Ml) 3 ml NEB Q4HRRT PRN PRN Reason: Dyspnea Last Admin: 05/04/20 20:00 Dose: 3 ml Documented by: Albuterol/Ipratropium (Combivent Respimat) 0 gm INH Q4H PRN PRN Reason: Dyspnea Benzonatate (Tessalon Perles) 200 mg PO ONETIME ONE Stop: 04/29/20 07:02 Last Admin: 04/29/20 07:19 Dose: 200 mg Documented by: Bisacodyl (Dulcolax) 10 mg RECTAL DAILY [facility] Last Admin: 05/03/20 11:28 Dose: Not Given Documented by: Bisacodyl (Dulcolax) 10 mg RECTAL DAILY PRN PRN Reason: Constipation Last Admin: 05/03/20 11:55 Dose: 10 mg Documented by: Carbamazepine (Tegretol Xr) 300 mg PO TID [facility] Last Admin: 05/08/20 13:21 Dose: 300 mg Documented by: Dexamethasone (Dexamethasone) 8 mg IVPUSH ONETIME ONE Stop: 04/29/20 10:33 Last Admin: 04/29/20 11:27 Dose: 8 mg Documented by: Dexamethasone (Dexamethasone) 6 mg PO ONETIME ONE Stop: 04/30/20 19:05 Last Admin: 04/30/20 20:01 Dose: 6 mg Documented by: Dexamethasone (Dexamethasone) 6 mg PO DAILY [facility] Last Admin: 05/07/20 10:15 Dose: Not Given Documented by: Dexamethasone (Dexamethasone) 6 mg IVPUSH DAILY [facility] Last Admin: 05/08/20 08:40 Dose: 6 mg Documented by: Divalproex Sodium (Depakote Er) 750 mg PO BID [facility] Last Admin: 05/08/20 09:49 Dose: 750 mg Documented by: Divalproex Sodium (Depakote Er) 500 mg PO BID [facility] Last Admin: 05/08/20 11:48 Dose: Not Given Documented by: Divalproex Sodium (Depakote Er) 500 mg PO BID [facility] Enoxaparin Sodium (Lovenox) 40 mg SUBCUT Q24H [facility] Last Admin: 05/07/20 17:43 Dose: 40 mg Documented by: Gabapentin (Neurontin) 300 mg PO TID [facility] Last Admin: 05/02/20 06:15 Dose: 300 mg Documented by: Gabapentin (Neurontin) 900 mg PO TID [facility] Last Admin: 05/08/20 13:20 Dose: 900 mg Documented by: Heparin Sodium (Porcine) (Heparin Sodium) 5,000 units SUBCUT Q12H [facility] Last Admin: 04/30/20 00:15 Dose: 5,000 units Documented by: Heparin Sodium (Porcine) (Heparin Sodium) 5,000 units SUBCUT Q8H [facility] Last Admin: 04/30/20 05:50 Dose: Not Given Documented by: Heparin Sodium (Porcine) (Heparin Sodium) 5,000 units SUBCUT Q8H [facility] Last Admin: 05/03/20 23:55 Dose: 5,000 units Documented by: Heparin Sodium (Porcine) (Heparin Sodium) 5,000 units SUBCUT Q8H [facility] Last Admin: 05/07/20 09:18 Dose: 5,000 units Documented by: Azithromycin 500 mg/ Sodium (Chloride) 250 mls @ 250 mls/hr IV ONETIME [facility] Last Admin: 04/29/20 13:07 Dose: 250 mls/hr Documented by: REMDESIVIR (EUA) 200 mg/ (Sodium Chloride) 250 mls @ 125 mls/hr IV Q24H [facility] Stop: 04/29/20 16:29 Last Admin: 04/29/20 14:45 Dose: 125 mls/hr Documented by: REMDESIVIR (EUA) 100 mg/ (Sodium Chloride) 250 mls @ 125 mls/hr IV Q24H [facility] Stop: 05/03/20 16:29 Last Admin: 05/03/20 14:19 Dose: 125 mls/hr Documented by: Sodium Chloride (Normal Saline) 500 mls @ 999 mls/hr IV .BOLUS [facility] Last Admin: 04/29/20 14:45 Dose: 999 mls/hr Documented by: Sodium Chloride (Normal Saline) 500 mls @ 999 mls/hr IV .BOLUS [facility] Last Admin: 04/29/20 19:36 Dose: 999 mls/hr Documented by: Sodium Chloride (Normal Saline) 500 mls @ 500 mls/hr IV ASDIRECTED [facility] Stop: 04/29/20 21:44 Last Admin: 04/29/20 21:17 Dose: 500 mls/hr Documented by: Lactated Ringer's (Ringers, Lactated) 500 mls @ 999 mls/hr IV .BOLUS ONE Stop: 04/30/20 03:09 Last Admin: 04/30/20 02:54 Dose: 999 mls/hr Documented by: Piperacillin Sod/Tazobactam (Sod 4.5 gm/ Sodium Chloride) 100 mls @ 100 mls/hr IV Q8H [facility] Last Admin: 05/06/20 19:48 Dose: Not Given Documented by: Lactated Ringer's (Ringers, Lactated) 500 mls @ 999 mls/hr IV ONETIME ONE Stop: 04/30/20 04:01 Last Admin: 04/30/20 03:38 Dose: 999 mls/hr Documented by: Vancomycin HCl 1.5 gm/ Premix 300 mls @ 300 mls/hr IV ONETIME ONE Stop: 04/30/20 04:59 Last Admin: 04/30/20 05:15 Dose: 300 mls/hr Documented by: Vancomycin HCl 1 gm/ Sodium (Chloride) 250 mls @ 166 mls/hr IV Q12H [facility] Last Admin: 05/04/20 19:28 Dose: Not Given Documented by: Pantoprazole Sodium 40 mg/ (Sodium Chloride) 10 mls @ 300 mls/hr IV Q24H [facility] Last Admin: 05/03/20 09:42 Dose: 300 mls/hr Documented by: Sodium Chloride (Normal Saline) 1,000 mls @ 250 mls/hr IV BOLUS ONE Stop: 04/30/20 20:06 Last Admin: 04/30/20 16:44 Dose: 250 mls/hr Documented by: Pantoprazole Sodium 40 mg/ (Sodium Chloride) 10 mls @ 300 mls/hr IV Q24H [facility] Last Admin: 05/07/20 09:18 Dose: 300 mls/hr Documented by: Levofloxacin/Dextrose 750 mg/ (Premix) 150 mls @ 100 mls/hr IV Q24H [facility] Last Admin: 05/06/20 12:24 Dose: Not Given Documented by: Remdesivir 100 mg/ Sodium (Chloride) 100 mls @ 100 mls/hr IV Q24H [facility] Stop: 05/08/20 16:29 Last Admin: 05/07/20 21:40 Dose: Not Given Documented by: Vancomycin HCl 1.25 gm/ Sodium (Chloride) 250 mls @ 166 mls/hr IV Q12H [facility] Last Admin: 05/05/20 04:18 Dose: 166 mls/hr Documented by: Pantoprazole Sodium 40 mg/ (Sodium Chloride) 10 mls @ 300 mls/hr IV Q24H [facility] Last Admin: 05/08/20 08:39 Dose: 300 mls/hr Documented by: Levofloxacin/Dextrose 750 mg/ (Premix) 150 mls @ 100 mls/hr IV Q24H [facility] Last Admin: 05/08/20 13:19 Dose: 100 mls/hr Documented by: Remdesivir 100 mg/ Sodium (Chloride) 100 mls @ 100 mls/hr IV Q24H [facility] Stop: 05/08/20 19:29 Last Admin: 05/07/20 18:28 Dose: 100 mls/hr Documented by: Potassium Chloride/Sodium Chloride (Normal Saline With 40 Meq Kcl) 1,000 mls @ 250 mls/hr IV ONETIME ONE Stop: 05/08/20 12:14 Last Admin: 05/08/20 08:36 Dose: 250 mls/hr Documented by: Levofloxacin (Levaquin) 750 mg PO Q24H [facility] Last Admin: 05/07/20 10:15 Dose: Not Given Documented by: Lorazepam (Ativan) 1 mg IVPUSH ONETIME ONE Stop: 04/29/20 12:41 Last Admin: 04/29/20 13:17 Dose: 1 mg Documented by: Lorazepam (Ativan) 2 mg IVPUSH ONETIME ONE Stop: 04/30/20 02:39 Last Admin: 04/30/20 02:50 Dose: 2 mg Documented by: Lorazepam (Ativan) 1 mg IVPUSH Q6H PRN PRN Reason: Agitation Last Admin: 05/03/20 02:35 Dose: 1 mg Documented by: Ondansetron HCl (Zofran) 4 mg IVPUSH ONETIME ONE Stop: 05/07/20 12:01 Last Admin: 05/07/20 12:29 Dose: 4 mg Documented by: Ondansetron HCl (Zofran) 4 mg IVPUSH Q4H PRN PRN Reason: Nausea Pantoprazole Sodium (Protonix) 40 mg PO ACBREAKFAST [facility] Last Admin: 05/07/20 10:14 Dose: Not Given Documented by: Potassium Chloride (Klor-Con M20) 40 meq PO ONETIME ONE Stop: 04/30/20 10:03 Last Admin: 04/30/20 11:14 Dose: 40 meq Documented by: Potassium Chloride (Klor-Con M20) 40 meq PO ONETIME ONE Stop: 05/03/20 09:04 Last Admin: 05/03/20 09:19 Dose: 40 meq Documented by: Sodium Chloride (Saline Flush) 10 ml FLUSH ASDIRECTED PRN PRN Reason: Keep Vein Open Last Admin: 04/29/20 11:24 Dose: 10 ml Documented by: Sodium Chloride (Saline Flush) 2.5 ml FLUSH ASDIRECTED PRN PRN Reason: Keep Vein Open Last Admin: 04/29/20 11:24 Dose: 2.5 ml Documented by: Sodium Phosphate (Neutra-Phos) 250 mg PO QID [facility] Stop: 05/07/20 06:01 Last Admin: 05/07/20 05:29 Dose: 250 mg Documented by: Vancomycin HCl (Pharmacy To Dose - Vancomycin) 1 dose .XX ONETIME ONE Stop: 04/30/20 03:30 Last Admin: 04/30/20 11:10 Dose: 1.5 gram Documented by: - Free Text/Narrative Note: I have seen and evaluated the patient. I have discussed findings and treatment plan with resident. I agree with the assessment and plan as outlined in the foll owing note.
[2020-05-08] MEDS: Levofloxacin/Dextrose 5%-Water 750 MG in Premix Bag 1 BAG IV SCH (13:19)
[2020-05-08 16:25] VITALS: BP 115/72; PULSE 62
== END 2020-05-08 16:10 | disposition other institution (70) | DRG 871 ==
LOC: MW.ED 06:55 → MW.MS 10:48 → MW.ICU 12:02 → MW.MS 05-06 14:54
PROVIDERS: ADMIT Internal Medicine; ATTEND Internal Medicine
PROC: XW033E5 Introduction of Remdesivir Anti-infective into Peripheral Vein, Percutaneous Approach, New Technology Group 5 (ICD-10-PCS; principal; 2020-04-29)
PROC: XW033E5 Introduction of Remdesivir Anti-infective into Peripheral Vein, Percutaneous Approach, New Technology Group 5 (ICD-10-PCS; 2020-04-30)
PROC: XW033E5 Introduction of Remdesivir Anti-infective into Peripheral Vein, Percutaneous Approach, New Technology Group 5 (ICD-10-PCS; 2020-05-01)
PROC: XW033E5 Introduction of Remdesivir Anti-infective into Peripheral Vein, Percutaneous Approach, New Technology Group 5 (ICD-10-PCS; 2020-05-02)
PROC: XW033E5 Introduction of Remdesivir Anti-infective into Peripheral Vein, Percutaneous Approach, New Technology Group 5 (ICD-10-PCS; 2020-05-03)
DX: A41.89 Other specified sepsis (principal); U07.1 COVID-19; J12.89 Other viral pneumonia; J96.01 Acute respiratory failure with hypoxia; N17.9 Acute kidney failure, unspecified; E86.0 Dehydration; D69.6 Thrombocytopenia, unspecified; I10 Essential (primary) hypertension; K21.9 Gastro-esophageal reflux disease without esophagitis; K59.09 Other constipation; F71 Moderate intellectual disabilities; E83.39 Other disorders of phosphorus metabolism; E66.9 Obesity, unspecified; F06.30 Mood disorder due to known physiological condition, unspecified; Z68.24 Body mass index [BMI] 24.0-24.9, adult; Z88.8 Allergy status to other drugs, medicaments and biological substances; Z79.899 Other long term (current) drug therapy
CPT/HCPCS: 36415; 71045; 80053; 85025; 99285; A9270; U0002; 36410; 80164; 80202; 82962; 83605; 83735; 84100; 87040; 92526-GN; 92610-GN; 93005; 94640; 94668; 97163-GP; 99222; 99231; 99232; 99238; C9113; J0456; J1100; J1644; J1650; J1956; J2060; J2405; J2543; J3370; J3480; J7030; J7040; J7050; J7120; J7620-GY; J8540

== ENCOUNTER 2020-10-06 18:04 | Emergency (ER) | payer MEDICARE, MEDICAID ==
[2020-10-06] MEDS ORDERED: Sodium Chloride 0.9% 1,000 ML IV ONE (18:41)
--- NOTE | 2020-10-06 19:12 | EDM.PDOC ---
ED HPI GENERAL MEDICAL PROBLEM - General Chief Complaint: Neuro Symptoms/Deficits Stated Complaint: SUIZURE Time Seen by Provider: 10/06/20 18:35 Source of Information: Reports: Patient History Limitations: Reports: No Limitations - History of Present Illness INITIAL COMMENTS - FREE TEXT/NARRATIVE: HISTORY AND PHYSICAL: History of present illness: Patient is a 65-year-old male who presents to the emergency room by ambulance after having a prolonged seizure. Patient has a medical history of hypertension, seizure disorder, intellectual disability, mental retardation and mood disorder. He is a resident at [facility] and receives [id number] supervision/care. According to staff he had his COVID-19 vaccine yesterday and since has been feeling generally on well, bodyaches, and low grade fever. Today the staff reports he had a 10 to 20-minute seizure. EMS was called to scene, they witnessed fine tremors of upper extremities. EMS gave 5mg Versed and seizure activity resolved. Upon arrival patient is alert and appropriate, answering questions with "yes" and "no" (which is how he communicates). Caregiver states that he has not had a seizure in "a while" but could not give me an exact date of how long its been since his last seizure. No recent change in medications. Other than feeling unwell from the COVID-19 vaccine he has been feeling healthy up till yesterday. Patient denies any fever, chills, headache, change in vision, syncope or near syncope. Denies any chest pain, back pain, shortness of breath or cough. Denies any abdominal pain, nausea, vomiting, diarrhea, constipation or dysuria. Has not noted any blood in urine or stool. Patient has been eating and drinking appropriately. Review of systems: As per history of present illness and below otherwise all systems reviewed and negative. Past medical history: As per history of present illness and as reviewed below otherwise noncontributory. Surgical history: As per history of present illness and as reviewed below otherwise noncontributory. Social history: See social history for further information Family history: As per history of present illness and as reviewed below otherwise noncontributory. Physical exam: General: Well developed and well nourished 65 year old male. Alert and appropriate for self (hx of mental retardation). Nontoxic in appearance and in no acute distress. Vital signs are stable and have been reviewed by me. Nursing notes were reviewed. companion caregiver here with patient. HEENT: Atraumatic, normocephalic, pupils equal and reactive bilaterally, ne gative for conjunctival pallor or scleral icterus, mucous membranes moist, TMs normal bilaterally, throat clear, neck supple, nontender, trachea midline. No drooling or trismus noted. No meningeal signs. No hot potato voice noted. Lungs: Clear to auscultation bilaterally. No wheezes, rales, or rhonchi. Chest nontender. Normal work of breathing, no accessory muscles used. Heart: S1S2, regular rate and rhythm without overt murmur, gallops, or rubs. No JVD. No peripheral edema Abdomen: Soft, nondistended, nontender. Normoactive bowel sounds. Negative for masses or costovertebral tenderness. Skin: Intact, warm, dry. No lesions or rashes noted. Hematologic: No petechiae or purpra. Mucosa appropriate color and normal nail bed color and refill. Extremities: Atraumatic, moves all extremities per self without difficulty or deficits, negative for cords or calf pain. Neurovascular unremarkable. Neuro: Awake, alert, oriented. Cranial nerves II through XII unremarkable. Cerebellum unremarkable. Motor and sensory unremarkable throughout. Exam nonfocal. Psychiatric: Mood and affect are appropriate. Normal thought process. Answering questions appropriately. Notes: *This patient was seen and evaluated during the 2019 SARS-CoV-2 novel coronavirus pandemic period. Community viral transmission is ongoing at time of this encounter and the emergency department is operating under pandemic response procedures. Lab work shows mild dehydration, patient did receive a liter of fluids while here. X-ray shows heart is mildly enlarged. Low lung volumes are noted which results in vascular crowding. Patchy ground-glass opacities and interstitial prominence is seen bilaterally, predominantly in a perihilar distribution. These findings have improved compared to the prior study. In the setting of a seizure, this potentially could be related to aspiration pneumonitis. No appreciable pleural fluid. No pneumothorax. I have talked with the patient/caregiver about today's findings, in addition to providing specific details for plan of care. Patient has been asymptomatic since being here. No coughing, vitals have been stable and states he feels well. Reassessment at the time of disposition demonstrates that the patient is in no acute distress. Patient on Augmentin due to the x-ray reading and penitentiary setting. Caregiver has no objections to discharge to home with close supervision. The patient is stable for discharge, counseling was provided and we discussed in great detail signs and symptoms that would prompt them to return to the Emergency Department. Medication, follow up and supportive care measures were reviewed and discussed. Voices understanding and is agreeable to plan of care. Denies any further questions or concerns at this time. Diagnostics: CBC, CMP, EKG, CXR, Tegretol/Depakote levels Therapeutics: IV fluids, Augmentin Prescription: Augmentin Impression: Seizure activity Dehydration, mild Fatigue related to COVID-19 vaccine Plan: 1. Today your lab work showed no acute findings, mildly dehydrated. Did receive 1 L of fluids while here. X-ray shows that there could be a possibility of aspiration pneumonia, will treat with antibiotics. Please take 1 tablet twice daily over the next 7 days. Continue to monitor closely for fevers, increasing cough or any change in patient's symptoms. If your symptoms should worsen, new symptoms develop or any of the signs and symptoms we discussed should arise please return to the emergency room or call 911 (if needed). 2. Increase fluids. You can alternate Tylenol and ibuprofen as needed for pain and fever management. 3. We encourage you to follow up with your primary care provider and/or recommended specialist in the next few days for re-evaluation and further care/management. Definitive disposition and diagnosis as appropriate pending reevaluation and review of above. - Related Data Allergies Allergy/AdvReac Type Severity Reaction Status Date / Time haloperidol Allergy Other Verified 10/06/20 18:13 thioridazine Allergy Other Verified 10/06/20 18:13 Home Meds: Home Meds Gabapentin [Neurontin] 900 mg PO TID 04/21/14 [History] Testosterone Cypionate [Depo-Testosterone] 1 injection SQ ASDIRECTED 08/10/15 [History] polyethylene glycoL 3350 [Polyethylene Glycol 3350] 17 gram PO DAILY 08/10/15 [History] Fenofibrate Nanocrystallized [Fenofibrate] 145 mg PO DAILY 01/24/18 [History] Amoxicillin/Clavulanate K [Augmentin 875-125 MG] 1 tab PO BID 7 Days #14 tablet 10/06/20 [Rx] Calcium Carb, Citrate/Vit D3 [Calcium + D3 ER Tablet] 1 tab PO DAILY 10/06/20 [History] Divalproex Sodium [Depakote] 250 mg PO BID 10/06/20 [History] Tamsulosin [Flomax] 0.4 mg PO DAILY 10/06/20 [History] carBAMazepine [Tegretol] 200 mg PO ACBREAKFAST 10/06/20 [History] carBAMazepine [Tegretol] 300 mg PO BID 10/06/20 [History] Past Medical History HEENT History: Reports: None Cardiovascular History: Reports: Hypertension Respiratory History: Reports: None Gastrointestinal History: Reports: Chronic Constipation, GERD Other Gastrointestinal History: Heartburn/GERD-controlled Genitourinary History: Reports: None Musculoskeletal History: Reports: Fracture Other Musculoskeletal History: hx: Fracture foot, ankle, shoulder, any hardware denied by carburizer Neurological History: Reports: Seizure, Other (See Below) Other Neuro History: No reported seizures since . 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 Hematologic History: Reports: None Immunologic History: Reports: None Oncologic (Cancer) History: Reports: None Dermatologic History: Reports: None - Infectious Disease History Infectious Disease History: Reports: None - Past Surgical History HEENT Surgical History: Reports: None Cardiovascular Surgical History: Reports: None GI Surgical History: Reports: None Male Surgical History: Reports: None Endocrine Surgical History: Reports: None Neurological Surgical History: Reports: None Musculoskeletal Surgical History: Reports: None Oncologic Surgical History: Reports: None Dermatological Surgical History: Reports: None Social & Family History - Family History Family Medical History: No Pertinent Family History HEENT: Reports: None Cardiac: Reports: None Respiratory: Reports: None GI: Reports: None : Reports: None OBGYN: Reports: None Musculoskeletal: Reports: None Neurological: Reports: None Psychiatric: Reports: None Endocrine/Metabolic: Reports: None Hematologic: Reports: None Immunologic: Reports: None Dermatologic: Reports: None Oncologic: Reports: None - Tobacco Use Tobacco Use Status *Q: Never Tobacco User - Caffeine Use Caffeine Use: Reports: None Caffeine Use Comment: unable to asses, came from [facility] - Recreational Drug Use Recreational Drug Use: No ED ROS GENERAL - Review of Systems Review Of Systems: Comprehensive ROS is negative, except as noted in HPI. - Physical Exam Exam: See Below (See dictation) Course - Vital Signs Last Recorded V/S: Last Vital Signs Temp 97.6 F 10/06/20 18:17 Pulse 87 10/06/20 18:17 Resp 18 10/06/20 18:17 BP 135/81 10/06/20 18:17 Pulse Ox 97 10/06/20 18:17 - Orders/Labs/Meds Orders: Active Orders 24 hr Category Date Time Status EKG Documentation Completion [RC] STAT Care 10/06/20 18:41 Active CARBAMAZEPINE [REF] Stat Lab 10/06/20 19:23 Received UA RFX RINKU AND CULT IF INDIC [URIN] Stat Lab 10/06/20 18:41 Ordered VALPROIC ACID [REF] Stat Lab 10/06/20 19:23 Received Amoxicillin/Clavulanate K [Augmentin 875 MG/125 MG] Med 10/06/20 20:15 Once 1 tab PO ONETIME ONE Labs: Laboratory Tests 10/06/20 10/06/20 Range/Units 19:23 19:28 WBC 8.14 (4.0-11.0) K/uL RBC 3.88 L (4.50-5.90) M/uL Hgb 12.6 L (13.0-17.0) g/dL Hct 37.5 L (38.0-50.0) % MCV 96.6 (80.0-98.0) fL MCH 32.5 H (27.0-32.0) pg MCHC 33.6 (31.0-37.0) g/dL RDW Std Deviation 46.1 (28.0-62.0) fl RDW Coeff of Cecilio 13 (11.0-15.0) % Plt Count 195 (150-400) K/uL MPV 9.10 (7.40-12.00) fL Neut % (Auto) 79.4 (48.0-80.0) % Lymph % (Auto) 10.6 L (16.0-40.0) % [place] % (Auto) 9.8 (0.0-15.0) % Eos % (Auto) 0.0 (0.0-7.0) % Baso % (Auto) 0.2 (0.0-1.5) % Neut # (Auto) 6.5 H (1.4-5.7) K/uL Lymph # (Auto) 0.9 (0.6-2.4) K/uL [place] # (Auto) 0.8 (0.0-0.8) K/uL Eos # (Auto) 0.0 (0.0-0.7) K/uL Baso # (Auto) 0.0 (0.0-0.1) K/uL Nucleated RBC % 0.0 /100WBC Nucleated RBCs # 0 K/uL Sodium 134 L (136-148) mmol/L Potassium 3.9 (3.5-5.1) mmol/L Chloride 97 L (98-107) mmol/L Carbon Dioxide 25.6 (21.0-32.0) mmol/L BUN 27 H (7.0-18.0) mg/dL Creatinine 1.6 H (0.8-1.3) mg/dL Est Cr Clr Drug Dosing 44.53 mL/min Estimated GFR (MDRD) 43.6 ml/min Glucose 97 (74-106) mg/dL Calcium 9.3 (8.5-10.1) mg/dL Total Bilirubin 0.4 (0.2-1.0) mg/dL AST 24 (15-37) IU/L ALT 19 (14-63) IU/L Alkaline Phosphatase 56 (46-116) U/L Total Protein 8.5 H (6.4-8.2) g/dL Albumin 3.9 (3.4-5.0) g/dL Globulin 4.6 H (2.6-4.0) g/dL Albumin/Globulin Ratio 0.9 (0.9-1.6) Meds: Medications Discontinued Medications Generic Name Dose Route Start Last Admin Trade Name Claudeq PRN Reason Stop Dose Admin Sodium Chloride 1,000 mls @ 999 mls/hr 10/06/20 18:41 10/06/20 19:27 Normal Saline IV 10/06/20 19:41 999 mls/hr STAT ONE Administration Departure - Departure Time of Disposition: 20:17 Disposition: Home, Self-Care 01 Clinical Impression: Fatigue after COVID-19 vaccination, Mild dehydration, Seizure - Discharge Information Prescriptions: Amoxicillin/Clavulanate K [Augmentin 875-125 MG] 1 tab PO BID 7 Days #14 tablet Instructions: Seizure, Adult, [id number] Referrals: Rhule,Carlos, MD [Primary Care Provider] - Forms: ED Department Discharge Additional Instructions: The following information is given to patients seen in the emergency department who are being discharged to home. This information is to outline your options for follow-up care. We provide all patients seen in our emergency department with a follow-up referral. The need for follow-up, as well as the timing and circumstances, are variable de pending upon the specifics of your emergency department visit. If you don't have a primary care physician on staff, we will provide you with a referral. We always advise you to contact your personal physician following an emergency department visit to inform them of the circumstance of the visit and for follow-up with them and/or the need for any referrals to a consulting specialist. The emergency department will also refer you to a specialist when appropriate. This referral assures that you have the opportunity for follow-up care with a specialist. All of these measure are taken in an effort to provide you with optimal care, which includes your follow-up. Under all circumstances we always encourage you to contact your private physician who remains a resource for coordinating your care. When calling for follow-up care, please make the office aware that this follow-up is from your recent emergency room visit. If for any reason you are refused follow-up, please contact the [facility] at and asked to speak to the emergency department charge nurse. [facility] [address] [place] [address] [place] [address] Thank you for choosing the [facility] emergency department in [place] for your medical needs today. It was a pleasure caring for you. Today you were seen in the emergency department for seizure activity. 1. Today your lab work showed no acute findings, mildly dehydrated. Did receive 1 L of fluids while here. X-ray shows that there could be a possibility of aspiration pneumonia, will treat with antibiotics. Please take 1 tablet twice daily over the next 7 days. Continue to monitor closely for fevers, increasing cough or any change in patient's symptoms. If your symptoms should worsen, new symptoms develop or any of the signs and symptoms we discussed should arise please return to the emergency room or call 911 (if needed). 2. Increase fluids. You can alternate Tylenol and ibuprofen as needed for pain and fever management. 3. We encourage you to follow up with your primary care provider and/or recommended specialist in the next few days for re-evaluation and further care/management. Sepsis Event Note (ED) - Evaluation Sepsis Screening Result: No Definite Risk - Focused Exam Vital Signs: Vital Signs Temp Pulse Resp BP Pulse Ox 10/06/20 18:17 97.6 F 87 18 135/81 97 - My Orders Last 24 Hours: My Active Orders 10/06/20 18:41 EKG Documentation Completion [RC] STAT UA RFX RINKU AND CULT IF INDIC [URIN] Stat 10/06/20 19:23 CARBAMAZEPINE [REF] Stat VALPROIC ACID [REF] Stat 10/06/20 20:15 Amoxicillin/Clavulanate K [Augmentin 875 MG/125 MG] 1 tab PO ONETIME ONE - Assessment/Plan Last 24 Hours: My Active Orders 10/06/20 18:41 EKG Documentation Completion [RC] STAT UA RFX RINKU AND CULT IF INDIC [URIN] Stat 10/06/20 19:23 CARBAMAZEPINE [REF] Stat VALPROIC ACID [REF] Stat 10/06/20 20:15 Amoxicillin/Clavulanate K [Augmentin 875 MG/125 MG] 1 tab PO ONETIME ONE
--- NOTE | 2020-10-06 19:31 | CR ---
INDICATION: Seizure. TECHNIQUE: AP chest. COMPARISON: 05/04/2020. FINDINGS: Heart is mildly enlarged. Low lung volumes are noted which results in vascular crowding. Patchy ground-glass opacities and interstitial prominence is seen bilaterally, predominantly in a perihilar distribution. These findings have improved compared to the prior study. In the setting of a seizure, this potentially could be related to aspiration pneumonitis. Low-grade CHF could also have this appearance. Clinically correlate. No appreciable pleural fluid. No pneumothorax. IMPRESSION: See above. Dictated by Koko Juan MD @ 10/06/2020 7:28:33 PM Dictated by: Koko Juan MD @ 10/06/2020 19:28:40 (Electronically Signed)
[2020-10-06 19:53] LABS: CARBON DIOXIDE,CO2 25.6 mmol/L (21.0-32.0); POTASSIUM,K 3.9 mmol/L (3.5-5.1)
[2020-10-06] MEDS ORDERED: Amoxicillin/Clavulanate K 875-125 MG Tab PO ONE (20:15)
[2020-10-07 00:08] VITALS: BP 163/97; PULSE 83
--- NOTE | 2020-10-07 09:09 | PCM.EKG ---
#1 Interpretation EKG Date: 10/06/20 Time: 18:45 Rhythm: NSR Rate (Beats/Min): 82 Pass Christian: Normal P-Wave: Present QRS: Normal ST-T: Normal QT: Normal Comparison: No Change (05/01/20) EKG Interpretation Comments: Sinus Rhyhtm. No obvious change from prior. However, baseline artifact limiting leads II, III, aVF
== END 2020-10-06 20:47 | disposition home or self-care (01) ==
LOC: MW.ED 18:04
DX: E86.0 Dehydration (principal); G40.909 Epilepsy, unspecified, not intractable, without status epilepticus; T88.1XXA Other complications following immunization, not elsewhere classified, initial encounter; I10 Essential (primary) hypertension; E66.9 Obesity, unspecified; Z68.23 Body mass index [BMI] 23.0-23.9, adult; Z88.8 Allergy status to other drugs, medicaments and biological substances; Z79.899 Other long term (current) drug therapy
CPT/HCPCS: 36415; 71045; 80053; 80156; 80164; 85025; 93005; 99284; A9270; J7030; 93010

== ENCOUNTER 2020-11-06 10:17 | Emergency (ER) | payer MEDICARE, MEDICAID ==
[2020-11-06] MEDS ORDERED: Sodium Chloride 0.9% 2.5 ML Syringe FLUSH PRN (11:19)
[2020-11-06] MEDS ORDERED: Sodium Chloride 0.9% 10 ML Syringe FLUSH PRN (11:19)
--- NOTE | 2020-11-06 11:21 | EDM.PDOC ---
ED HPI GENERAL MEDICAL PROBLEM - General Chief Complaint: General Stated Complaint: UTI/FELL AND HIT HEAD Time Seen by Provider: 11/06/20 10:27 - History of Present Illness INITIAL COMMENTS - FREE TEXT/NARRATIVE: History of present illness: Patient who needs assistance with activities of daily living because of cognitive dysfunction and seizure disorder was brought by a photography colorist who says he has not had a bowel movement for 3 days and has not urinated for 1 day. He also has some tremor when he stands up or tries to urinate. The patient is on stool softeners daily but to go 3 days is unusual for him. The patient has no specific complaint. [] Review of systems: As per history of present illness and below otherwise all systems reviewed and negative. Past medical history: As per history of present illness and as reviewed below otherwise noncontributory. Surgical history: As per history of present illness and as reviewed below otherwise noncontributory. Social history: No reported history of drug or alcohol abuse. Family history: As per history of present illness and as reviewed below otherwise noncontributory. Physical exam: Constitutional - well developed, well-nourished and in no acute distress HEENT - normocephalic, no evidence of trauma - external nose and mouth normal - no mass in neck and no JVD - mucosae moist EYES - full EOM, PERRL, no icterus - no evidence of inflammation, injection, or drainage Respiratory - no respiratory distress, equal bilateral expansion, lungs clear to auscultation and no abnormal lung sounds Cardiovascular - Regular Rhythm with S1 and S2 appreciated and no murmur, gallop or rub. GI - abdomen soft without distension or organomegaly - normal bowel sounds - no guard or rebound /rectal-no genitalia normal circumcised male and rectal exam normal with no o bvious infection Musculoskeletal no gross deformity of long bones or joints - no tenderness, swelling or edema Neurologic - Alert and waking cooperative.- CN II-XII grossly intact - motor sensory and coordination symmetrically normal Psychiatric - appropriate mood and affect him according to his photography colorist. Hematologic - No petechiae or purpura - mucosa appropriate color and sclera not pale - normal nail bed color and refill Integument - no rash or evidence of trauma - normal turgor Diagnostics: [] Therapeutics: [] Impression: [] Plan: [] Definitive disposition and diagnosis as appropriate pending reevaluation and review of above. - Related Data Allergies Allergy/AdvReac Type Severity Reaction Status Date / Time haloperidol Allergy Other Verified 11/06/20 10:56 thioridazine Allergy Other Verified 11/06/20 10:56 Home Meds: Home Meds Gabapentin [Neurontin] 900 mg PO TID 04/21/14 [History] Testosterone Cypionate [Depo-Testosterone] 1 injection SQ ASDIRECTED 08/10/15 [History] polyethylene glycoL 3350 [Polyethylene Glycol 3350] 17 gram PO DAILY 08/10/15 [History] Fenofibrate Nanocrystallized [Fenofibrate] 145 mg PO DAILY 01/24/18 [History] Calcium Carb, Citrate/Vit D3 [Calcium + D3 ER Tablet] 1 tab PO DAILY 10/06/20 [History] Divalproex Sodium [Depakote] 250 mg PO DAILY 10/06/20 [History] Tamsulosin [Flomax] 0.4 mg PO DAILY 10/06/20 [History] carBAMazepine [Tegretol] 200 mg PO ACBREAKFAST 10/06/20 [History] carBAMazepine [Tegretol] 300 mg PO BID 10/06/20 [History] Past Medical History HEENT History: Reports: None Cardiovascular History: Reports: Hypertension Respiratory History: Reports: None Gastrointestinal History: Reports: Chronic Constipation, GERD Other Gastrointestinal History: Heartburn/GERD-controlled Genitourinary History: Reports: None Musculoskeletal History: Reports: Fracture Other Musculoskeletal History: hx: Fracture foot, ankle, shoulder, any hardware 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 Pump Model and Respiratory Supervisor: None Hematologic History: Reports: None Immunologic History: Reports: None Oncologic (Cancer) History: Reports: None Dermatologic History: Reports: None - Infectious Disease History Infectious Disease History: Reports: Novel Coronavirus - Past Surgical History HEENT Surgical History: Reports: None Cardiovascular Surgical History: Reports: None GI Surgical History: Reports: None Male Surgical History: Reports: None Endocrine Surgical History: Reports: None Neurological Surgical History: Reports: None Musculoskeletal Surgical History: Reports: None Oncologic Surgical History: Reports: None Dermatological Surgical History: Reports: None Social & Family History - Family History Family Medical History: No Pertinent Family History HEENT: Reports: None Cardiac: Reports: None Respiratory: Reports: None GI: Reports: None : Reports: None OBGYN: Reports: None Musculoskeletal: Reports: None Neurological: Reports: None Psychiatric: Reports: None Endocrine/Metabolic: Reports: None Hematologic: Reports: None Immunologic: Reports: None Dermatologic: Reports: None Oncologic: Reports: None - Tobacco Use Tobacco Use Status *Q: Never Tobacco User - Caffeine Use Caffeine Use: Reports: None Caffeine Use Comment: unable to asses, came from [facility] - Recreational Drug Use Recreational Drug Use: No ED ROS GENERAL - Review of Systems Review Of Systems: Comprehensive ROS is negative, except as noted in HPI. ED EXAM, GENERAL - Physical Exam Exam: See Below Free Text/Narrative:: My physical exam is in the HPI Course - Vital Signs Text/Narrative:: Had 1000 mL urine out when the catheter was placed. Did not look infected. KUB showed constipation. Patient is already on polyethylene glycol. Patient needs assistance with his bowel habits and prep. Last Recorded V/S: Last Vital Signs Temp 36.2 C 11/06/20 10:53 Pulse 69 11/06/20 10:53 Resp 18 11/06/20 10:53 BP 142/123 H 11/06/20 10:53 Pulse Ox 96 11/06/20 10:53 - Orders/Labs/Meds Orders: Active Orders 24 hr Category Date Time Status Sodium Chloride 0.9% [Saline Flush] Med 11/06/20 11:19 Active 10 ml FLUSH ASDIRECTED PRN Sodium Chloride 0.9% [Saline Flush] Med 11/06/20 11:19 Active 2.5 ml FLUSH ASDIRECTED PRN Saline Lock Insert [OM.PC] Stat Oth 11/06/20 11:19 Ordered Medication Orders Sodium Chloride (Sodium Chloride 0.9% 10 Ml Syringe) 10 ml FLUSH ASDIRECTED PRN PRN Reason: Keep Vein Open Last Admin: 11/06/20 11:46 Dose: 10 ml Documented by: ESTEBAN Sodium Chloride (Sodium Chloride 0.9% 2.5 Ml Syringe) 2.5 ml FLUSH ASDIRECTED PRN PRN Reason: Keep Vein Open Last Admin: 11/06/20 11:46 Dose: 2.5 ml Documented by: ESTEBAN Labs: Laboratory Tests 11/06/20 11/06/20 11/06/20 Range/Units 11:17 11:17 11:40 WBC 8.61 (4.0-11.0) K/uL RBC 3.82 L (4.50-5.90) M/uL Hgb 12.4 L (13.0-17.0) g/dL Hct 37.3 L (38.0-50.0) % MCV 97.6 (80.0-98.0) fL MCH 32.5 H (27.0-32.0) pg MCHC 33.2 (31.0-37.0) g/dL RDW Std Deviation 45.9 (28.0-62.0) fl RDW Coeff of Cecilio 13 (11.0-15.0) % Plt Count 271 (150-400) K/uL MPV 9.40 (7.40-12.00) fL Neut % (Auto) 59.9 (48.0-80.0) % Lymph % (Auto) 30.0 (16.0-40.0) % [place] % (Auto) 8.6 (0.0-15.0) % Eos % (Auto) 1.2 (0.0-7.0) % Baso % (Auto) 0.3 (0.0-1.5) % Neut # (Auto) 5.2 (1.4-5.7) K/uL Lymph # (Auto) 2.6 H (0.6-2.4) K/uL [place] # (Auto) 0.7 (0.0-0.8) K/uL Eos # (Auto) 0.1 (0.0-0.7) K/uL Baso # (Auto) 0.0 (0.0-0.1) K/uL Nucleated RBC % 0.0 /100WBC Nucleated RBCs # 0 K/uL Sodium 136 (136-148) mmol/L Potassium 4.6 (3.5-5.1) mmol/L Chloride 99 (98-107) mmol/L Carbon Dioxide 26.7 (21.0-32.0) mmol/L BUN 25 H (7.0-18.0) mg/dL Creatinine 1.6 H (0.8-1.3) mg/dL Est Cr Clr Drug Dosing 44.53 mL/min Estimated GFR (MDRD) 43.6 ml/min Glucose 101 (74-106) mg/dL Calcium 9.4 (8.5-10.1) mg/dL Total Bilirubin 0.2 (0.2-1.0) mg/dL AST 27 (15-37) IU/L ALT 25 (14-63) IU/L Alkaline Phosphatase 48 (46-116) U/L Total Protein 7.9 (6.4-8.2) g/dL Albumin 3.6 (3.4-5.0) g/dL Globulin 4.3 H (2.6-4.0) g/dL Albumin/Globulin Ratio 0.8 L (0.9-1.6) Urine Color YELLOW Urine Appearance CLEAR Urine pH 6.5 (5.0-8.0) Ur Specific [place] 1.015 (1.001-1.035) Urine Protein NEGATIVE (NEGATIVE) mg/dL Urine Glucose (UA) NEGATIVE (NEGATIVE) mg/dL Urine Ketones NEGATIVE (NEGATIVE) mg/dL Urine Occult Blood NEGATIVE (NEGATIVE) Urine Nitrite NEGATIVE (NEGATIVE) Urine Bilirubin NEGATIVE (NEGATIVE) Urine Urobilinogen 0.2 (<2.0) EU/dL Ur Leukocyte Esterase NEGATIVE (NEGATIVE) Meds: Medications Generic Name Dose Route Start Last Admin Trade Name Claudeq PRN Reason Stop Dose Admin Sodium Chloride 10 ml 11/06/20 11:19 11/06/20 11:46 Sodium Chloride 0.9% 10 Ml Syringe FLUSH 10 ml ASDIRECTED PRN Administration Keep Vein Open Sodium Chloride 2.5 ml 11/06/20 11:19 11/06/20 11:46 Sodium Chloride 0.9% 2.5 Ml Syringe FLUSH 2.5 ml ASDIRECTED PRN Administration Keep Vein Open Departure - Departure Time of Disposition: 12:41 Disposition: Home, Self-Care 01 Condition: Good Clinical Impression: Constipation, Urinary retention - Discharge Information Instructions: Chronic Constipation, Acute Urinary Retention, Male, [id number] Referrals: Carlos Dangelo MD [Primary Care Provider] - Forms: ED Department Discharge Additional Instructions: I would switch the patient to a new laxative using Colace twice a day with plenty of fluid and then use Ex-Lax or other similar stimulants such as mag citrate when he is unable to go. If relieving constipation does not solve the urinary tract in the problem then he needs to follow-up with urology. [facility] - Urology [address] [place] [address] [facility] - Primary Care [address] [place] [id number] [facility] [address] [place] [id number] The following information is given to patients seen in the emergency department who are being discharged to home. This information is to outline your options for follow-up care. We provide all patients seen in our emergency department with a follow-up referral. The need for follow-up, as well as the timing and circumstances, are variable depending upon the specifics of your emergency department visit. If you don't have a primary care physician on staff, we will provide you with a referral. We always advise you to contact your personal physician following an emergency department visit to inform them of the circumstance of the visit and for follow-up with them and/or the need for any referrals to a consulting specialist. The emergency department will also refer you to a specialist when appropriate. This referral assures that you have the opportunity for follow-up care with a specialist. All of these measure are taken in an effort to provide you with optimal care, which includes your follow-up. Under all circumstances we always encourage you to contact your private physician who remains a resource for coordinating your care. When calling for follow-up care, please make the office aware that this follow-up is from your recent emergency room visit. If for any reason you are refused follow-up, please contact the [facility] Emergency Department at and asked to speak to the emergency department charge nurse. Sepsis Event Note (ED) - Evaluation Sepsis Screening Result: No Definite Risk - Focused Exam Vital Signs: Vital Signs Temp Pulse Resp BP Pulse Ox 11/06/20 10:53 36.2 C 69 18 142/123 H 96 - My Orders Last 24 Hours: My Active Orders 11/06/20 11:19 Sodium Chloride 0.9% [Saline Flush] 10 ml FLUSH ASDIRECTED PRN Sodium Chloride 0.9% [Saline Flush] 2.5 ml FLUSH ASDIRECTED PRN Saline Lock Insert [OM.PC] Stat - Assessment/Plan Last 24 Hours: My Active Orders 11/06/20 11:19 Sodium Chloride 0.9% [Saline Flush] 10 ml FLUSH ASDIRECTED PRN Sodium Chloride 0.9% [Saline Flush] 2.5 ml FLUSH ASDIRECTED PRN Saline Lock Insert [OM.PC] Stat
[2020-11-06 11:58] LABS: CARBON DIOXIDE,CO2 26.7 mmol/L (21.0-32.0); POTASSIUM,K 4.6 mmol/L (3.5-5.1)
--- NOTE | 2020-11-06 12:26 | CR ---
Indication: Constipation Technique: KUB Comparison: No comparison Findings: Large amount stool throughout the colon bowel. Gas pattern is nonobstructive. Area of increased density in the left pelvis nonspecific could be related calcifications versus stool contents. Impression: Large colonic fluid stool volume. Nonobstructive bowel gas pattern. Dictated by Tanya Lopez MD @ Nov 06 2020 12:24PM Signed by Dr. Tanya Lopez @ Nov 06 2020 12:26PM
[2020-11-06 13:19] VITALS: BP 111/68; PULSE 82
== END 2020-11-06 13:18 | disposition home or self-care (01) ==
LOC: MW.ED 10:17
DX: K59.00 Constipation, unspecified (principal); R33.9 Retention of urine, unspecified; I10 Essential (primary) hypertension; E66.9 Obesity, unspecified; Z68.27 Body mass index [BMI] 27.0-27.9, adult; Z86.16 Personal history of COVID-19; Z88.8 Allergy status to other drugs, medicaments and biological substances; Z79.899 Other long term (current) drug therapy
CPT/HCPCS: 36415; 74018; 74018-26; 80053; 81003; 85025; 99283; 99283-25

== ENCOUNTER 2020-12-26 18:25 | Emergency (ER) | payer MEDICARE, MEDICAID ==
[2020-12-26] MEDS ORDERED: Lidocaine 1% with EPINEPHrine 1:100,000 20 ML MDV INJECT ONE (18:41)
--- NOTE | 2020-12-26 18:57 | EDM.PDOC ---
<Saul Harvey - Last Filed: 12/27/20 05:56> ED HPI GENERAL MEDICAL PROBLEM - General Chief Complaint: Laceration Stated Complaint: HEAD LACERATION, FALL Time Seen by Provider: 12/26/20 18:41 - History of Present Illness INITIAL COMMENTS - FREE TEXT/NARRATIVE: HISTORY AND PHYSICAL: History of present illness: 8:07 PM: This is a 67-year-old gentleman with history of severe intellectual disability disorder, seizure disorder who presents ER today secondary to a witnessed fall. Caregiver at bedside reports that patient fell backwards in a standing height that any evidence of LOC, nausea, vomiting, seizure activity. Upon my evaluation of the patient, the patient denies any chest pain, shortness of breath, abdominal pain, extremity pain, hip pain, pelvis pain. Patient denies any C-spine T-spine or L-spine tenderness. Review of systems: As per history of present illness and below otherwise all systems reviewed and negative. Past medical history: As per history of present illness and as reviewed below otherwise noncontributory. Surgical history: As per history of present illness and as reviewed below otherwise noncontributory. Social history: No reported history of drug abuse. Family history: As per history of present illness and as reviewed below otherwise noncontributory. This patient was seen and evaluated during the 2019 SARS-CoV-2 novel coronavirus pandemic period. Community viral transmission is ongoing at time of this encounter and the emergency department is operating under pandemic response procedures. Constitutional: Appears well-developed and well-nourished. No distress. HEENT: Moist mucous membranes Head: Normocephalic Eyes: Right eye exhibits no discharge. Left eye exhibits no discharge. No scleral icterus Neck: Normal range of motion. No tracheal deviation present. Cardiovascular: Normal rate and regular rhythm. Pulmonary: Effort normal, no respiratory distress. Abdominal: No distention Musculoskeletal: Normal range of motion Neurologic: Alert and awake. Moves all extremities well Skin: [place], warm and dry. Nursing note and vital signs have been reviewed Patient has no C-spine T-spine or L-spine tenderness to palpation. Patient has no left upper or right upper quadrant tenderness to palpation. Patient has no crepitus to palpation to the anterior chest wall. Patient is neurologically intact and at baseline mental status.. Patient does not present with any signs or or symptoms that would be consistent with acute intracranial, intra- abdominal, intrathoracic, or long bone injury. All long bones have been palpated and range of motion been performed and there is no evidence of any acute pathology. Patient does have a 9 cm laceration to his left posterior occiput that has been stapled by the ongoing physician. Diagnostics: CT scan of the head reveals no acute intracranial pathology bleed. Drive Therapeutics: Td 0.5 IM Assessment and plan: 65-year-old gentleman with a recent fall with no evidence of intracranial pathology. Patient had a CT scan of the head which reveals no intracranial pathology or bleed. Patient be discharged home with head injury precautions. Tdap 0.5 mL IM given. Definitive disposition and diagnosis as appropriate pending reevaluation and review of above. - Related Data Allergies Allergy/AdvReac Type Severity Reaction Status Date / Time haloperidol Allergy Other Verified 11/06/20 10:56 thioridazine Allergy Other Verified 11/06/20 10:56 Home Meds: Home Meds Gabapentin [Neurontin] 900 mg PO TID 04/21/14 [History] Testosterone Cypionate [Depo-Testosterone] 1 injection SQ ASDIRECTED 08/10/15 [History] polyethylene glycoL 3350 [Polyethylene Glycol 3350] 17 gram PO DAILY 08/10/15 [History] Fenofibrate Nanocrystallized [Fenofibrate] 145 mg PO DAILY 01/24/18 [History] Calcium Carb, Citrate/Vit D3 [Calcium + D3 ER Tablet] 1 tab PO DAILY 10/06/20 [History] Divalproex Sodium [Depakote] 250 mg PO DAILY 10/06/20 [History] Tamsulosin [Flomax] 0.4 mg PO DAILY 10/06/20 [History] carBAMazepine [Tegretol] 200 mg PO ACBREAKFAST 10/06/20 [History] carBAMazepine [Tegretol] 300 mg PO BID 10/06/20 [History] ED ROS GENERAL - Review of Systems Review Of Systems: See Below ED EXAM, SKIN/RASH Exam: See Below Departure - Departure Time of Disposition: 20:28 Disposition: Home, Self-Care 01 Condition: Good Clinical Impression: Fall in elderly patient Head injury Qualifiers: Encounter type: initial encounter Qualified Code(s): S09.90XA - Unspecified injury of head, initial encounter Scalp laceration Qualifiers: Encounter type: initial encounter Qualified Code(s): S01.01XA - Laceration without foreign body of scalp, initial encounter - Discharge Information Instructions: Head Injury, Adult, Laceration Care, Adult, Sutures, Hanh, or Adhesive Wound Closure, [id number] Referrals: Carlos Dangelo MD [Primary Care Provider] - Forms: ED Department Discharge Additional Instructions: You were seen and evaluated the ER today secondary to a fall resulting in a laceration to your scalp. The CT scan of your head reveals no significant acute intracranial pathology. You received hanh in her scalp that will need to be removed in 10 to 14 days. You will need a wound check by your doctor or nurse in 2 days to assure no evidence of early infection. The following information is given to patients seen in the emergency department who are being discharged to home. This information is to outline your options for follow-up care. We provide all patients seen in our emergency department with a follow-up referral. The need for follow-up, as well as the timing and circumstances, are variable depending upon the specifics of your emergency department visit. If you don't have a primary care physician on staff, we will provide you with a referral. We always advise you to contact your personal physician following an emergency department visit to inform them of the circumstance of the visit and for follow-up with them and/or the need for any referrals to a consulting spec ialist. The emergency department will also refer you to a specialist when appropriate. This referral assures that you have the opportunity for follow-up care with a specialist. All of these measure are taken in an effort to provide you with optimal care, which includes your follow-up. Under all circumstances we always encourage you to contact your private physician who remains a resource for coordinating your care. When calling for follow-up care, please make the office aware that this follow-up is from your recent emergency room visit. If for any reason you are refused follow-up, please contact the [facility] Emergency Department at and asked to speak to the emergency department charge nurse. [facility] - Primary Care [address] [place] [address] [id number] [address] [address] <Neo Quinn - Last Filed: 12/27/20 19:08> Past Medical History HEENT History: Reports: None Cardiovascular History: Reports: Hypertension Respiratory History: Reports: None Gastrointestinal History: Reports: Chronic Constipation, GERD Other Gastrointestinal History: Heartburn/GERD-controlled Genitourinary History: Reports: None Musculoskeletal History: Reports: Fracture Other Musculoskeletal History: hx: Fracture foot, ankle, shoulder, any hardware denied by enrollment management manager Neurological History: Reports: Seizure, Other (See Below) Other Neuro History: No reported seizures since . 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 Pump Model and Terminal Operations Manager: None Hematologic History: Reports: None Immunologic History: Reports: None Oncologic (Cancer) History: Reports: None Dermatologic History: Reports: None - Infectious Disease History Infectious Disease History: Reports: Novel Coronavirus - Past Surgical History HEENT Surgical History: Reports: None Cardiovascular Surgical History: Reports: None GI Surgical History: Reports: None Male Surgical History: Reports: None Endocrine Surgical History: Reports: None Neurological Surgical History: Reports: None Musculoskeletal Surgical History: Reports: None Oncologic Surgical History: Reports: None Dermatological Surgical History: Reports: None Social & Family History - Family History Family Medical History: No Pertinent Family History HEENT: Reports: None Cardiac: Reports: None Respiratory: Reports: None GI: Reports: None : Reports: None OBGYN: Reports: None Musculoskeletal: Reports: None Neurological: Reports: None Psychiatric: Reports: None Endocrine/Metabolic: Reports: None Hematologic: Reports: None Immunologic: Reports: None Dermatologic: Reports: None Oncologic: Reports: None - Caffeine Use Caffeine Use: Reports: None Caffeine Use Comment: unable to asses, came from [facility] ED SKIN PROCEDURES - Laceration/Wound Repair [place] Progress/Comments: Laceration Repair Procedure Location: [place] of scalp Length: 9 cm Suture size and type: Hanh Number of sutures: 13 Complexity: Simple Time out: Yes, confirmed patient, place, procedure correct Consent: Verbal Suture technique: Simple interrupted Procedure: The wound was irrigated copiously with normal saline or sterile water. Close inspection revealed no evidence for retained foreign bodies. Anesthesia was achieved using lidocaine. [place] were placed using the above technique with approximation of the wound edges. Good hemostasis Complications: None Performed by: Corwin Quinn MD Course - Vital Signs Last Recorded V/S: Last Vital Signs Temp 98 F 12/26/20 20:40 Pulse 56 L 12/26/20 20:40 Resp 18 12/26/20 18:45 BP 135/97 H 12/26/20 20:40 Pulse Ox 96 12/26/20 20:40 - Orders/Labs/Meds Meds: Medications Discontinued Medications Generic Name Dose Route Start Last Admin Trade Name Freq PRN Reason Stop Dose Admin Diphtheria/Tetanus/Acell Pertussis 0.5 ml 12/26/20 19:44 12/26/20 19:53 Diphtheria,Pertussis(Acell),Tetanus Vaccine 0.5 Ml Syringe IM 12/26/20 19:45 0.5 ml .ONCE ONE Administration Lidocaine/Epinephrine 20 ml 12/26/20 18:41 12/26/20 19:38 Lidocaine 1% With Epinephrine 1:100,000 20 Ml Mdv INJECT 12/26/20 18:42 20 ml ONETIME ONE Administration
[2020-12-26] MEDS ORDERED: Diphtheria,Pertussis(Acell),Tetanus Vaccine 0.5 ML Syringe IM ONE (19:44)
--- NOTE | 2020-12-26 19:59 | CT ---
Indication: Head laceration. Fall. Technique: Multiple contiguous axial images were obtained from the skullbase to the vertex without intravenous contrast enhancement. Please note that all CT scans at this facility use dose modulation, iterative reconstruction, and/or weight-based dosing when appropriate to reduce radiation dose to as low as reasonably achievable. Comparison: None Findings: The ventricles are enlarged consistent with the size of the sulci. Confluent areas of low-attenuation are identified within the periventricular white matter. No intra-axial or extra-axial hemorrhage is identified. No mass, mass effect or midline shift is seen. The bony calvarium is intact. The visualized paranasal sinuses and mastoid air cells are clear. Impression: No acute intracranial process. Mild diffuse volume loss. Soft tissue swelling identified adjacent to the left posterior parietal bone. Please note that all CT scans at this facility use dose modulation, iterative reconstruction, and/or weight-based dosing when appropriate to reduce radiation dose to as low as reasonably achievable. Dictated by Bianca Martinez MD @ 12/26/2020 7:58:[address] Bianca Martinez @ Dec 26 2020 7:58PM
[2020-12-26 21:08] VITALS: BP 135/97; PULSE 56
== END 2020-12-26 20:45 | disposition home or self-care (01) ==
LOC: MW.ED 18:25
DX: S01.01XA Laceration without foreign body of scalp, initial encounter (principal); G40.909 Epilepsy, unspecified, not intractable, without status epilepticus; F72 Severe intellectual disabilities; Z23 Encounter for immunization; Z88.8 Allergy status to other drugs, medicaments and biological substances; Z79.899 Other long term (current) drug therapy; Z79.01 Long term (current) use of anticoagulants; W18.30XA Fall on same level, unspecified, initial encounter
CPT/HCPCS: 12004; 70450; 70450-26; 90471; 90715; 99283; 99283-25

== ENCOUNTER 2021-01-07 10:50 | Emergency (ER) | payer MEDICARE, MEDICAID | END 2021-01-07 11:32 | disposition left against medical advice (07) | LOC: MW.ED 10:50 | DX: S01.01XD Laceration without foreign body of scalp, subsequent encounter (principal); X58.XXXD Exposure to other specified factors, subsequent encounter | CPT/HCPCS: 99281 ==